=== PATIENT | male | born 1975 | race Caucasian/White ===

== ENCOUNTER → 2017-05-10 08:55 | Outpatient (CLI) | payer OTHER, SELFPAY ==
[2017-05-10 09:27] LABS: Basophils % 0.4 % (0.1-2.0); Eosinophils # 0.2 K/mm3 (0.0-0.4); Eosinophils % 2.3 % (0.1-12.0); Hematocrit 43.2 % (42.0-52.0); Hemoglobin 14.6 g/dL (14.1-18.0); Lymphocytes # 3.7 K/mm3 (0.7-4.5); Lymphocytes % 39.5 K/mm3 (10-50); Mean Corpuscular HGB Conc 33.8 g/dL (31.8-35.4); Mean Corpuscular Hemoglobin 29.7 pg (27.0-31.2); Mean Corpuscular Volume 88.1 fl (80-94); Mean Platelet Volume 7.2 fl (7.4-10.4); Monocytes # 0.5 K/mm3 (0.1-1.0); Monocytes % 5.6 % (1.7-9.3); Neutrophils # 4.9 K/mm3 (1.8-7.8); Neutrophils % 52.3 % (37.0-80.0); Platelet Count 230 K/mm3 (142-424); Red Blood Count 4.91 M/mm3 (4.60-6.20); Red Cell Distribution Width 13.3 % (11.5-17.5); White Blood Count 9.4 K/mm3 (4.8-10.8)
[2017-05-10 09:40] LABS: Alanine Aminotransferase 46 U/L (12-78); Albumin Level 3.7 gm/dL (3.4-5.0); Alkaline Phosphatase 113 U/L (46-116); Aspartate Amino Transferase 25 U/L (15-37); Bilirubin,Total 0.1 mg/dL (0.2-1.0); Blood Urea Nitrogen 10 mg/dL (7-18); Calcium 8.7 mg/dL (8.5-10.1); Carbon Dioxide 31 mmol/L (21.0-32.0); Chloride 103 mmol/L (98-107); Estimated Glomerular Filt Rate 107 ml/min (>60); GFR (African American) 129 ML/MIN (>60); Globulin 3.7 gm/dl (1.3-3.2); Glucose 88 mg/dL (74-106); Sodium 136 mmol/L (136-145); Total Protein,Serum 7.4 gm/dL (6.4-8.2)
[2017-05-11 18:36] LABS: HIV Screen 4th Generation wRfx Non Reactive (Non Reactive)
[2017-05-11 18:37] LABS: Hep B Surface Ab, Qual Non Reactive (.); Hepatitis C Antibody <0.1 s/co ratio (0.0-0.9)
== END ==
PROVIDERS: PCP Preventive Medicine Addiction Medicine; Visit Provider Preventive Medicine Addiction Medicine
DX: Z87.898 Personal history of other specified conditions (principal); Z86.59 Personal history of other mental and behavioral disorders; Z11.4 Encounter for screening for human immunodeficiency virus [HIV]; Z11.59 Encounter for screening for other viral diseases
CPT/HCPCS: 36415; 80053; 85025; 86703; 86706; 87380; G0432

== ENCOUNTER 2020-08-23 15:42 | Emergency (ER) | payer MEDICAID, SELFPAY ==
[2020-08-23] VITALS (7 sets, daily range): BP systolic 102–143; BP diastolic 64–83; PULSE 87–105; RESP 18; TEMP 36.8–36.9; O2SAT 90–98; BMI 38.7
--- NOTE | 2020-08-23 16:43 | HMH.EDGENADL ---
ED Disposition Clinical Impression: Peripheral edema, Stasis dermatitis of both legs Disposition: Home, Self-Care Condition on Discharge: Good Instructions: DI for Peripheral Edema -- Bilateral Additional Instructions: Elevate both legs. Lasix as prescribed for 3 days. Follow-up with your primary care provider within 1 week. Return to the emergency department if worsening redness, pain, or fever develops. Prescriptions: Furosemide [Lasix 20mg tab] 20 mg PO DAILY #3 tab Referrals: Provider,Referral, [Primary Care Provider] - - Critical Care Critical Care Time: No Attestation: On 08/23/20, the high probability of a clinically significant, sudden or life threatening deterioration of the following system(s) required my full and direct attention, intervention and personal management. The time I documented below is in addition to time spent performing reported procedures but includes the following listed in this critical care notation. Medical Decision Making - [place] Inquiry Pt receiving controlled substance: No Vital Signs: 08/23/20 15:43 08/23/20 16:31 08/23/20 17:00 Temperature 98.3 F Temperature Source Oral Pulse Rate 95 H 92 H Pulse Rate [Right] 105 H Respiratory Rate 18 Blood Pressure 102/64 L 107/65 L Blood Pressure [Right Arm] 138/83 Blood Pressure Mean 75 72 Blood Pressure Mean [Right Arm] 101 02 Sat by Pulse Oximetry 98 94 L 90 L 08/23/20 17:30 08/23/20 18:00 08/23/20 18:31 Temperature Temperature Source Pulse Rate 93 H 96 H 91 H Pulse Rate [Right] Respiratory Rate Blood Pressure 104/68 L 106/74 L 113/67 Blood Pressure [Right Arm] Blood Pressure Mean 75 80 82 Blood Pressure Mean [Right Arm] 02 Sat by Pulse Oximetry 96 96 93 L - Lab Data Lab Results 08/23/20 16:29: WBC 8.5, RBC 4.50 L, Hgb 14.1, Hct 40.8 L, MCV 90.5, MCH 31.4 H, MCHC 34.6, RDW 15.7, Plt Count 175, MPV 7.5, Neut % (Auto) 60.1, Lymph % (Auto) 32.2, [place] % (Auto) 4.2, Eos % (Auto) 2.8, Baso % (Auto) 0.7, Neut # (Auto) 5.1, Lymph # (Auto) 2.7, [place] # (Auto) 0.4, Eos # (Auto) 0.2, Baso # (Auto) 0.1 08/23/20 16:29: Sodium 140, Potassium 3.5, Chloride 101, Carbon Dioxide 31 H, Anion Gap 11.5, BUN 5 L, Creatinine 0.60 L, Estimated Creat Clear 280, Estimated GFR 146, Est GFR ( Amer) 177, Glucose 116 H, Calcium 8.8, Total Bilirubin 0.3, AST 47, ALT 46, Alkaline Phosphatase 106, Total Protein 7.3, Albumin 4.3, Globulin 3.0, Albumin/Globulin Ratio 1.4 08/23/20 16:29: ESR 24 H 08/23/20 16:29: C-Reactive Protein 13.0 H 08/23/20 16:29: NT-Pro-B Natriuret Pep < 11.1 08/23/20 16:29: Procalcitonin 0.076 08/23/20 17:30: Lactate 1.1 Result diagrams: 08/23/20 16:29 08/23/20 16:29 Orders (Tests/Meds): ED MEDICATIONS Discontinued Medications Generic Name Dose Route Start Last Admin Trade Name Freq PRN Reason Stop Dose Admin Furosemide 40 mg 08/23/20 19:05 08/23/20 19:11 Furosemide 40mg/4ml Vial IV 08/23/20 19:06 40 mg ONCE ONE Administration ORDERS Category Date Time Status Blood Culture Stat Micro 08/23/20 17:10 Received Medical Decision Narrative: Symmetric erythema and edema of lower extremities, no significant warmth over the area of erythema. No lymphangitis. No abscesses. No open wounds. Most likely venous stasis with stasis dermatitis. Doubt infectious cause. 7:16 PM: I do not feel the patient has bacterial infection. WBC normal, no fever. Inflammatory markers minimally elevated and pro calcitonin normal. He will be treated with Lasix, elevation. Advised to return if worsening redness or if fever develops. General Adult HPI - General Chief complaint: Extremity Injury, Lower Stated complaint: Legs swollen Time Seen by Provider: 08/23/20 16:43 Mode of Arrival: Family Vehicle Limitations: No Limitations Description of Symptoms (Recalled from ER Triage Doc. by RN): Patient c/o lower extremity ankle swelling and redness since 08/19/20. Patie
[2020-08-23 16:49] LABS: Basophils # 0.1 K/mm3 (0-0.2); Basophils % 0.7 % (0.1-2.0); Eosinophils # 0.2 K/mm3 (0.0-0.4); Eosinophils % 2.8 % (0.1-12.0); Hematocrit 40.8 % (42.0-52.0); Hemoglobin 14.1 g/dL (14.1-18.0); Lymphocytes # 2.7 K/mm3 (0.7-4.5); Lymphocytes % 32.2 % (10-50); Mean Corpuscular HGB Conc 34.6 g/dL (31.8-35.4); Mean Corpuscular Hemoglobin 31.4 pg (27.0-31.2); Mean Corpuscular Volume 90.5 fl (80-94); Mean Platelet Volume 7.5 fl (7.4-10.4); Monocytes # 0.4 K/mm3 (0.1-1.0); Monocytes % 4.2 % (1.7-9.3); Neutrophils # 5.1 K/mm3 (1.8-7.8); Neutrophils % 60.1 % (37.0-80.0); Platelet Count 175 K/mm3 (142-424); Red Cell Distribution Width 15.7 % (11.5-17.5); White Blood Count 8.5 K/mm3 (4.8-10.8)
[2020-08-23 16:56] LABS: Chloride 101 mmol/L (98-107); Potassium 3.5 mmoL/L (3.5-5.1); Sodium 140 mmol/L (136-145)
[2020-08-23 16:59] LABS: Alanine Aminotransferase 46 U/L (12-78); Albumin Level 4.3 g/dl (3.5-5.0); Albumin/Globulin Ratio 1.4 (1.1-1.8); Alkaline Phosphatase 106 U/L (38-126); Anion Gap 11.5 mEq/L (5-15); Aspartate Amino Transferase 47 U/L (17-59); Bilirubin,Total 0.3 mg/dl (0.2-1.3); Blood Urea Nitrogen 5 mg/dl (9-20); Carbon Dioxide 31 mmol/L (22.0-30.0); Creatinine Clearance Estimated 280 mL/min (50-200); Estimated Glomerular Filt Rate 146 ml/min (>60); GFR (African American) 177 ML/MIN (>60); Total Protein,Serum 7.3 g/dl (6.3-8.2)
[2020-08-23 17:00] LABS: Calcium 8.8 mg/dl (8.4-10.2); Glucose 116 mg/dl (74-100)
[2020-08-23 17:47] LABS: NT Pro Brain Natriuretic Pep. < 11.1 pg/mL (0-125)
[2020-08-23 17:48] LABS: Erythrocyte Sedimentation Rate 24 mm/hr (0-15)
[2020-08-23 17:53] LABS: Lactic Acid 1.1 mmol/L (0.7-2.1)
[2020-08-23 18:11] LABS: Procalcitonin 0.076 ng/mL (0.0-2.0)
== END 2020-08-23 19:37 | disposition home or self-care (01) ==
PROVIDERS: Emergency Provider Emergency Medicine
DX: R60.0 Localized edema (principal); I87.2 Venous insufficiency (chronic) (peripheral)
CPT/HCPCS: 80053; 83605; 83880; 84145; 85025; 85651; 86140; 87040; 96374; 99283

== ENCOUNTER 2021-01-05 10:38 | Emergency (ER) | payer MEDICAID, SELFPAY ==
[2021-01-05 10:51] VITALS: BP 175/100; PULSE 109; RESP 20; TEMP 36.9; O2SAT 96; BMI 39.0
--- NOTE | 2021-01-05 10:52 | HMH.EDGENADL ---
ED Disposition Clinical Impression: Facial cellulitis Disposition: Home, Self-Care Condition on Discharge: Fair Instructions: Cellulitis, DI for Skin Abscess Additional Instructions: You have been evaluated for painful red swelling to the left lower place, diagnosed with cellulitis. Take Bactrim as prescribed. Follow-up with your primary care doctor in 1 to 2 days for wound recheck. Take Tylenol and Motrin for pain. Return to the emergency department for any new or worsening symptoms, worsening swelling, difficulty breathing, difficulty swallowing. Prescriptions: Sulfamethoxazole/Trimethoprim [Bactrim DS tablet] 1 each PO BID #14 tab Transmission Status: Received by [facility] Referrals: ProviderCar MD [Primary Care Provider] - Giorgio Wakefield MD [Staff Physician] - Time of Disposition: 12:02 - Critical Care Critical Care Time: No Attestation: On 01/05/21, the high probability of a clinically significant, sudden or life threatening deterioration of the following system(s) required my full and direct attention, intervention and personal management. The time I documented below is in addition to time spent performing reported procedures but includes the following listed in this critical care notation. Medical Decision Making - Medical Records Medical records reviewed: Yes: I reviewed the patient's medical records. - [place] Inquiry Pt receiving controlled substance: No Vital Signs: 01/05/21 10:51 01/05/21 12:12 Temperature 98.4 F 98.4 F Temperature Source Oral Oral Pulse Rate 99 H Pulse Rate [Right Radial] 109 H Respiratory Rate 20 20 Blood Pressure 169/90 H Blood Pressure [Right Arm] 175/100 H Blood Pressure Mean [Right Arm] 125 02 Sat by Pulse Oximetry 96 Oxygen Delivery Method Room Air Room Air Orders (Tests/Meds): ED MEDICATIONS Discontinued Medications Generic Name Dose Route Start Last Admin Trade Name Freq PRN Reason Stop Dose Admin Cocaine HCl 1 ml 01/05/21 10:50 01/05/21 11:11 Cocaine 4% Topical Soln 4ml Bottle TP 01/05/21 10:51 Not Given ONCE ONE Epinephrine HCl 1 mg 01/05/21 10:50 01/05/21 11:11 Epinephrine 1 Mg/Ml Ampul TOPICAL 01/05/21 10:51 Not Given ONCE ONE Lidocaine HCl 1 ml 01/05/21 10:50 01/05/21 11:11 Lidocaine 4% Topical Soln 1ml TP 01/05/21 10:51 Not Given ONCE ONE Lidocaine HCl 5 ml 01/05/21 10:51 01/05/21 11:08 Lidocaine 1% 10ml Mdv SQ 01/05/21 10:52 5 ml ONCE ONE Administration Lidocaine/Prilocaine 5 gm 01/05/21 11:10 01/05/21 11:11 Lidocaine/Prilocaine 5gm Tube TP 01/05/21 11:11 5 gm ONCE ONE Administration Medical Decision Narrative: In summary this is a 45-year-old male with history of medication controlled diabetes presenting to the emergency department with an area of painful red swelling to his lower face, near the jawline. Patient clinically stable on arrival. Vital signs within normal limits. Afebrile. Differential diagnoses include cellulitis and abscess. He does not have teeth, doubt odontogenic source. Bedside ultrasound shows cobblestoning, consistent with cellulitis. There is no hypoechoic fluid collection amenable to drainage. Let gel applied and skin anesthetized with 1% lidocaine. Aspiration showed minimal white fluid, rest was serosanguinous. Abscess cavity packed with iodinated gauze. Patient given prescription for Bactrim. Counseled on close PCP follow-up, recommended wound check in 1-2 days. Given return precautions. Stable for discharge. General Adult HPI - General Stated complaint: abscess outside of mouth&back of head Time Seen by Provider: 01/05/21 10:52 Mode of Arrival: Ambulatory Source of Information: Patient Limitations: No Limitations - History of Present Illness HPI narrative: 45-year-old male presenting to the emergency department with an area of painful swelling to the lower side of his left jaw. Noticed it 2 days ago. It was re
--- NOTE | 2021-01-05 11:17 | PC.NURSE ---
emla cream applied per md request
[2021-01-05 12:12] VITALS: BP 169/90; PULSE 99; RESP 20; TEMP 36.9; O2SAT 96
== END 2021-01-05 12:17 | disposition home or self-care (01) ==
PROVIDERS: Emergency Provider Emergency Medicine
DX: L03.211 Cellulitis of face (principal); E11.9 Type 2 diabetes mellitus without complications; Z88.5 Allergy status to narcotic agent
CPT/HCPCS: 10060; 99282

== ENCOUNTER → 2022-12-03 23:40 | Outpatient (CLI) | payer MEDICAID, SELFPAY ==
[2022-12-03 18:24] LABS: Alanine Aminotransferase 72 U/L (12-78); Albumin Level 4.1 g/dl (3.5-5.0); Albumin/Globulin Ratio 1.3 (1.1-1.8); Alkaline Phosphatase 121 U/L (38-126); Anion Gap 9.9 mEq/L (5-15); Aspartate Amino Transferase 49 U/L (17-59); Bilirubin,Total 0.2 mg/dl (0.2-1.3); Blood Urea Nitrogen 11 mg/dl (9-20); Carbon Dioxide 30 mmol/L (22.0-30.0); Chloride 99 mmol/L (98-107); Chol/HDL Ratio 6.1 (1-3.5); Cholesterol 207 mg/dl (140-200); Estimated Glomerular Filt Rate 121 ml/min (>60); GFR (African American) 146 ML/MIN (>60); Globulin 3.2 g/dL (1.3-3.2); Glucose 146 mg/dl (74-100); HDL Cholesterol 34 mg/dl (40-60); Potassium 3.9 mmoL/L (3.5-5.1); Sodium 135 mmol/L (136-145); Total Protein,Serum 7.3 g/dl (6.3-8.2); Triglycerides 277 mg/dl (30-150); VLDL Cholesterol 55 mg/dL (0-40)
[2022-12-03 18:34] LABS: Direct LDL Cholesterol 130.21 mg/dL (100-129)
[2022-12-03 18:38] LABS: Basophils % 0.5 % (0.1-2.0); Eosinophils # 0.2 K/mm3 (0.0-0.4); Eosinophils % 2.3 % (0.1-12.0); Hemoglobin 15.5 g/dL (14.1-18.0); Lymphocytes % 43.5 % (10-50); Mean Corpuscular HGB Conc 35.2 g/dL (31.8-35.4); Mean Corpuscular Hemoglobin 30.8 pg (27.0-31.2); Mean Corpuscular Volume 87.6 fl (80-94); Mean Platelet Volume 8.5 fl (7.4-10.4); Monocytes # 0.4 K/mm3 (0.1-1.0); Monocytes % 4.3 % (1.7-9.3); Neutrophils # 4.6 K/mm3 (1.8-7.8); Neutrophils % 49.5 % (37.0-80.0); Platelet Count 180 K/mm3 (142-424); Red Blood Count 5.03 M/mm3 (4.60-6.20); Red Cell Distribution Width 14.2 % (11.5-17.5); White Blood Count 9.2 K/mm3 (4.8-10.8)
[2022-12-03 18:40] LABS: Free T4 (Free Thyroxine) 1.13 ng/dl (0.78-2.19)
[2022-12-03 19:12] LABS: Hemoglobin A1C 6.6 % (4.0-6.0)
== END ==
PROVIDERS: PCP Nurse Practitioner Acute Care; Visit Provider Nurse Practitioner Acute Care
DX: F34.1 Dysthymic disorder (principal); F41.1 Generalized anxiety disorder
CPT/HCPCS: 80053; 80061; 83036; 84439; 84443; 85025

== ENCOUNTER → 2023-02-04 06:51 | Outpatient (CLI) | payer OTHER, SELFPAY ==
[2023-02-04 18:23] LABS: Basophils % 0.5 % (0.1-2.0); Eosinophils # 0.1 K/mm3 (0.0-0.4); Eosinophils % 1.8 % (0.1-12.0); Hematocrit 41.2 % (42.0-52.0); Hemoglobin 13.7 g/dL (14.1-18.0); Lymphocytes # 2.7 K/mm3 (0.7-4.5); Lymphocytes % 37.7 % (10-50); Mean Corpuscular HGB Conc 33.3 g/dL (31.8-35.4); Mean Corpuscular Hemoglobin 29.8 pg (27.0-31.2); Mean Corpuscular Volume 89.3 fl (80-94); Mean Platelet Volume 7.8 fl (7.4-10.4); Monocytes # 0.4 K/mm3 (0.1-1.0); Monocytes % 4.9 % (1.7-9.3); Neutrophils % 55.1 % (37.0-80.0); Platelet Count 207 K/mm3 (142-424); Red Blood Count 4.62 M/mm3 (4.60-6.20); Red Cell Distribution Width 14.8 % (11.5-17.5); White Blood Count 7.3 K/mm3 (4.8-10.8)
[2023-02-04 18:30] LABS: Alanine Aminotransferase 51 U/L (12-78); Albumin Level 4.1 g/dl (3.5-5.0); Albumin/Globulin Ratio 1.5 (1.1-1.8); Alkaline Phosphatase 99 U/L (38-126); Anion Gap 8.6 mEq/L (5-15); Aspartate Amino Transferase 110 U/L (17-59); Bilirubin,Total 0.3 mg/dl (0.2-1.3); Blood Urea Nitrogen 11 mg/dl (9-20); Calcium 8.4 mg/dl (8.4-10.2); Carbon Dioxide 29 mmol/L (22.0-30.0); Chloride 100 mmol/L (98-107); Estimated Glomerular Filt Rate 121 ml/min (>60); GFR (African American) 146 ML/MIN (>60); Globulin 2.8 g/dL (1.3-3.2); Glucose 123 mg/dl (74-100); Potassium 3.6 mmoL/L (3.5-5.1); Sodium 134 mmol/L (136-145); Total Protein,Serum 6.9 g/dl (6.3-8.2)
[2023-02-04 18:57] LABS: Hemoglobin A1C 5.7 % (4.0-6.0)
== END ==
PROVIDERS: PCP Nurse Practitioner; Visit Provider Nurse Practitioner
DX: E11.9 Type 2 diabetes mellitus without complications (principal); I10 Essential (primary) hypertension; R60.0 Localized edema; Z79.84 Long term (current) use of oral hypoglycemic drugs; Z72.0 Tobacco use
CPT/HCPCS: 80053; 83036; 85025

== ENCOUNTER 2023-02-26 14:11 | Outpatient (CLI) | payer OTHER, SELFPAY ==
--- NOTE | 2023-02-26 14:11 | CA_ITS ---
APPROVED REPORT EXAM: Comprehensive 2D, Doppler, and color-flow Echocardiogram Cork Grinder: KARISSA Amaya, RVS Ht: 5 ft 11 in Wt: 264lbs BSA: 2.37 BP: 138/74 mmHg Indications: Smoker, EDEMA with cellulitis, Family HX=HD, DM, HTN 2D Dimensions IVSd 0.91 cm M: 0.6-1.2 LVEF (Visual) 72.50 % PWd 1.22 cm M: 0.6 - 1.2 LA Volume 85.90 mL LVDd 5.50 cm M: 4.2 - 5.9 LA Volume Index 36.09 mL/m2 (M/F) 16-34 LVDs 3.19 cm M: 2.5 - 4.0 EF AP4 57.70 % Aortic Root 3.20 cm M: 3.1 - 3.7 GL Strain -20.9 % Left Atrium 3.63 cm M: 3.0 - 4.0 RVID Base (AP4) 4.41 cm (M/F) 2.5-4.1 LVOT 2.21 cm (M/F) 1.5-2.5 M-Mode Dimensions LVDd 5.50 cm (3.5-5.7) Ao Diam 3.14 cm (2.0-3.7) LVDs 3.19 cm (3.5-5.7) IVSd 0.91 cm (0.6-1.1) PWd 1.22 cm (0.6-1.1) EPSs 1.03 cm FS 42.00% TAPSE 2.02 (<1.7) LV Diastology E Decel Time 189 (160-240 msec) E/A Ratio 1.3 MED E' 11.0 (>= 7 cm/sec) MED A' 16.30 cm/s E'/MED E' Ratio 10.92 (<= 14) LAT E' 12.2 (>= 10 cm/sec) LAT A' 14.60 cm/s E/LAT E' Ratio 9.84 (<= 14) Aortic Valve LVOT Max 150.0 (70-110 cm/s) MARISEL Index 1.37 cm2/m2 LVOT VTI 28.39 cm AoV Peak Lawrence. 192.0 (50-130 cm/s) AO Mean GR. 7.40 (<5 mmHg) AO VTI 33.5 (18-25 cm) MARISEL (VTI) 3.25 (2.5-4.5 cm2) Mitral Valve MV E Max Lawrence. 120.0 (40-130 cm/s) MV A Velocity 96.0 (40-130 cm/s) E/A Ratio 1.26 MV Decel. Time 189 (160-240 ms) Left Ventricle The left ventricle is normal size. The left ventricular systolic function is normal. The left ventricular ejection fraction is within the normal range. There is normal left ventricular wall thickness. There is normal LV segmental wall motion. The left ventricular diastolic function is normal. LVEF is 55%. Right Ventricle The right ventricle is mildly dilated. The right ventricular systolic function is normal. Atria The left atrium size is normal. There is no Doppler evidence of interatrial shunt. Aortic Valve The aortic valve opens well. There is no aortic valvular stenosis. Trace aortic regurgitation. Mitral Valve The mitral valve is normal in structure. No evidence of mitral valve stenosis. Trace mitral regurgitation. Tricuspid Valve The tricuspid valve leaflets are thin and pliable. Trace tricuspid regurgitation. There is insufficient TR jet to estimate RVSP. Pulmonic Valve The pulmonary valve is normal in structure. Trace pulmonic regurgitation. Great Vessels The aortic root is normal in size. The ascending aorta is normal in size. IVC is normal in size and collapses >50% with inspiration. Pericardium There is no pericardial effusion. Other Information Study Quality: Adequate Conclusion Normal biventricular systolic function. Mild RV dilation. No significant valvular stenosis or regurgitation. Electronically signed by : Shama Rwoe MD 03/01/2023 23:12:48
== END 2023-02-26 23:59 ==
PROVIDERS: PCP Nurse Practitioner; Visit Provider Nurse Practitioner
DX: R60.0 Localized edema (principal)
CPT/HCPCS: 93306

== ENCOUNTER 2023-03-25 21:55 | Outpatient (CLI) | payer OTHER, SELFPAY ==
[2023-03-25 18:38] LABS: Basophils # 0.1 K/mm3 (0-0.2); Eosinophils # 0.2 K/mm3 (0.0-0.4); Eosinophils % 2.4 % (0.1-12.0); Hematocrit 42.1 % (42.0-52.0); Hemoglobin 14.4 g/dL (14.1-18.0); Lymphocytes # 3.5 K/mm3 (0.7-4.5); Lymphocytes % 43.5 % (10-50); Mean Corpuscular HGB Conc 34.2 g/dL (31.8-35.4); Mean Corpuscular Hemoglobin 30.9 pg (27.0-31.2); Mean Corpuscular Volume 90.5 fl (80-94); Mean Platelet Volume 8.8 fl (7.4-10.4); Monocytes # 0.5 K/mm3 (0.1-1.0); Monocytes % 6.4 % (1.7-9.3); Neutrophils # 3.8 K/mm3 (1.8-7.8); Neutrophils % 46.6 % (37.0-80.0); Platelet Count 204 K/mm3 (142-424); Red Blood Count 4.65 M/mm3 (4.60-6.20); Red Cell Distribution Width 14.3 % (11.5-17.5); White Blood Count 8.1 K/mm3 (4.8-10.8)
[2023-03-25 18:49] LABS: Alanine Aminotransferase 35 U/L (12-78); Albumin/Globulin Ratio 1.5 (1.1-1.8); Alkaline Phosphatase 108 U/L (38-126); Anion Gap 7.9 mEq/L (5-15); Aspartate Amino Transferase 41 U/L (17-59); Bilirubin,Total 0.3 mg/dl (0.2-1.3); Blood Urea Nitrogen 11 mg/dl (9-20); Calcium 9.1 mg/dl (8.4-10.2); Carbon Dioxide 34 mmol/L (22.0-30.0); Chloride 97 mmol/L (98-107); Chol/HDL Ratio 5.4 (1-3.5); Cholesterol 232 mg/dl (140-200); Estimated Glomerular Filt Rate 144 ml/min (>60); GFR (African American) 175 ML/MIN (>60); Globulin 2.7 g/dL (1.3-3.2); Glucose 98 mg/dl (74-100); HDL Cholesterol 43 mg/dl (40-60); Potassium 3.9 mmoL/L (3.5-5.1); Sodium 135 mmol/L (136-145); Total Protein,Serum 6.7 g/dl (6.3-8.2); Triglycerides 164 mg/dl (30-150); VLDL Cholesterol 33 mg/dL (0-40)
[2023-03-25 19:00] LABS: Direct LDL Cholesterol 145.79 mg/dL (100-129)
[2023-03-25 19:04] LABS: Creatinine,Urine Random 72 mg/dL (Not Estab.)
[2023-03-25 19:08] LABS: Microalbumin/Creatinine Ratio 11.2
[2023-03-25 19:11] LABS: Hemoglobin A1C 5.9 % (4.0-6.0)
[2023-03-25 19:38] LABS: Vitamin B12 481 pg/mL (239-931)
== END 2023-03-25 23:59 ==
PROVIDERS: PCP Nurse Practitioner; Visit Provider Nurse Practitioner
DX: E11.9 Type 2 diabetes mellitus without complications (principal); E78.5 Hyperlipidemia, unspecified; I10 Essential (primary) hypertension; R60.0 Localized edema; Z79.84 Long term (current) use of oral hypoglycemic drugs
CPT/HCPCS: 80053; 80061; 82043; 82570; 82607; 83036; 85025

== ENCOUNTER 2023-06-04 18:41 | Outpatient (CLI) | payer OTHER, SELFPAY ==
[2023-06-04 20:00] LABS: Hemoglobin A1C 6.1 % (4.0-6.0)
[2023-06-04 20:17] LABS: Chloride 100 mmol/L (98-107); Potassium 4.3 mmoL/L (3.5-5.1); Sodium 139 mmol/L (136-145)
[2023-06-04 20:20] LABS: Alanine Aminotransferase 41 U/L (12-78); Albumin/Globulin Ratio 1.4 (1.1-1.8); Alkaline Phosphatase 98 U/L (38-126); Anion Gap 9.3 mEq/L (5-15); Aspartate Amino Transferase 106 U/L (17-59); Bilirubin,Total 0.5 mg/dl (0.2-1.3); Blood Urea Nitrogen 12 mg/dl (9-20); Calcium 9.1 mg/dl (8.4-10.2); Carbon Dioxide 34 mmol/L (22.0-30.0); Cholesterol 232 mg/dl (140-200); Estimated Glomerular Filt Rate 104 ml/min (>60); GFR (African American) 125 ML/MIN (>60); Globulin 2.8 g/dL (1.3-3.2); Glucose 109 mg/dl (74-100); Total Protein,Serum 6.8 g/dl (6.3-8.2); Triglycerides 189 mg/dl (30-150); VLDL Cholesterol 38 mg/dL (0-40)
[2023-06-04 20:21] LABS: Chol/HDL Ratio 4.5 (1-3.5); HDL Cholesterol 51 mg/dl (40-60)
[2023-06-04 20:31] LABS: Direct LDL Cholesterol 137.21 mg/dL (100-129)
== END 2023-06-04 23:59 | disposition home or self-care (01) ==
LOC: LAB.DROPOF 18:43
PROVIDERS: PCP Nurse Practitioner; Visit Provider Nurse Practitioner
DX: E11.9 Type 2 diabetes mellitus without complications (principal); I10 Essential (primary) hypertension; E78.5 Hyperlipidemia, unspecified; Z79.84 Long term (current) use of oral hypoglycemic drugs
CPT/HCPCS: 80053; 80061; 83036

== ENCOUNTER 2023-08-06 18:00 | Outpatient (CLI) | payer OTHER, SELFPAY ==
[2023-08-06 19:11] LABS: Basophils # 0.1 K/mm3 (0-0.2); Basophils % 1.4 % (0.1-2.0); Eosinophils # 0.2 K/mm3 (0.0-0.4); Eosinophils % 1.8 % (0.1-12.0); Hematocrit 50.4 % (42.0-52.0); Hemoglobin 16.7 g/dL (14.1-18.0); Lymphocytes # 3.9 K/mm3 (0.7-4.5); Lymphocytes % 43.1 % (10-50); Mean Corpuscular HGB Conc 33.1 g/dL (31.8-35.4); Mean Corpuscular Hemoglobin 30.9 pg (27.0-31.2); Mean Corpuscular Volume 93.3 fl (80-94); Monocytes # 0.5 K/mm3 (0.1-1.0); Monocytes % 5.1 % (1.7-9.3); Neutrophils # 4.4 K/mm3 (1.8-7.8); Neutrophils % 48.6 % (37.0-80.0); Platelet Count 235 K/mm3 (142-424); Red Cell Distribution Width 14.5 % (11.5-17.5); White Blood Count 9.1 K/mm3 (4.8-10.8)
[2023-08-06 20:11] LABS: Alanine Aminotransferase 33 U/L (12-78); Albumin Level 4.4 g/dl (3.5-5.0); Albumin/Globulin Ratio 1.5 (1.1-1.8); Alkaline Phosphatase 115 U/L (38-126); Anion Gap 14.8 mEq/L (5-15); Aspartate Amino Transferase 32 U/L (17-59); Bilirubin,Total 0.3 mg/dl (0.2-1.3); Blood Urea Nitrogen 11 mg/dl (9-20); Calcium 9.5 mg/dl (8.4-10.2); Carbon Dioxide 31 mmol/L (22.0-30.0); Chloride 95 mmol/L (98-107); Cholesterol 211 mg/dl (140-200); Estimated Glomerular Filt Rate 104 ml/min (>60); GFR (African American) 125 ML/MIN (>60); Glucose 108 mg/dl (74-100); HDL Cholesterol 42 mg/dl (40-60); Potassium 3.8 mmoL/L (3.5-5.1); Sodium 137 mmol/L (136-145); Total Protein,Serum 7.4 g/dl (6.3-8.2); Triglycerides 191 mg/dl (30-150); VLDL Cholesterol 38 mg/dL (0-40)
[2023-08-06 20:25] LABS: Direct LDL Cholesterol 134.89 mg/dL (100-129)
[2023-08-06 20:45] LABS: Thyroid Stimulating Hormone 2.54 uIU/mL (0.465-4.68)
== END 2023-08-06 23:59 | disposition home or self-care (01) ==
LOC: LAB.DROPOF 08-07 13:39
PROVIDERS: PCP Nurse Practitioner Acute Care; Visit Provider Nurse Practitioner Acute Care
DX: R53.83 Other fatigue (principal); E11.9 Type 2 diabetes mellitus without complications; Z79.84 Long term (current) use of oral hypoglycemic drugs; I10 Essential (primary) hypertension; F17.210 Nicotine dependence, cigarettes, uncomplicated
CPT/HCPCS: 80050; 80053; 80061; 83036; 84443; 85025

== ENCOUNTER 2024-01-14 15:00 | Outpatient (CLI) | payer OTHER, SELFPAY | END 2024-01-14 23:59 | disposition home or self-care (01) | LOC: LAB.DROPOF 01-15 07:46 | PROVIDERS: PCP Nurse Practitioner; Visit Provider Nurse Practitioner | DX: L02.512 Cutaneous abscess of left hand (principal) | CPT/HCPCS: 87070; 87077; 87186; 87205 ==

== ENCOUNTER 2024-04-11 19:45 | Inpatient (IN) | payer OTHER, SELFPAY ==
[2024-04-11] VITALS (12 sets, daily range): BP systolic 79–120; BP diastolic 52–70; PULSE 95–122; RESP 20–34; TEMP 37–37.8; O2SAT 74–98; BMI 30.7; BMI 29.7
--- NOTE | 2024-04-11 19:55 | XR_ITS ---
PROCEDURE INFORMATION: Exam: XR Chest Exam date and time: 04/11/2024 8:07 PM Age: 48 years old Clinical indication: Dyspnea TECHNIQUE: Imaging protocol: Radiologic exam of the chest. Views: 1 view. COMPARISON: No relevant prior studies available. FINDINGS: Lungs: Multifocal airspace opacities. Pleural spaces: Possible small right pleural effusion. No pneumothorax. Heart/Mediastinum: No cardiomegaly. Bones/joints: No acute findings. IMPRESSION: 1. Multifocal airspace opacities which may represent infection or pulmonary edema in the acute setting. 2. Possible small right pleural effusion.
--- NOTE | 2024-04-11 19:57 | HMH.EDGENADL ---
Discharge Plan Disposition Patient Disposition: Admitted Chief Complaint: Fever Prescriptions Prescriptions: No Action (DME) Blood Glucose Test Strip See Rx Instructions .MEDSUPPLY Qty: 50 11RF Rx Instructions: As directed (DME) blood-glucose meter [Blood Glucose Monitoring] Kit See Rx Instructions .MEDSUPPLY Qty: 1 0RF Rx Instructions: As directed (DME) lancets Misc See Rx Instructions .MEDSUPPLY Qty: 100 11RF Rx Instructions: As directed gabapentin 300 mg capsule PO Patient Comments: TAKE 1 CAPSULE BY MOUTH EVERY DAY AT NIGHT cefdinir 300 mg capsule 300 mg PO BID Qty: 20 0RF sulfamethoxazole-trimethoprim [Bactrim DS] 800-160 mg tablet 1 tab PO BID Qty: 20 0RF (DME) comp.stocking,thigh,long,x-lrg Misc See Rx Instructions .Route Qty: 12 0RF Rx Instructions: As directed naloxone 4 mg/actuation spray,non-aerosol intranasal buprenorphine-naloxone 8-2 mg tablet, sublingual 2 tab sublingual DAILY hydrochlorothiazide 25 mg tablet 25 mg PO DAILY Qty: 90 1RF Jardiance 10 mg tablet 10 mg PO DAILY Qty: 90 1RF desvenlafaxine succinate [Pristiq] 100 mg tablet extended release 24 hr 100 mg PO DAILY Qty: 30 2RF atorvastatin 20 mg tablet See Rx Instructions .ROUTE .COMPLEX Qty: 30 10RF Dose Instruction: TAKE 1 TABLET BY MOUTH DAILY Rx Instructions: TAKE 1 TABLET BY MOUTH DAILY bupropion HCl [Wellbutrin XL] 150 mg tablet extended release 24 hr 150 mg PO DAILY Qty: 30 2RF Vraylar 1.5 mg capsule 1.5 mg PO DAILY Qty: 30 2RF lisinopril 5 mg tablet 5 mg PO DAILY Qty: 90 1RF metformin 500 mg tablet 500 mg PO DAILY Qty: 90 1RF Clinical Impressions Clinical Impression: Sepsis, Acute hypoxic respiratory failure, Multifocal pneumonia, Cellulitis of foot, Chronic diabetic ulcer of foot determined by examination, SAGAR (acute kidney injury), Acute hyponatremia, Acute hypokalemia, Influenza A Print Language Print Language: Turkish Discharge ED Provider: Rikki Kramer General Adult HPI General Chief complaint: Fever Stated complaint: congestion,SOA,body aches Time Seen by Provider: 04/11/24 19:51 History of Present Illness HPI narrative: 48-year-old presenting in acute respiratory distress and his clinical status prevents him from given the extensive history as he is having difficulty speaking. Oxygen saturation 70% in triage. He denies any history of COPD but does state that he smokes too much. Denies any definitive diagnosis of any heart or lung problems. States has had a fever and cough the last week that is the extent of what he can tell me at the moment. Related Data Home Medications ?Medication ?Instructions ?Recorded ?Confirmed buprenorphine 8 mg-naloxone 2 mg 2 tab sublingual DAILY 08/06/23 01/14/24 sublingual tablet naloxone 4 mg/actuation nasal spray intranasal 08/06/23 01/14/24 gabapentin 300 mg capsule mg PO 01/14/24 01/14/24 Previous Rx's ?Medication ?Instructions ?Recorded blood sugar diagnostic (Blood #50 ea 12/13/22 Glucose Test strips) blood-glucose meter (Blood Glucose #1 ea 12/13/22 Monitoring kit) lancets #100 ea 12/13/22 comp.stocking,thigh,long,x-lrg #12 ea 02/04/23 hydrochlorothiazide 25 mg tablet 25 mg PO DAILY #90 tabs 10/02/23 empagliflozin 10 mg tablet 10 mg PO DAILY #90 tabs 12/02/23 (Jardiance) desvenlafaxine succinate 100 mg 100 mg PO DAILY #30 tabs 12/17/23 tablet,extended release 24 hr (Pristiq) atorvastatin 20 mg tablet See Rx Instructions .Route 12/30/23 .COMPLEX #30 tabs bupropion HCl 150 mg 24 hr tablet, 150 mg PO DAILY #30 tabs 12/30/23 extended release (Wellbutrin XL) cefdinir 300 mg capsule 300 mg PO BID #20 caps 01/14/24 sulfamethoxazole 800 1 tab PO BID #20 tabs 01/14/24 mg-trimethoprim 160 mg tablet (Bactrim DS) cariprazine 1.5 mg capsule 1.5 mg PO DAILY #30 caps 02/18/24 (Vraylar) lisinopril 5 mg tablet 5 mg PO DAILY #90 tabs 03/04/24 metformin 500 mg tablet 500 mg PO DAILY #90 tabs 03/04/24 Allergies Allergy/AdvReac Type Severity Reaction Status Date / Time No Known Allergies Allergy Verified 01/14/24 14:00 [facility] Disclaimer: The information contained in this section may have been updated after the patient was seen, as this information can be updated by other users. Medical History Ulcer of right foot limited to breakdown of skin Varicose veins of both lower extremities Hyperlipidemia Bilateral lower extremity edema Essential hypertension Type 2 diabetes mellitus without complications Chronic post-traumatic stress disorder (PTSD) Hx of fracture of lower leg Surgical History History of mandibular surgery H/O hernia repair Family History Father Coronary artery disease FHx: mental illness Mother FHx: mental illness Sister FHx: mental illness Sister FHx: mental illness Social History (Updated 01/14/24 @ 14:07 by Mariama Savage MA) Smoking Status: Current every day smoker tobacco type: cigarettes packs per day: 1 smoking status start date: Age 13 quit status: not considering quitting second hand exposure: Yes alcohol intake: former substance use type: former substance user counseling given: Yes current occupational status: unemployed Travel in the last 8 weeks: None marital status: single number of children: 2 education level: high school service: No snf: No well-balanced diet: rarely or never caffeine: Yes high-fat food intake: 3 or more times/day daily servings fruits/ve-1 daily servings of milk/calcium: 0-1 eating out: 1-3 times/week reads food labels: seldom or never during the past year weight has: increased > 10 lbs physical activity: none nae/orthodoxy: Yarsanism special nae needs: No agree to transfusion: No helmet use: No drive intox or ride w/ intox transportation driver: Yes drive intox or w/ intox transportation driver: rarely working smoke detector in home: Yes do you feel safe at home: Yes victim of physical abuse: No victim of emotional abuse: No victim of sexual abuse: No would you like helpful sources: No Have you lived/traveled outside [place] in past 30 days?: No Contact w/someone who lives/traveled outside US past 30 days?: No Exposure to someone with infectious disease in past 14 days?: No Do you have a fever (greater than 100.4 F or 38 C)?: No Have you tested positive for COVID-19: No Exposed to someone with COVID-19 in past 14 days?: No Do you have a sore throat?: No Do you have a cough?: No Do you have any weakness?: No Do you have any diarrhea?: No Are you experiencing any unusual bleeding?: No Do you have any muscle aches/pain?: Yes Do you have any abdominal pain?: No Are you experiencing loss of taste or smell?: No Other Medical History Have you received the Flu Vaccine for this season: Yes Have you received the Pneumonia Vaccine: No ROS Obtained: Yes All systems reviewed & no additional complaints except as documented Physical Exam General General appearance: in distress (Oxygen saturations in the mid 70s on room air placed on 6 L normalized into the lower 90s in severe distress from respiratory standpoint) Respiratory Respiratory exam: Present other (Patient is tachypneic breathing around 30 times a minute no prolonged expiratory phase or wheezing noted severely hypoxic as stated above) Cardiovascular Cardiovascular exam: Present tachycardia Neurological Exam Neurological exam: Present alert, oriented X3 and other (Nonfocal) Medical Decision Making Medical Records Screening: Per USPSTF and CDC recommendations, given the prevalence of disease in our region, it is our hospital?s policy to screen for HIV and viral Hepatitis for all patients aged 18 and over and those with ongoing risk factors. [place]ick Inquiry Pt receiving controlled substance: No Vital Signs: 04/11/24 19:46 04/11/24 19:55 Temperature 100.1 F H Temperature Source Oral Pulse Rate [Right] 122 H Respiratory Rate 34 H Blood Pressure [Right Arm] 120/67 Blood Pressure Mean [Right Arm] 84 Blood Pressure Source [Right Arm] Automatic Cuff Blood Pressure Position [Right Arm] Supine 02 Sat by Pulse Oximetry 74 L 96 Oxygen Delivery Method Room Air Nasal Cannula Oxygen Flow Rate (LPM) 6 Lab Data Lab results reviewed: Yes I reviewed the patient's lab results. Lab Results 04/11/24 19:55: VBG pH 7.39, VBG pCO2 46.3, VBG pO2 45.8 H, VBG HCO3 27.1, VBG Total CO2 28.6 H, VBG O2 Saturation 82.3 H, VBG Base Excess 2.1, VBG Lactic Acid 2.2 H 04/11/24 19:56: WBC 12.8 H, RBC 3.94 L, Hgb 11.2 L, Hct 32.5 L, MCV 82.5, MCH 28.4, MCHC 34.5, RDW 15.5, Plt Count 190, MPV 10.0, Neut % (Auto) 79.9, Lymph % (Auto) 5.6 L, [place] % (Auto) 13.5 H, Eos % (Auto) 0.0 L, Baso % (Auto) 0.4, Neut # (Auto) 10.2 H, Lymph # (Auto) 0.7, [place] # (Auto) 1.7 H, Eos # (Auto) 0.0, Baso # (Auto) 0.1, Sodium 128 L, Potassium 3.1 L, Chloride 88 L, Carbon Dioxide 30, Anion Gap 13.1, BUN 43 H, Creatinine 1.30 H, Estimated Creat Clear 98, Estimated GFR 59, Est GFR ( Amer) 71, Glucose 159 H, Calcium 8.2 L, Total Bilirubin 0.8, AST 94 H, ALT 51, Alkaline Phosphatase 96, Troponin I < 0.01, C-Reactive Protein 316.1 H, NT-Pro-B Natriuret Pep 1490 H, Total Protein 7.2, Albumin 3.6, Globulin 3.6 H, Albumin/Globulin Ratio 1.0 L, SARS-CoV-2 (PCR) Not detected, HCV Ab ADIN w/Rflx PCR Qn Negative, HIV Ag/Ab Combo Qual Negative, Influenza A Untype (PCR) Detected A, Influenza Type B (PCR) Not detected 04/11/24 19:56 04/11/24 19:56 Orders (Tests/Meds): ED MEDICATIONS Generic Name Dose Route Start Last Admin Trade Name Freq PRN Reason Stop Dose Admin Potassium Chloride/Water 100 mls @ 100 mls/hr 04/11/24 20:30 Potassium Chloride 10meq/100ml Ivpb IV 04/11/24 23:29 Q1H CORTEZ Vancomycin HCl 2,000 mg/ 500 mls @ 125 mls/hr 04/11/24 20:30 Sodium Chloride IV 04/12/24 00:29 ONCE ONE Potassium Chloride/Water 100 mls @ 100 mls/hr 04/11/24 21:00 Potassium Chloride 10meq/100ml Ivpb IV 04/11/24 23:59 Q1H CORTEZ Miscellaneous 1 each 04/11/24 20:15 04/11/24 20:37 Vancomycin Consult Request NOTAPPLIC 05/11/24 20:14 1 each CONSULT PHARMACY CORTEZ Administration Sodium Chloride 3 ml 04/11/24 20:10 Sodium Chloride 3% 15ml Neb IH 05/11/24 20:09 ONCE PRN INDUCE SPUTUM COLLECTION Discontinued Medications Generic Name Dose Route Start Last Admin Trade Name Freq PRN Reason Stop Dose Admin Acetaminophen 1,000 mg 04/11/24 19:55 04/11/24 20:12 Acetaminophen 1,000mg/100ml Vial IV 04/11/24 19:56 1,000 mg ONCE ONE Administration Lactated Ringer's 1,000 mls @ 999 mls/hr 04/11/24 20:00 04/11/24 20:12 Lactated Ringer's 1000 Ml Bag IV 04/11/24 21:00 999 mls/hr .Q1H1M CORTEZ Administration Piperacillin Sod/Tazobactam 50 mls @ 100 mls/hr 04/11/24 20:10 04/11/24 20:49 Sod 3.375 gm/ Sodium Chloride IV 04/11/24 20:39 100 mls/hr ONCE ONE Administration Azithromycin 500 mg/ Sodium 250 mls @ 250 mls/hr 04/11/24 20:10 04/11/24 20:46 Chloride IV 04/11/24 20:11 250 mls/hr ONCE ONE Administration Iopamidol 70 ml 04/11/24 21:09 04/11/24 21:20 Iopamidol-370 (76%);100ml Bottle IV 04/11/24 21:10 70 ml ONCE ONE Administration Iopamidol 70 ml 04/11/24 21:10 04/11/24 21:20 Iopamidol-370 (76%);100ml Bottle IV 04/11/24 21:11 70 ml ONCE ONE Administration Oseltamivir Phosphate 75 mg 04/11/24 20:44 Oseltamivir 75mg Capsule PO 04/11/24 20:45 ONCE ONE Potassium Chloride 40 meq 04/11/24 20:52 Potassium Chloride 20meq Tab PO 04/11/24 20:53 ONCE ONE Sodium Chloride 50 ml 04/11/24 21:09 04/11/24 21:20 0.9 % Sodium Chloride 50 Ml Vial IV 04/11/24 21:10 50 ml ONCE ONE Administration Sodium Chloride 10 ml 04/11/24 21:09 04/11/24 21:20 Sodium Chloride 0.9% 10ml Syr (Rad Only) IV 04/11/24 21:10 10 ml ONCE ONE Administration Sodium Chloride 50 ml 04/11/24 21:10 04/11/24 21:20 0.9 % Sodium Chloride 50 Ml Vial IV 04/11/24 21:11 50 ml ONCE ONE Administration Sodium Chloride 10 ml 04/11/24 21:10 04/11/24 21:20 Sodium Chloride 0.9% 10ml Syr (Rad Only) IV 04/11/24 21:11 10 ml ONCE ONE Administration ORDERS Category Date Time Status CT angio chest PE protocol Stat Cat Scan 04/11/24 20:[address] foot RT w con Stat Cat Scan 04/11/24 20:48 Taken CXR --portable [XR chest portable] Stat Exams 04/11/24 19:55 Taken POCUS Point of Care (ER Only) Stat Exams 04/11/24 19:55 Completed XR foot LT 2V Stat Exams 04/11/24 20:32 Taken XR foot RT 2V Stat Exams 04/11/24 20:32 Taken BNP [NT Pro Brain Natriuretic Pep.] Stat Lab 04/11/24 19:56 Completed CBC w/Auto Diff [Complete Blood Count Auto Diff] Stat Lab 04/11/24 19:56 Completed CMP [Comprehensive Metabolic Panel] Stat Lab 04/11/24 19:56 Completed CRP [C-Reactive Protein] Stat Lab 04/11/24 19:56 Completed HIV Combo Stat Lab 04/11/24 19:56 Completed Hepatitis C Ab Qual. W/ RFX Stat Lab 04/11/24 19:56 Completed Rapid PCR Covid and Flu A/B Stat Lab 04/11/24 19:56 Completed Trop I [Troponin I] Stat Lab 04/11/24 19:56 Completed Troponin I Q3H Lab 04/11/24 23:00 Ordered Troponin I Q3H Lab 04/12/24 02:00 Ordered Blood Culture Stat Micro 04/11/24 20:15 Received Sputum Culture & Gram Stain Stat Micro 04/11/24 20:10 Ordered Venous Blood Gas Stat RT 04/11/24 19:55 Completed ECG Data Tracing #1: I reviewed this ECG and interpreted as documented below: Ventricular rate of 116 sinus tachycardia no acute ischemic changes noted normal axis no significant conduction abnormalities noted Medical Decision Narrative: 48-year-old presents today with respiratory distress and acute hypoxic respiratory failure differential includes heart failure, pneumonia, pulmonary embolism etc. Will get a chest x-ray performed cultures initiate septic workup and intervention including fluids. I suspect the patient has pneumonia as he is very warm to my touch was mouth breathing and had a temperature that was near a fever but clinically I feel that the patient is febrile from a tactile standpoint. Will perform a bedside echo and look at his heart and lungs and reassess shortly. Chest ray performed which I personally interpreted which shows multifocal pneumonia. Vanco Zosyn azithromycin have been initiated. Patient is severely hypoxic with increased work of breathing gas did not show any acute hypercarbia therefore patient was started on Vapotherm with good response. Once family showed up they stated he has had chronic wounds on his bilateral lower extremities patient socks were taken off he does have chronic ulcerations of the dorsal aspect of his right foot and the lateral aspect of his left foot there is no significant erythema or acute abnormalities on the left foot however on the right foot he states over the last 2 weeks it has got increasingly erythematous. The ulcerations have been there for 6 months. Given the fact this is a primary respiratory infection patient does have some cellulitis surrounding this ulceration on the dorsal aspect of the foot but I do not believe that he is primarily septic from that as a initial source necrotizing infection is on the differential but unlikely at the moment. Plain films will be administered to rule out any subcutaneous emphysema. Reassessment 9:[address] scans performed which I personally interpreted I do not see any evidence of pulmonary embolism the patient does have multifocal airspace disease consistent with pneumonia. Regarding his foot CT scan on my personal interpretation I do not see any subcutaneous emphysema or any evidence of a necrotizing soft tissue infection at this point I think that is low likelihood to be the cause of any of the symptoms. He does have some superficial ulceration which may need some debridement at some point but not emergently. Also does not need any type of emergent amputation etc. Therefore from that standpoint I do not feel he needs to be transferred. Patient is critically ill he is on Vapotherm has acute kidney injury has evidence of right heart strain on bedside echo with an elevated BNP therefore he has multiorgan dysfunction he is also starting to get hypotensive maps around 65 right now half of his initial bolus of fluids as being administered. If he is persistently hypotensive we will start him on peripheral pressors. Additionally patient looks tired he does not need to be intubated oxygen saturations are 100% right now but he still has increased work of breathing and appears to be tiring out. He is full code. Family is at the bedside they are aware and so is the patient of his prognosis which is guarded at the moment. He could get significantly worse including the need for pressors and intubation. At the moment holding off on both of those things. I spoke with hospital medicine who agreed to admit the patient to the ICU. I will also discussed the case with the oncoming emergency medicine physician to be aware of the possible need for procedural intervention later this evening. Procedures Miscellaneous Procedure Procedure Performed: Limited cardiac ultrasound Indication: Dyspnea Identified structures: The heart was visualized in the parasternal long axis, parastenal short axis, apical four chamber and subxyphiod views. The IVC was visualized in the short axis and long axis at its entry into the right atrium. 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 Based on my clinical judgement, these images were adequate and did not necessitate further imaging. Limited lung ultrasound A focused ultrasound exam of the pleural spaces was performed to evaluate for pneumothorax, pulmonary edema, pleural effusion and/or consolidation. The ultrasound was performed with the following indications, as noted in the H&P: Dyspnea Identified structures: Right and left Findings: Lung sliding is present throughout no significant B-lines in bilateral lung starkey however there is significant pleural abnormality in the left base concerning for air bronchograms and possible pneumonia and consolidation Impression: Left basilar consolidation concerning for pneumonia Images were saved to permanent archive The study was technically adequate CPT 07678-76 This study was performed by ms, and I personally interpreted all images/videos. Based on my clinical judgement, these images were adequate and did not necessitate further imaging. Ultrasound-guided IV Indication difficult IV access Patient was placed in the supine position was prepped and draped in sterile fashion. 20-gauge 48 mm Angiocath was used with axial and long axis planes on the ultrasound under direct visual guidance. The tip of the needle was observed being inserted directly into the vein itself and catheter was advanced under direct guidance. No significant complications. Critical Care Critical Care Time Critical Care Time: Yes Attestation: On , the high probability of a clinically significant, sudden or life threatening deterioration of the following system(s) required my full and direct attention, intervention and personal management. The time I documented below is in addition to time spent performing reported procedures but includes the following listed in this critical care notation. Total Time Total Critical Care Time: 65
--- NOTE | 2024-04-11 19:58 | ECG_ITS ---
APPROVED REPORT Exam: Resting ECG HR:116 bpm ECG Measurements Heart Rate 116 AXES MA 178 P 55 QRSd 126 QRS 90 QT 323 T 47 QTc 392 Conclusion SINUS TACHYCARDIA POSSIBLE INFERIOR MYOCARDIAL INFARCTION , PROBABLY OLD [30 ms Q WAVE IN II/aVF] ABNORMAL RHYTHM ECG UNCONFIRMED REPORT Electronically signed by : PAULO HERRERA, 04/12/2024 04:38:32
[2024-04-11 20:04] LABS: Coronavirus 19, PCR Not Detected (NotDetected); Influenza B, PCR Not Detected (NotDetected)
[2024-04-11 20:10] LABS: VBG Base Excess 2.1 mmol/L (-2.4-2.3); VBG HCO3 27.1 mmol/L (23-30); VBG Oxygen Saturation 82.3 % (50-70); VBG PCO2 46.3 mmol/L (35-51); VBG PH 7.39 mmol/L (7.31-7.41); VBG PO2 45.8 mmol/L (28-40); VBG Total CO2 28.6 mmol/L (23-27)
[2024-04-11 20:11] LABS: Lactate Venous 2.2 mmol/L (0.4-2.0)
[2024-04-11] MEDS: ACETAMINOPHEN 1,000MG/100ML VIAL 1000 MG IV (20:12)
[2024-04-11] MEDS: LACTATED RINGERS 1000ML 1,000 ML 999 ML IV (20:12)
[2024-04-11 20:16] LABS: Basophils # 0.1 K/mm3 (0-0.2); Basophils % 0.4 % (0.1-2.0); Hematocrit 32.5 % (42.0-52.0); Hemoglobin 11.2 g/dL (14.1-18.0); Lymphocytes # 0.7 K/mm3 (0.7-4.5); Lymphocytes % 5.6 % (10-50); Mean Corpuscular HGB Conc 34.5 g/dL (31.8-35.4); Mean Corpuscular Hemoglobin 28.4 pg (27.0-31.2); Mean Corpuscular Volume 82.5 fl (80-94); Monocytes # 1.7 K/mm3 (0.1-1.0); Monocytes % 13.5 % (1.7-9.3); Neutrophils # 10.2 K/mm3 (1.8-7.8); Neutrophils % 79.9 % (37.0-80.0); Platelet Count 190 K/mm3 (142-424); Red Blood Count 3.94 M/mm3 (4.60-6.20); Red Cell Distribution Width 15.5 % (11.5-17.5); White Blood Count 12.8 K/mm3 (4.8-10.8)
[2024-04-11 20:19] LABS: Albumin Level 3.6 g/dl (3.5-5.0); Chloride 88 mmol/L (98-107)
[2024-04-11 20:20] LABS: Potassium 3.1 mmoL/L (3.5-5.1); Sodium 128 mmol/L (136-145)
[2024-04-11 20:22] LABS: Alanine Aminotransferase 51 U/L (12-78); Anion Gap 13.1 mEq/L (5-15); Aspartate Amino Transferase 94 U/L (17-59); Blood Urea Nitrogen 43 mg/dl (9-20); Carbon Dioxide 30 mmol/L (22.0-30.0); Creatinine Clearance Estimated 98 mL/min (50-200); Estimated Glomerular Filt Rate 59 ml/min (>60); GFR (African American) 71 ML/MIN (>60)
[2024-04-11 20:23] LABS: Alkaline Phosphatase 96 U/L (38-126); Bilirubin,Total 0.8 mg/dl (0.2-1.3); Calcium 8.2 mg/dl (8.4-10.2); Globulin 3.6 g/dL (1.3-3.2); Glucose 159 mg/dl (74-100); Total Protein,Serum 7.2 g/dl (6.3-8.2)
--- NOTE | 2024-04-11 20:32 | XR_ITS ---
PROCEDURE INFORMATION: Exam: XR Right Foot Exam date and time: 04/11/2024 8:42 PM Age: 48 years old Clinical indication: Pain; Foot; Right; Additional info: Gas rule out TECHNIQUE: Imaging protocol: Radiologic exam of the right foot. Views: 1 or 2 views. COMPARISON: No relevant prior studies available. FINDINGS: Bones/joints: Posttraumatic changes of the distal fibula and distal tibia post hardware removal. No acute fracture or malalignment. Mild osteoarthritis. Calcaneal enthesopathy.. Soft tissues: Mild diffuse soft tissue swelling. No soft tissue gas. IMPRESSION: 1. No acute osseous findings. 2. Mild diffuse soft tissue swelling. No soft tissue gas.
--- NOTE | 2024-04-11 20:32 | XR_ITS ---
PROCEDURE INFORMATION: Exam: XR Left Foot Exam date and time: 04/11/2024 8:42 PM Age: 48 years old Clinical indication: Pain; Foot; Left; Additional info: Gas rule out TECHNIQUE: Imaging protocol: Radiologic exam of the left foot. Views: 1 or 2 views. COMPARISON: No relevant prior studies available. FINDINGS: Bones/joints: No acute fracture or malalignment. Mild osteoarthritis. Calcaneal enthesopathy. Soft tissues: Mild diffuse soft tissue swelling. 1.2 cm rounded lucent focus within the soft tissues lateral to the 5th MTP joint. IMPRESSION: 1. No acute osseous findings. 2. 1.2 cm rounded lucent focus within the soft tissues lateral to the 5th MTP joint, possibly representing soft tissue injury, ulceration or mass. Mild diffuse soft tissue swelling.
[2024-04-11 20:33] LABS: NT Pro Brain Natriuretic Pep. 1490 pg/mL (0-125)
[2024-04-11 20:35] LABS: Influenza A, PCR Detected (NotDetected)
[2024-04-11 20:36] LABS: Troponin I < 0.01 ng/ml (0.00-0.034)
[2024-04-11] MEDS: VANCOMYCIN CONSULT REQUEST 1 EACH NOTAPPLIC (20:37)
[2024-04-11] MEDS: AZITHROMYCIN 500 MG in 0.9 % SODIUM CHLORIDE 250 ML 250 MG IV (20:46)
--- NOTE | 2024-04-11 20:48 | CT_ITS ---
PROCEDURE INFORMATION: Exam: CTA Chest With Contrast Exam date and time: 04/11/2024 9:11 PM Age: 48 years old Clinical indication: Dyspnea; Additional info: Hypoxic respiratory failure TECHNIQUE: Imaging protocol: Computed tomographic angiography of the chest with contrast. Exam focused on the arteries. 3D rendering (Not supervised by radiologist): MIP and/or 3D reconstructed images were created by the technologist. Radiation optimization: All CT scans at this facility use at least one of these dose optimization techniques: automated exposure control; mA and/or kV adjustment per patient size (includes targeted exams where dose is matched to clinical indication); or iterative reconstruction. Contrast material: ISOVUE; Contrast volume: 70 ml; Contrast route: INTRAVENOUS (IV); COMPARISON: CR XR CHEST PORTABLE 04/11/2024 8:07 PM FINDINGS: Pulmonary arteries: Limited evaluation of subsegmental pulmonary arteries within the mid to lower lungs secondary to measuring artifact. Within the limits of the exam, no definitively identifiable pulmonary artery embolism. Aorta: Unremarkable. No aortic aneurysm. No aortic dissection. Lungs: Multifocal peribronchovascular and consolidative opacities. No masses. Pleural spaces: No pneumothorax. Minimal right pleural effusion. Heart: Unremarkable. No cardiomegaly. No pericardial effusion. Lymph nodes: Mildly enlarged mediastinal and hilar lymph nodes measure up to 1.3 cm in short axis. Small calcified right hilar lymph nodes. Bones/joints: Degenerative changes. No acute fracture. Soft tissues: Unremarkable. IMPRESSION: 1. Limited evaluation of subsegmental pulmonary arteries within the mid to lower lungs secondary to measuring artifact. Within the limits of the exam, no definitively identifiable pulmonary artery embolism. 2. Multifocal peribronchovascular and consolidative opacities, findings suggestive of bronchopneumonia in the acute setting. Consider repeat imaging after treatment to ensure resolution. 3. Minimal right pleural effusion. 4. Mildly enlarged mediastinal and hilar lymph nodes, most likely reactive in nature.
--- NOTE | 2024-04-11 20:48 | CT_ITS ---
PROCEDURE INFORMATION: Exam: CT Right Lower Extremity, Foot Exam date and time: 04/11/2024 9:18 PM Age: 48 years old Clinical indication: Pain; Foot; Right; Additional info: R/O nsti TECHNIQUE: Imaging protocol: CT of the right lower extremity with intravenous contrast was performed. Exam focused on the foot. Radiation optimization: All CT scans at this facility use at least one of these dose optimization techniques: automated exposure control; mA and/or kV adjustment per patient size (includes targeted exams where dose is matched to clinical indication); or iterative reconstruction. Contrast material: ISOVUE; Contrast volume: 70 ml; Contrast route: IV; COMPARISON: CR XR FOOT RT 2V 04/11/2024 8:42 PM FINDINGS: Bones/joints: Postsurgical changes of the distal tibia and fibula with hardware removal. No acute fracture or dislocation. Chronic avulsive changes of the lateral malleolar tip. Calcaneal enthesopathy. Mild scattered osteoarthritis. No periostitis or cortical destruction. Soft tissues: Mild generalized soft tissue swelling. No soft tissue gas. No rim enhancing soft tissue fluid collection. IMPRESSION: Mild generalized soft tissue swelling. No soft tissue gas or abscess. No acute osseous findings.
[2024-04-11] MEDS: PIPERCILLIN/TAZO 3.375 GM in 0.9 % SODIUM CHLORIDE 50 ML IV (20:49)
[2024-04-11 21:02] LABS: C-Reactive Protein 316.1 mg/L (0-4)
--- NOTE | 2024-04-11 21:03 | PC.NURSE ---
1955hrs 18ga IV placed L AC. 1955hr blood work collected and sent to the lab along with 1st set of cultures. 1956hr patient placed on vapotherm. 2011hrs Per the MAR 1000mg of tylenol administered and 1L of LR started at TKO rate. 2014hrs second set of cultures collected and sent to the lab. 2031hr orders placed for 2 view X-Rays of both feet. 2033hrs X-Ray in the room. 2034hr Dr. Kramer placed a second IV USG 20ga IV in the R bicep. 2036hrs S. Call [facility]com[facility] consult. 2045 Per the MAR Azithromycin 500mg administered. 2105hrs patient to CT.
[2024-04-11 21:16] LABS: HIV Combo NEGATIVE (Negative)
[2024-04-11] MEDS: SODIUM CHLORIDE 0.9% 10ML SYR (RAD ONLY) 10 ML IV ×2 (21:20)
[2024-04-11] MEDS: 0.9 % SODIUM CHLORIDE 50 ML VIAL IV ×2 (21:20)
[2024-04-11] MEDS: IOPAMIDOL-370 (76%);100ML BOTTLE 70 ML IV ×2 (21:20)
[2024-04-11 21:24] LABS: Hepatitis C Ab Qual. W/ RFX NEGATIVE (Negative)
--- NOTE | 2024-04-11 21:28 | PC.NURSE ---
Patient back from CT
--- NOTE | 2024-04-11 21:32 | PC.NURSE ---
Dr. Kramer at bedside discussing treatment plan with family.
--- NOTE | 2024-04-11 21:39 | PC.NURSE ---
2138hrs Azithromycin stopped due to infiltration at USG IV site.
--- NOTE | 2024-04-11 21:44 | PC.NURSE ---
Called ICU to give update on patient, notified them of his feet and poor skin condition.
--- NOTE | 2024-04-11 21:50 | PC.NURSE ---
18ga USG IV placed by MARIIA De La Cruz
--- NOTE | 2024-04-11 21:59 | P.HP_ITS ---
History of Present Illness *Admission Date: 04/11/24 *Reason for visit:: Shortness of breath *History of present illness: This is a 48-year-old male with type 2 diabetes mellitus and a heavy smoking history (one pack per day since age 13), diabetes mellitus, medical noncompliance who presents in severe respiratory distress. Per triage, his oxygen saturation was critically low at 70% on room air. He is only able to speak in short phrases due to his work of breathing and denies a formal history of COPD or other cardiac or pulmonary disease; however, he acknowledges that he ?smokes too much.? He reports having had a fever and cough over the past week but cannot provide more extensive details because of his acute respiratory compromise. On arrival, he appeared warm to the touch with a temperature of 100.1?F, was tachycardic (heart rate 122 bpm), tachypneic (respiratory rate in the 30s), and markedly hypoxic, requiring immediate supplemental oxygen. Initial blood pressure was 120/67 mmHg, which remained stable, but given his lab findings of an elevated white blood cell count (12.8 ? 10?/?L) with neutrophil predominance, elevated lactate of 2.2 mmol/L, BUN of 43 mg/dL, and creatinine of 1.30 mg/dL, there is concern for sepsis in the setting of acute hypoxic respiratory failure. A rapid PCR test detected Influenza A, and a portable chest X-ray revealed multifocal pneumonia. He was started on broad-spectrum antimicrobial therapy with IV vancomycin, piperacillin-tazobactam, and azithromycin, as well as IV fluids, and placed on high-flow nasal cannula (Vapotherm) with some improvement in oxygen saturation. After the patient?s family arrived, additional history revealed chronic bilateral foot ulcers present for six months, likely related to his diabetes and peripheral vascular disease risk factors. On examination, the ulceration on the dorsal aspect of the right foot appeared increasingly erythematous over the past two weeks, suggesting possible cellulitis; however, there is no obvious sign of a necrotizing process, and the clinical picture seems primarily driven by his acute respiratory infection. X-rays of both feet were ordered to exclude any underlying gas or bony involvement. A focused cardiac ultrasound (parasternal long/short axis, apical four-chamber, and subxiphoid views) showed no pericardial effusion and a normal left ventricular ejection fraction; there is mild right heart strain with an RV:LV ratio near 1 but no definitive findings suggesting an acute pulmonary embolism, making chronic changes more likely. Given his severe hypoxia, significant work of breathing, likely influenza- related multifocal pneumonia, and concern for sepsis, he requires ICU-level care for ongoing close monitoring of his respiratory status, potential for further hemodynamic compromise, and aggressive treatment of both his pulmonary infection and any complicating soft tissue infection in the right foot. [facility] Disclaimer: The information contained in this section may have been updated after the patient was seen, as this information can be updated by other users. Medical History Ulcer of right foot limited to breakdown of skin Varicose veins of both lower extremities Hyperlipidemia Bilateral lower extremity edema Essential hypertension Type 2 diabetes mellitus without complications Chronic post-traumatic stress disorder (PTSD) Hx of fracture of lower leg Surgical History History of mandibular surgery H/O hernia repair Family History Father Coronary artery disease FHx: mental illness Mother FHx: mental illness Sister FHx: mental illness Sister FHx: mental illness Social History (Updated 04/11/24 @ 22:50 by Jessica Gotti RN) Smoking Status: Current every day smoker tobacco type: cigarettes packs per day: 1 smoking status start date: Age 13 quit status: not considering quitting second hand exposure: Yes alcohol intake: former substance use type: former substance user counseling given: Yes current occupational status: unemployed Travel in the last 8 weeks: None marital status: single number of children: 2 education level: high school service: No fpc: No well-balanced diet: rarely or never caffeine: Yes high-fat food intake: 3 or more times/day daily servings fruits/ve-1 daily servings of milk/calcium: 0-1 eating out: 1-3 times/week reads food labels: seldom or never during the past year weight has: increased > 10 lbs physical activity: none nae/latter-day: [employer] special nae needs: No agree to transfusion: No helmet use: No drive intox or ride w/ intox hire car driver: Yes drive intox or w/ intox hire car driver: rarely working smoke detector in home: Yes do you feel safe at home: Yes victim of physical abuse: No victim of emotional abuse: No victim of sexual abuse: No would you like helpful sources: No Have you lived/traveled outside [place] in past 30 days?: No Contact w/someone who lives/traveled outside [place] past 30 days?: No Exposure to someone with infectious disease in past 14 days?: No Do you have a fever (greater than 100.4 F or 38 C)?: No Have you tested positive for COVID-19: No Exposed to someone with COVID-19 in past 14 days?: No Do you have a sore throat?: No Do you have a cough?: No Do you have any weakness?: No Do you have any diarrhea?: No Are you experiencing any unusual bleeding?: No Do you have any muscle aches/pain?: Yes Do you have any abdominal pain?: No Are you experiencing loss of taste or smell?: No Other Medical History Have you received the Flu Vaccine for this season: Yes Have you received the Pneumonia Vaccine: No Review of Systems Review of Systems Review of systems (narrative): 13 point review of systems negative except as listed in HPI Meds Home Medications and Allergies Home Medications ?Medication ?Instructions ?Recorded ?Confirmed ?Type buprenorphine 8 mg-naloxone 2 mg 2 tab sublingual DAILY 08/06/23 04/11/24 History sublingual tablet hydrochlorothiazide 25 mg tablet 25 mg PO DAILY #90 tabs 10/02/23 04/11/24 Rx empagliflozin 10 mg tablet 10 mg PO DAILY #90 tabs 12/02/23 04/11/24 Rx (Jardiance) desvenlafaxine succinate 100 mg 100 mg PO DAILY #30 tabs 12/17/23 04/11/24 Rx tablet,extended release 24 hr (Pristiq) bupropion HCl 150 mg 24 hr tablet, 150 mg PO DAILY #30 tabs 12/30/23 04/11/24 Rx extended release (Wellbutrin XL) cariprazine 1.5 mg capsule 1.5 mg PO DAILY #30 caps 02/18/24 04/11/24 Rx (Vraylar) lisinopril 5 mg tablet 5 mg PO DAILY #90 tabs 03/04/24 04/11/24 Rx metformin 500 mg tablet 500 mg PO DAILY #90 tabs 03/04/24 04/11/24 Rx atorvastatin 20 mg tablet 20 mg PO DAILY 04/12/24 04/12/24 History New Prescriptions to Start Prescriptions: Allergies Allergy/AdvReac Type Severity Reaction Status Date / Time No Known Allergies Allergy Verified 04/11/24 22:50 Exam Data for Last 24 hours Vital signs and Labs for Last 24 Hours: Temp Pulse Resp BP Pulse Ox O2 Del Method O2 Flow Rate 100.1 F H 103 H 21 97/64 L 98 Vapotherm 6 04/11/24 19:46 04/11/24 21:30 04/11/24 20:45 04/11/24 21:30 04/11/24 21:30 04/11/24 21:30 04/11/24 19:55 Laboratory Results - last 24 hr 04/11/24 19:55: VBG pH 7.39, VBG pCO2 46.3, VBG pO2 45.8 H, VBG HCO3 27.1, VBG Total CO2 28.6 H, VBG O2 Saturation 82.3 H, VBG Base Excess 2.1, VBG Lactic Acid 2.2 H 04/11/24 19:56: WBC 12.8 H, RBC 3.94 L, Hgb 11.2 L, Hct 32.5 L, MCV 82.5, MCH 28.4, MCHC 34.5, RDW 15.5, Plt Count 190, MPV 10.0, Neut % (Auto) 79.9, Lymph % (Auto) 5.6 L, [place] % (Auto) 13.5 H, Eos % (Auto) 0.0 L, Baso % (Auto) 0.4, Neut # (Auto) 10.2 H, Lymph # (Auto) 0.7, [place] # (Auto) 1.7 H, Eos # (Auto) 0.0, Baso # (Auto) 0.1, Sodium 128 L, Potassium 3.1 L, Chloride 88 L, Carbon Dioxide 30, Anion Gap 13.1, BUN 43 H, Creatinine 1.30 H, Estimated Creat Clear 98, Estimated GFR 59, Est GFR ( Amer) 71, Glucose 159 H, Calcium 8.2 L, Total Bilirubin 0.8, AST 94 H, ALT 51, Alkaline Phosphatase 96, Troponin I < 0.01, C-Reactive Protein 316.1 H, NT-Pro-B Natriuret Pep 1490 H, Total Protein 7.2, Albumin 3.6, Globulin 3.6 H, Albumin/Globulin Ratio 1.0 L, SARS-CoV-2 (PCR) Not detected, HCV Ab ADIN w/Rflx PCR Qn Negative, HIV Ag/Ab Combo Qual Negative, Influenza A Untype (PCR) Detected A, Influenza Type B (PCR) Not detected I & O for Last 24 hours: Intake & Output 04/08/24 04/09/24 04/10/24 04/11/24 23:59 23:59 23:59 23:59 Weight 99.79 kg Constitutional Constitutional: moderate distress and chronically ill appearing *Routine HEENT Exam Head: Present normocephalic Eye: Present EOMI and PERRL ENT: Present mucous membranes moist *Routine Neck Exam Neck: Present supple; Absent lymphadenopathy *Routine Respiratory Exam Respiratory: Present decreased breath sounds, rhonchi and diminished air movement *Routine Cardiovascular Exam Cardiovascular: Present RRR *Routine Abdominal Exam Abdominal: Present soft and normoactive bowel sounds; Absent tenderness *Routine Rectal Exam Rectal:: deferred *Routine Genitalia Exam Genitalia:: deferred *Routine Extremities Exam Extremities: Absent cyanosis, clubbing or edema *Routine Skin Exam Skin: Present warm; Absent rash Comments: Stasis ulcers bilateral lower extremities, dorsal surface of right foot, left heel *Routine Neurological Exam Neurological: Present alert and oriented X3 Assessment and Plan *Assessment and plan (1) Influenza A: Status: Acute Category: Medical Code(s): J10.1 - Influenza due to other identified influenza virus with other respiratory manifestations (2) Acute hypokalemia: Status: Acute Category: Medical Code(s): E87.6 - Hypokalemia (3) Acute hyponatremia: Status: Acute Category: Medical Code(s): E87.1 - Hypo-osmolality and hyponatremia (4) SAGAR (acute kidney injury): Status: Acute Category: Medical Code(s): N17.9 - Acute kidney failure, unspecified (5) Chronic diabetic ulcer of foot determined by examination: Status: Acute Category: Medical Code(s): E11.621 - Type 2 diabetes mellitus with foot ulcer; L97.509 - Non-pressure chronic ulcer of other part of unspecified foot with unspecified severity (6) Cellulitis of foot: Status: Acute Category: Medical Code(s): L03.119 - Cellulitis of unspecified part of limb (7) Multifocal pneumonia: Status: Acute Category: Medical Code(s): J18.9 - Pneumonia, unspecified organism (8) Acute hypoxic respiratory failure: Status: Acute Category: Medical Code(s): J96.01 - Acute respiratory failure with hypoxia (9) Sepsis: Status: Acute Category: Medical Code(s): A41.9 - Sepsis, unspecified organism (10) Alcohol use disorder in remission: Status: Acute Category: Medical Code(s): F10.91 - Alcohol use, unspecified, in remission (11) Opioid use disorder in remission: Status: Acute Category: Medical Code(s): F11.91 - Opioid use, unspecified, in remission (12) Type 2 diabetes mellitus: Status: Acute Category: Medical Code(s): E11.9 - Type 2 diabetes mellitus without complications Plan Medical decision making: This 48-year-old male with poorly controlled type 2 diabetes presents in septic shock from multifocal pneumonia (Influenza A positive) and acute hypoxic respiratory failure. He requires ICU-level care with high-flow nasal cannula support, aggressive fluid resuscitation, and broad-spectrum antimicrobials (vancomycin, piperacillin-tazobactam, azithromycin, plus oseltamivir). His labs reveal acute kidney injury, electrolyte derangements (hyponatremia and hypokalemia), and elevated inflammatory markers; these are being addressed with careful IV fluid management (Lactated Ringer?s) and targeted electrolyte repletion. Chronic bilateral foot ulcers with new right foot cellulitis are being evaluated for underlying osteomyelitis. We have withheld metformin temporarily given his renal status and started insulin to control hyperglycemia. Additional supportive measures include DVT prophylaxis, stress ulcer prophylaxis, and early nutritional support. We will reassess cardiopulmonary status, renal function, and infectious parameters regularly, with plans to de- escalate antibiotic therapy based on culture data and clinical improvement. Sepsis / Multifocal Pneumonia (Influenza A) * Broad-spectrum antibiotics: Vancomycin (load ~25 mg/kg IV, then 15 mg/kg IV q12h with troughs 15?20 ?g/mL), Piperacillin-Tazobactam 4.5 g IV q6h, and Azithromycin 500 mg IV daily. * Antiviral: Oseltamivir 75 mg PO twice daily for at least 5 days. * ICU admission for ongoing septic management, frequent reassessment of vitals, and infectious workup (blood cultures, sputum culture, lactate trends). * De-escalate antimicrobials based on culture results and clinical response. Acute Hypoxic Respiratory Failure * Currently on high-flow nasal cannula (Vapotherm); escalate to noninvasive or invasive ventilation if persistent or worsening hypoxia/hypercapnia. * Monitor ABGs or VBGs as needed, aiming for SpO? >=92%. * Assess for changes in work of breathing, mental status, or hemodynamics that might necessitate earlier intubation. Poorly Controlled Type 2 Diabetes Mellitus * Fingerstick glucose checks every 4?6 hours; consider continuous glucose m onitoring if available. * Use sliding-scale insulin or IV insulin infusion if glucose remains >180 mg/dL or highly variable. * Hold oral agents (especially metformin) while in acute kidney injury or hem odynamic instability. * Resume/reassess outpatient diabetic regimen once stable. Chronic Bilateral Foot Ulcers * Obtain foot X-rays to evaluate for osteomyelitis or gas formation. * Provide wound care daily and ensure offloading measures are used. * Consult Wound Care/Podiatry when patient stabilizes for further management of chronic wounds. Right Foot Cellulitis * Dorsal foot ulcer with 2-week history of increasing erythema. * Covered by Vancomycin + Piperacillin-Tazobactam for likely skin chaya. * If necrotizing infection is suspected (increasing pain, crepitus, systemic toxicity), escalate imaging (MRI) and possibly consult Surgery. Elevated BNP * May reflect septic myocardial depression, chronic cardiac strain, or volume status. * Recent echo: mild right heart strain, normal LVEF, no pericardial effusion. * Monitor fluid balance; repeat echocardiogram if new hemodynamic instability or concerns about heart failure emerge. Acute Kidney Injury * BUN 43 mg/dL, Creatinine 1.30 mg/dL, suggesting renal impairment in the setting of sepsis. * Optimize volume resuscitation without causing overload; reevaluate renal function after fluids. * Adjust nephrotoxic agents (e.g., vancomycin dosing, contrast studies) accordingly. * Monitor urine output closely (goal >0.5 mL/kg/hr). Electrolyte Abnormalities * Hyponatremia (Na 128): Correct slowly with balanced crystalloids (Lactated Ringer?s); check serum sodium at least every 6?12 hours. * Hypokalemia (K 3.1): Replete with IV potassium (10?20 mEq in 100 mL over 1 hour per repletion protocol) until K >=4.0 mEq/L. * Check magnesium; replace if <2.0 mg/dL to facilitate potassium stability. * Repeat electrolytes at least every morning (earlier if indicated by clinical status). Chronic Tobacco Use * Telephone Operator on smoking cessation; offer nicotine replacement therapy or other supportive measures if appropriate. * Reinforce cessation strategies on discharge and arrange outpatient follow-up. ICU Supportive Measures * DVT prophylaxis: Enoxaparin 40 mg SC daily or Heparin 5,000 units SC q8?12h if no contraindications. * Stress ulcer prophylaxis: Pantoprazole 40 mg IV or equivalent once daily. * Vasopressors (e.g., Norepinephrine) if hypotension persists after adequate fluid resuscitation. * Early enteral nutrition within 24?48 hours; consult Dietitian for caloric and protein goals. * Frequent reassessment of volume status (I/Os, daily weights, clinical exam). Disposition & Follow-Up * Continue ICU monitoring until stable from both a respiratory and hemodynamic standpoint. * Re-evaluate antibiotic regimen with culture data and clinical response; adjust as needed. * Coordinate with Infectious Disease if resistant pathogens or complicated infection is suspected. * Arrange diabetic education, wound care follow-up, and smoking cessation resources upon discharge. Rounded on patient after nurse practitioner. Personally examined and interviewed patient. Agree with exam findings and care plan as documented.
[2024-04-11] MEDS: KCl 10mEq/100ml 100 ML 100 MEQ IV ×2 (22:00→23:05)
--- NOTE | 2024-04-11 22:48 | PC.NURSE ---
2233hrs patient left floor for ICU, transfer of care to MARIIA Fernandez
[2024-04-11] MEDS: OSELTAMIVIR 75MG CAPSULE 75 MG PO (23:06)
[2024-04-11] MEDS: POTASSIUM CHLORIDE 20MEQ TAB 40 MEQ PO (23:06)
[2024-04-11] MEDS: IPRATROPIUM/ALBUTEROL 3 ML NEB IH (23:30)
[2024-04-11 23:38] LABS: Troponin I < 0.01 ng/ml (0.00-0.034)
[2024-04-12] VITALS (48 sets, daily range): BP systolic 95–124; BP diastolic 47–87; PULSE 80–117; RESP 18–39; TEMP 37.1–38.3; O2SAT 89–98; BMI 29.7
[2024-04-12 00:11] LABS: Reflex Lactic Add Lactic Reflex
[2024-04-12] MEDS: PIPERACILLIN/TAZO 3.375 GM in 0.9 % SODIUM CHLORIDE 100 ML IV ×5 (00:14→22:58)
[2024-04-12] MEDS: LACTATED RINGERS 1000ML 1,000 ML 100 ML IV ×2 (00:14→08:46)
[2024-04-12] MEDS: KCl 10mEq/100ml 100 ML 100 MEQ IV (00:15)
[2024-04-12] MEDS: humaLOG 100 UNITS/ML 10ML VIAL (SSI) SUBCUT (00:33)
[2024-04-12] MEDS: VANCOMYCIN CONSULT REQUEST 1 EACH NOTAPPLIC (00:39)
[2024-04-12 01:18] LABS: Lactic Acid Follow Up (RFLX 1) 1.2 mmol/L (0.7-2.1)
[2024-04-12] MEDS: VANCOMYCIN HCL 1,000 MG in 0.9 % SODIUM CHLORIDE 250 ML 166 MG IV ×2 (01:23→03:05)
[2024-04-12 01:51] LABS: Troponin I < 0.01 ng/ml (0.00-0.034)
--- NOTE | 2024-04-12 03:19 | PC.WOUNDNOTE ---
Left upper hip
--- NOTE | 2024-04-12 03:21 | PC.WOUNDNOTE ---
pts right foot Right leg Bottom of right foot
--- NOTE | 2024-04-12 03:23 | PC.WOUNDNOTE ---
Left foot Left foot Left leg
--- NOTE | 2024-04-12 03:24 | PC.WOUNDNOTE ---
Left hand Right hand
[2024-04-12 04:59] LABS: POC Glucose,Bedside 165 (70-110)
[2024-04-12] MEDS: ACETAMINOPHEN 325MG TAB 650 MG PO ×3 (05:46→14:35)
[2024-04-12 05:51] LABS: POC Glucose,Bedside 79 (70-110)
--- NOTE | 2024-04-12 06:56 | XR_ITS ---
PROCEDURE INFORMATION: Exam: XR Chest Exam date and time: 04/12/2024 6:31 AM Age: 48 years old Clinical indication: Other: Pna TECHNIQUE: Imaging protocol: Radiologic exam of the chest. Views: 1 view. COMPARISON: CT ANGIO CHEST PE PROTOCOL 04/11/2024 9:11 PM FINDINGS: Lungs: Patchy opacities in the right upper lobe likely represent atelectasis or infection. Bibasilar opacities likely represent atelectasis or infection. These changes are stable since study. Pleural spaces: Unremarkable. No pleural effusion. No pneumothorax. Heart/Mediastinum: Unremarkable. No cardiomegaly. Bones/joints: Unremarkable. IMPRESSION: Patchy opacities in the right upper lobe likely represent atelectasis or infection. Bibasilar opacities likely represent atelectasis or infection. These changes are stable since the prior study.
[2024-04-12] MEDS: IPRATROPIUM/ALBUTEROL 3 ML NEB IH ×4 (07:12→23:31)
[2024-04-12 07:56] LABS: POC Glucose,Bedside 101 (70-110)
--- NOTE | 2024-04-12 08:09 | EXP.PHA.CONS ---
Pharmacy Consult Date: 04/12/24 Time: 08:10 Referring provider: DR HOLDER Reason for Consult:: VANCOMYCIN DOSING CONSULT Allergies Allergy/AdvReac Type Severity Reaction Status Date / Time No Known Allergies Allergy Verified 04/11/24 22:50 Home Medications ?Medication ?Instructions ?Recorded ?Confirmed ?Type blood sugar diagnostic (Blood #50 ea 12/13/22 01/14/24 Rx Glucose Test strips) blood-glucose meter (Blood Glucose #1 ea 12/13/22 01/14/24 Rx Monitoring kit) lancets #100 ea 12/13/22 01/14/24 Rx comp.stocking,thigh,long,x-lrg #12 ea 02/04/23 01/14/24 Rx buprenorphine 8 mg-naloxone 2 mg 2 tab sublingual DAILY 08/06/23 04/11/24 History sublingual tablet naloxone 4 mg/actuation nasal spray 1 spray intranasal ONCE 08/06/23 04/11/24 History hydrochlorothiazide 25 mg tablet 25 mg PO DAILY #90 tabs 10/02/23 04/11/24 Rx empagliflozin 10 mg tablet 10 mg PO DAILY #90 tabs 12/02/23 04/11/24 Rx (Jardiance) desvenlafaxine succinate 100 mg 100 mg PO DAILY #30 tabs 12/17/23 04/11/24 Rx tablet,extended release 24 hr (Pristiq) atorvastatin 20 mg tablet See Rx Instructions .Route 12/30/23 04/11/24 Rx .COMPLEX #30 tabs bupropion HCl 150 mg 24 hr tablet, 150 mg PO DAILY #30 tabs 12/30/23 04/11/24 Rx extended release (Wellbutrin XL) cariprazine 1.5 mg capsule 1.5 mg PO DAILY #30 caps 02/18/24 04/11/24 Rx (Vraylar) lisinopril 5 mg tablet 5 mg PO DAILY #90 tabs 03/04/24 04/11/24 Rx metformin 500 mg tablet 500 mg PO DAILY #90 tabs 03/04/24 04/11/24 Rx New Prescriptions to Start Prescriptions: Height: 1.8 m Weight: 96.162 kg Laboratory Results:: Laboratory Results - last 24 hr 04/11/24 19:55: VBG pH 7.39, VBG pCO2 46.3, VBG pO2 45.8 H, VBG HCO3 27.1, VBG Total CO2 28.6 H, VBG O2 Saturation 82.3 H, VBG Base Excess 2.1, VBG Lactic Acid 2.2 H 04/11/24 19:56: WBC 12.8 H, RBC 3.94 L, Hgb 11.2 L, Hct 32.5 L, MCV 82.5, MCH 28.4, MCHC 34.5, RDW 15.5, Plt Count 190, MPV 10.0, Neut % (Auto) 79.9, Lymph % (Auto) 5.6 L, [place] % (Auto) 13.5 H, Eos % (Auto) 0.0 L, Baso % (Auto) 0.4, Neut # (Auto) 10.2 H, Lymph # (Auto) 0.7, [place] # (Auto) 1.7 H, Eos # (Auto) 0.0, Baso # (Auto) 0.1, Sodium 128 L, Potassium 3.1 L, Chloride 88 L, Carbon Dioxide 30, Anion Gap 13.1, BUN 43 H, Creatinine 1.30 H, Estimated Creat Clear 98, Estimated GFR 59, Est GFR ( Amer) 71, Glucose 159 H, Calcium 8.2 L, Total Bilirubin 0.8, AST 94 H, ALT 51, Alkaline Phosphatase 96, Troponin I < 0.01, C-Reactive Protein 316.1 H, NT-Pro-B Natriuret Pep 1490 H, Total Protein 7.2, Albumin 3.6, Globulin 3.6 H, Albumin/Globulin Ratio 1.0 L, SARS-CoV-2 (PCR) Not detected, HCV Ab ADIN w/Rflx PCR Qn Negative, HIV Ag/Ab Combo Qual Negative, Influenza A Untype (PCR) Detected A, Influenza Type B (PCR) Not detected 04/11/24 23:00: Troponin I < 0.01 04/12/24 00:20: POC Glucose 165 H 04/12/24 01:00: Lactate 1.2, Troponin I < 0.01 04/12/24 05:35: POC Glucose 79 04/12/24 07:48: POC Glucose 101 Medical History: Medical History (Updated 04/12/24 @ 00:26 by Dilip Baltazar APRN) Ulcer of right foot limited to breakdown of skin Varicose veins of both lower extremities Hyperlipidemia Bilateral lower extremity edema Essential hypertension Type 2 diabetes mellitus without complications Chronic post-traumatic stress disorder (PTSD) Hx of fracture of lower leg Assessment and Plan Assessment and plan all Dx Assessment and Plan for all problems:: Pharmacokinetic dosing service Objective: Age: 48 yo Serum creatinine: 1.3 mg/dL Height: 70.9 Inches Weight (kg): 96.162 Diagnosis: PNEUMONIA,ICU/SEPSIS Assessment: IBW (kg): 75.07 Dosing wt(kg): 96.162 Estimated Creatinine clearance (ml/min): 73.8 CRCL method: Cockcroft and Gault using ibw(default). Drug selected: Vancomycin Loading dose (mg): 2000 MG Vd (liters): 67.3 (factor used: 0.7 L/kg) Bryson (hr-1): 0.066 Half life (hrs): 10.50 CLvanco=?? 4.442 L/hr Recommended dose: 1250 mg Interval: 12 hrs Infusion time (hrs): 2.0 Predicted peak (mcg/mL): 31.8 Predicted trough (mcg/mL): 16.44 Total body weight is being used for vancomycin dosing. Recommendations: Give Vancomycin 1250 mg q 12 hrs with an expected Cpeak of 31.8 mcg/ml and an expected Ctrough of 16.44 mcg/ml AUC 0-24 /YARA Data: YARA 0.5 mcg/mL:?? AUC/YARA:? 1125.6 YARA 1.0 mcg/mL:?? AUC/YARA:? 562.8 --------- YARA 1.5 mcg/mL:?? AUC/YARA:? 375.2 YARA 2.0 mcg/mL:?? AUC/YARA:? 281.4 Thank you for the consult
[2024-04-12] MEDS: BUPRENORPHINE/NALOXONE 8MG/2MG ODT 2 EACH SL (08:46)
[2024-04-12] MEDS: OSELTAMIVIR 75MG CAPSULE 75 MG PO ×2 (08:47→20:20)
[2024-04-12] MEDS: buPROPion HCl SR 150MG TAB 150 MG PO (08:47)
--- NOTE | 2024-04-12 09:37 | PC.NURSE ---
labs drawn and sent.
[2024-04-12 09:55] LABS: Albumin Level 2.6 g/dl (3.5-5.0); Chloride 94 mmol/L (98-107); Potassium 3.3 mmoL/L (3.5-5.1); Sodium 128 mmol/L (136-145)
[2024-04-12 09:57] LABS: Blood Urea Nitrogen 23 mg/dl (9-20); Creatinine Clearance Estimated 154 mL/min (50-200); Estimated Glomerular Filt Rate 103 ml/min (>60); GFR (African American) 125 ML/MIN (>60)
[2024-04-12 09:58] LABS: Alanine Aminotransferase 62 U/L (12-78); Albumin/Globulin Ratio 0.9 (1.1-1.8); Alkaline Phosphatase 83 U/L (38-126); Anion Gap 7.3 mEq/L (5-15); Aspartate Amino Transferase 131 U/L (17-59); Bilirubin,Total 1.3 mg/dl (0.2-1.3); Calcium 7.4 mg/dl (8.4-10.2); Carbon Dioxide 30 mmol/L (22.0-30.0); Glucose 91 mg/dl (74-100); Magnesium 1.6 mg/dl (1.6-2.3); Total Protein,Serum 5.6 g/dl (6.3-8.2)
[2024-04-12 10:04] LABS: Phosphorous 1.4 mg/dl (2.5-4.5)
--- NOTE | 2024-04-12 10:04 | HMH.PHAINT1 ---
Pharmacy Intervention Comments: MEDICATION RECONCILIATION COMPLETE USING EXTERNAL PHARMACY FILL HISTORY, CATHY REPORT, AND RECENT MD OFFICE VISIT NOTE.
[2024-04-12 10:11] LABS: Erythrocyte Sedimentation Rate 122 mm/hr (0-15)
[2024-04-12 10:22] LABS: Activated Partial Thrombo Time 26.8 seconds (22.5-28.5); INR 1.26 (0.9-1.1); Prothrombin Time 13.5 seconds (9.2-12.1)
--- NOTE | 2024-04-12 10:23 | EXP.ACUTE.PN ---
Subjective *Date: 04/12/24 *Time: 11:06 Interval history: Patient appears in moderate distress this morning on exam. Continues to require oxygen with Vapotherm 20 L, 40% to maintain sats above 90%. Oriented to self and place. No nausea or vomiting. Denies chest pain. Expresses appreciation for help in treating him. Family at bedside through the morning. Quite weak Medical Exam Vital signs and Labs for Last 24 Hours: Vital Signs Temp Pulse Pulse Resp BP BP Pulse Ox 04/12/24 10:00 87 18 98/55 L 95 04/12/24 09:00 04/12/24 09:00 94 H 20 105/55 L 96 04/12/24 08:00 95 04/12/24 08:00 100.0 F H 101 H 18 96/52 L 95 04/12/24 07:01 103/47 L 04/12/24 07:01 106 H 28 H 95 04/12/24 07:00 04/12/24 07:00 105 H 26 H 94 L 04/12/24 06:45 111 H 31 H 95 04/12/24 06:30 113 H 39 H 94 L 04/12/24 06:15 114 H 36 H 120/87 93 L 04/12/24 06:01 124/70 04/12/24 06:01 111 H 37 H 91 L 04/12/24 06:00 116 H 37 H 89 L 04/12/24 05:45 112 H 29 H 92 L 04/12/24 05:30 107 H 26 H 94 L 04/12/24 05:15 107 H 22 124/70 93 L 04/12/24 05:00 112/59 L 04/12/24 05:00 111 H 32 H 92 L 04/12/24 04:55 04/12/24 04:00 113 H 34 H 91 L 04/12/24 04:00 109/66 L 04/12/24 04:00 110 H 90 L 04/12/24 04:00 110 H 04/12/24 04:00 101.0 F H 117 H 20 109/66 L 91 L 04/12/24 04:00 101.0 F H 117 H 20 109/66 L 91 L 04/12/24 03:15 107 H 25 H 91 L 04/12/24 03:00 04/12/24 03:00 109 H 28 H 90 L 02/23/25 03:00 111/69 04/12/24 02:45 111 H 29 H 91 L 04/12/24 02:30 104 H 25 H 90 L 04/12/24 02:15 101 H 22 111/69 92 L 04/12/24 02:00 100 H 25 H 90 L 04/12/24 02:00 112/61 04/12/24 01:45 99 H 24 89 L 04/12/24 01:30 98 H 28 H 112/61 95 04/12/24 01:00 102 H 18 96 04/12/24 01:00 111/58 L 04/12/24 00:38 04/12/24 00:10 102 H 20 04/12/24 00:00 100 H 92 L 04/12/24 00:00 100 H 04/12/24 00:00 103 H 32 H 98 04/12/24 00:00 108/66 L 04/12/24 00:00 98.8 F 102 H 20 108/66 L 94 L 04/11/24 23:31 95 H 04/11/24 23:31 98 H 04/11/24 23:01 79/52 L 04/11/24 23:01 96 H 26 H 91 L 04/11/24 23:00 04/11/24 23:00 98.6 F 96 H 20 101/61 L 91 L 04/11/24 22:00 101 H 25 H 92 L 04/11/24 22:00 94 L 04/11/24 21:36 98.8 F 105 H 29 H 97/64 L 04/11/24 21:35 97 H 95 04/11/24 21:30 103 H 97/64 L 98 04/11/24 21:26 105 H 96/55 L 98 04/11/24 20:45 112 H 21 107/70 L 94 L 04/11/24 20:09 115 H 29 H 105/64 L 96 04/11/24 19:55 96 04/11/24 19:46 100.1 F H 122 H 34 H 120/67 74 L O2 Del Method O2 Flow Rate FiO2 04/12/24 10:00 Vapotherm 20 04/12/24 09:00 Vapotherm 20 04/12/24 09:00 Vapotherm 20 04/12/24 08:00 Vapotherm 20 40 04/12/24 08:00 Vapotherm 20 04/12/24 07:01 04/12/24 07:01 04/12/24 07:00 Vapotherm 20 04/12/24 07:00 04/12/24 06:45 04/12/24 06:30 04/12/24 06:15 04/12/24 06:01 04/12/24 06:01 04/12/24 06:00 04/12/24 05:45 04/12/24 05:30 04/12/24 05:15 Vapotherm 20 04/12/24 05:00 04/12/24 05:00 Vapotherm 20 04/12/24 04:55 Vapotherm 20 04/12/24 04:00 04/12/24 04:00 04/12/24 04:00 Vapotherm 20 40 04/12/24 04:00 04/12/24 04:00 Vapotherm 20 04/12/24 04:00 Vapotherm 20 04/12/24 03:15 04/12/24 03:00 Vapotherm 20 04/12/24 03:00 04/12/24 03:00 04/12/24 02:45 04/12/24 02:30 04/12/24 02:15 04/12/24 02:00 04/12/24 02:00 04/12/24 01:45 04/12/24 01:30 04/12/24 01:00 Vapotherm 20 04/12/24 01:00 04/12/24 00:38 Vapotherm 20 04/12/24 00:10 04/12/24 00:00 Vapotherm 20 40 04/12/24 00:00 04/12/24 00:00 Vapotherm 20 04/12/24 00:00 04/12/24 00:00 Vapotherm 04/11/24 23:31 04/11/24 23:31 04/11/24 23:01 04/11/24 23:01 04/11/24 23:00 Vapotherm 20 04/11/24 23:00 Vapotherm 04/11/24 22:00 04/11/24 22:00 Vapotherm 20 40 04/11/24 21:36 Vapotherm 20 04/11/24 21:35 Vapotherm 20 40 04/11/24 21:30 Vapotherm 04/11/24 21:26 Vapotherm 04/11/24 20:45 Vapotherm 04/11/24 20:09 Vapotherm 04/11/24 19:55 Nasal Cannula 6 04/11/24 19:46 Room Air Intake and Output 04/11/24 04/12/24 04/12/24 23:59 07:59 15:59 Intake Total 1350 / 1350 0 / 290 290 / 290 Output Total 750 / 750 Balance 600 / 600 0 / 290 290 / 290 Intake: Intake, Oral Amount 0 / 290 290 / 290 Intake, Other Amount 1350 / 1350 Output: Output, Urine Amount 750 / 750 Other: Intake, Other Source Saline Solution Number of Voids 1 Number of Unmeasured Voids 1 1 Weight 96.343 kg 96.162 kg 96.162 kg Patient Weight 04/12/24 23:59 Weight 96.162 kg Laboratory Results - last 24 hr 04/11/24 19:55: VBG pH 7.39, VBG pCO2 46.3, VBG pO2 45.8 H, VBG HCO3 27.1, VBG Total CO2 28.6 H, VBG O2 Saturation 82.3 H, VBG Base Excess 2.1, VBG Lactic Acid 2.2 H 04/11/24 19:56: WBC 12.8 H, RBC 3.94 L, Hgb 11.2 L, Hct 32.5 L, MCV 82.5, MCH 28.4, MCHC 34.5, RDW 15.5, Plt Count 190, MPV 10.0, Neut % (Auto) 79.9, Lymph % (Auto) 5.6 L, [place] % (Auto) 13.5 H, Eos % (Auto) 0.0 L, Baso % (Auto) 0.4, Neut # (Auto) 10.2 H, Lymph # (Auto) 0.7, [place] # (Auto) 1.7 H, Eos # (Auto) 0.0, Baso # (Auto) 0.1, Sodium 128 L, Potassium 3.1 L, Chloride 88 L, Carbon Dioxide 30, Anion Gap 13.1, BUN 43 H, Creatinine 1.30 H, Estimated Creat Clear 98, Estimated GFR 59, Est GFR ( Amer) 71, Glucose 159 H, Calcium 8.2 L, Total Bilirubin 0.8, AST 94 H, ALT 51, Alkaline Phosphatase 96, Troponin I < 0.01, C-Reactive Protein 316.1 H, NT-Pro-B Natriuret Pep 1490 H, Total Protein 7.2, Albumin 3.6, Globulin 3.6 H, Albumin/Globulin Ratio 1.0 L, SARS-CoV-2 (PCR) Not detected, HCV Ab ADIN w/Rflx PCR Qn Negative, HIV Ag/Ab Combo Qual Negative, Influenza A Untype (PCR) Detected A, Influenza Type B (PCR) Not detected 04/11/24 23:00: Troponin I < 0.01 04/12/24 00:20: POC Glucose 165 H 04/12/24 01:00: Lactate 1.2, Troponin I < 0.01 04/12/24 05:35: POC Glucose 79 04/12/24 07:48: POC Glucose 101 04/12/24 09:25: ESR 122 H, PT 13.5 H, INR 1.26 H, APTT 26.8, Sodium 128 L, Potassium 3.3 L, Chloride 94 L, Carbon Dioxide 30, Anion Gap 7.3, BUN 23 H D, Creatinine 0.80 D, Estimated Creat Clear 154, Estimated GFR 103, Est GFR ( Amer) 125 D, Glucose 91 D, Calcium 7.4 L, Phosphorus 1.4 L, Magnesium 1.6, Total Bilirubin 1.3, AST 131 H D, ALT 62, Alkaline Phosphatase 83, Total Protein 5.6 L, Albumin 2.6 L D, Globulin 3.0, Albumin/Globulin Ratio 0.9 L I & O for Labs for Last 24 Hours: Intake & Output 04/09/24 04/10/24 04/11/24 04/12/24 23:59 23:59 23:59 23:59 Intake Total 1350 / 1350 290 / 290 Output Total 750 / 750 Balance 600 / 600 290 / 290 Weight 96.343 kg 96.162 kg Microbiology Reports for the Last 24 Hours: Microbiology 04/12/24 06:00 Foot,Right Gram Stain - Final 04/12/24 00:08 Sputum - Expectorated Sputum Gram Stain - Final Constitutional: Present moderate distress, average body habitus, chronically ill appearing and cooperative Head: Present atraumatic and normocephalic ENT: Present normal exam Respiratory: Present prolonged expiratory phase, rhonchi, wheezes and crackles Cardiac: Present Reg Rate and Rhythm GI: Present soft and normal bowel sounds; Absent distention or tenderness Extremities: Present normal inspection and full ROM Skin: Present wounds; Absent erythema Comment:: Scabbed ulceration on dorsum of right foot. Chronic stasis changes to skin bilaterally in lower extremities Neuro: Present Grossly Intact, alert, awake and moves all extremities Comment:: Oriented to self and place, globally weak Assessment and Plan *Assessment and plan (1) Sepsis: Status: Acute Category: Medical Code(s): A41.9 - Sepsis, unspecified organism (2) Influenza A: Status: Acute Category: Medical Code(s): J10.1 - Influenza due to other identified influenza virus with other respiratory manifestations (3) Acute hypoxic respiratory failure: Status: Acute Category: Medical Code(s): J96.01 - Acute respiratory failure with hypoxia (4) Acute hypokalemia: Status: Acute Category: Medical Code(s): E87.6 - Hypokalemia (5) Acute hyponatremia: Status: Acute Category: Medical Code(s): E87.1 - Hypo-osmolality and hyponatremia (6) SAGAR (acute kidney injury): Status: Acute Category: Medical Code(s): N17.9 - Acute kidney failure, unspecified (7) Chronic diabetic ulcer of foot determined by examination: Status: Acute Category: Medical Code(s): E11.621 - Type 2 diabetes mellitus with foot ulcer; L97.509 - Non-pressure chronic ulcer of other part of unspecified foot with unspecified severity (8) Cellulitis of foot: Status: Acute Category: Medical Code(s): L03.119 - Cellulitis of unspecified part of limb (9) Multifocal pneumonia: Status: Acute Category: Medical Code(s): J18.9 - Pneumonia, unspecified organism (10) Alcohol use disorder in remission: Status: Acute Category: Medical Code(s): F10.91 - Alcohol use, unspecified, in remission (11) Opioid use disorder in remission: Status: Acute Category: Medical Code(s): F11.91 - Opioid use, unspecified, in remission (12) Type 2 diabetes mellitus: Status: Acute Category: Medical Code(s): E11.9 - Type 2 diabetes mellitus without complications (13) Hypophosphatemia: Status: Acute Category: Medical Code(s): E83.39 - Other disorders of phosphorus metabolism Plan This 48-year-old male with poorly controlled type 2 diabetes presents in septic shock from multifocal pneumonia (Influenza A positive) and acute hypoxic respiratory failure. He requires ICU-level care with high-flow nasal cannula support, aggressive fluid resuscitation, and broad-spectrum antimicrobials (vancomycin, piperacillin-tazobactam, azithromycin, plus oseltamivir). His labs reveal acute kidney injury, electrolyte derangements (hyponatremia and hypokalemia), and elevated inflammatory markers; these are being addressed with careful IV fluid management (Lactated Ringer?s) and targeted electrolyte repletion. Chronic bilateral foot ulcers with new right foot cellulitis are being evaluated for underlying osteomyelitis. We have withheld metformin temporarily given his renal status and started insulin to control hyperglycemia. Additional supportive measures include DVT prophylaxis, stress ulcer prophylaxis, and early nutritional support. We will reassess cardiopulmonary status, renal function, and infectious parameters regularly, with plans to de-escalate antibiotic therapy based on culture data and clinical improvement. Continue to require ICU level of care. Necessitating Vapotherm. Condition serious, prognosis guarded. Problems addressed as follows: Sepsis / Multifocal Pneumonia (Influenza A) Acute hypoxic respiratory failure -Continue broad-spectrum antibiotics with vancomycin and Zosyn. Sputum and blood cultures pending. Found to be flu positive, continue Tamiflu renally dosed twice daily for 5 days. -Continue Vapotherm, 20 L 40% for goal sats greater 90%. -Per my review of chest imaging, has significant airspace disease with focal consolidation in right middle and lower lobe. White count remains elevated today. -Repeat CBC, CMP, magnesium ordered for the morning. -Inflammatory markers elevated with CRP of 316, ESR 122. Type 2 Diabetes Mellitus -A1c surprisingly 5.1. Continue fingersticks ACHS with sliding scale insulin ACHS. -Morning glucose 91 -Holding oral metformin in the setting of sepsis Chronic Bilateral Foot Ulcers Right foot cellulitis -Foot CT negative for osteo. Continue antibiotics for possible infection of the soft tissue. -Podiatry and wound care consulted for the morning Elevated BNP -Concern for component of heart failure. Echo ordered for the morning. Will hold on diuresis in the setting of sepsis. BNP elevated at 1490. - Recent echo: mild right heart strain, normal LVEF, no pericardial effusion. Acute Kidney Injury -BUN 43 with creatinine of 1.3 on admission. Improved this morning with BUN of 23, creatinine 0.8. Caution with nephrotoxins. Patient more alert, will discontinue IV fluids. Administer bolus fluids if needed. Tolerating p.o. liquids. Electrolyte Abnormalities -Sodium remains low at 128, monitor for improvement with treatment of sepsis. Potassium 3.3, magnesium 1.6 and phosphorus 1.4. Replacing aggressively today with IV and oral replacement. Repeat CBC, CMP, magnesium and phosphorus ordered for the morning. Chronic Tobacco Use -Nicotine patch daily as needed Full code Lovenox 40 mg subcu daily Diabetic diet ICU/Critical care attestation This patient is critically ill with 35 minutes devoted solely to this patient managing life/organ supporting interventions that required physician assessment. This includes time spent making adjustments in ventilator settings, IV fluid administration, titration of pressors, adjustments of medications, discussion of patient with consultants and other care providers as well as updating patient and/or family (if patient by virtue of his/her condition is unable to participate in decision making). This does not include time spent performing separately billed procedures. Time is not concurrent with that of other providers.
[2024-04-12] MEDS: MAGNESIUM SULFATE IN WATER 2 GM/50 ML PIGGYBACK IV (10:35)
[2024-04-12] MEDS: POTASSIUM PHOS IN 0.9 % NACL 15 MMOL/250 ML PIGGYBACK 62.5 MMOL IV ×2 (10:37→14:29)
[2024-04-12 10:54] LABS: POC Glucose,Bedside 92 (70-110)
[2024-04-12 10:55] LABS: Hemoglobin A1C 5.1 % (4.0-6.0)
[2024-04-12] MEDS: ENOXAPARIN 40MG/0.4ML SYRINGE 40 MG SUBCUT (11:23)
[2024-04-12 15:36] LABS: POC Glucose,Bedside 90 (70-110)
[2024-04-12] MEDS: VANCOMYCIN/WATER FOR INJ (PEG) 1.25 GM/250 ML PIGGYBACK IV (15:56)
[2024-04-12] MEDS: PANTOPRAZOLE 40MG TABLET 40 MG PO (20:20)
[2024-04-12 20:39] LABS: POC Glucose,Bedside 80 (70-110)
[2024-04-12 23:23] LABS: POC Glucose,Bedside 142 (70-110)
[2024-04-13] VITALS (21 sets, daily range): BP systolic 97–122; BP diastolic 45–75; PULSE 78–116; RESP 18–27; TEMP 36.7–38.6; O2SAT 90–98; BMI 29.1; BMI 30.5
[2024-04-13] MEDS: ACETAMINOPHEN 325MG TAB 650 MG PO (00:27)
[2024-04-13] MEDS: PIPERACILLIN/TAZO 3.375 GM in 0.9 % SODIUM CHLORIDE 100 ML IV ×2 (04:34→10:20)
[2024-04-13] MEDS: VANCOMYCIN/WATER FOR INJ (PEG) 1.25 GM/250 ML PIGGYBACK IV (04:34)
--- NOTE | 2024-04-13 06:00 | CA_ITS ---
APPROVED REPORT EXAM: Comprehensive 2D, Doppler, and color-flow Echocardiogram Medical Practitioners: Lilly Fernández CRT Ht: 5 ft 11 in Wt: 212lbs BSA: 2.16 BP: 120/67 mmHg Indications: Diabetes, Peripheral Edema, Hyperlipidemia, Hypertension/HDD, PTSD, Flu A+ 2D Dimensions LA Volume 33.80 mL LA Volume Index 15.30 mL/m2 (M/F) 16-34 M-Mode Dimensions RVDd 4.38 cm (0.9-2.6) LA Diam 3.37 cm (1.9-4.0) LVDd 4.77 cm (3.5-5.7) LVDs 2.74 cm (3.5-5.7) IVSd 1.10 cm (0.6-1.1) PWd 0.75 cm (0.6-1.1) EF (Teich) 73.60% FS 42.60% EDV (Teich) 106.00 mL TAPSE 2.15 (<1.7) ESV (Teich) 28.00 mL LV Diastology E Decel Time 140 (160-240 msec) E/A Ratio 1.17 MED A' 15.20 cm/s LAT A' 11.40 cm/s Aortic Valve AO Peak GR. 7.40 mmHg Mitral Valve MV E Max [place]. 102.0 (40-130 cm/s) MV A Velocity 88.0 (40-130 cm/s) E/A Ratio 1.17 MV PHT 41.0 ms Pulmonary Valve PV Peak Velocity 115.0 (50-150 cm/s) Tricuspid Valve TR P. Velocity 286.00 cm/s RAP Estimate 10.00 mmHg RVSP 42.80 mmHg Left Ventricle The left ventricle is normal size. The left ventricular systolic function is normal. The left ventricular ejection fraction is within the normal range. There is increased LV wall thickness. There is septal flattening present, consistent with right-sided volume/pressure overload. The left ventricular diastolic function is normal. LVEF is 60%. Right Ventricle The right ventricle is not well-visualized, but grossly appears to be at least moderately dilated with at least mildly reduced RV systolic function. Atria The left atrium size is normal. Right atrium is mildly dilated. The interatrial septum is not well-visualized. Aortic Valve The aortic valve opens well. There is no aortic valvular stenosis. No aortic regurgitation is present. Mitral Valve The mitral valve is normal in structure. No evidence of mitral valve stenosis. Trace mitral regurgitation. Tricuspid Valve Tricuspid valve is grossly normal in structure and function. Mild tricuspid regurgitation. RVSP is 35-40 mmHg. Pulmonic Valve The pulmonary valve is normal in structure. Trace pulmonic regurgitation. Great Vessels The aortic root is normal in size. The ascending aorta is not well-visualized. IVC is normal in size and collapses >50% with inspiration. Pericardium There is no pericardial effusion. Other Information Study Quality: Technically Difficult Conclusion Technically difficult study due to poor acoustic windows. Normal LV systolic function. There is septal flattening present, consistent with right-sided volume/pressure overload. The right ventricle is not well-visualized, but grossly appears to be at least moderately dilated with at least mildly reduced RV systolic function. Mild TR. RVSP 35-40 mmHg. Electronically signed by : Shama Rowe MD 04/13/2024 11:51:39
--- NOTE | 2024-04-13 06:00 | US_ITS ---
FINAL REPORT CLINICAL HISTORY: elevsted liver enzymes, cirrhosis? COMPARISON: None FINDINGS: Sonographic images of the right upper quadrant were obtained. The pancreas is partially obscured.The liver has an unremarkable appearance.The gallbladder appears normal without evidence of gallstones. There is mild biliary ductal dilatation measuring up to 9 mm. The common duct is within normal limits. Limited images of the right kidney are unremarkable. IMPRESSION: Mild biliary ductal dilatation. Consider MRCP follow-up. Reviewed, Interpreted and Dictated by Trupti Tejeda MD Transcribed by Sera Stover Authenticated and . [facility]
[2024-04-13] MEDS: IPRATROPIUM/ALBUTEROL 3 ML NEB IH ×4 (06:15→23:10)
[2024-04-13 06:27] LABS: POC Glucose,Bedside 198 (70-110)
[2024-04-13 06:55] LABS: Basophils # 0.1 K/mm3 (0-0.2); Basophils % 0.5 % (0.1-2.0); Eosinophils % 0.2 % (0.1-12.0); Hematocrit 28.4 % (42.0-52.0); Hemoglobin 9.7 g/dL (14.1-18.0); Lymphocytes # 1.2 K/mm3 (0.7-4.5); Lymphocytes % 6.5 % (10-50); Mean Corpuscular HGB Conc 34.2 g/dL (31.8-35.4); Mean Corpuscular Hemoglobin 28.7 pg (27.0-31.2); Mean Platelet Volume 10.3 fl (7.4-10.4); Monocytes % 5.6 % (1.7-9.3); Neutrophils % 83.6 % (37.0-80.0); Platelet Count 232 K/mm3 (142-424); Red Blood Count 3.38 M/mm3 (4.60-6.20); Red Cell Distribution Width 15.5 % (11.5-17.5)
--- NOTE | 2024-04-13 06:56 | EXP.POD.CONS ---
History of Present Illness *Admission Date: 04/11/24 *History of present illness: This is a 48-year-old male with type 2 diabetes mellitus and a heavy smoking history (one pack per day since age 13), diabetes mellitus, medical noncompliance who presents in severe respiratory distress. Per triage, his oxygen saturation was critically low at 70% on room air. He is only able to speak in short phrases due to his work of breathing and denies a formal history of COPD or other cardiac or pulmonary disease; however, he acknowledges that he ?smokes too much.? He reports having had a fever and cough over the past week but cannot provide more extensive details because of his acute respiratory compromise. On arrival, he appeared warm to the touch with a temperature of 100.1?F, was tachycardic (heart rate 122 bpm), tachypneic (respiratory rate in the 30s), and markedly hypoxic, requiring immediate supplemental oxygen. Initial blood pressure was 120/67 mmHg, which remained stable, but given his lab findings of an elevated white blood cell count (12.8 ? 10?/?L) with neutrophil predominance, elevated lactate of 2.2 mmol/L, BUN of 43 mg/dL, and creatinine of 1.30 mg/dL, there is concern for sepsis in the setting of acute hypoxic respiratory failure. A rapid PCR test detected Influenza A, and a portable chest X-ray revealed multifocal pneumonia. He was started on broad-spectrum antimicrobial therapy with IV vancomycin, piperacillin-tazobactam, and azithromycin, as well as IV fluids, and placed on high-flow nasal cannula (Vapotherm) with some improvement in oxygen saturation. After the patient?s family arrived, additional history revealed chronic bilateral foot ulcers present for six months, likely related to his diabetes and peripheral vascular disease risk factors. On examination, the ulceration on the dorsal aspect of the right foot appeared increasingly erythematous over the past two weeks, suggesting possible cellulitis; however, there is no obvious sign of a necrotizing process, and the clinical picture seems primarily driven by his acute respiratory infection. X-rays of both feet were ordered to exclude any underlying gas or bony involvement. A focused cardiac ultrasound (parasternal long/short axis, apical four-chamber, and subxiphoid views) showed no pericardial effusion and a normal left ventricular ejection fraction; there is mild right heart strain with an RV:LV ratio near 1 but no definitive findings suggesting an acute pulmonary embolism, making chronic changes more likely. Given his severe hypoxia, significant work of breathing, likely influenza-related multifocal pneumonia, and concern for sepsis, he requires ICU-level care for ongoing close monitoring of his respiratory status, potential for further hemodynamic compromise, and aggressive treatment of both his pulmonary infection and any complicating soft tissue infection in the right foot. 04/13/24: Podiatry consult, patient awake this morning and was getting Echo done at the time I entered. He denies pain or feeling to b/l foot ulcers. Has hx of neuropathy and states the ulcers have been there x 7-8 months. He states he did see a [employer] [facility] in [place] a month ago, he could not remember her name. Plan to clean and debride wounds today and get SITA's. Pulses DP/PT are present but decreased, and history of wounds and lower extremity ulcers not healing in a timely manner SITA's testing is deemed appropriate. [facility] Disclaimer: The information contained in this section may have been updated after the patient was seen, as this information can be updated by other users. Medical History Ulcer of right foot limited to breakdown of skin Varicose veins of both lower extremities Hyperlipidemia Bilateral lower extremity edema Essential hypertension Type 2 diabetes mellitus without complications Chronic post-traumatic stress disorder (PTSD) Hx of fracture of lower leg Surgical History History of mandibular surgery H/O hernia repair Family History Father Coronary artery disease FHx: mental illness Mother FHx: mental illness Sister FHx: mental illness Sister FHx: mental illness Social History (Updated 04/11/24 @ 22:50 by Jessica Gotti RN) Smoking Status: Current every day smoker tobacco type: cigarettes packs per day: 1 smoking status start date: Age 13 quit status: not considering quitting second hand exposure: Yes alcohol intake: former substance use type: former substance user counseling given: Yes current occupational status: unemployed Travel in the last 8 weeks: None marital status: single number of children: 2 education level: high school service: No long term: No well-balanced diet: rarely or never caffeine: Yes high-fat food intake: 3 or more times/day daily servings fruits/ve-1 daily servings of milk/calcium: 0-1 eating out: 1-3 times/week reads food labels: seldom or never during the past year weight has: increased > 10 lbs physical activity: none 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 nae needs: No agree to transfusion: No helmet use: No drive intox or ride w/ intox drivers license examiner: Yes drive intox or w/ intox drivers license examiner: rarely working smoke detector in home: Yes do you feel safe at home: Yes victim of physical abuse: No victim of emotional abuse: No victim of sexual abuse: No would you like helpful sources: No Have you lived/traveled outside [place] in past 30 days?: No Contact w/someone who lives/traveled outside US past 30 days?: No Exposure to someone with infectious disease in past 14 days?: No Do you have a fever (greater than 100.4 F or 38 C)?: No Have you tested positive for COVID-19: No Exposed to someone with COVID-19 in past 14 days?: No Do you have a sore throat?: No Do you have a cough?: No Do you have any weakness?: No Do you have any diarrhea?: No Are you experiencing any unusual bleeding?: No Do you have any muscle aches/pain?: Yes Do you have any abdominal pain?: No Are you experiencing loss of taste or smell?: No Meds Home Medications and Allergies Home Medications ?Medication ?Instructions ?Recorded ?Confirmed ?Type buprenorphine 8 mg-naloxone 2 mg 2 tab sublingual DAILY 08/06/23 04/11/24 History sublingual tablet hydrochlorothiazide 25 mg tablet 25 mg PO DAILY #90 tabs 10/02/23 04/11/24 Rx empagliflozin 10 mg tablet 10 mg PO DAILY #90 tabs 12/02/23 04/11/24 Rx (Jardiance) desvenlafaxine succinate 100 mg 100 mg PO DAILY #30 tabs 12/17/23 04/11/24 Rx tablet,extended release 24 hr (Pristiq) bupropion HCl 150 mg 24 hr tablet, 150 mg PO DAILY #30 tabs 12/30/23 04/11/24 Rx extended release (Wellbutrin XL) cariprazine 1.5 mg capsule 1.5 mg PO DAILY #30 caps 02/18/24 04/11/24 Rx (Shawnaylar) lisinopril 5 mg tablet 5 mg PO DAILY #90 tabs 03/04/24 04/11/24 Rx metformin 500 mg tablet 500 mg PO DAILY #90 tabs 03/04/24 04/11/24 Rx atorvastatin 20 mg tablet 20 mg PO DAILY 04/12/24 04/12/24 History New Prescriptions to Start Prescriptions: Allergies Allergy/AdvReac Type Severity Reaction Status Date / Time No Known Allergies Allergy Verified 04/11/24 22:50 Exam (Inpt) Vital signs and Labs for Last 24 Hours: Temp Pulse Resp BP Pulse Ox O2 Del Method O2 Flow Rate 99.2 F 87 23 98/63 L 97 Vapotherm 20 04/13/24 04:00 04/13/24 06:18 04/13/24 04:00 04/13/24 06:00 04/13/24 06:18 04/13/24 06:30 04/13/24 06:30 FiO2 40 04/13/24 06:18 Laboratory Results - last 24 hr 04/12/24 07:48: POC Glucose 101 04/12/24 09:25: ESR 122 H, PT 13.5 H, INR 1.26 H, APTT 26.8, Sodium 128 L, Potassium 3.3 L, Chloride 94 L, Carbon Dioxide 30, Anion Gap 7.3, BUN 23 H D, Creatinine 0.80 D, Estimated Creat Clear 154, Estimated GFR 103, Est GFR ( Amer) 125 D, Glucose 91 D, Hemoglobin A1c 5.1, Calcium 7.4 L, Phosphorus 1.4 L, Magnesium 1.6, Total Bilirubin 1.3, AST 131 H D, ALT 62, Alkaline Phosphatase 83, Total Protein 5.6 L, Albumin 2.6 L D, Globulin 3.0, Albumin/Globulin Ratio 0.9 L 04/12/24 10:39: POC Glucose 92 04/12/24 15:28: POC Glucose 90 04/12/24 20:25: POC Glucose 80 04/12/24 23:06: POC Glucose 142 H 04/13/24 06:20: POC Glucose 198 H I & O for Labs for Last 24 Hours: Intake & Output 04/10/24 04/11/24 04/12/24 04/13/24 23:59 23:59 23:59 23:59 Intake Total 1350 / 1350 740 / 740 Output Total 750 / 750 1500 / 1500 1000 / 1000 Balance 600 / 600 -760 / -760 -1000 / -1000 Weight 212 lb 6.4 oz 212 lb 0.015 oz 208 lb Microbiology Reports for the Last 24 Hours: Microbiology 04/11/24 20:15 Blood Blood Culture - Preliminary 04/11/24 19:56 Blood Blood Culture - Preliminary 04/12/24 06:00 Foot,Right Gram Stain - Final Constitutional: Present no acute distress Head: Present normocephalic Eye: Present as per HPI Neck: Present trachea midline Respiratory: Present normal respiratory effort and able to speak in complete sentences Comment:: Breathing effort was easy and with assisted oxygen per nasal cannula. Cardiac: Present posterior tibial pulses present and pedal pulses present Comment:: Decreased sensation b/l with Decreased but present pedal pulses DP/PT New order for SITA testing to be done today Comments:: Deferred, NPO at present time for testing today. Rectal (male): Present deferred (male): Present deferred Extremities: Present normal capillary refill Comment:: Right dorsal foot ulcers x 2 -Proximal- wound Debrided with a 15' blade sharply, excisionally through skin into the subcu layer. Fibrotic tissue was removed. Good bleeding was noted. Granular base was noted. Post debridement the wound measured 2.0 x 2.3 x 0 cm -Distal ulcer, wound Debrided with a 15' blade sharply, excisionally through skin into the subcu layer. Fibrotic tissue was removed. Good bleeding was noted. Granular base was noted. Post debridement the wound measured 2.4 x 4.0 x 0 cm Right posterior hallux- wound Debrided with a 15' blade sharply, excisionally through skin into the subcu layer. Fibrotic tissue was removed. Good bleeding was noted. Granular base was noted. Post debridement the wound measured 1.0 x 2.3 x 0 cm Left Lateral foot, sub 5th- wound Debrided with a 15' blade sharply, and curette, excisionally through skin into the subcu layer. Fibrotic tissue was removed. Good bleeding was noted. Granular base was noted. Post debridement the wound measured 3.4 x 4.2 x 0.1 cm Ulcers cleaned and dressed with betadine soaked 4x4, kerlix and coban dressings. Skin: Present erythema, warm and wounds Neuro: Present Motor Function Intact, Weakness, awake, oriented x 3 and moves all extremities Comment:: Decreased sensation history of neuropathy obtaining SITA testing today Ankle: right: swelling (Trace right ankle edema ) and bilateral: wound (B/L foot ulcers ) and bilateral: decreased ROM Feet/Toes: bilateral: hammer toe (slight hammer toes b/l 2-5; reducible ), bilateral: nail abnormalities (Toenails, thick and discolored), bilateral: onychomycosis (suspected ) and bilateral: wound (Right dorsal foot x2, Right posterior hallux, Left sub 5th ) Inspection: Present foot deformity deformity: Present hammer toes, nail disorder, skin break, infection and ulceration Pulses: L dorsalis pedis pulse: diminished, R dorsalis pedis pulse: diminished, L posterior tibial pulse: diminished and R posterior tibial pulse: diminished CFT: dim: CFT Monofilament exam: L 1st metatarsals: decreased, L 3rd metatarsals: decreased, L 5th metatarsals: decreased, L great toe: decreased, R 1st metatarsals: decreased, R 3rd metatarsals: decreased, R 5th metatarsals: decreased and R great toe: decreased Ankle reflex: Left: abnormal and Right: abnormal Results Labs 04/13/24 05:45 04/13/24 05:45 Labs: Abnormal lab results 04/12/24 04/12/24 04/13/24 Range/Units 09:25 23:06 06:20 ESR 122 H (0-15) mm/hr PT 13.5 H (9.2-12.1) seconds INR 1.26 H (0.9-1.1) Sodium 128 L (136-145) mmol/L Potassium 3.3 L (3.5-5.1) mmoL/L Chloride 94 L (98-107) mmol/L BUN 23 H D (9-20) mg/dl POC Glucose 142 H 198 H (70-110) Calcium 7.4 L (8.4-10.2) mg/dl Phosphorus 1.4 L (2.5-4.5) mg/dl AST 131 H D (17-59) U/L Total Protein 5.6 L (6.3-8.2) g/dl Albumin 2.6 L D (3.5-5.0) g/dl Albumin/Globulin Ratio 0.9 L (1.1-1.8) H & H 04/11/24 Range/Units 19:56 Hgb 11.2 L (14.1-18.0) g/dL Hct 32.5 L (42.0-52.0) % Coagulation 04/12/24 Range/Units 09:25 INR 1.26 H (0.9-1.1) All other labs normal. Assessment and Plan *Assessment and plan (1) Acquired hammer toe: Status: Acute Category: Medical Code(s): M20.40 - Other hammer toe(s) (acquired), unspecified foot (2) Decreased pedal pulses: Status: Acute Category: Medical Code(s): R09.89 - Other specified symptoms and signs involving the circulatory and respiratory systems (3) Decreased sensation of foot: Status: Acute Category: Medical Code(s): R20.8 - Other disturbances of skin sensation (4) Discoloration and thickening of nails both feet: Status: Acute Category: Medical Code(s): L60.8 - Other nail disorders (5) Diabetic ulcer of foot associated with diabetes mellitus due to underlying condition, limited to breakdown of skin: Status: Acute Category: Medical Code(s): E08.621 - Diabetes mellitus due to underlying condition with foot ulcer; L97.501 - Non-pressure chronic ulcer of other part of unspecified foot limited to breakdown of skin (6) Diabetic ulcer of left foot: Status: Acute Qualifiers: Diabetes mellitus type: type 2 Diabetic foot ulcer location: unspecified part of foot Non-pressure ulcer stage: limited to breakdown of skin Qualified Code(s): E11.621 - Type 2 diabetes mellitus with foot ulcer; L97.521 - Non-pressure chronic ulcer of other part of left foot limited to breakdown of skin Category: Medical Code(s): E11.621 - Type 2 diabetes mellitus with foot ulcer; L97.529 - Non-pressure chronic ulcer of other part of left foot with unspecified severity (7) Cellulitis of right foot: Start date: 04/11/24 Start time: 21:00 Problem Comment: Patient states that the initial accident happend 7 months ago, spilled hot coffee to the top of his foot. This past weekend the foot became sore and red. Patient came to ER for other reasons Respiratory issues and not the foot. Status: Acute Category: Medical Code(s): L03.115 - Cellulitis of right lower limb (8) Non-healing ulcer of foot: Status: Acute Qualifiers: Laterality: right Non-pressure ulcer stage: limited to breakdown of skin Qualified Code(s): L97.511 - Non-pressure chronic ulcer of other part of right foot limited to breakdown of skin Category: Medical Code(s): L97.509 - Non-pressure chronic ulcer of other part of unspecified foot with unspecified severity Plan 04/13/24: 04/11/24: Left foot x-rays, FINDINGS: Bones/joints: No acute fracture or malalignment. Mild osteoarthritis. Calcaneal enthesopathy. Soft tissues: Mild diffuse soft tissue swelling. 1.2 cm rounded lucent focus within the soft tissues lateral to the 5th MTP joint. IMPRESSION: 1. No acute osseous findings. 2. 1.2 cm rounded lucent focus within the soft tissues lateral to the 5th MTP joint, possibly representing soft tissue injury, ulceration or mass. Mild diffuse soft tissue swelling. 04/11/24: Right foot x-rays, FINDINGS: Bones/joints: Posttraumatic changes of the distal fibula and distal tibia post hardware removal. No acute fracture or malalignment. Mild osteoarthritis. Calcaneal enthesopathy.. Soft tissues: Mild diffuse soft tissue swelling. No soft tissue gas. IMPRESSION: 1. No acute osseous findings. 2. Mild diffuse soft tissue swelling. No soft tissue gas. Date of Service: 04/11/24, Procedure(s): CT foot RT w con FINDINGS: Bones/joints: Postsurgical changes of the distal tibia and fibula with hardware removal. No acute fracture or dislocation. Chronic avulsive changes of the lateral malleolar tip. Calcaneal enthesopathy. Mild scattered osteoarthritis. No periostitis or cortical destruction. Soft tissues: Mild generalized soft tissue swelling. No soft tissue gas. No rim enhancing soft tissue fluid collection. IMPRESSION: Mild generalized soft tissue swelling. No soft tissue gas or abscess. No acute osseous findings. Ulcers to right dorsal foot and Left lateral sub 5th: Reviewed labs and CT scan of Right foot- negative for any bone infections. Right foot wound culture obtained by nursing 04/12/24- Gram stain -NOS, culture still pending Labs; WBC 18.0 ESR 87, improved from 122, CRP 316, HA1c 5.1 Ulcers have been present x 7-8 months per patient history Right foot ulcer came from spilling hot coffee onto foot and hasn't healed. He is unsure how the ulcer to left lateral foot happened, he thinks from his shoes Ulcers cleaned, debrided and dressed with betadine soaked gauze, kerlix and coban Continue getting IV antibiotics (Vancomycin, Zosyn) per hospitalist orders Podiatry will continue to follow and do dressing changes while inpatient No plans for surgical treatment as for Podiatry. All orders and recommendations per Dr. Munoz Decreased pedal pulses, Decreased sensation,non-healing ulcers : Discussed with the patient the possibility of vascular disease. I explained the difference between macro and micro vascular disease. I explained that macrovascular disease usually involves stenosis or blockage of arteries and requires stenting to open up the vessel to improve circulation. I explained that microvascular disease is much harder to treat because you cannot stent this and it often involves the feet. We discussed how problems with arterial circulation can cause coldness and discoloration to the toes, pain to the digits, delayed healing of wounds, arterial wounds, and gangrene. We discussed how problems with venous circulation can cause fluid retention, swelling, pain and delayed healing of venous wounds. -Ulcers to Right dorsal foot and left lateral foot sub-fifth slow to non-healing x 8 months -Present but decreased DP/PT pedal pulses bilaterally -Was deemed appropriate to order SITA testing to check circulation status, blood flow to lower extremities -Plan to check vascular studies: SITA/toe pressures to evaluate for new skin changes, non-healing ulcers today
[2024-04-13 06:58] LABS: MANUAL DIFFERENTIAL MANUAL DIFFERENTIAL (MANUAL DIFF)
[2024-04-13 07:00] LABS: Albumin Level 2.7 g/dl (3.5-5.0); Chloride 94 mmol/L (98-107); Potassium 3.7 mmoL/L (3.5-5.1); Sodium 129 mmol/L (136-145)
[2024-04-13 07:03] LABS: Alanine Aminotransferase 57 U/L (12-78); Albumin/Globulin Ratio 0.9 (1.1-1.8); Alkaline Phosphatase 143 U/L (38-126); Anion Gap 10.7 mEq/L (5-15); Aspartate Amino Transferase 124 U/L (17-59); Bilirubin,Total 1.4 mg/dl (0.2-1.3); Blood Urea Nitrogen 14 mg/dl (9-20); Calcium 7.2 mg/dl (8.4-10.2); Carbon Dioxide 28 mmol/L (22.0-30.0); Creatinine Clearance Estimated 172 mL/min (50-200); Estimated Glomerular Filt Rate 120 ml/min (>60); GFR (African American) 146 ML/MIN (>60); Globulin 3.1 g/dL (1.3-3.2); Total Protein,Serum 5.8 g/dl (6.3-8.2)
[2024-04-13 07:07] LABS: Glucose 50 mg/dl (74-100)
[2024-04-13 07:18] LABS: POC Glucose,Bedside 80 (70-110)
--- NOTE | 2024-04-13 07:20 | PC.NURSE ---
Lab called critical glucose of 50. pt assessed and denies hypoglycemic symptoms. rn shift mgr nurse MARIIA Espinal stated she did a POC glucose this morning and the patients sugar was 198. rechecked pt POC glucose at this time which was 80. reported findings to Sergei Cherry who stated to recheck the patients sugar in an hour.
[2024-04-13 07:23] LABS: Lymphocytes % 11 % (10-50); Monocytes % 3 % (2-9); Neutrophils % 86 % (42-76); Platelet Estimate Normal; RBC Morphology Normal; Total Cells Counted 100
[2024-04-13 07:29] LABS: Erythrocyte Sedimentation Rate 87 mm/hr (0-15)
--- NOTE | 2024-04-13 08:15 | PC.NURSE ---
rechecked pts glucose at this time. POC was 65. Dr. Orellana notified. pt given orange juice which was approved by radiology before his US this morning.
--- NOTE | 2024-04-13 08:18 | US_ITS ---
FINAL REPORT CLINICAL HISTORY: b/l SITA LE: smoker, DFU x7 months FINDINGS: ANKLE-BRACHIAL PRESSURE INDICES Pressure indices are as follows: RIGHT LOWER EXTREMITY: Ankle-brachial pressure index: 1.4 Comments: Normal LEFT LOWER EXTREMITY: Ankle-brachial pressure index: 1.1 Comments: Normal IMPRESSION: No evidence of significant obstructive peripheral vascular disease of the lower extremities Reviewed, Interpreted and Dictated by Trupti Tejeda MD Transcribed by Emerald Nam Authenticated and [facility]
[2024-04-13 08:22] LABS: POC Glucose,Bedside 65 (70-110)
--- NOTE | 2024-04-13 08:37 | PC.NURSE ---
Radiology at bedside for RUQ ultrasound
[2024-04-13] MEDS: buPROPion HCl SR 150MG TAB 150 MG PO (09:16)
[2024-04-13] MEDS: ENOXAPARIN 40MG/0.4ML SYRINGE 40 MG SUBCUT (09:16)
[2024-04-13] MEDS: OSELTAMIVIR 75MG CAPSULE 75 MG PO ×2 (09:18→22:06)
[2024-04-13 09:25] LABS: Procalcitonin 11.3 ng/mL (0.0-2.0)
--- NOTE | 2024-04-13 09:26 | PC.NURSE ---
PT/OT at bedside
[2024-04-13 09:31] LABS: Magnesium 1.9 mg/dl (1.6-2.3)
[2024-04-13 09:36] LABS: C-Reactive Protein 284.5 mg/L (0-4)
--- NOTE | 2024-04-13 09:38 | PC.NURSE ---
report called to MARIIA Avelar
--- NOTE | 2024-04-13 09:59 | P.CONS_ITS ---
History of Present Illness History of present illness: is a 48-year-old male with reported history of greater than 26-lccf-pahb smoking history type 2 diabetes mellitus presented today with worsening respiratory distress found to be saturating 70% on room air upon admission and pulmonary was called for further evaluation and management. [facility] Disclaimer: The information contained in this section may have been updated after the patient was seen, as this information can be updated by other users. Medical History (Updated 04/13/24 @ 11:21 by Jim Wolfe MD) Staphylococcus aureus bacteremia with sepsis Influenza Ulcer of right foot limited to breakdown of skin Varicose veins of both lower extremities Hyperlipidemia Bilateral lower extremity edema Essential hypertension Type 2 diabetes mellitus without complications Chronic post-traumatic stress disorder (PTSD) Hx of fracture of lower leg Surgical History History of mandibular surgery H/O hernia repair Family History Father Coronary artery disease FHx: mental illness Mother FHx: mental illness Sister FHx: mental illness Sister FHx: mental illness Social History (Updated 04/11/24 @ 22:50 by Jessica Gotti RN) Smoking Status: Current every day smoker tobacco type: cigarettes packs per day: 1 smoking status start date: Age 13 quit status: not considering quitting second hand exposure: Yes alcohol intake: former substance use type: former substance user counseling given: Yes current occupational status: unemployed Travel in the last 8 weeks: None marital status: single number of children: 2 education level: high school service: No senior living: No well-balanced diet: rarely or never caffeine: Yes high-fat food intake: 3 or more times/day daily servings fruits/ve-1 daily servings of milk/calcium: 0-1 eating out: 1-3 times/week reads food labels: seldom or never during the past year weight has: increased > 10 lbs physical activity: none nae/faith: [employer] special nae needs: No agree to transfusion: No helmet use: No 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 rubbish collector: rarely working smoke detector in home: Yes do you feel safe at home: Yes victim of physical abuse: No victim of emotional abuse: No victim of sexual abuse: No would you like helpful sources: No Have you lived/traveled outside [place] in past 30 days?: No Contact w/someone who lives/traveled outside [place] past 30 days?: No Exposure to someone with infectious disease in past 14 days?: No Do you have a fever (greater than 100.4 F or 38 C)?: No Have you tested positive for COVID-19: No Exposed to someone with COVID-19 in past 14 days?: No Do you have a sore throat?: No Do you have a cough?: No Do you have any weakness?: No Do you have any diarrhea?: No Are you experiencing any unusual bleeding?: No Do you have any muscle aches/pain?: Yes Do you have any abdominal pain?: No Are you experiencing loss of taste or smell?: No Review of Systems Constitutional Constitutional: Reports anorexia, Reports body ache(s) and Reports fatigue Eyes Eyes: Denies eye discharge, Denies dry eyes, Denies irritation and Denies itchy eyes ENT Ears, Nose, Mouth, and Throat: Denies epistaxis, Denies facial pain, Denies lip swelling and Denies throat swelling *Cardiovascular Cardiovascular: Reports dyspnea and Reports dyspnea on exertion *Respiratory Respiratory: Reports change in phlegm color, Reports chest congestion, Reports cough, Reports dyspnea, Reports dyspnea on exertion, Reports excessive phlegm production, Denies hemoptysis, Denies pain on inspiration, Denies pain with cough and Reports wheezing *Gastrointestinal Gastrointestinal: Denies abdominal pain, Denies belching and Denies cramping *Musculoskeletal Musculoskeletal: Reports back pain, Reports myalgias and Reports other (No small joint swelling or Pain) Psychiatric Psychiatric: Denies homicidal ideation and Denies suicidal ideation Endocrine Endocrine: Reports fatigue and Denies heat intolerance Hematologic/Lymphatic Hematologic/Lymphatic: Denies easy bleeding and Denies lymphadenopathy Allergic/Immunologic Allergic/Immunologic: Denies itchy eyes, Denies lip swelling, Denies throat swelling and Reports wheezing Pulmonology Exam Inpatient Vital signs and Labs for Last 24 Hours: Temp Pulse Resp BP Pulse Ox O2 Del Method O2 Flow Rate 99.6 F 110 H 21 112/66 92 L Nasal Cannula 4 04/13/24 08:00 04/13/24 08:00 04/13/24 08:00 04/13/24 08:00 04/13/24 08:00 04/13/24 08:00 04/13/24 08:00 FiO2 40 04/13/24 06:18 Laboratory Results - last 24 hr 04/12/24 09:25: ESR 122 H, PT 13.5 H, INR 1.26 H, APTT 26.8, Sodium 128 L, P otassium 3.3 L, Chloride 94 L, Carbon Dioxide 30, Anion Gap 7.3, BUN 23 H D, C reatinine 0.80 D, Estimated Creat Clear 154, Estimated GFR 103, Est GFR ( Amer) 125 D, Glucose 91 D, Hemoglobin A1c 5.1, Calcium 7.4 L, P hosphorus 1.4 L, Magnesium 1.6, Total Bilirubin 1.3, AST 131 H D, ALT 62, Alkaline Phosphatase 83, Total Protein 5.6 L, Albumin 2.6 L D, Globulin 3.0, A lbumin/Globulin Ratio 0.9 L 04/12/24 10:39: POC Glucose 92 04/12/24 15:28: POC Glucose 90 04/12/24 20:25: POC Glucose 80 04/12/24 23:06: POC Glucose 142 H 04/13/24 05:45: WBC 18.0 H D, RBC 3.38 L, Hgb 9.7 L, Hct 28.4 L, MCV 84.0, MCH 28.7, MCHC 34.2, RDW 15.5, Plt Count 232, MPV 10.3, Neut % (Auto) 83.6 H, Lymph % (Auto) 6.5 L, Bland % (Auto) 5.6, Eos % (Auto) 0.2, Baso % (Auto) 0.5, Neut # (Auto) 15.0 H, Lymph # (Auto) 1.2, Bland # (Auto) 1.0, Eos # (Auto) 0.0, Baso # (Auto) 0.1, Total Counted 100, Neutrophils % (Manual) 86 H, Lymphocytes % (Manual) 11, Monocytes % (Manual) 3, Platelet Estimate Normal, RBC Morphology Normal, ESR 87 H, Sodium 129 L, Potassium 3.7, Chloride 94 L, Carbon Dioxide 28, Anion Gap 10.7, BUN 14 D, Creatinine 0.70, Estimated Creat Clear 172, Estimated GFR 120, Est GFR ( Amer) 146, Glucose 50 L D, Calcium 7.2 L, Magnesium 1.9 D, Total Bilirubin 1.4 H, AST 124 H, ALT 57, Alkaline Phosphatase 143 H, C- Reactive Protein 284.5 H, Total Protein 5.8 L, Albumin 2.7 L, Globulin 3.1, A lbumin/Globulin Ratio 0.9 L, Procalcitonin 11.3 H 04/13/24 06:20: POC Glucose 198 H 04/13/24 07:11: POC Glucose 80 04/13/24 08:13: POC Glucose 65 L I & O for Labs for Last 24 Hours: Intake & Output 04/10/24 04/11/24 04/12/24 04/13/24 23:59 23:59 23:59 23:59 Intake Total 1350 / 1350 740 / 740 210 / 210 Output Total 750 / 750 1500 / 1500 1000 / 1000 Balance 600 / 600 -760 / -760 -790 / -790 Weight 212 lb 6.4 oz 212 lb 0.015 oz 208 lb Microbiology Reports for the Last 24 Hours: Microbiology 04/12/24 06:00 Foot,Right Gram Stain - Final 04/12/24 06:00 Foot,Right Wound Culture - Preliminary 04/12/24 00:08 Sputum - Expectorated Sputum Gram Stain - Final 04/12/24 00:08 Sputum - Expectorated Sputum Sputum Culture - Preliminary 04/11/24 20:15 Blood Blood Culture - Preliminary 04/11/24 19:56 Blood Blood Culture - Preliminary Constitutional: Present severe distress Head: Present normocephalic and atraumatic ENT: Present normal exam, normal oropharynx and mucous membranes moist Neck: Present normal inspection and full ROM Respiratory: Present respiratory distress, rhonchi, wheezes and diminished air movement; Absent able to speak in complete sentences Cardiac: Present S1/S2, Tachycardia and radial pulses present GI: Present soft and distention; Absent tenderness or guarding Skin: Present intact; Absent cyanosis or jaundice Neuro: Present alert, awake and oriented x 3 Extremities: Present normal inspection; Absent clubbing or cyanosis Psychiatric: Present normal affect and cooperative Meds Home Medications and Allergies Home Medications ?Medication ?Instructions ?Recorded ?Confirmed ?Type buprenorphine 8 mg-naloxone 2 mg 2 tab sublingual DAILY 08/06/23 04/11/24 History sublingual tablet hydrochlorothiazide 25 mg tablet 25 mg PO DAILY #90 tabs 08/14/24 02/22/25 Rx empagliflozin 10 mg tablet 10 mg PO DAILY #90 tabs 12/02/23 04/11/24 Rx (Jardiance) desvenlafaxine succinate 100 mg 100 mg PO DAILY #30 tabs 12/17/23 04/11/24 Rx tablet,extended release 24 hr (Pristiq) bupropion HCl 150 mg 24 hr tablet, 150 mg PO DAILY #30 tabs 12/30/23 04/11/24 Rx extended release (Wellbutrin XL) cariprazine 1.5 mg capsule 1.5 mg PO DAILY #30 caps 02/18/24 04/11/24 Rx (Vraylar) lisinopril 5 mg tablet 5 mg PO DAILY #90 tabs 03/04/24 04/11/24 Rx metformin 500 mg tablet 500 mg PO DAILY #90 tabs 03/04/24 04/11/24 Rx atorvastatin 20 mg tablet 20 mg PO DAILY 04/12/24 04/12/24 History New Prescriptions to Start Prescriptions: Allergies Allergy/AdvReac Type Severity Reaction Status Date / Time No Known Allergies Allergy Verified 04/11/24 22:50 Results Laboratory Findings 04/13/24 05:45 04/13/24 05:45 PT/INR, D-dimer PT 13.5 seconds (9.2-12.1) H 04/12/24 09:25 INR 1.26 (0.9-1.1) H 04/12/24 09:25 Abnormal lab findings: Abnormal Labs 04/11/24 04/11/24 04/12/24 19:55 19:56 00:20 WBC 12.8 H RBC 3.94 L Hgb 11.2 L Hct 32.5 L Neut % (Auto) Lymph % (Auto) 5.6 L Bland % (Auto) 13.5 H Eos % (Auto) 0.0 L Neut # (Auto) 10.2 H Bland # (Auto) 1.7 H Neutrophils % (Manual) ESR PT INR VBG pO2 45.8 H VBG Total CO2 28.6 H VBG O2 Saturation 82.3 H VBG Lactic Acid 2.2 H Sodium 128 L Potassium 3.1 L Chloride 88 L BUN 43 H Creatinine 1.30 H Glucose 159 H POC Glucose 165 H Calcium 8.2 L Phosphorus Total Bilirubin AST 94 H Alkaline Phosphatase C-Reactive Protein 316.1 H NT-Pro-B Natriuret Pep 1490 H Total Protein Albumin Globulin 3.6 H Albumin/Globulin Ratio 1.0 L Procalcitonin Influenza A Untype (PCR) Detected A 04/12/24 04/12/24 04/13/24 09:25 23:06 05:45 WBC 18.0 H D RBC 3.38 L Hgb 9.7 L Hct 28.4 L Neut % (Auto) 83.6 H Lymph % (Auto) 6.5 L Bland % (Auto) Eos % (Auto) Neut # (Auto) 15.0 H Bland # (Auto) Neutrophils % (Manual) 86 H ESR 122 H 87 H PT 13.5 H INR 1.26 H VBG pO2 VBG Total CO2 VBG O2 Saturation VBG Lactic Acid Sodium 128 L 129 L Potassium 3.3 L Chloride 94 L 94 L BUN 23 H D Creatinine Glucose 50 L D POC Glucose 142 H Calcium 7.4 L 7.2 L Phosphorus 1.4 L Total Bilirubin 1.4 H AST 131 H D 124 H Alkaline Phosphatase 143 H C-Reactive Protein 284.5 H NT-Pro-B Natriuret Pep Total Protein 5.6 L 5.8 L Albumin 2.6 L D 2.7 L Globulin Albumin/Globulin Ratio 0.9 L 0.9 L Procalcitonin 11.3 H Influenza A Untype (PCR) 04/13/24 04/13/24 06:20 08:13 WBC RBC Hgb Hct Neut % (Auto) Lymph % (Auto) Bland % (Auto) Eos % (Auto) Neut # (Auto) Bland # (Auto) Neutrophils % (Manual) ESR PT INR VBG pO2 VBG Total CO2 VBG O2 Saturation VBG Lactic Acid Sodium Potassium Chloride BUN Creatinine Glucose POC Glucose 198 H 65 L Calcium Phosphorus Total Bilirubin AST Alkaline Phosphatase C-Reactive Protein NT-Pro-B Natriuret Pep Total Protein Albumin Globulin Albumin/Globulin Ratio Procalcitonin Influenza A Untype (PCR) Assessment and Plan *Assessment and plan (1) Influenza: Status: Acute Category: Medical Code(s): J11.1 - Influenza due to unidentified influenza virus with other respiratory manifestations (2) Staphylococcus aureus bacteremia with sepsis: Status: Acute Category: Medical Code(s): A41.01 - Sepsis due to Methicillin susceptible Staphylococcus aureus (3) Acute hypoxic respiratory failure: Status: Acute Category: Medical Code(s): J96.01 - Acute respiratory failure with hypoxia Plan is a 48-year-old male with reported history of greater than 43-jmbp-nelf smoking history type 2 diabetes mellitus presented today with worsening respiratory distress found to be saturating 70% on room air upon admission and pulmonary was called for further evaluation and management. CTA upon admission no evidence of pulmonary embolism. Bilateral extensive diffuse micronodular densities along with patchy airspace disease in right upper lobe lower lobe along with left lingula and left lower lobe. Mediastinal hilar lymphadenopathy also noted likely reactive. Sputum cultures moderate gram-positive cocci no reportable results yet. Febrile. Hemodynamically stable. Worsening leukocytosis. Influenza A+ on respiratory viral PCR. Currently receiving vancomycin and Zosyn along with Tamiflu. On initial examination patient appeared to be in severe respiratory distress unable to talk in full sentences. Bilateral diffuse wheezing noted. Blood cultures positive for gram-positive cocci PCR Staph aureus Plan: Continue oxygen supplementation to maintain O2 saturation goal of 90% and above. Continuous pulse oximetry evaluation will closely monitor. DuoNebs every 6 hours along with Pulmicort every 12 scheduled Continue Tamiflu x 5 days Continue vancomycin and Zosyn pending final culture results including blood and sputum cultures. Repeat Sputum cultures.. Repeat blood cultures in 48 hours from initial cultures Follow-up with final echocardiogram report
--- NOTE | 2024-04-13 10:07 | PC.NURSE ---
pt to Medsurg via wheelchair
[2024-04-13] MEDS: BUPRENORPHINE/NALOXONE 8MG/2MG ODT 2 EACH SL (10:20)
--- NOTE | 2024-04-13 10:24 | HMH.PTEV ---
Physical Therapy Evaluation Rehab PT IP Evaluation Start: 04/12/24 11:12 Freq: ONCE Status: Active Protocol: Document 04/13/24 10:18 TANK (Rec: 04/13/24 10:24 TANK [id number]) Subjective/History History History 48-year-old male with type 2 diabetes mellitus and a heavy smoking history (one pack per day since age 13), diabetes mellitus, medical noncompliance who presents in severe respiratory distress. Per triage, his oxygen saturation was critically low at 70% on room air. He is only able to speak in short phrases due to his work of breathing and denies a formal history of COPD or other cardiac or pulmonary disease; however, he acknowledges that he ?smokes too much.? He reports having had a fever and cough over the past week but cannot provide more extensive details because of his acute respiratory compromise. He reports living with his parents, has 1 flight of stairs in the home to reach his bedroom, but is generally independent with all activity and ambulation without an AD at baseline. Subjective Subjective He reports no c/o other than shortness of air due to coughing at this time. He agrees to mobility assessment this am. Rehab PT IP Eval Objective Appearance Patient Behavior Appropriate Patient Orientation Person,Place,Time Difficulty following instructions none Speech Pattern Clear Ambulation Patient Able to Ambulate Yes Ambulation Observation IP General Gait Pattern Observation Shuffling Step Ambulation Distance (feet) 6 Ambulation Assistive Device None Ambulation Ability Supervision/Stand by Balance Ability to Arise Able, uses arms to help Sitting Balance Steady, safe Standing Balance Steady, wide stance Dynamic Sitting Balance Ability Good Dynamic Standing Balance Ability Good Transfers Bed Transfer Ability Supervision/Stand by Chair Transfer Ability Supervision/Stand by Sit to Stand Bed Transfer Ability Supervision/Stand by Sit to Stand Chair Transfer Ability Supervision/Stand by Rehab PT IP prob,goals,plan Problems Date of Evaluation: 04/13/24 PT IP Problems Transfers,Gait Rehab Potential Rehab Potential Good Plan PT Intervention Plan Transfers,Gait,Therapeutic Exercise PT Plan Frequency Daily Duration LOS Discharge Goals Bed Transfer Ability Independent Sit to Stand Chair Transfer Ability Independent Ambulation Assistive Device None Ambulation Distance (feet) 50 Discharge Plan PT Discharge Plan Pt is currently appropriate to return home once medically stable for d/c. Currently is main deficit is shortness of air requiring oxygen via NC with exertional O2 sat of 84%. Skilled inpatient therapy is indicated to improve ambulation ability and endurance in order to aid pt return to PLOF. Eval Complexity Eval Charge Codes 67607 - High Complexity PHYSICIAN CERTIFICATION: I certify the specified therapy services for Leonardo Block are required, authorized, and reviewed every 30 days.
[2024-04-13 11:37] LABS: POC Glucose,Bedside 118 (70-110)
--- NOTE | 2024-04-13 13:01 | HMH.OTEV ---
OT Inpatient Evaluation Rehab OT IP Evaluation Start: 04/12/24 11:12 Freq: ONCE Status: Active Protocol: Document [facility]13/24 12:57 [facility] (Rec: 04/13/24 13:01 [facility] [id number]) Rehab OT IP Assessment Subjective History 48-year-old male with type 2 diabetes mellitus and a heavy smoking history (one pack per day since age 13), diabetes mellitus, medical noncompliance who presents in severe respiratory distress. Per triage, his oxygen saturation was critically low at 70% on room air. He is only able to speak in short phrases due to his work of breathing and denies a formal history of COPD or other cardiac or pulmonary disease; however, he acknowledges that he ?smokes too much.? He reports having had a fever and cough over the past week but cannot provide more extensive details because of his acute respiratory compromise. He reports living with his parents, has 1 flight of stairs in the home to reach his bedroom, but is generally independent with all ADLS/ IADLS and functional transfers without use of AE. Subjective Pt agreeable to complete evaluation; pt oriented x 3 on arrival. Objective Patient Orientation Person,Place,Birthday Right Upper Extremity Gross ROM WFL Left Upper Extremity Gross ROM WFL Bed Mobility bed mobility-scooting,bed mobility - supine/sit Assist Level Supervision/Stand by Transfer Training Sit/Stand Transfer Assist Level Supervision/Stand by Rehab OT IP prob,goals,plan Problems Date of Evaluation: 04/13/24 OT IP Problems Bed Mobility,Transfers,Balance ,Self care,Safety Rehab Potential Rehab Potential Good Equipment Needs Assistive Devices None / NA Plan OT intervention Plan Bed Mobility,Transfers,Balance ,Self care,Safety,Therapeutic Exercise OT Plan Frequency Daily Duration LOS Discharge Goals Bed Mobility Ability Standby Assistance Sit to Stand Chair Transfer Ability Independent,Supervision/Stand by Chair Transfer Ability Independent,Supervision/Stand by Chair Transfer Technique Sit to/from Ambulatory Lower Body Dressing Ability Independent Upper Body Dressing Ability Independent Performing Toilet Hygiene Ability Independent Overall Commode/Toilet Transfer Ability Independent Commode/Toilet Transfer Technique Sit to/from Ambulatory Discharge Plan OT Discharge Plan Pt is currently appropriate to return home once medically stable for d/c. Currently pt's main deficit is shortness of air requiring oxygen via NC with exertional O2 sat of 84%. Skilled inpatient therapy is indicated to improve functional transfers, ADL independence, and endurance in order to aid pt return to PLOF. Eval Complexity Eval Charge Codes 81591 - Moderate Complexity PHYSICIAN CERTIFICATION: I certify the specified therapy services for Leonardo Block are required, authorized, and reviewed every 30 days.
--- NOTE | 2024-04-13 13:25 | PC.NURSE ---
pt placed on venti mask at 40% by respiratory therapy due to pt verbalizing irritation from nasal canula to nasal cavity
[2024-04-13] MEDS: NICOTINE 21MG/24HR PATCH 21 MG TD (15:39)
[2024-04-13 16:07] LABS: Vancomycin,Trough 6.4 ug/mL (5.0-10.0)
--- NOTE | 2024-04-13 16:08 | DIET.NUTRFU ---
Spoke to patient with family present this morning, he qualifies for SPCM- provider aware.He is down 45# since Oct 2023, has not been eating well since lost son. Family indicated he is depressed, not sleeping and no appetite. Suggested to follow-up with PCP about wt loss, appetite stimulate remeron maybe beneficial. Agree to start glucerna with meals. His DM is well controlled at 5.0, he does not follow diet he takes metformin. He was not interested in diet plan, states he barely eats anyways. May want to followup with RD once appetite improves- provided contact information. He has multiple diabetic ulcers to bilateral feet. Encouraged protein intake and minimal simple sugars. Denies any N/V or constipation/diarrhea.
[2024-04-13] MEDS: PIPERACILLIN/TAZO 3.375 GM in 0.9 % SODIUM CHLORIDE 50 ML IV ×2 (16:12→22:06)
[2024-04-13 16:45] LABS: POC Glucose,Bedside 106 (70-110)
--- NOTE | 2024-04-13 17:11 | EXP.ACUTE.PN ---
Subjective *Date: 04/13/24 *Time: 17:42 Interval history: Patient feeling little bit better today. Still rhonchorous on exam, stable on 4 L oxygen however. Denies chest pain, nausea or vomiting. Tolerating p.o. intake. Still appears quite ill. Podiatry signed this morning, debrided feet. Hemodynamically stable. Afebrile overnight Medical Exam Vital signs and Labs for Last 24 Hours: Vital Signs Temp Pulse Pulse Resp BP BP Pulse Ox 04/13/24 17:00 04/13/24 15:00 04/13/24 13:21 110 H 04/13/24 13:21 115 H 04/13/24 13:21 92 L 04/13/24 13:00 04/13/24 12:00 99.6 F 111 H 18 121/67 95 04/13/24 11:00 04/13/24 10:15 98.6 F 113 H 22 122/45 L 91 L 04/13/24 09:00 04/13/24 08:00 110 H 21 92 L 04/13/24 08:00 99.6 F 95 H 26 H 112/66 97 04/13/24 08:00 96 H 04/13/24 07:00 92 H 21 104/63 L 95 04/13/24 06:30 04/13/24 06:18 87 04/13/24 06:18 97 04/13/24 06:00 98/63 L 04/13/24 06:00 82 97 04/13/24 05:00 86 93 L 04/13/24 05:00 118/75 04/13/24 05:00 04/13/24 04:11 80 04/13/24 04:00 101/59 L 04/13/24 04:00 99.2 F 78 23 98 04/13/24 04:00 81 94 L 04/13/24 03:00 83 26 H 94 L 04/13/24 03:00 102/60 L 04/13/24 03:00 04/13/24 02:00 92 H 24 93 L 04/13/24 02:00 97/57 L 04/13/24 01:00 99 H 27 H 90 L 04/13/24 01:00 117/61 04/13/24 01:00 04/13/24 00:23 100 H 04/13/24 00:00 108/55 L 04/13/24 00:00 101.5 F H 97 H 22 92 L 04/13/24 00:00 100 H 93 L 04/12/24 23:32 100 H 04/12/24 23:32 103 H 04/12/24 23:32 96 04/12/24 23:00 95/55 L 04/12/24 23:00 93 H 33 H 95 04/12/24 23:00 04/12/24 22:00 98 H 25 H 95 04/12/24 22:00 112/62 04/12/24 21:00 101/70 L 04/12/24 21:00 92 H 30 H 95 04/12/24 20:48 04/12/24 20:45 89 26 H 94 L 04/12/24 20:12 80 04/12/24 20:00 99.2 F 84 21 93 L 04/12/24 20:00 104/56 L 04/12/24 20:00 89 96 04/12/24 19:16 85 04/12/24 19:15 87 04/12/24 19:15 04/12/24 18:53 86 18 102/54 L 96 04/12/24 18:42 04/12/24 18:00 89 18 105/60 L 94 L 04/12/24 17:19 95 H O2 Del Method O2 Flow Rate FiO2 04/13/24 17:00 Nasal Cannula 5 04/13/24 15:00 Nasal Cannula 5 04/13/24 13:21 04/13/24 13:21 04/13/24 13:21 Venturi Mask 12 40 04/13/24 13:00 Nasal Cannula 5 04/13/24 12:00 Nasal Cannula 04/13/24 11:00 Nasal Cannula 5 04/13/24 10:15 Nasal Cannula 4 04/13/24 09:00 Nasal Cannula 4 04/13/24 08:00 Nasal Cannula 4 04/13/24 08:00 Nasal Cannula 4 04/13/24 08:00 04/13/24 07:00 Nasal Cannula 4 04/13/24 06:30 Vapotherm 20 04/13/24 06:18 04/13/24 06:18 Vapotherm 20 40 04/13/24 06:00 04/13/24 06:00 Vapotherm 20 04/13/24 05:00 Vapotherm 20 04/13/24 05:00 04/13/24 05:00 Vapotherm 20 04/13/24 04:11 04/13/24 04:00 04/13/24 04:00 04/13/24 04:00 Vapotherm 20 40 04/13/24 03:00 04/13/24 03:00 04/13/24 03:00 Vapotherm 20 04/13/24 02:00 Vapotherm 20 04/13/24 02:00 04/13/24 01:00 04/13/24 01:00 04/13/24 01:00 Vapotherm 04/13/24 00:23 04/13/24 00:00 04/13/24 00:00 Vapotherm 20 04/13/24 00:00 Vapotherm 20 40 04/12/24 23:32 04/12/24 23:32 04/12/24 23:32 Vapotherm 20 40 04/12/24 23:00 04/12/24 23:00 Vapotherm 20 04/12/24 23:00 Vapotherm 20 04/12/24 22:00 Vapotherm 20 04/12/24 22:00 04/12/24 21:00 04/12/24 21:00 Vapotherm 20 04/12/24 20:48 Vapotherm 20 04/12/24 20:45 04/12/24 20:12 04/12/24 20:00 Vapotherm 20 04/12/24 20:00 04/12/24 20:00 Vapotherm 20 40 04/12/24 19:16 04/12/24 19:15 04/12/24 19:15 20 40 04/12/24 18:53 Vapotherm 20 04/12/24 18:42 Vapotherm 20 04/12/24 18:00 Vapotherm 20 04/12/24 17:19 Intake and Output 04/13/24 04/13/24 04/13/24 07:59 15:59 23:59 Intake Total 300 / 340 40 / 340 Output Total 1000 / 1475 475 / 1475 Balance -1000 / -1135 -175 / -1135 40 / -1135 Intake: Intake, Oral Amount 210 / 210 Intake, Total IV Amount 90 / 130 40 / 130 Piperacillin/Tazo 3.375 gm In 0 90 / 90 .9 % Sodium Chloride 100 ml @ 200 mls/hr IV Q6H [facility] Rx#: [id number] Piperacillin/Tazo 3.375 gm In 0 40 / 40 .9 % Sodium Chloride 50 ml @ 100 mls/hr IV Q6H [facility] Rx#: [id number] Output: Output, Urine Amount 1000 / 1475 475 / 1475 Other: Number of Unmeasured Voids 0 Number of Bowel Movements 1 Weight 94.347 kg 99.019 kg Patient Weight 04/13/24 23:59 Weight 99.019 kg Laboratory Results - last 24 hr 04/12/24 20:25: POC Glucose 80 04/12/24 23:06: POC Glucose 142 H 04/13/24 05:45: WBC 18.0 H D, RBC 3.38 L, Hgb 9.7 L, Hct 28.4 L, MCV 84.0, MCH 28.7, MCHC 34.2, RDW 15.5, Plt Count 232, MPV 10.3, Neut % (Auto) 83.6 H, Lymph % (Auto) 6.5 L, Cowley % (Auto) 5.6, Eos % (Auto) 0.2, Baso % (Auto) 0.5, Neut # (Auto) 15.0 H, Lymph # (Auto) 1.2, Cowley # (Auto) 1.0, Eos # (Auto) 0.0, Baso # (Auto) 0.1, Total Counted 100, Neutrophils % (Manual) 86 H, Lymphocytes % (Manual) 11, Monocytes % (Manual) 3, Platelet Estimate Normal, RBC Morphology Normal, ESR 87 H, Sodium 129 L, Potassium 3.7, Chloride 94 L, Carbon Dioxide 28, Anion Gap 10.7, BUN 14 D, Creatinine 0.70, Estimated Creat Clear 172, Estimated GFR 120, Est GFR ( Amer) 146, Glucose 50 L D, Calcium 7.2 L, Magnesium 1.9 D, Total Bilirubin 1.4 H, AST 124 H, ALT 57, Alkaline Phosphatase 143 H, C-Reactive Protein 284.5 H, Total Protein 5.8 L, Albumin 2.7 L, Globulin 3.1, Albumin/Globulin Ratio 0.9 L, Procalcitonin 11.3 H 04/13/24 06:20: POC Glucose 198 H 04/13/24 07:11: POC Glucose 80 04/13/24 08:13: POC Glucose 65 L 04/13/24 11:15: POC Glucose 118 H 04/13/24 15:23: Vancomycin Trough 6.4 04/13/24 16:35: POC Glucose 106 I & O for Labs for Last 24 Hours: Intake & Output 04/10/24 04/11/24 04/12/24 04/13/24 23:59 23:59 23:59 23:59 Intake Total 1350 / 1350 740 / 740 340 / 340 Output Total 750 / 750 1500 / 1500 1475 / 1475 Balance 600 / 600 -760 / -760 -1135 / -1135 Weight 96.343 kg 96.162 kg 99.019 kg Microbiology Reports for the Last 24 Hours: Microbiology 04/11/24 19:56 Blood Blood Culture - Preliminary Gram Positive Cocci 04/11/24 20:15 Blood Blood Culture - Preliminary Gram Positive Cocci 04/12/24 06:00 Foot,Right Gram Stain - Final 04/12/24 06:00 Foot,Right Wound Culture - Preliminary 04/12/24 00:08 Sputum - Expectorated Sputum Gram Stain - Final 04/12/24 00:08 Sputum - Expectorated Sputum Sputum Culture - Preliminary Constitutional: Present mild distress, average body habitus, chronically ill appearing and cooperative Head: Present atraumatic and normocephalic ENT: Present normal exam Respiratory: Present prolonged expiratory phase, rhonchi, wheezes and crackles Cardiac: Present Reg Rate and Rhythm GI: Present soft and normal bowel sounds; Absent distention or tenderness Extremities: Present normal inspection and full ROM Skin: Present wounds; Absent erythema Comment:: Bilateral feet in dressings with Betadine Neuro: Present Grossly Intact, alert, awake, oriented x 3 and moves all extremities Assessment and Plan *Assessment and plan (1) Sepsis: Status: Acute Category: Medical Code(s): A41.9 - Sepsis, unspecified organism (2) Influenza A: Status: Acute Category: Medical Code(s): J10.1 - Influenza due to other identified influenza virus with other respiratory manifestations (3) Staphylococcus aureus bacteremia with sepsis: Status: Acute Category: Medical Code(s): A41.01 - Sepsis due to Methicillin susceptible Staphylococcus aureus (4) Acute hypoxic respiratory failure: Status: Acute Category: Medical Code(s): J96.01 - Acute respiratory failure with hypoxia (5) Acute hypokalemia: Status: Acute Category: Medical Code(s): E87.6 - Hypokalemia (6) Acute hyponatremia: Status: Acute Category: Medical Code(s): E87.1 - Hypo-osmolality and hyponatremia (7) SAGAR (acute kidney injury): Status: Acute Category: Medical Code(s): N17.9 - Acute kidney failure, unspecified (8) Chronic diabetic ulcer of foot determined by examination: Status: Acute Category: Medical Code(s): E11.621 - Type 2 diabetes mellitus with foot ulcer; L97.509 - Non-pressure chronic ulcer of other part of unspecified foot with unspecified severity (9) Cellulitis of foot: Status: Acute Category: Medical Code(s): L03.119 - Cellulitis of unspecified part of limb (10) Multifocal pneumonia: Status: Acute Category: Medical Code(s): J18.9 - Pneumonia, unspecified organism (11) Alcohol use disorder in remission: Status: Acute Category: Medical Code(s): F10.91 - Alcohol use, unspecified, in remission (12) Opioid use disorder in remission: Status: Acute Category: Medical Code(s): F11.91 - Opioid use, unspecified, in remission (13) Type 2 diabetes mellitus: Status: Acute Category: Medical Code(s): E11.9 - Type 2 diabetes mellitus without complications (14) Hypophosphatemia: Status: Acute Category: Medical Code(s): E83.39 - Other disorders of phosphorus metabolism (15) Non-healing ulcer of foot: Status: Acute Qualifiers: Laterality: right Non-pressure ulcer stage: limited to breakdown of skin Qualified Code(s): L97.511 - Non-pressure chronic ulcer of other part of right foot limited to breakdown of skin Category: Medical Code(s): L97.509 - Non-pressure chronic ulcer of other part of unspecified foot with unspecified severity Plan This 48-year-old male with poorly controlled type 2 diabetes presents in septic shock from multifocal pneumonia (Influenza A positive) and acute hypoxic respiratory failure. He requires ICU-level care with high-flow nasal cannula support, aggressive fluid resuscitation, and broad-spectrum antimicrobials (vancomycin, piperacillin-tazobactam, azithromycin, plus oseltamivir). His labs reveal acute kidney injury, electrolyte derangements (hyponatremia and hypokalemia), and elevated inflammatory markers; these are being addressed with careful IV fluid management (Lactated Ringer?s) and targeted electrolyte repletion. Chronic bilateral foot ulcers with new right foot cellulitis are being evaluated for underlying osteomyelitis. We have withheld metformin temporarily given his renal status and started insulin to control hyperglycemia. Additional supportive measures include DVT prophylaxis, stress ulcer prophylaxis, and early nutritional support. We will reassess cardiopulmonary status, renal function, and infectious parameters regularly, with plans to de-escalate antibiotic therapy based on culture data and clinical improvement. Showing some improvement. Weaned to nasal cannula oxygen, will de-escalate to MedSurg. Pulmonology evaluating today. Continues to require inpatient management. Problems addressed as follows: Sepsis / Multifocal Pneumonia (Influenza A) Acute hypoxic respiratory failure Staph bacteremia -Continue broad-spectrum antibiotics with vancomycin and Zosyn. Him culture still pending, blood cultures positive for staph species. Also flu positive. -Continue Tamiflu 75 mg twice daily for 5 days -Goal saturation greater 90%, weaned to 4 L oxygen this morning. -Per my review of chest imaging, has significant airspace disease with focal consolidation in right middle and lower lobe. White count remains elevated today. -Repeat CBC, CMP, magnesium ordered for the morning. -Inflammatory markers showing slight improvement, ESR down to 87 from 122. Pro-Felix severely elevated at 11. -Case discussed with pulmonology, documentation reviewed, recommend continuing DuoNebs every 6 hours and Pulmicort twice daily; antimicrobials as above.; Repeat blood cultures ordered Type 2 Diabetes Mellitus -A1c surprisingly 5.1. Continue fingersticks ACHS with sliding scale insulin ACHS. -Morning glucose 50 as he is n.p.o. awaiting ultrasound. -Holding oral metformin in the setting of sepsis Chronic Bilateral Foot Ulcers Right foot cellulitis -Foot CT negative for osteo. Continue antibiotics for possible infection of the soft tissue. -Podiatry evaluated today, debrided feet. Continue Betadine soaked gauze daily dressing changes -ABIs pending Acute on chronic HFpEF -Concern for component of heart failure. Echo ordered for the morning. Will hold on diuresis in the setting of sepsis. BNP elevated at 1490. - Recent echo: mild right heart strain, normal LVEF, no pericardial effusion. -Repeat echo obtained showing preserved ejection fraction. Does have diastolic dysfunction with elevated RVSP of 35 to 40 mmHg. -Diuresis with Bumex 1 mg daily, goal negative fluid status daily. Acute Kidney Injury -BUN 14, creatinine 0.7. Improved from presentation BUN 43 with creatinine of 1.3 on admission. Caution with nephrotoxins. Electrolyte Abnormalities Transaminitis -Sodium still low at 129, chloride 94. Potassium 3.7. Liver function mildly abnormal with bilirubin 1.4, AST 124, ALT 57, alk phos 143. -Right upper quadrant ultrasound obtained, mild ductal dilatation at 0.9 cm. No chelsea obstruction. No other abnormalities noted in the liver. Will consult GI to evaluate patient in the morning Chronic Tobacco Use: Nicotine patch daily as needed Therapy consulted, working with patient daily Full code Lovenox 40 mg subcu daily Diabetic diet
[2024-04-13] MEDS: VANCOMYCIN/WATER FOR INJ (PEG) 1.5 GM/300 ML PIGGYBACK IV (17:14)
--- NOTE | 2024-04-13 17:28 | PC.NURSE ---
pt sitting on side of the bed with family present. echo and RUQ ultrasound completed today. blood cultures pending. abx given per apr. pt on 5l NC with sats >90%. pt had on venti mask temporarily due to nasal irritation from canula, but wished to have canula back in place. no complaints of pain. dressings to bilateral feet placed by podiatry this shift. droplet and contact precautions in place for flu a. lisinopril held this morning per ICU nurse due to hypotension. standby assistance to the br. pt has no needs at this time. call light within reach.
[2024-04-13] MEDS: BUDESONIDE 0.5MG/2ML NEB 0.5 MG IH (18:24)
[2024-04-13 21:34] LABS: Vancomycin,Peak 17.7 ug/ml (11-39)
[2024-04-13] MEDS: PANTOPRAZOLE 40MG TABLET 40 MG PO (22:06)
[2024-04-14] VITALS (9 sets, daily range): BP systolic 95–131; BP diastolic 53–71; PULSE 90–106; RESP 20–22; TEMP 36.4–38.2; O2SAT 90–96; BMI 31.5
[2024-04-14] MEDS: ACETAMINOPHEN 325MG TAB 650 MG PO (00:05)
[2024-04-14] MEDS: VANCOMYCIN/WATER FOR INJ (PEG) 1.5 GM/300 ML PIGGYBACK IV ×3 (00:05→17:48)
[2024-04-14 03:03] LABS: POC Glucose,Bedside 113 (70-110)
--- NOTE | 2024-04-14 03:58 | PC.NURSE ---
patient is alert and oriented x3, ambulates to and from bathroom with standby assistance, patient has sat on the side of the bed for the majority of the night, tolerating 5L per NC with O2 sat >90%. patient remains in contact/droplet isolation due to FLU A, patient had a temp 100.8 and was medicated per mar with tylenol, no complaints of pain. dressing to bilateral feet noted C/D/I. call button is in reach.
[2024-04-14] MEDS: PIPERACILLIN/TAZO 3.375 GM in 0.9 % SODIUM CHLORIDE 50 ML IV ×2 (04:45→09:40)
[2024-04-14 04:56] LABS: POC Glucose,Bedside 99 (70-110)
[2024-04-14] MEDS: IPRATROPIUM/ALBUTEROL 3 ML NEB IH (06:00)
[2024-04-14] MEDS: BUDESONIDE 0.5MG/2ML NEB 0.5 MG IH (06:00)
[2024-04-14 06:25] LABS: Basophils # 0.1 K/mm3 (0-0.2); Basophils % 0.3 % (0.1-2.0); Eosinophils # 0.1 K/mm3 (0.0-0.4); Eosinophils % 0.3 % (0.1-12.0); Hematocrit 30.5 % (42.0-52.0); Hemoglobin 10.2 g/dL (14.1-18.0); Lymphocytes # 1.3 K/mm3 (0.7-4.5); Lymphocytes % 5.8 % (10-50); Mean Corpuscular HGB Conc 33.4 g/dL (31.8-35.4); Mean Corpuscular Hemoglobin 27.9 pg (27.0-31.2); Mean Corpuscular Volume 83.3 fl (80-94); Mean Platelet Volume 9.7 fl (7.4-10.4); Monocytes % 4.4 % (1.7-9.3); Neutrophils # 18.3 K/mm3 (1.8-7.8); Neutrophils % 84.3 % (37.0-80.0); Platelet Count 293 K/mm3 (142-424); Red Blood Count 3.66 M/mm3 (4.60-6.20); Red Cell Distribution Width 15.7 % (11.5-17.5); White Blood Count 21.7 K/mm3 (4.8-10.8)
--- NOTE | 2024-04-14 06:33 | P.PN_ITS ---
Subjective *Date: 04/14/24 *Time: 07:53 Interval history: Patient looks much better today than yesterday, he is sitting up on side of bed eating breakfast, talking and more alert. He is coughing more and he said he actually was able to bring up some drainage. He has been moved out of ICU to med/surge floor, using less oxygen now 3LPM per nasal cannula. I will change up his dressings today, plan to use some silver along with betadine dressings to get wounds to heal faster. Ortho Exam (Inpt) Vital signs and Labs for Last 24 Hours: Temp Pulse Resp BP Pulse Ox O2 Del Method O2 Flow Rate 98.9 F 91 H 22 122/65 90 L Room Air 3 04/14/24 04:00 04/14/24 06:00 04/14/24 04:00 04/14/24 04:00 04/14/24 06:00 04/14/24 06:00 04/14/24 06:00 FiO2 40 04/13/24 13:21 Laboratory Results - last 24 hr 04/13/24 05:45: WBC 18.0 H D, RBC 3.38 L, Hgb 9.7 L, Hct 28.4 L, MCV 84.0, MCH 28.7, MCHC 34.2, RDW 15.5, Plt Count 232, MPV 10.3, Neut % (Auto) 83.6 H, Lymph % (Auto) 6.5 L, Ness % (Auto) 5.6, Eos % (Auto) 0.2, Baso % (Auto) 0.5, Neut # (Auto) 15.0 H, Lymph # (Auto) 1.2, Ness # (Auto) 1.0, Eos # (Auto) 0.0, Baso # (Auto) 0.1, Total Counted 100, Neutrophils % (Manual) 86 H, Lymphocytes % (Manual) 11, Monocytes % (Manual) 3, Platelet Estimate Normal, RBC Morphology Normal, ESR 87 H, Sodium 129 L, Potassium 3.7, Chloride 94 L, Carbon Dioxide 28, Anion Gap 10.7, BUN 14 D, Creatinine 0.70, Estimated Creat Clear 172, Estimated GFR 120, Est GFR ( Amer) 146, Glucose 50 L D, Calcium 7.2 L, Magnesium 1.9 D, Total Bilirubin 1.4 H, AST 124 H, ALT 57, Alkaline Phosphatase 143 H, C- Reactive Protein 284.5 H, Total Protein 5.8 L, Albumin 2.7 L, Globulin 3.1, Albumin/Globulin Ratio 0.9 L, Procalcitonin 11.3 H 04/13/24 07:11: POC Glucose 80 04/13/24 08:13: POC Glucose 65 L 04/13/24 11:15: POC Glucose 118 H 04/13/24 15:23: Vancomycin Trough 6.4 04/13/24 16:35: POC Glucose 106 04/13/24 20:15: Vancomycin Peak 17.7 04/13/24 22:04: POC Glucose 113 H 04/14/24 04:48: POC Glucose 99 I & O for Labs for Last 24 Hours: Intake & Output 04/11/24 04/12/24 04/13/24 04/14/24 23:59 23:59 23:59 23:59 Intake Total 1350 / 1350 740 / 740 580 / 580 590 / 590 Output Total 750 / 750 1500 / 1500 1675 / 1675 500 / 500 Balance 600 / 600 -760 / -760 -1095 / -1095 90 / 90 Weight 212 lb 6.4 oz 212 lb 0.015 oz 218 lb 4.8 oz 225 lb 3.2 oz Microbiology Reports for the Last 24 Hours: Microbiology 04/11/24 19:56 Blood Blood Culture - Preliminary Gram Positive Cocci 04/11/24 20:15 Blood Blood Culture - Preliminary Gram Positive Cocci 04/12/24 06:00 Foot,Right Gram Stain - Final 04/12/24 06:00 Foot,Right Wound Culture - Preliminary 04/12/24 00:08 Sputum - Expectorated Sputum Gram Stain - Final 04/12/24 00:08 Sputum - Expectorated Sputum Sputum Culture - Preliminary Constitutional: Present no acute distress and cooperative Head: Present normocephalic Eyes: Present as per HPI Neck: Present trachea midline Respiratory: Present able to speak in complete sentences Comment:: nasal cannula at 3lpm/NC Cardiac: Present posterior tibial pulses present and pedal pulses present Comment:: Pedal pulses palpable, slightly diminished. SITA's were obtained yesterday (04/13/24), WNL, no evidence of significant obstructive peripheral vascular disease of the lower extremities. Comments:: deferred Rectal (male): Present deferred (male): Present deferred Extremities: Present full ROM and normal capillary refill Muscle Strength (Extremity): Mild Weakness Skin: Present wounds Comment:: DFU's noted to Right dorsal foot x 2, Left plantar, lateral sub 5th. 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 No new measurements taken today. -All sites cleaned with betadine, then applied silver, betadine soaked gauze, kerlix, coban dressings. -Plan to change them daily. Neuro: Present Weakness, oriented x 3, tone normal and moves all extremities Comment:: Hx of neuropathy, decreased sensations. Ankle: bilateral: normal inspection Feet/Toes: bilateral: hammer toe (slight hammer toes, reducible), bilateral: nail abnormalities (thick, discolored ), bilateral: onychomycosis (suspected ), bilateral: wound (b/l DFU's Right dorsal foot x 2, Left lateral sub 5th ) and bilateral: decreased ROM Assessment and Plan *Assessment and plan (1) Acquired hammer toe: Status: Acute Category: Medical Code(s): M20.40 - Other hammer toe(s) (acquired), unspecified foot (2) Decreased pedal pulses: Status: Acute Category: Medical Code(s): R09.89 - Other specified symptoms and signs involving the circulatory and respiratory systems (3) Decreased sensation of foot: Status: Acute Category: Medical Code(s): R20.8 - Other disturbances of skin sensation (4) Discoloration and thickening of nails both feet: Status: Acute Category: Medical Code(s): L60.8 - Other nail disorders (5) Diabetic ulcer of foot associated with diabetes mellitus due to underlying condition, limited to breakdown of skin: Status: Acute Qualifiers: Diabetic foot ulcer location: unspecified part of foot Laterality: right Qualified Code(s): E08.621 - Diabetes mellitus due to underlying condition with foot ulcer; L97.511 - Non-pressure chronic ulcer of other part of right foot limited to breakdown of skin Category: Medical Code(s): E08.621 - Diabetes mellitus due to underlying condition with foot ulcer; L97.501 - Non-pressure chronic ulcer of other part of unspecified foot limited to breakdown of skin (6) Diabetic ulcer of left foot: Status: Acute Qualifiers: Diabetes mellitus type: type 2 Diabetic foot ulcer location: unspecified part of foot Non-pressure ulcer stage: limited to breakdown of skin Qualified Code(s): E11.621 - Type 2 diabetes mellitus with foot ulcer; L97.521 - Non-pressure chronic ulcer of other part of left foot limited to breakdown of skin Category: Medical Code(s): E11.621 - Type 2 diabetes mellitus with foot ulcer; L97.529 - Non-pressure chronic ulcer of other part of left foot with unspecified severity (7) Cellulitis of right foot: Start date: 04/11/24 Start time: 21:00 Problem Comment: Patient states that the initial accident happend 7 months ago, spilled hot coffee to the top of his foot. This past weekend the foot became sore and red. Patient came to ER for other reasons Respiratory issues and not the foot. Status: Acute Category: Medical Code(s): L03.115 - Cellulitis of right lower limb (8) Non-healing ulcer of foot: Status: Acute Qualifiers: Laterality: right Non-pressure ulcer stage: limited to breakdown of skin Qualified Code(s): L97.511 - Non-pressure chronic ulcer of other part of right foot limited to breakdown of skin Category: Medical Code(s): L97.509 - Non-pressure chronic ulcer of other part of unspecified foot with unspecified severity Plan 04/14/24: 04/11/24: Left foot x-rays, FINDINGS: Bones/joints: No acute fracture or malalignment. Mild osteoarthritis. Calcaneal enthesopathy. Soft tissues: Mild diffuse soft tissue swelling. 1.2 cm rounded lucent focus within the soft tissues lateral to the 5th MTP joint. IMPRESSION: 1. No acute osseous findings. 2. 1.2 cm rounded lucent focus within the soft tissues lateral to the 5th MTP joint, possibly representing soft tissue injury, ulceration or mass. Mild diffuse soft tissue swelling. 04/11/24: Right foot x-rays, FINDINGS: Bones/joints: Posttraumatic changes of the distal fibula and distal tibia post hardware removal. No acute fracture or malalignment. Mild osteoarthritis. Calcaneal enthesopathy.. Soft tissues: Mild diffuse soft tissue swelling. No soft tissue gas. IMPRESSION: 1. No acute osseous findings. 2. Mild diffuse soft tissue swelling. No soft tissue gas. Date of Service: 04/11/24, Procedure(s): CT foot RT w con FINDINGS: Bones/joints: Postsurgical changes of the distal tibia and fibula with hardware removal. No acute fracture or dislocation. Chronic avulsive changes of the lateral malleolar tip. Calcaneal enthesopathy. Mild scattered osteoarthritis. No periostitis or cortical destruction. Soft tissues: Mild generalized soft tissue swelling. No soft tissue gas. No rim enhancing soft tissue fluid collection. IMPRESSION: Mild generalized soft tissue swelling. No soft tissue gas or abscess. No acute osseous findings. 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 -Right foot wound culture obtained by nursing 04/12/24- Gram stain -NOS, culture still pending -Labs; WBC 21.7 ESR 87 04/13,glucose 85, crp, 04/13 -284.5 HA1c 5.1 -SITA's WNL, no PVD noted. -Ulcers cleaned, I didn't debride them today, added silver with betadine soaked gauze, kerlix and coban -Podiatry will continue to follow and do dressing changes while inpatient -Continue getting IV antibiotics (Vancomycin, Zosyn) per hospitalist orders -No plans for surgical treatment as for Podiatry. -All orders and recommendations per Dr. Munoz Decreased pedal pulses, Decreased sensation,non-healing ulcers : -Ulcers to Right dorsal foot and left lateral foot sub-fifth slow to non-healing x 8 months -Present but decreased DP/PT pedal pulses bilaterally -SITA's was obtained and WNL, no evidence of PVD.
[2024-04-14 06:46] LABS: Chloride 90 mmol/L (98-107); Sodium 129 mmol/L (136-145)
[2024-04-14 06:47] LABS: MANUAL DIFFERENTIAL MANUAL DIFFERENTIAL (MANUAL DIFF)
[2024-04-14 06:49] LABS: Alanine Aminotransferase 69 U/L (12-78); Albumin/Globulin Ratio 0.9 (1.1-1.8); Alkaline Phosphatase 194 U/L (38-126); Anion Gap 10.9 mEq/L (5-15); Aspartate Amino Transferase 133 U/L (17-59); Bilirubin,Total 1.5 mg/dl (0.2-1.3); Blood Urea Nitrogen 11 mg/dl (9-20); Carbon Dioxide 31 mmol/L (22.0-30.0); Creatinine Clearance Estimated 163 mL/min (50-200); Estimated Glomerular Filt Rate 103 ml/min (>60); GFR (African American) 125 ML/MIN (>60); Globulin 3.3 g/dL (1.3-3.2); Total Protein,Serum 6.3 g/dl (6.3-8.2)
[2024-04-14 06:50] LABS: Calcium 7.6 mg/dl (8.4-10.2); Glucose 85 mg/dl (74-100)
[2024-04-14 07:22] LABS: Potassium 2.9 mmoL/L (3.5-5.1)
[2024-04-14 07:48] LABS: Erythrocyte Sedimentation Rate 121 mm/hr (0-15)
--- NOTE | 2024-04-14 08:05 | P.CONS_ITS ---
History of Present Illness *Admission Date: 04/11/24 *History of present illness: Mr. Block is a 48-year-old gentleman who is admitted for respiratory distress and some pulmonary failure. He is a long-term smoker. He also has type 2 diabetes. He was admitted with low-grade fever and tachycardia and concern for sepsis with acute hypoxic respiratory failure. His chest x-ray showed multifocal pneumonia and he is on broad-spectrum antibiotics. The patient does have a mild spike in white blood cell count today of 21,700. He has also had a rising alkaline phosphatase of 194 and total bilirubin of 1.5. His AST was 133. He reports no abdominal pain, nausea or vomiting. His abdominal ultrasound yesterday showed some mild biliary ductal dilation with bile duct measuring up to 9 mm. There were no gallstones. He reports no recent alcohol use. [facility] Disclaimer: The information contained in this section may have been updated after the patient was seen, as this information can be updated by other users. Medical History (Updated 04/14/24 @ 08:09 by Octavio Tellez II, MD) Staphylococcus aureus bacteremia with sepsis Influenza Ulcer of right foot limited to breakdown of skin Varicose veins of both lower extremities Hyperlipidemia Bilateral lower extremity edema Essential hypertension Type 2 diabetes mellitus without complications Chronic post-traumatic stress disorder (PTSD) Hx of fracture of lower leg Surgical History History of mandibular surgery H/O hernia repair Family History Father Coronary artery disease FHx: mental illness Mother FHx: mental illness Sister FHx: mental illness Sister FHx: mental illness Social History (Updated 04/11/24 @ 22:50 by Jessica Gotti RN) Smoking Status: Current every day smoker tobacco type: cigarettes packs per day: 1 smoking status start date: Age 13 quit status: not considering quitting second hand exposure: Yes alcohol intake: former substance use type: former substance user counseling given: Yes current occupational status: unemployed Travel in the last 8 weeks: None marital status: single number of children: 2 education level: high school service: No mcc: No well-balanced diet: rarely or never caffeine: Yes high-fat food intake: 3 or more times/day daily servings fruits/ve-1 daily servings of milk/calcium: 0-1 eating out: 1-3 times/week reads food labels: seldom or never during the past year weight has: increased > 10 lbs physical activity: none nae/sabianism: Cheondoism special nae needs: No agree to transfusion: No helmet use: No drive intox or ride w/ intox class c driver: Yes drive intox or w/ intox class c driver: rarely working smoke detector in home: Yes do you feel safe at home: Yes victim of physical abuse: No victim of emotional abuse: No victim of sexual abuse: No would you like helpful sources: No Have you lived/traveled outside [place] in past 30 days?: No Contact w/someone who lives/traveled outside US past 30 days?: No Exposure to someone with infectious disease in past 14 days?: No Do you have a fever (greater than 100.4 F or 38 C)?: No Have you tested positive for COVID-19: No Exposed to someone with COVID-19 in past 14 days?: No Do you have a sore throat?: No Do you have a cough?: No Do you have any weakness?: No Do you have any diarrhea?: No Are you experiencing any unusual bleeding?: No Do you have any muscle aches/pain?: Yes Do you have any abdominal pain?: No Are you experiencing loss of taste or smell?: No Meds Home Medications and Allergies Home Medications ?Medication ?Instructions ?Recorded ?Confirmed ?Type buprenorphine 8 mg-naloxone 2 mg 2 tab sublingual DAILY 08/06/23 04/11/24 History sublingual tablet hydrochlorothiazide 25 mg tablet 25 mg PO DAILY #90 tabs 10/02/23 04/11/24 Rx empagliflozin 10 mg tablet 10 mg PO DAILY #90 tabs 12/02/23 04/11/24 Rx (Jardiance) desvenlafaxine succinate 100 mg 100 mg PO DAILY #30 tabs 12/17/23 04/11/24 Rx tablet,extended release 24 hr (Pristiq) bupropion HCl 150 mg 24 hr tablet, 150 mg PO DAILY #30 tabs 12/30/23 04/11/24 Rx extended release (Wellbutrin XL) cariprazine 1.5 mg capsule 1.5 mg PO DAILY #30 caps 02/18/24 04/11/24 Rx (Vraylar) lisinopril 5 mg tablet 5 mg PO DAILY #90 tabs 03/04/24 04/11/24 Rx metformin 500 mg tablet 500 mg PO DAILY #90 tabs 03/04/24 04/11/24 Rx atorvastatin 20 mg tablet 20 mg PO DAILY 04/12/24 04/12/24 History New Prescriptions to Start Prescriptions: Allergies Allergy/AdvReac Type Severity Reaction Status Date / Time No Known Allergies Allergy Verified 04/11/24 22:50 Exam (Inpt) Vital signs and Labs for Last 24 Hours: Temp Pulse Resp BP Pulse Ox O2 Del Method O2 Flow Rate 98.8 F 100 H 22 115/60 94 L Room Air 3 04/14/24 07:47 04/14/24 07:47 04/14/24 07:47 04/14/24 07:47 04/14/24 07:47 04/14/24 07:47 04/14/24 07:47 FiO2 40 04/13/24 13:21 Laboratory Results - last 24 hr 04/13/24 05:45: Magnesium 1.9 D, C-Reactive Protein 284.5 H, Procalcitonin 11.3 H 04/13/24 08:13: POC Glucose 65 L 04/13/24 11:15: POC Glucose 118 H 04/13/24 15:23: Vancomycin Trough 6.4 04/13/24 16:35: POC Glucose 106 04/13/24 20:15: Vancomycin Peak 17.7 04/13/24 22:04: POC Glucose 113 H 04/14/24 04:48: POC Glucose 99 04/14/24 05:19: WBC 21.7 H*, RBC 3.66 L, Hgb 10.2 L, Hct 30.5 L, MCV 83.3, MCH 27.9, MCHC 33.4, RDW 15.7, Plt Count 293 D, MPV 9.7, Neut % (Auto) 84.3 H, L ymph % (Auto) 5.8 L, [place] % (Auto) 4.4, Eos % (Auto) 0.3, Baso % (Auto) 0.3, N eut # (Auto) 18.3 H, Lymph # (Auto) 1.3, [place] # (Auto) 1.0, Eos # (Auto) 0.1, Baso # (Auto) 0.1, ESR 121 H, Sodium 129 L, Potassium 2.9 L* D, Chloride 90 L, C arbon Dioxide 31 H, Anion Gap 10.9, BUN 11, Creatinine 0.80, Estimated Creat Clear 163, Estimated GFR 103, Est GFR ( Amer) 125, Glucose 85 D, Calcium 7.6 L, Total Bilirubin 1.5 H, AST 133 H, ALT 69, Alkaline Phosphatase 194 H, Total Protein 6.3, Albumin 3.0 L D, Globulin 3.3 H, Albumin/Globulin Ratio 0.9 L I & O for Labs for Last 24 Hours: Intake & Output 04/11/24 04/12/24 04/13/24 04/14/24 23:59 23:59 23:59 23:59 Intake Total 1350 / 1350 740 / 740 580 / 1170 590 / 590 Output Total 750 / 750 1500 / 1500 1675 / 1975 850 / 850 Balance 600 / 600 -760 / -760 -1095 / -805 -260 / -260 Weight 212 lb 6.4 oz 212 lb 0.015 oz 218 lb 4.8 oz 225 lb 3.2 oz Microbiology Reports for the Last 24 Hours: Microbiology 04/11/24 19:56 Blood Blood Culture - Preliminary Gram Positive Cocci 04/11/24 20:15 Blood Blood Culture - Preliminary Gram Positive Cocci 04/12/24 06:00 Foot,Right Gram Stain - Final 04/12/24 06:00 Foot,Right Wound Culture - Preliminary 04/12/24 00:08 Sputum - Expectorated Sputum Gram Stain - Final 04/12/24 00:08 Sputum - Expectorated Sputum Sputum Culture - Preliminary Constitutional: mild distress Comment:: Dyspneic Comments:: Normoactive bowel sounds, soft, benign abdomen Results Labs 04/14/24 05:19 04/14/24 05:19 Labs: Laboratory Results - last 24 hr 04/13/24 05:45: Magnesium 1.9 D, C-Reactive Protein 284.5 H, Procalcitonin 11.3 H 04/13/24 08:13: POC Glucose 65 L 04/13/24 11:15: POC Glucose 118 H 04/13/24 15:23: Vancomycin Trough 6.4 04/13/24 16:35: POC Glucose 106 04/13/24 20:15: Vancomycin Peak 17.7 04/13/24 22:04: POC Glucose 113 H 04/14/24 04:48: POC Glucose 99 04/14/24 05:19: WBC 21.7 H*, RBC 3.66 L, Hgb 10.2 L, Hct 30.5 L, MCV 83.3, MCH 27.9, MCHC 33.4, RDW 15.7, Plt Count 293 D, MPV 9.7, Neut % (Auto) 84.3 H, L ymph % (Auto) 5.8 L, [place] % (Auto) 4.4, Eos % (Auto) 0.3, Baso % (Auto) 0.3, N eut # (Auto) 18.3 H, Lymph # (Auto) 1.3, [place] # (Auto) 1.0, Eos # (Auto) 0.1, Baso # (Auto) 0.1, ESR 121 H, Sodium 129 L, Potassium 2.9 L* D, Chloride 90 L, C arbon Dioxide 31 H, Anion Gap 10.9, BUN 11, Creatinine 0.80, Estimated Creat Clear 163, Estimated GFR 103, Est GFR ( Amer) 125, Glucose 85 D, Calcium 7.6 L, Total Bilirubin 1.5 H, AST 133 H, ALT 69, Alkaline Phosphatase 194 H, Total Protein 6.3, Albumin 3.0 L D, Globulin 3.3 H, Albumin/Globulin Ratio 0.9 L Assessment and Plan *Assessment and plan (1) Elevated alkaline phosphatase level: Status: Acute Category: Medical Code(s): R74.8 - Abnormal levels of other serum enzymes (2) Common bile duct dilation: Status: Acute Category: Medical Code(s): K83.8 - Other specified diseases of biliary tract Plan 1. Rising alkaline phosphatase and total bilirubin (very mild) with very mild bile duct dilation on ultrasound. The patient is clinically asymptomatic with no abdominal pain and has a benign abdomen. I will recommend MRCP to evaluate biliary tree to rule out any stricturing. The patient is not a candidate for ERCP today presently because of his significant dyspnea and respiratory distress.
[2024-04-14] MEDS: POTASSIUM CHLORIDE 20MEQ TAB 40 MEQ PO ×3 (08:13→15:24)
[2024-04-14] MEDS: buPROPion HCl SR 150MG TAB 150 MG PO (08:14)
[2024-04-14] MEDS: OSELTAMIVIR 75MG CAPSULE 75 MG PO ×2 (08:14→20:46)
[2024-04-14] MEDS: BUPRENORPHINE/NALOXONE 8MG/2MG ODT 2 EACH SL (08:14)
[2024-04-14] MEDS: ENOXAPARIN 40MG/0.4ML SYRINGE 40 MG SUBCUT (08:14)
[2024-04-14 08:23] LABS: Eosinophils % 1 % (0-3); Lymphocytes % 11 % (10-50); Monocytes % 4 % (2-9); Neutrophils % 84 % (42-76); Total Cells Counted 100
[2024-04-14 08:24] LABS: Platelet Estimate Normal; RBC Morphology Normal
[2024-04-14 08:38] LABS: Magnesium 1.8 mg/dl (1.6-2.3); Phosphorous 2.3 mg/dl (2.5-4.5)
[2024-04-14 08:48] LABS: Procalcitonin 8.12 ng/mL (0.0-2.0)
--- NOTE | 2024-04-14 09:36 | EXP.PULM.PN ---
Subjective *Date: 04/14/24 *Time: 11:47 Interval history: No acute respiratory vents overnight. Patient denies any new respiratory complaints. Pulmonology Exam Inpatient Vital signs and Labs for Last 24 Hours: Temp Pulse Resp BP Pulse Ox O2 Del Method O2 Flow Rate 98.8 F 100 H 22 115/60 94 L Nasal Cannula 3 04/14/24 07:47 04/14/24 07:47 04/14/24 07:47 04/14/24 07:47 04/14/24 08:00 04/14/24 09:00 04/14/24 09:00 FiO2 40 04/13/24 13:21 Laboratory Results - last 24 hr 04/13/24 05:45: C-Reactive Protein 284.5 H 04/13/24 11:15: POC Glucose 118 H 04/13/24 15:23: Vancomycin Trough 6.4 04/13/24 16:35: POC Glucose 106 04/13/24 20:15: Vancomycin Peak 17.7 04/13/24 22:04: POC Glucose 113 H 04/14/24 04:48: POC Glucose 99 04/14/24 05:19: WBC 21.7 H*, RBC 3.66 L, Hgb 10.2 L, Hct 30.5 L, MCV 83.3, MCH 27.9, MCHC 33.4, RDW 15.7, Plt Count 293 D, MPV 9.7, Neut % (Auto) 84.3 H, Lymph % (Auto) 5.8 L, [place] % (Auto) 4.4, Eos % (Auto) 0.3, Baso % (Auto) 0.3, Neut # (Auto) 18.3 H, Lymph # (Auto) 1.3, [place] # (Auto) 1.0, Eos # (Auto) 0.1, Baso # (Auto) 0.1, Total Counted 100, Neutrophils % (Manual) 84 H, Lymphocytes % (Manual) 11, Monocytes % (Manual) 4, Eosinophils % (Manual) 1, Platelet Estimate Normal, RBC Morphology Normal, ESR 121 H, Sodium 129 L, Potassium 2.9 L* D, Chloride 90 L, Carbon Dioxide 31 H, Anion Gap 10.9, BUN 11, Creatinine 0.80, Estimated Creat Clear 163, Estimated GFR 103, Est GFR ( Amer) 125, Glucose 85 D, Calcium 7.6 L, Phosphorus 2.3 L D, Magnesium 1.8, Total Bilirubin 1.5 H, AST 133 H, ALT 69, Alkaline Phosphatase 194 H, Total Protein 6.3, Albumin 3.0 L D, Globulin 3.3 H, Albumin/Globulin Ratio 0.9 L, Procalcitonin 8.12 H Temp Pulse Resp BP Pulse Ox O2 Del Method O2 Flow Rate 99.6 F 110 H 21 112/66 92 L Nasal Cannula 4 04/13/24 08:00 04/13/24 08:00 04/13/24 08:00 04/13/24 08:00 04/13/24 08:00 04/13/24 08:00 04/13/24 08:00 FiO2 40 04/13/24 06:18 Laboratory Results - last 24 hr 04/12/24 09:25: ESR 122 H, PT 13.5 H, INR 1.26 H, APTT 26.8, Sodium 128 L, Potassium 3.3 L, Chloride 94 L, Carbon Dioxide 30, Anion Gap 7.3, BUN 23 H D, Creatinine 0.80 D, Estimated Creat Clear 154, Estimated GFR 103, Est GFR ( Amer) 125 D, Glucose 91 D, Hemoglobin A1c 5.1, Calcium 7.4 L, Phosphorus 1.4 L, Magnesium 1.6, Total Bilirubin 1.3, AST 131 H D, ALT 62, Alkaline Phosphatase 83, Total Protein 5.6 L, Albumin 2.6 L D, Globulin 3.0, Albumin/Globulin Ratio 0.9 L 04/12/24 10:39: POC Glucose 92 04/12/24 15:28: POC Glucose 90 04/12/24 20:25: POC Glucose 80 04/12/24 23:06: POC Glucose 142 H 04/13/24 05:45: WBC 18.0 H D, RBC 3.38 L, Hgb 9.7 L, Hct 28.4 L, MCV 84.0, MCH 28.7, MCHC 34.2, RDW 15.5, Plt Count 232, MPV 10.3, Neut % (Auto) 83.6 H, Lymph % (Auto) 6.5 L, [place] % (Auto) 5.6, Eos % (Auto) 0.2, Baso % (Auto) 0.5, Neut # (Auto) 15.0 H, Lymph # (Auto) 1.2, [place] # (Auto) 1.0, Eos # (Auto) 0.0, Baso # (Auto) 0.1, Total Counted 100, Neutrophils % (Manual) 86 H, Lymphocytes % (Manual) 11, Monocytes % (Manual) 3, Platelet Estimate Normal, RBC Morphology Normal, ESR 87 H, Sodium 129 L, Potassium 3.7, Chloride 94 L, Carbon Dioxide 28, Anion Gap 10.7, BUN 14 D, Creatinine 0.70, Estimated Creat Clear 172, Estimated GFR 120, Est GFR ( Amer) 146, Glucose 50 L D, Calcium 7.2 L, Magnesium 1.9 D, Total Bilirubin 1.4 H, AST 124 H, ALT 57, Alkaline Phosphatase 143 H, C-Reactive Protein 284.5 H, Total Protein 5.8 L, Albumin 2.7 L, Globulin 3.1, Albumin/Globulin Ratio 0.9 L, Procalcitonin 11.3 H 04/13/24 06:20: POC Glucose 198 H 04/13/24 07:11: POC Glucose 80 04/13/24 08:13: POC Glucose 65 L I & O for Labs for Last 24 Hours: Intake & Output 04/11/24 04/12/24 04/13/24 04/14/24 23:59 23:59 23:59 23:59 Intake Total 1350 / 1350 740 / 740 580 / 1170 1160 / 1160 Output Total 750 / 750 1500 / 1500 1675 / 1975 850 / 850 Balance 600 / 600 -760 / -760 -1095 / -805 310 / 310 Weight 212 lb 6.4 oz 212 lb 0.015 oz 218 lb 4.8 oz 225 lb 3.2 oz Intake & Output 04/10/24 04/11/24 04/12/24 04/13/24 23:59 23:59 23:59 23:59 Intake Total 1350 / 1350 740 / 740 210 / 210 Output Total 750 / 750 1500 / 1500 1000 / 1000 Balance 600 / 600 -760 / -760 -790 / -790 Weight 212 lb 6.4 oz 212 lb 0.015 oz 208 lb Microbiology Reports for the Last 24 Hours: Microbiology 04/11/24 19:56 Blood Blood Culture - Preliminary Gram Positive Cocci 04/11/24 20:15 Blood Blood Culture - Preliminary Gram Positive Cocci 04/12/24 06:00 Foot,Right Gram Stain - Final 04/12/24 06:00 Foot,Right Wound Culture - Preliminary 04/12/24 00:08 Sputum - Expectorated Sputum Gram Stain - Final 04/12/24 00:08 Sputum - Expectorated Sputum Sputum Culture - Preliminary Microbiology 04/12/24 06:00 Foot,Right Gram Stain - Final 04/12/24 06:00 Foot,Right Wound Culture - Preliminary 04/12/24 00:08 Sputum - Expectorated Sputum Gram Stain - Final 04/12/24 00:08 Sputum - Expectorated Sputum Sputum Culture - Preliminary 04/11/24 20:15 Blood Blood Culture - Preliminary 04/11/24 19:56 Blood Blood Culture - Preliminary Constitutional: Present severe distress Head: Present normocephalic and atraumatic ENT: Present normal exam, normal oropharynx and mucous membranes moist Neck: Present normal inspection and full ROM Respiratory: Present respiratory distress, rhonchi and diminished air movement; Absent wheezes or able to speak in complete sentences Cardiac: Present S1/S2, Tachycardia and radial pulses present GI: Present soft and distention; Absent tenderness or guarding Skin: Present intact; Absent cyanosis or jaundice Neuro: Present alert, awake and oriented x 3 Extremities: Present normal inspection; Absent clubbing or cyanosis Psychiatric: Present normal affect and cooperative Assessment and Plan *Assessment and plan (1) Influenza: Status: Acute Category: Medical Code(s): J11.1 - Influenza due to unidentified influenza virus with other respiratory manifestations (2) Staphylococcus aureus bacteremia with sepsis: Status: Acute Category: Medical Code(s): A41.01 - Sepsis due to Methicillin susceptible Staphylococcus aureus (3) Acute hypoxic respiratory failure: Status: Acute Category: Medical Code(s): J96.01 - Acute respiratory failure with hypoxia Plan is a 48-year-old male with reported history of greater than 84-feaf-wurc smoking history type 2 diabetes mellitus presented today with worsening respiratory distress found to be saturating 70% on room air upon admission and pulmonary was called for further evaluation and management. CTA upon admission no evidence of pulmonary embolism. Bilateral extensive diffuse micronodular densities along with patchy airspace disease in right upper lobe lower lobe along with left lingula and left lower lobe. Mediastinal hilar lymphadenopathy also noted likely reactive. Sputum cultures moderate gram-positive cocci no reportable results yet. Febrile. Hemodynamically stable. Worsening leukocytosis. Influenza A+ on respiratory viral PCR. Currently receiving vancomycin and Zosyn along with Tamiflu. On initial examination patient appeared to be in severe respiratory distress unable to talk in full sentences. Bilateral diffuse wheezing noted. Blood cultures positive for gram-positive cocci PCR Staph aureus Interval update: No acute respiratory events overnight. Improving oxygen requirements. Significant improvement in wheezing on auscultation worsening leukocytosis, white count over 21.7. Hyponatremia and hypokalemia again noted. Continue to receive vancomycin and Zosyn. Repeat blood cultures pending. Echocardiogram, no valvular lesions. Septal flattening consistent with right-sided pressure and volume overload. RVSP measured at 35 to 40 mmHg. Chest x-ray from this morning stable with slight improvement in the noted airspace disease especially in the left lower lobe and right lower lobe. Right upper lobe lobe infiltrate appear to be slightly worsening. Will follow-up. Plan: Incentive spirometry and flutter valve Continue oxygen supplementation to maintain O2 saturation goal of 90% and above. Continuous pulse oximetry evaluation will closely monitor. Trelegy 100 inhaler along with DuoNebs 4 times daily as needed Continue Tamiflu x 5 days Continue vancomycin and Zosyn. Follow with repeat blood culture results.
--- NOTE | 2024-04-14 09:37 | XR_ITS ---
FINAL REPORT CLINICAL HISTORY: PNM COMPARISON: 04/12/2024 FINDINGS: There is multifocal airspace of the bilateral lungs. The consolidation is most pronounced within the right upper lobe, slightly worse from the prior exam. There is a stable small right pleural effusion. Mediastinum is unremarkable. Heart size is normal. IMPRESSION: Slight worsening of multifocal pneumonia, greatest right upper lobe. Reviewed, Interpreted and Dictated by Trupti Tejeda MD Transcribed by Sera Stover Authenticated and . [facility]
[2024-04-14] MEDS: BUMETANIDE 1MG/4ML VIAL 1 MG IV (09:40)
--- NOTE | 2024-04-14 10:08 | HMH.PTWOUND ---
Rehab Inpt Wound Evaluation Rehab IP Wound Evaluation Start: 04/12/24 08:09 Freq: ONCE Status: Active Protocol: Document 04/14/24 10:06 TANK (Rec: 04/14/24 10:08 TANK [id number]) Rehab PT Wound Assessment Subjective Subjective 48-year-old male with type 2 diabetes mellitus and a heavy smoking history (one pack per day since age 13), diabetes mellitus, medical noncompliance who presents in severe respiratory distress. Per triage, his oxygen saturation was critically low at 70% on room air. He is only able to speak in short phrases due to his work of breathing and denies a formal history of COPD or other cardiac or pulmonary disease; however, he acknowledges that he ?smokes too much.? He reports having had a fever and cough over the past week but cannot provide more extensive details because of his acute respiratory compromise. He reports living with his parents, has 1 flight of stairs in the home to reach his bedroom, but is generally independent with all activity and ambulation without an AD at baseline. He presented upon admission with B foot wounds and L lateral hip wound. Plan/Recommendation Comment L lateral hip wound is fully epithelialized and not an open sore at this time. Podiatry has assumed care of B foot wounds during this admission. No current inpatient PT wound care necessary. Will assist podiatry if needed while pt remains adm to this facility. Eval Complexity Eval Charge Codes 70430 - High Complexity PHYSICIAN CERTIFICATION: I certify the specified therapy services for Leonardo Block are required, authorized, and reviewed every 30 days.
--- NOTE | 2024-04-14 10:49 | P.CONPHA_ITS ---
Pharmacy Consult Date: 04/13/24 Time: 16:30 Referring provider: DR. HOLDER Reason for Consult:: VANCOMYCIN LEVEL Allergies Allergy/AdvReac Type Severity Reaction Status Date / Time No Known Allergies Allergy Verified 04/11/24 22:50 Home Medications ?Medication ?Instructions ?Recorded ?Confirmed ?Type buprenorphine 8 mg-naloxone 2 mg 2 tab sublingual DAILY 08/06/23 04/11/24 History sublingual tablet hydrochlorothiazide 25 mg tablet 25 mg PO DAILY #90 tabs 10/02/23 04/11/24 Rx empagliflozin 10 mg tablet 10 mg PO DAILY #90 tabs 12/02/23 04/11/24 Rx (Jardiance) desvenlafaxine succinate 100 mg 100 mg PO DAILY #30 tabs 12/17/23 04/11/24 Rx tablet,extended release 24 hr (Pristiq) bupropion HCl 150 mg 24 hr tablet, 150 mg PO DAILY #30 tabs 12/30/23 04/11/24 Rx extended release (Wellbutrin XL) cariprazine 1.5 mg capsule 1.5 mg PO DAILY #30 caps 02/18/24 04/11/24 Rx (Vraylar) lisinopril 5 mg tablet 5 mg PO DAILY #90 tabs 03/04/24 04/11/24 Rx metformin 500 mg tablet 500 mg PO DAILY #90 tabs 03/04/24 04/11/24 Rx atorvastatin 20 mg tablet 20 mg PO DAILY 04/12/24 04/12/24 History New Prescriptions to Start Prescriptions: Height: 1.8 m Weight: 102.149 kg Laboratory Results:: Laboratory Results - last 24 hr 04/13/24 11:15: POC Glucose 118 H 04/13/24 15:23: Vancomycin Trough 6.4 04/13/24 16:35: POC Glucose 106 04/13/24 20:15: Vancomycin Peak 17.7 04/13/24 22:04: POC Glucose 113 H 04/14/24 04:48: POC Glucose 99 04/14/24 05:19: WBC 21.7 H*, RBC 3.66 L, Hgb 10.2 L, Hct 30.5 L, MCV 83.3, MCH 27.9, MCHC 33.4, RDW 15.7, Plt Count 293 D, MPV 9.7, Neut % (Auto) 84.3 H, Lymph % (Auto) 5.8 L, [place] % (Auto) 4.4, Eos % (Auto) 0.3, Baso % (Auto) 0.3, Neut # (Auto) 18.3 H, Lymph # (Auto) 1.3, [place] # (Auto) 1.0, Eos # (Auto) 0.1, Baso # (Auto) 0.1, Total Counted 100, Neutrophils % (Manual) 84 H, Lymphocytes % (Manual) 11, Monocytes % (Manual) 4, Eosinophils % (Manual) 1, Platelet Estimate Normal, RBC Morphology Normal, ESR 121 H, Sodium 129 L, Potassium 2.9 L* D, Chloride 90 L, Carbon Dioxide 31 H, Anion Gap 10.9, BUN 11, Creatinine 0.80, Estimated Creat Clear 163, Estimated GFR 103, Est GFR ( Amer) 125, Glucose 85 D, Calcium 7.6 L, Phosphorus 2.3 L D, Magnesium 1.8, Total Bilirubin 1.5 H, AST 133 H, ALT 69, Alkaline Phosphatase 194 H, Total Protein 6.3, Albumin 3.0 L D, Globulin 3.3 H, Albumin/Globulin Ratio 0.9 L, Procalcitonin 8.12 H Medical History: Medical History (Updated 04/14/24 @ 08:09 by Octavio Tellez II, MD) Staphylococcus aureus bacteremia with sepsis Influenza Ulcer of right foot limited to breakdown of skin Varicose veins of both lower extremities Hyperlipidemia Bilateral lower extremity edema Essential hypertension Type 2 diabetes mellitus without complications Chronic post-traumatic stress disorder (PTSD) Hx of fracture of lower leg Assessment and Plan Assessment and plan all Dx Assessment and Plan for all problems:: PATIENT'S VANCOMYCIN TROUGH LEVEL WAS 6.4 MCG/ML. RECOMMEND CHANGING DOSE TO VANCOMYCIN 1500 MG Q8H.
[2024-04-14] MEDS: MAGNESIUM SULFATE IN WATER 2 GM/50 ML PIGGYBACK IV (10:55)
[2024-04-14 11:53] LABS: POC Glucose,Bedside 119 (70-110)
[2024-04-14] MEDS: guaiFENesin 600 MG TAB.ER.12H PO ×2 (14:24→20:46)
[2024-04-14] MEDS: PIPERACILLIN/TAZO 4.5 GM in 0.9 % SODIUM CHLORIDE 100 ML IV ×2 (14:24→20:46)
[2024-04-14 15:32] LABS: POC Glucose,Bedside 115 (70-110)
--- NOTE | 2024-04-14 16:10 | PC.NURSE ---
lab at bedside to draw vanc trough.
--- NOTE | 2024-04-14 16:37 | PC.NURSE ---
pt alert and oriented t/o shift. pt currently on 3LNC. Lung sounds diminished t/o with rhonci noted. pt's cough has started to become more productive, coughing up thick mucous. pt NSR to Sinus tach on the monitor. Abdomen soft, nontender, bowel sounds active. pt did have bowel movement this shift. pt ambulated with assistance x1 and was able to sit up in the chair for hours. pt's daughter did come and visit him. Pam with podiatry rounded and changed pt's dressing this am, pt has silver and kerlix in place with halima. call light w/i reach of patient.
[2024-04-14 17:38] LABS: Vancomycin,Trough 10.3 ug/mL (5.0-10.0)
--- NOTE | 2024-04-14 17:47 | PC.NURSE ---
Gibran transfusion nurse pharmacy called regarding vanc trough 10.3, informed to give Vancomycin IV.
--- NOTE | 2024-04-14 18:27 | P.PN_ITS ---
Subjective *Date: 04/14/24 *Time: 20:53 Interval history: Patient states he feels about the same as yesterday. Has been weaned to 3 L however. WBC bumped today to 21, will allow vancomycin and Zosyn to achieve full effect before broadening antibiotics. Exam Data for Last 24 hours Vital signs and Labs for Last 24 Hours: Temp Pulse Resp BP Pulse Ox O2 Del Method O2 Flow Rate 97.5 F L 99 H 22 123/53 L 94 L Nasal Cannula 3 04/14/24 16:00 04/14/24 16:00 04/14/24 16:00 04/14/24 16:00 04/14/24 16:00 04/14/24 17:00 04/14/24 17:00 FiO2 40 04/13/24 13:21 Laboratory Results - last 24 hr 04/13/24 20:15: Vancomycin Peak 17.7 04/13/24 22:04: POC Glucose 113 H 04/14/24 04:48: POC Glucose 99 04/14/24 05:19: WBC 21.7 H*, RBC 3.66 L, Hgb 10.2 L, Hct 30.5 L, MCV 83.3, MCH 27.9, MCHC 33.4, RDW 15.7, Plt Count 293 D, MPV 9.7, Neut % (Auto) 84.3 H, Lymp h % (Auto) 5.8 L, [place] % (Auto) 4.4, Eos % (Auto) 0.3, Baso % (Auto) 0.3, Neut # (Auto) 18.3 H, Lymph # (Auto) 1.3, [place] # (Auto) 1.0, Eos # (Auto) 0.1, Baso # (Auto) 0.1, Total Counted 100, Neutrophils % (Manual) 84 H, Lymphocytes % (Manual) 11, Monocytes % (Manual) 4, Eosinophils % (Manual) 1, Platelet Estimate Normal, RBC Morphology Normal, ESR 121 H, Sodium 129 L, Potassium 2.9 L* D, Chloride 90 L, Carbon Dioxide 31 H, Anion Gap 10.9, BUN 11, Creatinine 0.80, Estimated Creat Clear 163, Estimated GFR 103, Est GFR ( Amer) 125, Glucose 85 D, Calcium 7.6 L, Phosphorus 2.3 L D, Magnesium 1.8, Total Bilirubin 1.5 H, AST 133 H, ALT 69, Alkaline Phosphatase 194 H, Total Protein 6.3, Albumin 3.0 L D, Globulin 3.3 H, Albumin/Globulin Ratio 0.9 L, Procalcitonin 8.12 H 04/14/24 11:43: POC Glucose 119 H 04/14/24 15:23: POC Glucose 115 H 04/14/24 16:15: Vancomycin Trough 10.3 H I & O for Last 24 hours: Intake & Output 04/11/24 04/12/24 04/13/24 04/14/24 23:59 23:59 23:59 23:59 Intake Total 1350 / 1350 740 / 740 580 / 1170 1650 / 1650 Output Total 750 / 750 1500 / 1500 1675 / 1975 2400 / 2400 Balance 600 / 600 -760 / -760 -1095 / -805 -750 / -750 Weight 96.343 kg 96.162 kg 99.019 kg 102.149 kg Microbiology Reports for the Last 24 Hours: Microbiology 04/13/24 13:08 Blood Blood Culture - Preliminary NO GROWTH AFTER 24 HOURS 04/13/24 13:00 Blood Blood Culture - Preliminary NO GROWTH AFTER 24 HOURS 04/11/24 20:15 Blood Blood Culture - Final Staphylococcus aureus 04/11/24 19:56 Blood Blood Culture - Final Staphylococcus aureus 04/12/24 06:00 Foot,Right Gram Stain - Final 04/12/24 06:00 Foot,Right Wound Culture - Preliminary Gram Positive Cocci Gram Positive Cocci#2 04/12/24 00:08 Sputum - Expectorated Sputum Gram Stain - Final 04/12/24 00:08 Sputum - Expectorated Sputum Sputum Culture - Preliminary Gram Positive Cocci Gram Positive Cocci#2 Constitutional Constitutional: no acute distress *Routine HEENT Exam Head: Present normocephalic Eye: Present EOMI and PERRL ENT: Present mucous membranes moist *Routine Neck Exam Neck: Present supple; Absent lymphadenopathy *Routine Respiratory Exam Respiratory: Absent CTA bilaterally Comments: Diffuse crackles right lung. *Routine Cardiovascular Exam Cardiovascular: Present RRR *Routine Abdominal Exam Abdominal: Present soft and normoactive bowel sounds; Absent tenderness *Routine Extremities Exam Extremities: Absent cyanosis, clubbing or edema *Routine Skin Exam Skin: Present warm; Absent rash *Routine Neurological Exam Neurological: Present alert and oriented X3 Assessment and Plan *Assessment and plan (1) Sepsis: Status: Acute Category: Medical Code(s): A41.9 - Sepsis, unspecified organism (2) Influenza A: Status: Acute Category: Medical Code(s): J10.1 - Influenza due to other identified influenza virus with other respiratory manifestations (3) Staphylococcus aureus bacteremia with sepsis: Status: Acute Category: Medical Code(s): A41.01 - Sepsis due to Methicillin susceptible Staphylococcus aureus (4) Acute hypoxic respiratory failure: Status: Acute Category: Medical Code(s): J96.01 - Acute respiratory failure with hypoxia (5) Acute hypokalemia: Status: Acute Category: Medical Code(s): E87.6 - Hypokalemia (6) Acute hyponatremia: Status: Acute Category: Medical Code(s): E87.1 - Hypo-osmolality and hyponatremia (7) SAGAR (acute kidney injury): Status: Acute Category: Medical Code(s): N17.9 - Acute kidney failure, unspecified (8) Chronic diabetic ulcer of foot determined by examination: Status: Acute Category: Medical Code(s): E11.621 - Type 2 diabetes mellitus with foot ulcer; L97.509 - Non-pressure chronic ulcer of other part of unspecified foot with unspecified severity (9) Cellulitis of foot: Status: Acute Category: Medical Code(s): L03.119 - Cellulitis of unspecified part of limb (10) Multifocal pneumonia: Status: Acute Category: Medical Code(s): J18.9 - Pneumonia, unspecified organism (11) Alcohol use disorder in remission: Status: Acute Category: Medical Code(s): F10.91 - Alcohol use, unspecified, in remission (12) Opioid use disorder in remission: Status: Acute Category: Medical Code(s): F11.91 - Opioid use, unspecified, in remission (13) Type 2 diabetes mellitus: Status: Acute Category: Medical Code(s): E11.9 - Type 2 diabetes mellitus without complications (14) Hypophosphatemia: Status: Acute Category: Medical Code(s): E83.39 - Other disorders of phosphorus metabolism (15) Non-healing ulcer of foot: Status: Acute Qualifiers: Laterality: right Non-pressure ulcer stage: limited to breakdown of sk in Qualified Code(s): L97.511 - Non-pressure chronic ulcer of other part of right foot limited to breakdown of skin Category: Medical Code(s): L97.509 - Non-pressure chronic ulcer of other part of unspecified foot with unspecified severity Plan This 48-year-old male in septic shock from multifocal pneumonia (Influenza A positive) and acute hypoxic respiratory failure. He required ICU-level care with high-flow nasal cannula support, aggressive fluid resuscitation, and broad- spectrum antimicrobials (vancomycin, piperacillin-tazobactam, azithromycin, plus oseltamivir). His labs reveal acute kidney injury, electrolyte derangements (hyponatremia and hypokalemia), and elevated inflammatory markers; these are being addressed with careful IV fluid management (Lactated Ringer?s) and targeted electrolyte repletion. Chronic bilateral foot ulcers with new right foot cellulitis are being evaluated for underlying osteomyelitis. #Sepsis / Multifocal Pneumonia (Influenza A) #Acute hypoxic respiratory failure #Staph bacteremia ? CXR today shows slightly worsening multifocal pneumonia, right upper lobe showing the greatest increase. ? Blood cultures showing MRSA. Sputum cultures pending final speciation. ? WBC also increased to 21.7 today. However, patient continues to have a lesser oxygen requirement 3 L nasal cannula. ? Procalcitonin improved from 11-8.12 today. ? Will give 1 more day for vancomycin, Zosyn to saturate before broadening an tibiotics. Today is third day of WBC increased. ? Continue Tamiflu 75 mg twice daily for 5 days ? Repeat CBC, CMP, magnesium ordered for the morning. ? Case discussed with pulmonology, documentation reviewed, recommend continuing DuoNebs every 6 hours and Pulmicort twice daily; antimicrobials as above.; Repeat blood cultures ordered #Type 2 Diabetes Mellitus ? A1c surprisingly 5.1. Continue fingersticks ACHS with sliding scale insulin ACHS. ? Holding oral metformin in the setting of sepsis #Chronic Bilateral Foot Ulcers #Right foot cellulitis ? Foot CT negative for osteo. Continue antibiotics for possible infection of the soft tissue. ? Podiatry evaluated, debrided feet. Continue Betadine soaked gauze daily dressing changes ? No evidence of obstructive PAD on arterial Dopplers. #Acute on chronic HFpEF #Right heart failure ? ECHO suggestive of mild right heart failure. Does have diastolic dysfunction with elevated RVSP of 35 to 40 mmHg. ? Diuresis with Bumex 1 mg daily, goal negative fluid status daily. #Electrolyte Abnormalities #Transaminitis ? Sodium still low at 129, chloride 94. Potassium 3.7. Liver function mildly abnormal with bilirubin 1.4, AST 124, ALT 57, alk phos 143. ? Right upper quadrant ultrasound obtained, mild ductal dilatation at 0.9 cm. No [place] obstruction. No other abnormalities noted in the liver. ? GI consulted, recommended MRCP if appropriate. Will continue to monitor LFTs which may be impacted by influenza, sepsis. Consider MRCP if not improving. #Chronic Tobacco Use ? Nicotine patch daily as needed #Severe protein calorie malnutrition ? Nutrition consulted, providing recommendations and supplementation. Therapy consulted, working with patient daily Full code DVT prophylaxis: Lovenox 40 mg subcu daily Diabetic diet
--- NOTE | 2024-04-14 18:42 | PC.NURSE ---
bed alarm off at this time, visitor at bedside. visitor states she will let us know when she leave to turn bed alarm back on. will pass on in report.
[2024-04-14 20:18] LABS: POC Glucose,Bedside 106 (70-110)
[2024-04-14] MEDS: PANTOPRAZOLE 40MG TABLET 40 MG PO (20:46)
[2024-04-15] VITALS (30 sets, daily range): BP systolic 83–136; BP diastolic 53–93; PULSE 81–128; RESP 10–32; TEMP 36.1–36.7; O2SAT 91–100; BMI 31.5
[2024-04-15] MEDS: VANCOMYCIN/WATER FOR INJ (PEG) 1.5 GM/300 ML PIGGYBACK IV (01:48)
[2024-04-15] MEDS: PIPERACILLIN/TAZO 4.5 GM in 0.9 % SODIUM CHLORIDE 100 ML IV (02:00)
--- NOTE | 2024-04-15 05:02 | PC.NURSE ---
V/s, disoriented to situation at times. Pt has been increased from 3LNC to 4. Pt became SOB through out shift with activity and laying in bed. Pt stated to let him be, he wants to sit on the edge of the bed as that makes him breathe better . Bed alarm set. Blood glucose monitored. Plan of care ongoing.
[2024-04-15 05:26] LABS: POC Glucose,Bedside 95 (70-110)
[2024-04-15] MEDS: FLUTICASONE/UMECLIDIN/VILANTER 100/62.5/25MCG INHALER 1 PUFF IH (06:21)
--- NOTE | 2024-04-15 06:32 | EXP.ORTH.PN ---
Subjective *Date: 04/15/24 *Time: 16:50 Interval history: Patient appears to be doing better, he was up moving around the room upon entering. He is coughing and bringing up colored, thick drainage. No edema or erythema noted to feet. 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 No debridement today, just cleaned and new dressings applied. Ortho Exam (Inpt) Vital signs and Labs for Last 24 Hours: Temp Pulse Resp BP Pulse Ox O2 Del Method O2 Flow Rate 98.1 F 101 H 20 110/53 L 96 Nasal Cannula 5 04/15/24 00:00 04/15/24 00:00 04/15/24 00:00 04/15/24 00:00 04/15/24 00:00 04/15/24 06:08 04/15/24 06:08 FiO2 40 04/13/24 13:21 Laboratory Results - last 24 hr 04/14/24 05:19: WBC 21.7 H*, RBC 3.66 L, Hgb 10.2 L, Hct 30.5 L, MCV 83.3, MCH 27.9, MCHC 33.4, RDW 15.7, Plt Count 293 D, MPV 9.7, Neut % (Auto) 84.3 H, Lymph % (Auto) 5.8 L, [place] % (Auto) 4.4, Eos % (Auto) 0.3, Baso % (Auto) 0.3, Neut # (Auto) 18.3 H, Lymph # (Auto) 1.3, [place] # (Auto) 1.0, Eos # (Auto) 0.1, Baso # (Auto) 0.1, Total Counted 100, Neutrophils % (Manual) 84 H, Lymphocytes % (Manual) 11, Monocytes % (Manual) 4, Eosinophils % (Manual) 1, Platelet Estimate Normal, RBC Morphology Normal, ESR 121 H, Sodium 129 L, Potassium 2.9 L* D, Chloride 90 L, Carbon Dioxide 31 H, Anion Gap 10.9, BUN 11, Creatinine 0.80, Estimated Creat Clear 163, Estimated GFR 103, Est GFR ( Amer) 125, Glucose 85 D, Calcium 7.6 L, Phosphorus 2.3 L D, Magnesium 1.8, Total Bilirubin 1.5 H, AST 133 H, ALT 69, Alkaline Phosphatase 194 H, Total Protein 6.3, Albumin 3.0 L D, Globulin 3.3 H, Albumin/Globulin Ratio 0.9 L, Procalcitonin 8.12 H 04/14/24 11:43: POC Glucose 119 H 04/14/24 15:23: POC Glucose 115 H 04/14/24 16:15: Vancomycin Trough 10.3 H 04/14/24 20:11: POC Glucose 106 04/15/24 05:18: POC Glucose 95 I & O for Labs for Last 24 Hours: Intake & Output 04/12/24 04/13/24 04/14/24 04/15/24 23:59 23:59 23:59 23:59 Intake Total 740 / 740 580 / 580 1650 / 1650 100 / 100 Output Total 1500 / 1500 1675 / 1675 2750 / 2750 590 / 590 Balance -760 / -760 -1095 / -1095 -1100 / -1100 -490 / -490 Weight 212 lb 0.015 oz 218 lb 4.8 oz 225 lb 3.2 oz Microbiology Reports for the Last 24 Hours: Microbiology 04/13/24 13:08 Blood Blood Culture - Preliminary NO GROWTH AFTER 24 HOURS 04/13/24 13:00 Blood Blood Culture - Preliminary NO GROWTH AFTER 24 HOURS 04/11/24 20:15 Blood Blood Culture - Final Staphylococcus aureus 04/11/24 19:56 Blood Blood Culture - Final Staphylococcus aureus 04/12/24 06:00 Foot,Right Gram Stain - Final 04/12/24 06:00 Foot,Right Wound Culture - Preliminary Gram Positive Cocci Gram Positive Cocci#2 04/12/24 00:08 Sputum - Expectorated Sputum Gram Stain - Final 04/12/24 00:08 Sputum - Expectorated Sputum Sputum Culture - Preliminary Gram Positive Cocci Gram Positive Cocci#2 Constitutional: Present no acute distress and cooperative Head: Present normocephalic Eyes: Present as per HPI Neck: Present trachea midline Respiratory: Present able to speak in complete sentences Comment:: nasal cannula at 3lpm/NC Cardiac: Present posterior tibial pulses present and pedal pulses present Comment:: Pedal pulses palpable, slightly diminished. SITA's were obtained (04/13/24), WNL, no evidence of significant obstructive peripheral vascular disease of the lower extremities. Comments:: deferred Rectal (male): Present deferred (male): Present deferred Extremities: Present full ROM and normal capillary refill Muscle Strength (Extremity): Mild Weakness Skin: Present wounds Comment:: DFU's noted to Right dorsal foot x 2, Left plantar, lateral sub 5th. 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 No new measurements taken today. -All sites cleaned with betadine, then applied silver, betadine soaked gauze, kerlix, tanya wraps -Wounds are stable and will put nursing orders in for them to do daily dressing changes while he remains inpatient starting AM. Neuro: Present Weakness, oriented x 3, tone normal and moves all extremities Comment:: Hx of neuropathy, decreased sensations. Ankle: bilateral: normal inspection Feet/Toes: bilateral: hammer toe (slight hammer toes, reducible), bilateral: nail abnormalities (thick, discolored ), bilateral: onychomycosis (suspected ), bilateral: wound (b/l DFU's Right dorsal foot x 2, Left lateral sub 5th ) and bilateral: decreased ROM Assessment and Plan *Assessment and plan (1) Acquired hammer toe: Status: Acute Category: Medical Code(s): M20.40 - Other hammer toe(s) (acquired), unspecified foot (2) Decreased pedal pulses: Status: Acute Category: Medical Code(s): R09.89 - Other specified symptoms and signs involving the circulatory and respiratory systems (3) Decreased sensation of foot: Status: Acute Category: Medical Code(s): R20.8 - Other disturbances of skin sensation (4) Discoloration and thickening of nails both feet: Status: Acute Category: Medical Code(s): L60.8 - Other nail disorders (5) Diabetic ulcer of foot associated with diabetes mellitus due to underlying condition, limited to breakdown of skin: Status: Acute Qualifiers: Diabetic foot ulcer location: unspecified part of foot Laterality: right Qualified Code(s): E08.621 - Diabetes mellitus due to underlying condition with foot ulcer; L97.511 - Non-pressure chronic ulcer of other part of right foot limited to breakdown of skin Category: Medical Code(s): E08.621 - Diabetes mellitus due to underlying condition with foot ulcer; L97.501 - Non-pressure chronic ulcer of other part of unspecified foot limited to breakdown of skin (6) Diabetic ulcer of left foot: Status: Acute Qualifiers: Diabetes mellitus type: type 2 Diabetic foot ulcer location: unspecified part of foot Non-pressure ulcer stage: limited to breakdown of skin Qualified Code(s): E11.621 - Type 2 diabetes mellitus with foot ulcer; L97.521 - Non-pressure chronic ulcer of other part of left foot limited to breakdown of skin Category: Medical Code(s): E11.621 - Type 2 diabetes mellitus with foot ulcer; L97.529 - Non-pressure chronic ulcer of other part of left foot with unspecified severity (7) Cellulitis of right foot: Start date: 04/11/24 Start time: 21:00 Problem Comment: Patient states that the initial accident happend 7 months ago, spilled hot coffee to the top of his foot. This past weekend the foot became sore and red. Patient came to ER for other reasons Respiratory issues and not the foot. Status: Acute Category: Medical Code(s): L03.115 - Cellulitis of right lower limb (8) Non-healing ulcer of foot: Status: Acute Qualifiers: Laterality: right Non-pressure ulcer stage: limited to breakdown of skin Qualified Code(s): L97.511 - Non-pressure chronic ulcer of other part of right foot limited to breakdown of skin Category: Medical Code(s): L97.509 - Non-pressure chronic ulcer of other part of unspecified foot with unspecified severity Plan 04/15/24: 04/11/24: Left foot x-rays, FINDINGS: Bones/joints: No acute fracture or malalignment. Mild osteoarthritis. Calcaneal enthesopathy. Soft tissues: Mild diffuse soft tissue swelling. 1.2 cm rounded lucent focus within the soft tissues lateral to the 5th MTP joint. IMPRESSION: 1. No acute osseous findings. 2. 1.2 cm rounded lucent focus within the soft tissues lateral to the 5th MTP joint, possibly representing soft tissue injury, ulceration or mass. Mild diffuse soft tissue swelling. 04/11/24: Right foot x-rays, FINDINGS: Bones/joints: Posttraumatic changes of the distal fibula and distal tibia post hardware removal. No acute fracture or malalignment. Mild osteoarthritis. Calcaneal enthesopathy.. Soft tissues: Mild diffuse soft tissue swelling. No soft tissue gas. IMPRESSION: 1. No acute osseous findings. 2. Mild diffuse soft tissue swelling. No soft tissue gas. Date of Service: 04/11/24, Procedure(s): CT foot RT w con FINDINGS: Bones/joints: Postsurgical changes of the distal tibia and fibula with hardware removal. No acute fracture or dislocation. Chronic avulsive changes of the lateral malleolar tip. Calcaneal enthesopathy. Mild scattered osteoarthritis. No periostitis or cortical destruction. Soft tissues: Mild generalized soft tissue swelling. No soft tissue gas. No rim enhancing soft tissue fluid collection. IMPRESSION: Mild generalized soft tissue swelling. No soft tissue gas or abscess. No acute osseous findings. Ulcers to right dorsal foot and Left lateral sub 5th: -Ulcers looked stable with no erythema or edema noted. -Reviewed labs and CT scan of Right foot- negative for any bone infections. -Right foot wound culture obtained by nursing 04/12/24- Showing 2 organisms- Gram Positive Cocci -Labs; WBC elevated 30.5, ESR 87 04/13,glucose 85, crp, 04/13 -284.5 HA1c 5.1 -SITA's WNL, no PVD noted. -Ulcers cleaned, no debridement, dressed with silver with betadine soaked gauze, kerlix and tanya wrap -Ulcers are stable, added new nursing orders starting 04/16/24 for daily dressing changes as mentioned above -Continue getting IV antibiotics (Vancomycin, Zosyn) per hospitalist orders -No plans for surgical treatment as for Podiatry. -All orders and recommendations per Dr. Munoz Decreased pedal pulses, Decreased sensation,non-healing ulcers : -Ulcers to Right dorsal foot and left lateral foot sub-fifth slow to non-healing x 8 months -Present but decreased DP/PT pedal pulses bilaterally -SITA's was obtained and WNL, no evidence of PVD.
[2024-04-15 06:52] LABS: Chloride 92 mmol/L (98-107)
[2024-04-15 06:53] LABS: Albumin Level 2.9 g/dl (3.5-5.0); Potassium 3.3 mmoL/L (3.5-5.1); Sodium 130 mmol/L (136-145)
[2024-04-15 06:55] LABS: Alanine Aminotransferase 78 U/L (12-78); Anion Gap 12.3 mEq/L (5-15); Aspartate Amino Transferase 135 U/L (17-59); Blood Urea Nitrogen 11 mg/dl (9-20); Carbon Dioxide 29 mmol/L (22.0-30.0); Creatinine Clearance Estimated 218 mL/min (50-200); Estimated Glomerular Filt Rate 144 ml/min (>60); GFR (African American) 174 ML/MIN (>60)
[2024-04-15 06:56] LABS: Albumin/Globulin Ratio 0.8 (1.1-1.8); Alkaline Phosphatase 192 U/L (38-126); Bilirubin,Total 1.1 mg/dl (0.2-1.3); Calcium 7.5 mg/dl (8.4-10.2); Globulin 3.6 g/dL (1.3-3.2); Glucose 92 mg/dl (74-100); Total Protein,Serum 6.5 g/dl (6.3-8.2)
--- NOTE | 2024-04-15 08:03 | P.CONPHA_ITS ---
Pharmacy Consult Date: 04/15/24 Time: 08:03 Referring provider: DR. HOLDER Reason for Consult:: VANCOMYCIN TROUGH LEVEL Allergies Allergy/AdvReac Type Severity Reaction Status Date / Time No Known Allergies Allergy Verified 04/11/24 22:50 Home Medications ?Medication ?Instructions ?Recorded ?Confirmed ?Type buprenorphine 8 mg-naloxone 2 mg 2 tab sublingual DAILY 08/06/23 04/11/24 Hist ory sublingual tablet hydrochlorothiazide 25 mg tablet 25 mg PO DAILY #90 tabs 10/02/23 04/11/24 Rx empagliflozin 10 mg tablet 10 mg PO DAILY #90 tabs 12/02/23 04/11/24 Rx (Jardiance) desvenlafaxine succinate 100 mg 100 mg PO DAILY #30 tabs 12/17/23 04/11/24 Rx tablet,extended release 24 hr (Pristiq) bupropion HCl 150 mg 24 hr tablet, 150 mg PO DAILY #30 tabs 12/30/23 04/11/24 Rx extended release (Wellbutrin XL) cariprazine 1.5 mg capsule 1.5 mg PO DAILY #30 caps 02/18/24 04/11/24 Rx (Vraylar) lisinopril 5 mg tablet 5 mg PO DAILY #90 tabs 03/04/24 04/11/24 Rx metformin 500 mg tablet 500 mg PO DAILY #90 tabs 03/04/24 04/11/24 Rx atorvastatin 20 mg tablet 20 mg PO DAILY 04/12/24 04/12/24 History New Prescriptions to Start Prescriptions: Height: 1.8 m Weight: 102.16 kg Laboratory Results:: Laboratory Results - last 24 hr 04/14/24 05:19: Total Counted 100, Neutrophils % (Manual) 84 H, Lymphocytes % (Manual) 11, Monocytes % (Manual) 4, Eosinophils % (Manual) 1, Platelet Estimate Normal, RBC Morphology Normal, Phosphorus 2.3 L D, Magnesium 1.8, Procalcitonin 8.12 H 04/14/24 11:43: POC Glucose 119 H 04/14/24 15:23: POC Glucose 115 H 04/14/24 16:15: Vancomycin Trough 10.3 H 04/14/24 20:11: POC Glucose 106 04/15/24 05:18: POC Glucose 95 04/15/24 05:53: Sodium 130 L, Potassium 3.3 L, Chloride 92 L, Carbon Dioxide 29, Anion Gap 12.3, BUN 11, Creatinine 0.60 L D, Estimated Creat Clear 218, Estimated GFR 144, Est GFR ( Amer) 174 D, Glucose 92, Calcium 7.5 L, Total Bilirubin 1.1, AST 135 H, ALT 78, Alkaline Phosphatase 192 H, Total Protein 6.5, Albumin 2.9 L, Globulin 3.6 H, Albumin/Globulin Ratio 0.8 L Medical History: Medical History (Updated 04/14/24 @ 08:09 by Octavio Tellez II, MD) Staphylococcus aureus bacteremia with sepsis Influenza Ulcer of right foot limited to breakdown of skin Varicose veins of both lower extremities Hyperlipidemia Bilateral lower extremity edema Essential hypertension Type 2 diabetes mellitus without complications Chronic post-traumatic stress disorder (PTSD) Hx of fracture of lower leg Assessment and Plan Assessment and plan all Dx Assessment and Plan for all problems:: BASED ON PATIENT FACTORS AND VANCOMYCIN TROUGH LEVEL OF 10.3, RECOMMEND SLIGHTLY INCREASING VANCOMYCIN DOSE TO 1,750MG EVERY 8 HOURS. PHARMACY WILL CONTINUE TO MONITOR AND WILL ADJUST DOSE APPROPRIATE. -SHANNON PERKINS, ERASTOD
[2024-04-15] MEDS: IPRATROPIUM/ALBUTEROL 3 ML NEB IH ×5 (08:06→22:39)
[2024-04-15] MEDS: BUMETANIDE 1MG/4ML VIAL 1 MG IV (08:14)
[2024-04-15 08:19] LABS: Basophils # 0.1 K/mm3 (0-0.2); Basophils % 0.3 % (0.1-2.0); Eosinophils # 0.2 K/mm3 (0.0-0.4); Eosinophils % 0.6 % (0.1-12.0); Hematocrit 33.6 % (42.0-52.0); Hemoglobin 11.3 g/dL (14.1-18.0); Lymphocytes # 3.1 K/mm3 (0.7-4.5); Lymphocytes % 10.2 % (10-50); Mean Corpuscular HGB Conc 33.6 g/dL (31.8-35.4); Mean Corpuscular Hemoglobin 28.4 pg (27.0-31.2); Mean Corpuscular Volume 84.4 fl (80-94); Mean Platelet Volume 10.7 fl (7.4-10.4); Monocytes # 1.6 K/mm3 (0.1-1.0); Monocytes % 5.3 % (1.7-9.3); Neutrophils # 24.2 K/mm3 (1.8-7.8); Neutrophils % 79.4 % (37.0-80.0); Platelet Count 236 K/mm3 (142-424); Red Blood Count 3.98 M/mm3 (4.60-6.20); Red Cell Distribution Width 15.7 % (11.5-17.5); White Blood Count 30.5 K/mm3 (4.8-10.8)
[2024-04-15 08:21] LABS: MANUAL DIFFERENTIAL MANUAL DIFFERENTIAL (MANUAL DIFF)
[2024-04-15] MEDS: LISINOPRIL 5MG TABLET 5 MG PO (08:22)
--- NOTE | 2024-04-15 08:26 | XR_ITS ---
FINAL REPORT CLINICAL HISTORY: hypoxia COMPARISON: 04/14/2024 FINDINGS: There is worsening of right upper lobe consolidation. Bibasilar infiltrates are slightly worse. There is a small right pleural effusion. Mediastinum is unremarkable. Heart size is normal. IMPRESSION: Worsening multifocal pneumonia. Reviewed, Interpreted and Dictated by Trupti Tejeda MD Transcribed by Sera Stover Authenticated and [facility]
[2024-04-15 08:46] LABS: NT Pro Brain Natriuretic Pep. 1340 pg/mL (0-125)
[2024-04-15 08:52] LABS: Lymphocytes % 15 % (10-50); Monocytes % 6 % (2-9); Neutrophils % 79 % (42-76); Platelet Estimate Normal; RBC Morphology Normal; Total Cells Counted 100
--- NOTE | 2024-04-15 08:54 | CA_ITS ---
FINAL REPORT CLINICAL HISTORY: smoker, HLD, edema, HTN, DM, respiratory distress, sepsis, multifocal pneumonia FINDINGS: Multiple transverse and longitudinal scans were performed of the femoral popliteal deep venous system, with augmentation and compression maneuvers. Normal phasic flow was noted in the visualized deep venous system. No intraluminal increased echogenicity is noted to suggest thrombus. There is normal compression and augmentation of the venous structures. No abnormal venous collaterals are seen. There is mild bilateral inguinal adenopathy which is nonspecific, probably reactive. IMPRESSION: No evidence of deep venous thrombosis of the bilateral lower extremities. Reviewed, Interpreted and Dictated by Trupti Tejeda MD Transcribed by Emma Undrewood Authenticated and [facility]
[2024-04-15 08:57] LABS: POC Glucose,Bedside 149 (70-110)
[2024-04-15 08:57] LABS: ABG Base Excess -5.3 mmol/L (-2.4-2.3); ABG HCO3 21.8 mmhg (22.0-26.0); ABG Oxygen Saturation 100 % (90-100); ABG PCO2 49.9 mmhg (35.0-45.0); ABG PH 7.26 mmol/L (7.35-7.45); ABG PO2 246.6 mmhg (80-100); ABG TCO2 23.3 mmhg (23-27)
[2024-04-15 09:03] LABS: Oxygen 100 %; Vent Rate 16
[2024-04-15 09:04] LABS: PEEP BIPAP 16/8; Source Left Radial
--- NOTE | 2024-04-15 09:32 | PC.NURSE ---
PT TRANSFERRED FROM MED SURG TO ICU AT THIS TIME VIA CHAIR WITH THIS NURSE, AND TECH. PT NOW IN ROOM 261 IN BED AT THIS TIME. HAS C/O CHEST PAIN, STAT EKG ORDERED. PRIMARY NURSE MD AUREA MEIER AND RT AT BEDSIDE.
--- NOTE | 2024-04-15 09:35 | ECG_ITS ---
APPROVED REPORT Exam: Resting ECG HR:122 bpm ECG Measurements Heart Rate 122 AXES MT 159 P 64 QRSd 118 QRS 50 QT 340 T 73 QTc 413 Conclusion SINUS TACHYCARDIA MODERATE INTRAVENTRICULAR CONDUCTION DELAY [110+ ms QRS DURATION] ABNORMAL RHYTHM ECG UNCONFIRMED REPORT Electronically signed by : Sen Wiley MD 04/16/2024 08:49:06
--- NOTE | 2024-04-15 09:35 | P.PN_ITS ---
Subjective *Date: 04/15/24 *Time: 11:51 Interval history: Worsening respiratory status this morning escalated to BiPAP therapy Pulmonology Exam Inpatient Vital signs and Labs for Last 24 Hours: Temp Pulse Resp BP Pulse Ox O2 Del Method O2 Flow Rate 98.0 F 128 H 28 H 127/87 93 L Nasal Cannula 5 04/15/24 04:00 04/15/24 08:00 04/15/24 08:00 04/15/24 08:00 04/15/24 08:00 04/15/24 06:08 04/15/24 06:08 FiO2 40 04/13/24 13:21 Laboratory Results - last 24 hr 04/14/24 11:43: POC Glucose 119 H 04/14/24 15:23: POC Glucose 115 H 04/14/24 16:15: Vancomycin Trough 10.3 H 04/14/24 20:11: POC Glucose 106 04/15/24 05:18: POC Glucose 95 04/15/24 05:53: Sodium 130 L, Potassium 3.3 L, Chloride 92 L, Carbon Dioxide 29, Anion Gap 12.3, BUN 11, Creatinine 0.60 L D, Estimated Creat Clear 218, Estimated GFR 144, Est GFR ( Amer) 174 D, Glucose 92, Calcium 7.5 L, Total Bilirubin 1.1, AST 135 H, ALT 78, Alkaline Phosphatase 192 H, NT-Pro-B Natriuret Pep 1340 H, Total Protein 6.5, Albumin 2.9 L, Globulin 3.6 H, Albumin/Globulin Ratio 0.8 L 04/15/24 08:15: WBC 30.5 H* D, RBC 3.98 L, Hgb 11.3 L, Hct 33.6 L, MCV 84.4, MCH 28.4, MCHC 33.6, RDW 15.7, Plt Count 236, MPV 10.7 H, Neut % (Auto) 79.4, Lymph % (Auto) 10.2, [place] % (Auto) 5.3, Eos % (Auto) 0.6, Baso % (Auto) 0.3, Neut # (Auto) 24.2 H, Lymph # (Auto) 3.1, [place] # (Auto) 1.6 H, Eos # (Auto) 0.2, Baso # (Auto) 0.1, Total Counted 100, Neutrophils % (Manual) 79 H, Lymphocytes % (Manual) 15, Monocytes % (Manual) 6, Platelet Estimate Normal, RBC Morphology Normal 04/15/24 08:48: POC Glucose 149 H 04/15/24 08:55: Specimen Source Left radial, O2 % 100, ABG pH 7.26 L, ABG pCO2 49.9 H, ABG pO2 246.6 H, ABG HCO3 21.8 L, ABG Total CO2 23.3, ABG O2 Saturation 100, ABG Base Excess -5.3 L, Roger Test acceptale, ABG Lactate 2.0, Vent Rate 16, PEEP Bipap 16/8 Temp Pulse Resp BP Pulse Ox O2 Del Method O2 Flow Rate 99.6 F 110 H 21 112/66 92 L Nasal Cannula 4 04/13/24 08:00 04/13/24 08:00 04/13/24 08:00 04/13/24 08:00 04/13/24 08:00 04/13/24 08:00 04/13/24 08:00 FiO2 40 04/13/24 06:18 Laboratory Results - last 24 hr 04/12/24 09:25: ESR 122 H, PT 13.5 H, INR 1.26 H, APTT 26.8, Sodium 128 L, Potassium 3.3 L, Chloride 94 L, Carbon Dioxide 30, Anion Gap 7.3, BUN 23 H D, Creatinine 0.80 D, Estimated Creat Clear 154, Estimated GFR 103, Est GFR ( Amer) 125 D, Glucose 91 D, Hemoglobin A1c 5.1, Calcium 7.4 L, Phosphorus 1.4 L, Magnesium 1.6, Total Bilirubin 1.3, AST 131 H D, ALT 62, Alkaline Phosphatase 83, Total Protein 5.6 L, Albumin 2.6 L D, Globulin 3.0, Albumin/Globulin Ratio 0.9 L 04/12/24 10:39: POC Glucose 92 04/12/24 15:28: POC Glucose 90 04/12/24 20:25: POC Glucose 80 04/12/24 23:06: POC Glucose 142 H 04/13/24 05:45: WBC 18.0 H D, RBC 3.38 L, Hgb 9.7 L, Hct 28.4 L, MCV 84.0, MCH 28.7, MCHC 34.2, RDW 15.5, Plt Count 232, MPV 10.3, Neut % (Auto) 83.6 H, Lymph % (Auto) 6.5 L, [place] % (Auto) 5.6, Eos % (Auto) 0.2, Baso % (Auto) 0.5, Neut # (Auto) 15.0 H, Lymph # (Auto) 1.2, [place] # (Auto) 1.0, Eos # (Auto) 0.0, Baso # (Auto) 0.1, Total Counted 100, Neutrophils % (Manual) 86 H, Lymphocytes % (Manual) 11, Monocytes % (Manual) 3, Platelet Estimate Normal, RBC Morphology Normal, ESR 87 H, Sodium 129 L, Potassium 3.7, Chloride 94 L, Carbon Dioxide 28, Anion Gap 10.7, BUN 14 D, Creatinine 0.70, Estimated Creat Clear 172, Estimated GFR 120, Est GFR ( Amer) 146, Glucose 50 L D, Calcium 7.2 L, Magnesium 1.9 D, Total Bilirubin 1.4 H, AST 124 H, ALT 57, Alkaline Phosphatase 143 H, C- Reactive Protein 284.5 H, Total Protein 5.8 L, Albumin 2.7 L, Globulin 3.1, Albumin/Globulin Ratio 0.9 L, Procalcitonin 11.3 H 04/13/24 06:20: POC Glucose 198 H 04/13/24 07:11: POC Glucose 80 04/13/24 08:13: POC Glucose 65 L I & O for Labs for Last 24 Hours: Intake & Output 04/12/24 04/13/24 04/14/24 04/15/24 23:59 23:59 23:59 23:59 Intake Total 740 / 740 580 / 1170 1650 / 1750 100 / 100 Output Total 1500 / 1500 1675 / 1975 2750 / 3340 1140 / 1140 Balance -760 / -760 -1095 / -805 -1100 / -1590 -1040 / -1040 Weight 212 lb 0.015 oz 218 lb 4.8 oz 225 lb 3.2 oz 225 lb 3.588 oz Intake & Output 04/10/24 04/11/24 04/12/24 04/13/24 23:59 23:59 23:59 23:59 Intake Total 1350 / 1350 740 / 740 210 / 210 Output Total 750 / 750 1500 / 1500 1000 / 1000 Balance 600 / 600 -760 / -760 -790 / -790 Weight 212 lb 6.4 oz 212 lb 0.015 oz 208 lb Microbiology Reports for the Last 24 Hours: Microbiology 04/12/24 06:00 Foot,Right Gram Stain - Final 04/12/24 06:00 Foot,Right Wound Culture - Final Staphylococcus aureus 04/12/24 00:08 Sputum - Expectorated Sputum Gram Stain - Final 04/12/24 00:08 Sputum - Expectorated Sputum Sputum Culture - Final Staphylococcus aureus 04/12/24 06:00 Anus CRE Surveillance Culture - Final Negative 04/13/24 13:08 Blood Blood Culture - Preliminary NO GROWTH AFTER 24 HOURS 04/13/24 13:00 Blood Blood Culture - Preliminary NO GROWTH AFTER 24 HOURS 04/11/24 20:15 Blood Blood Culture - Final Staphylococcus aureus 04/11/24 19:56 Blood Blood Culture - Final Staphylococcus aureus Microbiology 04/12/24 06:00 Foot,Right Gram Stain - Final 04/12/24 06:00 Foot,Right Wound Culture - Preliminary 04/12/24 00:08 Sputum - Expectorated Sputum Gram Stain - Final 04/12/24 00:08 Sputum - Expectorated Sputum Sputum Culture - Preliminary 04/11/24 20:15 Blood Blood Culture - Preliminary 04/11/24 19:56 Blood Blood Culture - Preliminary Constitutional: Present severe distress Head: Present normocephalic and atraumatic ENT: Present normal exam, normal oropharynx and mucous membranes moist Neck: Present normal inspection and full ROM Respiratory: Present prolonged expiratory phase, respiratory distress, rhonchi, wheezes and diminished air movement; Absent able to speak in complete sentences Cardiac: Present S1/S2, Tachycardia and radial pulses present GI: Present soft and distention; Absent tenderness or guarding Skin: Present intact; Absent cyanosis or jaundice Neuro: Present alert, awake and oriented x 3 Extremities: Present normal inspection; Absent clubbing or cyanosis Psychiatric: Present normal affect and cooperative Assessment and Plan *Assessment and plan (1) Influenza: Status: Acute Category: Medical Code(s): J11.1 - Influenza due to unidentified influenza virus with other respiratory manifestations (2) Staphylococcus aureus bacteremia with sepsis: Status: Acute Category: Medical Code(s): A41.01 - Sepsis due to Methicillin susceptible Staphylococcus aureus (3) Acute hypoxic respiratory failure: Status: Acute Category: Medical Code(s): J96.01 - Acute respiratory failure with hypoxia Plan is a 48-year-old male with reported history of greater than [id number] smoking history type 2 diabetes mellitus presented today with worsening respiratory distress found to be saturating 70% on room air upon admission and pulmonary was called for further evaluation and management. CTA upon admission no evidence of pulmonary embolism. Bilateral extensive diffuse micronodular densities along with patchy airspace disease in right upper lobe lower lobe along with left lingula and left lower lobe. Mediastinal hilar lymphadenopathy also noted likely reactive. Sputum cultures moderate gram-positive cocci no reportable results yet. Febrile. Hemodynamically stable. Worsening leukocytosis. Influenza A+ on respiratory viral PCR. Currently receiving vancomycin and Zosyn along with Tamiflu. On initial examination patient appeared to be in severe respiratory distress un able to talk in full sentences. Bilateral diffuse wheezing noted. Blood cultures positive for gram-positive cocci PCR Staph aureus Echocardiogram, no valvular lesions. Septal flattening consistent with right- sided pressure and volume overload. RVSP measured at 35 to 40 mmHg. Interval update: Worsening respiratory distress this morning needing escalation to BiPAP therapy. Chest x-ray showed worsening airspace disease with respect to the right upper lobe, right lower lobe and left lower lobe. Continued worsening leukocytosis. Blood gas from this morning reviewed, hypercarbic respiratory failure the pH is 1.26 and pCO2 of 50. Repeat blood cultures no growth 24 hours. Continue to receive vancomycin. Zosyn was changed to meropenem this morning. Continue to receive Tamiflu Plan: Continue BiPAP therapy currently on 10/05 and a rate of 18. Will continue to wean to high flow nasal cannula as tolerated. FiO2 O2 sat goal of 90 to 95%. DuoNebs every 4 hours along with Pulmicort Q12 scheduled Continue Tamiflu x 5 days Continue vancomycin pending repeat cultures. Antibiotics escalated from Zosyn to meropenem this morning. Will continue for now, have a low threshold to de- escalate given no other source of infection for Staph aureus. Recommend evaluate for other possible etiologies for persistent leukocytosis including any abscess/nonhealing wounds. His chest ray does show worsening respiratory symptoms. Will follow-up
[2024-04-15 09:43] LABS: Magnesium 1.7 mg/dl (1.6-2.3)
[2024-04-15] MEDS: MEROPENEM 1 GM in 0.9 % SODIUM CHLORIDE 100 ML IV ×2 (09:49→16:29)
[2024-04-15] MEDS: VANCOMYCIN/WATER FOR INJ (PEG) 1.75 GM/350 ML PIGGYBACK IV ×2 (10:38→18:14)
[2024-04-15] MEDS: MAGNESIUM SULFATE IN WATER 2 GM/50 ML PIGGYBACK IV ×2 (10:46→13:20)
--- NOTE | 2024-04-15 10:50 | P.PN_ITS ---
Subjective *Date: 04/15/24 *Time: 16:18 Interval history: Worsening respiratory status and desaturation led to transfer to ICU and the addition of BiPAP. White blood cells up to 30.5 this morning. Liver enzymes relatively unchanged with a bilirubin of 1.1, AST of 135, normal ALT at 78 and an alk phos of 192. Platelets normal at 236. Patient is alert and oriented but unable to speak in full sentences using multiple accessory muscles for respiration on BiPAP. Exam Data for Last 24 hours Vital signs and Labs for Last 24 Hours: Temp Pulse Resp BP Pulse Ox O2 Del Method O2 Flow Rate 98.0 F 128 H 28 H 127/87 93 L Non-Rebreather 5 04/15/24 04:00 04/15/24 08:00 04/15/24 08:00 04/15/24 08:00 04/15/24 08:00 04/15/24 09:30 04/15/24 06:08 FiO2 40 04/15/24 10:24 Laboratory Results - last 24 hr 04/14/24 11:43: POC Glucose 119 H 04/14/24 15:23: POC Glucose 115 H 04/14/24 16:15: Vancomycin Trough 10.3 H 04/14/24 20:11: POC Glucose 106 04/15/24 05:18: POC Glucose 95 04/15/24 05:53: Sodium 130 L, Potassium 3.3 L, Chloride 92 L, Carbon Dioxide 29, Anion Gap 12.3, BUN 11, Creatinine 0.60 L D, Estimated Creat Clear 218, Estimated GFR 144, Est GFR ( Amer) 174 D, Glucose 92, Calcium 7.5 L, Magnesium 1.7, Total Bilirubin 1.1, AST 135 H, ALT 78, Alkaline Phosphatase 192 H, NT-Pro-B Natriuret Pep 1340 H, Total Protein 6.5, Albumin 2.9 L, Globulin 3.6 H, Albumin/Globulin Ratio 0.8 L 04/15/24 08:15: WBC 30.5 H* D, RBC 3.98 L, Hgb 11.3 L, Hct 33.6 L, MCV 84.4, MCH 28.4, MCHC 33.6, RDW 15.7, Plt Count 236, MPV 10.7 H, Neut % (Auto) 79.4, Lymph % (Auto) 10.2, [place] % (Auto) 5.3, Eos % (Auto) 0.6, Baso % (Auto) 0.3, Neut # (Auto) 24.2 H, Lymph # (Auto) 3.1, [place] # (Auto) 1.6 H, Eos # (Auto) 0.2, Baso # (Auto) 0.1, Total Counted 100, Neutrophils % (Manual) 79 H, Lymphocytes % (Manual) 15, Monocytes % (Manual) 6, Platelet Estimate Normal, RBC Morphology Normal 04/15/24 08:48: POC Glucose 149 H 04/15/24 08:55: Specimen Source Left radial, O2 % 100, ABG pH 7.26 L, ABG pCO2 49.9 H, ABG pO2 246.6 H, ABG HCO3 21.8 L, ABG Total CO2 23.3, ABG O2 Saturation 100, ABG Base Excess -5.3 L, Roger Test acceptale, ABG Lactate 2.0, Vent Rate 16, PEEP Bipap 16/8 I & O for Last 24 hours: Intake & Output 04/12/24 04/13/24 04/14/24 04/15/24 11:59 11:59 11:59 11:59 Intake Total 1196 806 3668 590 Output Total 750 2500 2025 2540 Balance 900 -2350 -355 -2962 Weight 96.162 kg 99.019 kg 102.149 kg 102.16 kg Microbiology Reports for the Last 24 Hours: Microbiology 04/12/24 06:00 Foot,Right Gram Stain - Final 04/12/24 06:00 Foot,Right Wound Culture - Final Staphylococcus aureus 04/12/24 00:08 Sputum - Expectorated Sputum Gram Stain - Final 04/12/24 00:08 Sputum - Expectorated Sputum Sputum Culture - Final Staphylococcus aureus 04/12/24 06:00 Anus CRE Surveillance Culture - Final Negative 04/13/24 13:08 Blood Blood Culture - Preliminary NO GROWTH AFTER 24 HOURS 04/13/24 13:00 Blood Blood Culture - Preliminary NO GROWTH AFTER 24 HOURS 04/11/24 20:15 Blood Blood Culture - Final Staphylococcus aureus 04/11/24 19:56 Blood Blood Culture - Final Staphylococcus aureus Constitutional Constitutional: moderate distress, obese and cooperative *Routine HEENT Exam Head: Present normocephalic and atraumatic *Routine Respiratory Exam Respiratory: Present accessory muscle use, decreased breath sounds and res piratory distress (Mild to moderate respiratory distress on BiPAP) *Routine Cardiovascular Exam Cardiovascular: Present Normal S1, Normal S2 and tachycardia *Routine Abdominal Exam Abdominal: Present soft, tenderness (Left upper quadrant versus left lower chest) and distended (Moderate distention) *Routine Neurological Exam Neurological: Present alert and oriented X3 Comments: Asks appropriate questions Assessment and Plan *Assessment and plan (1) Common bile duct dilation: Status: Acute Category: Medical Code(s): K83.8 - Other specified diseases of biliary tract (2) Elevated alkaline phosphatase level: Status: Acute Category: Medical Code(s): R74.8 - Abnormal levels of other serum enzymes (3) Staphylococcus aureus bacteremia with sepsis: Status: Acute Category: Medical Code(s): A41.01 - Sepsis due to Methicillin susceptible Staphylococcus aureus (4) Acute hypoxic respiratory failure: Status: Acute Category: Medical Code(s): J96.01 - Acute respiratory failure with hypoxia Plan 1. Relatively unchanged elevation of alk phos at 192. Bilirubin has normalized to 1.1 but continued elevation of AST at 135 as well. Very mild bile duct dilation on ultrasound. Patient remains clinically asymptomatic. He denies any abdominal pain certainly no right upper quadrant pain. I still recommend MRCP but given respiratory distress, patient being able to complete that today. He would not be a candidate for ERCP given his respiratory distress. MRCP when able.
[2024-04-15 11:51] LABS: POC Glucose,Bedside 142 (70-110)
[2024-04-15] MEDS: buPROPion HCl SR 150MG TAB 150 MG PO (12:37)
[2024-04-15] MEDS: OSELTAMIVIR 75MG CAPSULE 75 MG PO ×2 (12:37→20:16)
[2024-04-15] MEDS: POTASSIUM CHLORIDE 20MEQ TAB 40 MEQ PO ×2 (12:37→16:29)
[2024-04-15] MEDS: guaiFENesin 600 MG TAB.ER.12H PO ×2 (12:37→20:16)
[2024-04-15] MEDS: ENOXAPARIN 40MG/0.4ML SYRINGE 40 MG SUBCUT (12:38)
[2024-04-15] MEDS: BUPRENORPHINE/NALOXONE 8MG/2MG ODT 2 EACH SL (12:51)
[2024-04-15] MEDS: NICOTINE 21MG/24HR PATCH 21 MG TD (13:15)
[2024-04-15] MEDS: ACETAMINOPHEN 325MG TAB 650 MG PO (15:27)
--- NOTE | 2024-04-15 16:16 | CT_ITS ---
PROCEDURE INFORMATION: Exam: CT Abdomen And Pelvis With Contrast Exam date and time: 04/15/2024 5:19 PM Age: 48 years old Clinical indication: Abdominal pain; Additional info: Luq abdominal pain, worsening sepsis TECHNIQUE: Imaging protocol: Computed tomography of the abdomen and pelvis with contrast. Radiation optimization: All CT scans at this facility use at least one of these dose optimization techniques: automated exposure control; mA and/or kV adjustment per patient size (includes targeted exams where dose is matched to clinical indication); or iterative reconstruction. Contrast material: ISOVUE; Contrast volume: 75 ml; Contrast route: IV; COMPARISON: 1. US ABDOMEN LIMITED 04/13/2024 8:[address] ANGIO CHEST PE PROTOCOL 04/11/2024 9:11 PM FINDINGS: Lungs: Included lung bases demonstrate multifocal opacities, mildly improved from prior. Pleural spaces: Small bilateral pleural effusions. Heart: Heart is partially imaged, LV appears borderline dilated (approximate 6.2 cm diameter). No pericardial effusion. Liver: Liver is normal. No lesions. Gallbladder and biliary ducts: Mild dependent increased density in the distal gallbladder may represent sludge. No calcified stones. No pericholecystic inflammatory changes or fluid. CBD is mildly dilated measuring 9 mm in diameter similar to prior. Pancreas: Pancreas is normal. No ductal dilatation. Spleen: Spleen is normal. Adrenal glands: No adrenal mass. Kidneys and ureters: Kidneys are normal. No renal stones seen. No hydronephrosis or hydroureter. Stomach and bowel: No evidence of bowel obstruction or acute bowel abnormality. Appendix: No evidence of appendicitis. Intraperitoneal space: Small amount of nonspecific low-density free fluid in the pelvis. No free air. Vasculature: No acute abnormality. Mild aortoiliac atherosclerotic disease. No abdominal aortic aneurysm. Lymph nodes: No enlarged abdominopelvic lymph nodes by size criteria. Several upper normal retroperitoneal lymph nodes. Enlarged bilateral inguinal lymph nodes measuring up to 1.4 cm short axis dimension, non-specific. Urinary bladder: Urinary bladder wall thickening likely due to underdistention, can correlate clinically to exclude cystitis. Reproductive: Unremarkable as visualized. Bones/joints: No acute osseous abnormality or suspicious osseous lesion. Multilevel degenerative changes of the included spine. Soft tissues: Small fat containing umbilical hernia. Anasarca. Few small foci of gas along the subcutaneous tissues of the lower anterior abdominal wall, may be secondary to injection sites, correlate clinically. Mild skin thickening of the lower pannus. IMPRESSION: 1. Small bilateral pleural effusions. Included lung bases demonstrate multifocal opacities, mildly improved from prior, compatible with pneumonia. 2. Mild dilatation of the common bile duct similar to prior. Possible gallbladder sludge. No calcified gallstones. Ultrasound or MRCP could be obtained as clinically indicated. 3. Urinary bladder wall thickening likely due to underdistention, can correlate clinically to exclude cystitis. 4. Small volume pelvic ascites. Anasarca. Mild skin thickening of the lower pannus, can correlate for possible cellulitis. 5. Please see above for additional chronic and incidental findings.
[2024-04-15] MEDS: LIDOCAINE 5% TRANSDERMAL PATCH 1 EACH TP (16:27)
[2024-04-15 16:52] LABS: POC Glucose,Bedside 114 (70-110)
--- NOTE | 2024-04-15 17:32 | P.PN_ITS ---
Subjective *Date: 04/15/24 *Time: 17:32 Interval history: Unfortunately, worsening pneumonia on CXR and leukocytosis. Broaden antibiotics to meropenem, continue vancomycin. Follow-up CT abdomen/pelvis. Moved to ICU. Exam Data for Last 24 hours Vital signs and Labs for Last 24 Hours: Temp Pulse Resp BP Pulse Ox O2 Del Method O2 Flow Rate 97.0 F L 97 H 11 L 91/58 L 98 Vapotherm 20 04/15/24 12:01 04/15/24 15:00 04/15/24 15:00 04/15/24 15:00 04/15/24 15:00 04/15/24 16:00 04/15/24 13:20 FiO2 40 04/15/24 13:20 Laboratory Results - last 24 hr 04/14/24 16:15: Vancomycin Trough 10.3 H 04/14/24 20:11: POC Glucose 106 04/15/24 05:18: POC Glucose 95 04/15/24 05:53: Sodium 130 L, Potassium 3.3 L, Chloride 92 L, Carbon Dioxide 29, Anion Gap 12.3, BUN 11, Creatinine 0.60 L D, Estimated Creat Clear 218, Estimated GFR 144, Est GFR ( Amer) 174 D, Glucose 92, Calcium 7.5 L, Magnesium 1.7, Total Bilirubin 1.1, AST 135 H, ALT 78, Alkaline Phosphatase 192 H, NT-Pro-B Natriuret Pep 1340 H, Total Protein 6.5, Albumin 2.9 L, Globulin 3.6 H, Albumin/Globulin Ratio 0.8 L 04/15/24 08:15: WBC 30.5 H* D, RBC 3.98 L, Hgb 11.3 L, Hct 33.6 L, MCV 84.4, MCH 28.4, MCHC 33.6, RDW 15.7, Plt Count 236, MPV 10.7 H, Neut % (Auto) 79.4, Lymph % (Auto) 10.2, [place] % (Auto) 5.3, Eos % (Auto) 0.6, Baso % (Auto) 0.3, Neut # (Auto) 24.2 H, Lymph # (Auto) 3.1, [place] # (Auto) 1.6 H, Eos # (Auto) 0.2, Baso # (Auto) 0.1, Total Counted 100, Neutrophils % (Manual) 79 H, Lymphocytes % (Manual) 15, Monocytes % (Manual) 6, Platelet Estimate Normal, RBC Morphology Normal 04/15/24 08:48: POC Glucose 149 H 04/15/24 08:55: Specimen Source Left radial, O2 % 100, ABG pH 7.26 L, ABG pCO2 49.9 H, ABG pO2 246.6 H, ABG HCO3 21.8 L, ABG Total CO2 23.3, ABG O2 Saturation 100, ABG Base Excess -5.3 L, Roger Test acceptale, ABG Lactate 2.0, Vent Rate 16, PEEP Bipap 16/8 04/15/24 11:44: POC Glucose 142 H 04/15/24 16:45: POC Glucose 114 H I & O for Last 24 hours: Intake & Output 04/12/24 04/13/24 04/14/24 04/15/24 23:59 23:59 23:59 23:59 Intake Total 740 / 740 580 / 1170 1650 / 1750 770 / 770 Output Total 1500 / 1500 1675 / 1975 2750 / 3340 1140 / 1140 Balance -760 / -760 -1095 / -805 -1100 / -1590 -370 / -370 Weight 96.162 kg 99.019 kg 102.149 kg 102.16 kg Microbiology Reports for the Last 24 Hours: Microbiology 04/13/24 13:00 Blood Blood Culture - Preliminary NO GROWTH AFTER 48 HOURS 04/13/24 13:08 Blood Blood Culture - Preliminary NO GROWTH AFTER 48 HOURS 04/12/24 06:00 Foot,Right Gram Stain - Final 04/12/24 06:00 Foot,Right Wound Culture - Final Staphylococcus aureus 04/12/24 00:08 Sputum - Expectorated Sputum Gram Stain - Final 04/12/24 00:08 Sputum - Expectorated Sputum Sputum Culture - Final Staphylococcus aureus 04/12/24 06:00 Anus CRE Surveillance Culture - Final Negative Constitutional Constitutional: no acute distress *Routine HEENT Exam Head: Present normocephalic Eye: Present EOMI and PERRL ENT: Present mucous membranes moist *Routine Neck Exam Neck: Present supple; Absent lymphadenopathy *Routine Respiratory Exam Respiratory: Absent CTA bilaterally Comments: Diffuse crackles right lung. *Routine Cardiovascular Exam Cardiovascular: Present RRR *Routine Abdominal Exam Abdominal: Present soft and normoactive bowel sounds; Absent tenderness *Routine Extremities Exam Extremities: Absent cyanosis, clubbing or edema *Routine Skin Exam Skin: Present warm; Absent rash *Routine Neurological Exam Neurological: Present alert and oriented X3 Assessment and Plan *Assessment and plan (1) Sepsis: Status: Acute Category: Medical Code(s): A41.9 - Sepsis, unspecified organism (2) Influenza A: Status: Acute Category: Medical Code(s): J10.1 - Influenza due to other identified influenza virus with other respiratory manifestations (3) Staphylococcus aureus bacteremia with sepsis: Status: Acute Category: Medical Code(s): A41.01 - Sepsis due to Methicillin susceptible Staphylococcus aureus (4) Acute hypoxic respiratory failure: Status: Acute Category: Medical Code(s): J96.01 - Acute respiratory failure with hypoxia (5) Acute hypokalemia: Status: Acute Category: Medical Code(s): E87.6 - Hypokalemia (6) Acute hyponatremia: Status: Acute Category: Medical Code(s): E87.1 - Hypo-osmolality and hyponatremia (7) SAGAR (acute kidney injury): Status: Acute Category: Medical Code(s): N17.9 - Acute kidney failure, unspecified (8) Chronic diabetic ulcer of foot determined by examination: Status: Acute Category: Medical Code(s): E11.621 - Type 2 diabetes mellitus with foot ulcer; L97.509 - Non-pressure chronic ulcer of other part of unspecified foot with unspecified severity (9) Cellulitis of foot: Status: Acute Category: Medical Code(s): L03.119 - Cellulitis of unspecified part of limb (10) Multifocal pneumonia: Status: Acute Category: Medical Code(s): J18.9 - Pneumonia, unspecified organism (11) Alcohol use disorder in remission: Status: Acute Category: Medical Code(s): F10.91 - Alcohol use, unspecified, in remission (12) Opioid use disorder in remission: Status: Acute Category: Medical Code(s): F11.91 - Opioid use, unspecified, in remission (13) Type 2 diabetes mellitus: Status: Acute Category: Medical Code(s): E11.9 - Type 2 diabetes mellitus without complications (14) Hypophosphatemia: Status: Acute Category: Medical Code(s): E83.39 - Other disorders of phosphorus metabolism (15) Non-healing ulcer of foot: Status: Acute Qualifiers: Laterality: right Non-pressure ulcer stage: limited to breakdown of skin Qualified Code(s): L97.511 - Non-pressure chronic ulcer of other part of right foot limited to breakdown of skin Category: Medical Code(s): L97.509 - Non-pressure chronic ulcer of other part of unspecified foot with unspecified severity Plan This 48-year-old male in septic shock from multifocal pneumonia (Influenza A positive) and acute hypoxic respiratory failure. He required ICU-level care with high-flow nasal cannula support, aggressive fluid resuscitation, and broad- spectrum antimicrobials (vancomycin, piperacillin-tazobactam, azithromycin, plus oseltamivir). His labs reveal acute kidney injury, electrolyte derangements (hyponatremia and hypokalemia), and elevated inflammatory markers; these are being addressed with careful IV fluid management (Lactated Ringer?s) and targeted electrolyte repletion. Chronic bilateral foot ulcers with new right foot cellulitis are being evaluated for underlying osteomyelitis. #Sepsis / Multifocal Pneumonia (Influenza A) #Acute hypoxic respiratory failure # MRSA bacteremia ? CXR today again shows worsening multifocal pneumonia. ? Blood cultures showing MRSA. Sputum cultures also showing MRSA. ? WBC also increased to 30.5 today. Patient had increased work of breathing with desaturations on 6 L nasal cannula this morning, initiated on Vapotherm with slow improvement in saturations. Continues to have increased work of breat adilson, was temporized with BiPAP but weaned back to Vapotherm with appropriate saturations. ? Continue vancomycin, start IV meropenem and discontinued Zosyn. ? Continue Vapotherm 20 L 40%, wean as tolerated. Saturating 98%. ? Continue Tamiflu 75 mg twice daily for 5 days ? Repeat CBC, CMP, magnesium, procalcitonin ordered for the morning. ? Follow-up CT abdomen/pelvis for full sepsis workup. Patient is complaining of left upper quadrant pain, though at this time seems most consistent with muscle strain from coughing. #Type 2 Diabetes Mellitus ? A1c surprisingly 5.1. Continue fingersticks ACHS with sliding scale insulin ACHS. ? Holding oral metformin in the setting of sepsis #Chronic Bilateral Foot Ulcers #Right foot cellulitis ? Foot CT negative for osteo. Continue antibiotics for possible infection of the soft tissue. ? Podiatry evaluated, debrided feet. Continue Betadine soaked gauze daily dressing changes ? No evidence of obstructive PAD on arterial Dopplers. ? CT foot not remarkable for abscess, osteomyelitis. ? Discussed with podiatry today, do not believe worsening sepsis is related to feet given above. #Acute on chronic HFpEF #Right heart failure ? ECHO suggestive of mild right heart failure. Does have diastolic dysfunction with elevated RVSP of 35 to 40 mmHg. ? Diuresis with Bumex 1 mg daily, goal negative fluid status daily. #Electrolyte Abnormalities #Transaminitis ? Sodium still low at 129, chloride 94. Potassium 3.7. Liver function mildly abnormal with bilirubin 1.4, AST 124, ALT 57, alk phos 143. ? Right upper quadrant ultrasound obtained, mild ductal dilatation at 0.9 cm. No chelsea obstruction. No other abnormalities noted in the liver. ? GI consulted, recommended MRCP if appropriate. Will continue to monitor LFTs which may be impacted by influenza, sepsis. Consider MRCP if not improving. #Chronic Tobacco Use ? Nicotine patch daily as needed #Severe protein calorie malnutrition ? Nutrition consulted, providing recommendations and supplementation. Therapy consulted, working with patient daily Full code DVT prophylaxis: Lovenox 40 mg subcu daily Diabetic diet
[2024-04-15] MEDS: SODIUM CHLORIDE 0.9% 10ML SYR (RAD ONLY) 10 ML IV (17:38)
[2024-04-15] MEDS: IOPAMIDOL-370 (76%);100ML BOTTLE 75 ML IV (17:38)
[2024-04-15] MEDS: BUDESONIDE 0.5MG/2ML NEB 0.5 MG IH (18:40)
[2024-04-15] MEDS: KETOROLAC 30MG/ML VIAL 30 MG IM (20:16)
[2024-04-15] MEDS: PANTOPRAZOLE 40MG TABLET 40 MG PO (20:16)
[2024-04-15] MEDS: ATORVASTATIN 40MG TABLET 40 MG PO (20:18)
[2024-04-15 20:58] LABS: POC Glucose,Bedside 105 (70-110)
[2024-04-16] VITALS (20 sets, daily range): BP systolic 81–105; BP diastolic 50–86; PULSE 50–120; RESP 15–25; TEMP 36.6–36.9; O2SAT 92–100; BMI 30.9
[2024-04-16] MEDS: MEROPENEM 1 GM in 0.9 % SODIUM CHLORIDE 100 ML IV ×3 (00:09→15:59)
[2024-04-16] MEDS: VANCOMYCIN/WATER FOR INJ (PEG) 1.75 GM/350 ML PIGGYBACK IV ×3 (01:56→18:42)
[2024-04-16] MEDS: IPRATROPIUM/ALBUTEROL 3 ML NEB IH ×6 (02:05→21:42)
[2024-04-16] MEDS: ACETAMINOPHEN 325MG TAB 650 MG PO (02:12)
[2024-04-16] MEDS: BUDESONIDE 0.5MG/2ML NEB 0.5 MG IH ×2 (06:15→18:47)
[2024-04-16 06:18] LABS: Basophils % 0.1 % (0.1-2.0); Eosinophils # 0.2 K/mm3 (0.0-0.4); Eosinophils % 1.5 % (0.1-12.0); Hematocrit 27.9 % (42.0-52.0); Lymphocytes # 1.1 K/mm3 (0.7-4.5); Lymphocytes % 8.9 % (10-50); Mean Corpuscular HGB Conc 33.3 g/dL (31.8-35.4); Mean Corpuscular Hemoglobin 28.1 pg (27.0-31.2); Mean Corpuscular Volume 84.3 fl (80-94); Mean Platelet Volume 9.6 fl (7.4-10.4); Monocytes # 0.6 K/mm3 (0.1-1.0); Monocytes % 4.6 % (1.7-9.3); Neutrophils # 10.1 K/mm3 (1.8-7.8); Neutrophils % 81.9 % (37.0-80.0); Platelet Count 367 K/mm3 (142-424); Red Blood Count 3.31 M/mm3 (4.60-6.20); Red Cell Distribution Width 15.9 % (11.5-17.5); White Blood Count 12.3 K/mm3 (4.8-10.8)
[2024-04-16 06:26] LABS: POC Glucose,Bedside 134 (70-110)
[2024-04-16 06:26] LABS: Chloride 97 mmol/L (98-107); Potassium 3.3 mmoL/L (3.5-5.1); Sodium 133 mmol/L (136-145)
[2024-04-16 06:35] LABS: C-Reactive Protein 140.2 mg/L (0-4)
--- NOTE | 2024-04-16 06:37 | EXP.ORTH.PN ---
Subjective *Date: 04/16/24 *Time: 08:09 Interval history: Patient has been moved back to ICU, he is doing well this morning. Back on nasal cannula 4 L/min. WBC is trending down from 30.5 to 12.3 today. Wound to b/l feet are improving. Smaller and no drainage. Debrided and new dressings applied. (See assessment for measurements). Ortho Exam (Inpt) Vital signs and Labs for Last 24 Hours: Temp Pulse Resp BP Pulse Ox O2 Del Method O2 Flow Rate 98.1 F 91 H 16 91/62 L 98 Nasal Cannula 4 04/16/24 04:00 04/16/24 06:16 04/16/24 06:00 04/16/24 06:00 04/16/24 06:16 04/16/24 06:16 04/16/24 06:16 FiO2 30 04/15/24 22:40 Laboratory Results - last 24 hr 04/15/24 05:53: Sodium 130 L, Potassium 3.3 L, Chloride 92 L, Carbon Dioxide 29, Anion Gap 12.3, BUN 11, Creatinine 0.60 L D, Estimated Creat Clear 218, Estimated GFR 144, Est GFR ( Amer) 174 D, Glucose 92, Calcium 7.5 L, Magnesium 1.7, Total Bilirubin 1.1, AST 135 H, ALT 78, Alkaline Phosphatase 192 H, NT-Pro-B Natriuret Pep 1340 H, Total Protein 6.5, Albumin 2.9 L, Globulin 3.6 H, Albumin/Globulin Ratio 0.8 L 04/15/24 08:15: WBC 30.5 H* D, RBC 3.98 L, Hgb 11.3 L, Hct 33.6 L, MCV 84.4, MCH 28.4, MCHC 33.6, RDW 15.7, Plt Count 236, MPV 10.7 H, Neut % (Auto) 79.4, Lymph % (Auto) 10.2, [place] % (Auto) 5.3, Eos % (Auto) 0.6, Baso % (Auto) 0.3, Neut # (Auto) 24.2 H, Lymph # (Auto) 3.1, [place] # (Auto) 1.6 H, Eos # (Auto) 0.2, Baso # (Auto) 0.1, Total Counted 100, Neutrophils % (Manual) 79 H, Lymphocytes % (Manual) 15, Monocytes % (Manual) 6, Platelet Estimate Normal, RBC Morphology Normal 04/15/24 08:48: POC Glucose 149 H 04/15/24 08:55: Specimen Source Left radial, O2 % 100, ABG pH 7.26 L, ABG pCO2 49.9 H, ABG pO2 246.6 H, ABG HCO3 21.8 L, ABG Total CO2 23.3, ABG O2 Saturation 100, ABG Base Excess -5.3 L, Roger Test acceptale, ABG Lactate 2.0, Vent Rate 16, PEEP Bipap 16/04/15/24 11:44: POC Glucose 142 H 04/15/24 16:45: POC Glucose 114 H 04/15/24 20:51: POC Glucose 105 04/16/24 05:22: WBC 12.3 H D, RBC 3.31 L, Hct 27.9 L, MCV 84.3, MCH 28.1, MCHC 33.3, RDW 15.9, Plt Count 367 D, MPV 9.6, Neut % (Auto) 81.9 H, Lymph % (Auto) 8.9 L, [place] % (Auto) 4.6, Eos % (Auto) 1.5, Baso % (Auto) 0.1, Neut # (Auto) 10.1 H, Lymph # (Auto) 1.1, [place] # (Auto) 0.6, Eos # (Auto) 0.2, Baso # (Auto) 0.0 04/16/24 06:18: POC Glucose 134 H I & O for Labs for Last 24 Hours: Intake & Output 04/13/24 04/14/24 04/15/24 04/16/24 23:59 23:59 23:59 23:59 Intake Total 580 / 580 1650 / 1650 990 / 990 652 / 652 Output Total 1675 / 1675 2750 / 2750 2740 / 2740 1200 / 1200 Balance -1095 / -1095 -1100 / -1100 -1750 / -1750 -548 / -548 Weight 218 lb 4.8 oz 225 lb 3.2 oz 225 lb 3.588 oz 220 lb 9.6 oz Microbiology Reports for the Last 24 Hours: Microbiology 04/13/24 13:00 Blood Blood Culture - Preliminary NO GROWTH AFTER 48 HOURS 04/13/24 13:08 Blood Blood Culture - Preliminary NO GROWTH AFTER 48 HOURS 04/12/24 06:00 Foot,Right Gram Stain - Final 04/12/24 06:00 Foot,Right Wound Culture - Final Staphylococcus aureus 04/12/24 00:08 Sputum - Expectorated Sputum Gram Stain - Final 04/12/24 00:08 Sputum - Expectorated Sputum Sputum Culture - Final Staphylococcus aureus 04/12/24 06:00 Anus CRE Surveillance Culture - Final Negative Constitutional: Present no acute distress and cooperative Head: Present normocephalic Eyes: Present as per HPI Neck: Present trachea midline Respiratory: Present able to speak in complete sentences Comment:: nasal cannula at 3lpm/NC Cardiac: Present posterior tibial pulses present and pedal pulses present Comment:: Pedal pulses palpable, slightly diminished. SITA's were obtained (04/13/24), WNL, no evidence of significant obstructive peripheral vascular disease of the lower extremities. Comments:: deferred Rectal (male): Present deferred (male): Present deferred Extremities: Present full ROM and normal capillary refill Muscle Strength (Extremity): Mild Weakness Skin: Present wounds Comment:: DFU's noted to Right dorsal foot x 2, Left plantar, lateral sub 5th. 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 -Wounds Debrided with a 15' blade sharply, excisionally through skin into the subcu layer. Fibrotic tissue was removed. Good bleeding was noted. Granular base was noted. Post debridement the wound measured Right dorsal foot ulcers x 2 Proximal: wound Debrided with a 15' blade sharply, excisionally through skin into the subcu layer. Fibrotic tissue was removed. Good bleeding was noted. Granular base was noted. Post debridement the wound measured 1.2 x 1.2 x 0 cm, -Distal ulcer, wound Debrided with a 15' blade sharply, excisionally through skin into the subcu layer. Fibrotic tissue was removed. Good bleeding was noted. Granular base was noted. Post debridement the wound measured 1.9 x 3.2 x 0 cm, Left Lateral foot, sub 5th- wound Debrided with a 15' blade sharply, and curette, excisionally through skin into the subcu layer. Fibrotic tissue was removed. Good bleeding was noted. Granular base was noted. Post debridement the wound measured 3.0x 3.5 x 0. cm -All sites cleaned with betadine, then applied xeroform, betadine soaked gauze, kerlix, tanya wraps -Wounds are stable and will put nursing orders in for them to do daily dressing changes while he remains inpatient starting Zheng AM. Neuro: Present Weakness, oriented x 3, tone normal and moves all extremities Comment:: Hx of neuropathy, decreased sensations. Ankle: bilateral: normal inspection Feet/Toes: bilateral: hammer toe (slight hammer toes, reducible), bilateral: nail abnormalities (thick, discolored ), bilateral: onychomycosis (suspected ), bilateral: wound (b/l DFU's Right dorsal foot x 2, Left lateral sub 5th ) and bilateral: decreased ROM Assessment and Plan *Assessment and plan (1) Acquired hammer toe: Status: Acute Category: Medical Code(s): M20.40 - Other hammer toe(s) (acquired), unspecified foot (2) Decreased pedal pulses: Status: Acute Category: Medical Code(s): R09.89 - Other specified symptoms and signs involving the circulatory and respiratory systems (3) Decreased sensation of foot: Status: Acute Category: Medical Code(s): R20.8 - Other disturbances of skin sensation (4) Discoloration and thickening of nails both feet: Status: Acute Category: Medical Code(s): L60.8 - Other nail disorders (5) Diabetic ulcer of foot associated with diabetes mellitus due to underlying condition, limited to breakdown of skin: Status: Acute Qualifiers: Diabetic foot ulcer location: unspecified part of foot Laterality: right Qualified Code(s): E08.621 - Diabetes mellitus due to underlying condition with foot ulcer; L97.511 - Non-pressure chronic ulcer of other part of right foot limited to breakdown of skin Category: Medical Code(s): E08.621 - Diabetes mellitus due to underlying condition with foot ulcer; L97.501 - Non-pressure chronic ulcer of other part of unspecified foot limited to breakdown of skin (6) Diabetic ulcer of left foot: Status: Acute Qualifiers: Diabetes mellitus type: type 2 Diabetic foot ulcer location: unspecified part of foot Non-pressure ulcer stage: limited to breakdown of skin Qualified Code(s): E11.621 - Type 2 diabetes mellitus with foot ulcer; L97.521 - Non-pressure chronic ulcer of other part of left foot limited to breakdown of skin Category: Medical Code(s): E11.621 - Type 2 diabetes mellitus with foot ulcer; L97.529 - Non-pressure chronic ulcer of other part of left foot with unspecified severity (7) Cellulitis of right foot: Start date: 04/11/24 Start time: 21:00 Problem Comment: Patient states that the initial accident happend 7 months ago, spilled hot coffee to the top of his foot. This past weekend the foot became sore and red. Patient came to ER for other reasons Respiratory issues and not the foot. Status: Acute Category: Medical Code(s): L03.115 - Cellulitis of right lower limb (8) Non-healing ulcer of foot: Status: Acute Qualifiers: Laterality: right Non-pressure ulcer stage: limited to breakdown of skin Qualified Code(s): L97.511 - Non-pressure chronic ulcer of other part of right foot limited to breakdown of skin Category: Medical Code(s): L97.509 - Non-pressure chronic ulcer of other part of unspecified foot with unspecified severity Plan 04/16/24: 04/11/24: Left foot x-rays, FINDINGS: Bones/joints: No acute fracture or malalignment. Mild osteoarthritis. Calcaneal enthesopathy. Soft tissues: Mild diffuse soft tissue swelling. 1.2 cm rounded lucent focus within the soft tissues lateral to the 5th MTP joint. IMPRESSION: 1. No acute osseous findings. 2. 1.2 cm rounded lucent focus within the soft tissues lateral to the 5th MTP joint, possibly representing soft tissue injury, ulceration or mass. Mild diffuse soft tissue swelling. 04/11/24: Right foot x-rays, FINDINGS: Bones/joints: Posttraumatic changes of the distal fibula and distal tibia post hardware removal. No acute fracture or malalignment. Mild osteoarthritis. Calcaneal enthesopathy.. Soft tissues: Mild diffuse soft tissue swelling. No soft tissue gas. IMPRESSION: 1. No acute osseous findings. 2. Mild diffuse soft tissue swelling. No soft tissue gas. Date of Service: 04/11/24, Procedure(s): CT foot RT w con FINDINGS: Bones/joints: Postsurgical changes of the distal tibia and fibula with hardware removal. No acute fracture or dislocation. Chronic avulsive changes of the lateral malleolar tip. Calcaneal enthesopathy. Mild scattered osteoarthritis. No periostitis or cortical destruction. Soft tissues: Mild generalized soft tissue swelling. No soft tissue gas. No rim enhancing soft tissue fluid collection. IMPRESSION: Mild generalized soft tissue swelling. No soft tissue gas or abscess. No acute osseous findings. Ulcers to right dorsal foot and Left lateral sub 5th: -Ulcers looked stable with no erythema or edema noted. -Reviewed labs and CT scan of Right foot- negative for any bone infections. -Right foot wound culture obtained by nursing 04/12/24- Showing 2 organisms- Gram Positive Cocci -Labs; WBC trending down 12.3, ESR 87 04/13,glucose 85, crp, 04/13 -284.5 HA1c 5.1 -SITA's WNL, no PVD noted. -Ulcers cleaned, debridement, dressed with Xeroform with betadine soaked gauze, kerlix and tanya wrap -See assessment for debridement details/measurements -Ulcers are stable, added new nursing orders starting Saturday04/17/24 for daily dressing changes as mentioned above -Continue getting IV antibiotics (Vancomycin, added meropenem) per hospitalist orders -No plans for surgical treatment as for Podiatry. -All orders and recommendations per Dr. Munoz Decreased pedal pulses, Decreased sensation,non-healing ulcers : -Ulcers to Right dorsal foot and left lateral foot sub-fifth slow to non-healing x 8 months -Present but decreased DP/PT pedal pulses bilaterally -SITA's was obtained and WNL, no evidence of PVD.
[2024-04-16 07:17] LABS: Alanine Aminotransferase 89 U/L (12-78); Albumin Level 2.5 g/dl (3.5-5.0); Albumin/Globulin Ratio 0.8 (1.1-1.8); Alkaline Phosphatase 154 U/L (38-126); Anion Gap 12.3 mEq/L (5-15); Aspartate Amino Transferase 152 U/L (17-59); Bilirubin,Total 0.4 mg/dl (0.2-1.3); Blood Urea Nitrogen 11 mg/dl (9-20); Calcium 7.4 mg/dl (8.4-10.2); Carbon Dioxide 27 mmol/L (22.0-30.0); Creatinine Clearance Estimated 213 mL/min (50-200); Estimated Glomerular Filt Rate 144 ml/min (>60); GFR (African American) 174 ML/MIN (>60); Globulin 3.1 g/dL (1.3-3.2); Glucose 111 mg/dl (74-100); Total Protein,Serum 5.6 g/dl (6.3-8.2)
[2024-04-16 08:05] LABS: Procalcitonin 4.99 ng/mL (0.0-2.0)
[2024-04-16 09:11] LABS: Erythrocyte Sedimentation Rate > 140 mm/hr (0-15)
[2024-04-16 09:15] LABS: Hemoglobin 9.4 g/dL (14.1-18.0)
--- NOTE | 2024-04-16 09:26 | EXP.PULM.PN ---
Subjective *Date: 04/16/24 *Time: 13:16 Interval history: No acute respiratory vents overnight. Pulmonology Exam Inpatient Vital signs and Labs for Last 24 Hours: Temp Pulse Resp BP Pulse Ox O2 Del Method O2 Flow Rate 98.1 F 86 22 95/63 L 96 Nasal Cannula 3 04/16/24 07:00 04/16/24 09:00 04/16/24 09:00 04/16/24 09:00 04/16/24 09:00 04/16/24 09:00 04/16/24 09:00 FiO2 30 04/15/24 22:40 Laboratory Results - last 24 hr 04/15/24 05:53: Magnesium 1.7 04/15/24 11:44: POC Glucose 142 H 04/15/24 16:45: POC Glucose 114 H 04/15/24 20:51: POC Glucose 105 04/16/24 05:22: WBC 12.3 H D, RBC 3.31 L, Hgb 9.4 L D, Hct 27.9 L, MCV 84.3, MCH 28.1, MCHC 33.3, RDW 15.9, Plt Count 367 D, MPV 9.6, Neut % (Auto) 81.9 H, Lymph % (Auto) 8.9 L, [place] % (Auto) 4.6, Eos % (Auto) 1.5, Baso % (Auto) 0.1, Neut # (Auto) 10.1 H, Lymph # (Auto) 1.1, [place] # (Auto) 0.6, Eos # (Auto) 0.2, Baso # (Auto) 0.0, ESR > 140 H, Sodium 133 L, Potassium 3.3 L, Chloride 97 L, Carbon Dioxide 27, Anion Gap 12.3, BUN 11, Creatinine 0.60 L, Estimated Creat Clear 213, Estimated GFR 144, Est GFR ( Amer) 174, Glucose 111 H D, Calcium 7.4 L, Magnesium 2.0 D, Total Bilirubin 0.4, AST 152 H, ALT 89 H, Alkaline Phosphatase 154 H, C-Reactive Protein 140.2 H, Total Protein 5.6 L, Albumin 2.5 L D, Globulin 3.1, Albumin/Globulin Ratio 0.8 L, Procalcitonin 4.99 H 04/16/24 06:18: POC Glucose 134 H Temp Pulse Resp BP Pulse Ox O2 Del Method O2 Flow Rate 99.6 F 110 H 21 112/66 92 L Nasal Cannula 4 04/13/24 08:00 04/13/24 08:00 04/13/24 08:00 04/13/24 08:00 04/13/24 08:00 04/13/24 08:00 04/13/24 08:00 FiO2 40 04/13/24 06:18 Laboratory Results - last 24 hr 04/12/24 09:25: ESR 122 H, PT 13.5 H, INR 1.26 H, APTT 26.8, Sodium 128 L, Potassium 3.3 L, Chloride 94 L, Carbon Dioxide 30, Anion Gap 7.3, BUN 23 H D, Creatinine 0.80 D, Estimated Creat Clear 154, Estimated GFR 103, Est GFR ( Amer) 125 D, Glucose 91 D, Hemoglobin A1c 5.1, Calcium 7.4 L, Phosphorus 1.4 L, Magnesium 1.6, Total Bilirubin 1.3, AST 131 H D, ALT 62, Alkaline Phosphatase 83, Total Protein 5.6 L, Albumin 2.6 L D, Globulin 3.0, Albumin/Globulin Ratio 0.9 L 04/12/24 10:39: POC Glucose 92 04/12/24 15:28: POC Glucose 90 04/12/24 20:25: POC Glucose 80 04/12/24 23:06: POC Glucose 142 H 04/13/24 05:45: WBC 18.0 H D, RBC 3.38 L, Hgb 9.7 L, Hct 28.4 L, MCV 84.0, MCH 28.7, MCHC 34.2, RDW 15.5, Plt Count 232, MPV 10.3, Neut % (Auto) 83.6 H, Lymph % (Auto) 6.5 L, [place] % (Auto) 5.6, Eos % (Auto) 0.2, Baso % (Auto) 0.5, Neut # (Auto) 15.0 H, Lymph # (Auto) 1.2, [place] # (Auto) 1.0, Eos # (Auto) 0.0, Baso # (Auto) 0.1, Total Counted 100, Neutrophils % (Manual) 86 H, Lymphocytes % (Manual) 11, Monocytes % (Manual) 3, Platelet Estimate Normal, RBC Morphology Normal, ESR 87 H, Sodium 129 L, Potassium 3.7, Chloride 94 L, Carbon Dioxide 28, Anion Gap 10.7, BUN 14 D, Creatinine 0.70, Estimated Creat Clear 172, Estimated GFR 120, Est GFR ( Amer) 146, Glucose 50 L D, Calcium 7.2 L, Magnesium 1.9 D, Total Bilirubin 1.4 H, AST 124 H, ALT 57, Alkaline Phosphatase 143 H, C-Reactive Protein 284.5 H, Total Protein 5.8 L, Albumin 2.7 L, Globulin 3.1, Albumin/Globulin Ratio 0.9 L, Procalcitonin 11.3 H 04/13/24 06:20: POC Glucose 198 H 04/13/24 07:11: POC Glucose 80 04/13/24 08:13: POC Glucose 65 L I & O for Labs for Last 24 Hours: Intake & Output 04/13/24 04/14/24 04/15/24 04/16/24 23:59 23:59 23:59 23:59 Intake Total 580 / 1170 1650 / 1750 990 / 1312 952 / 952 Output Total 1675 / 1975 2750 / 3340 2740 / 2740 1550 / 1550 Balance -1095 / -805 -1100 / -1590 -1750 / -1428 -598 / -598 Weight 218 lb 4.8 oz 225 lb 3.2 oz 225 lb 3.588 oz 220 lb 9.6 oz Intake & Output 04/10/24 04/11/24 04/12/24 04/13/24 23:59 23:59 23:59 23:59 Intake Total 1350 / 1350 740 / 740 210 / 210 Output Total 750 / 750 1500 / 1500 1000 / 1000 Balance 600 / 600 -760 / -760 -790 / -790 Weight 212 lb 6.4 oz 212 lb 0.015 oz 208 lb Microbiology Reports for the Last 24 Hours: Microbiology 04/13/24 13:00 Blood Blood Culture - Preliminary NO GROWTH AFTER 48 HOURS 04/13/24 13:08 Blood Blood Culture - Preliminary NO GROWTH AFTER 48 HOURS 04/12/24 06:00 Foot,Right Gram Stain - Final 04/12/24 06:00 Foot,Right Wound Culture - Final Staphylococcus aureus 04/12/24 00:08 Sputum - Expectorated Sputum Gram Stain - Final 04/12/24 00:08 Sputum - Expectorated Sputum Sputum Culture - Final Staphylococcus aureus 04/12/24 06:00 Anus CRE Surveillance Culture - Final Negative Microbiology 04/12/24 06:00 Foot,Right Gram Stain - Final 04/12/24 06:00 Foot,Right Wound Culture - Preliminary 04/12/24 00:08 Sputum - Expectorated Sputum Gram Stain - Final 04/12/24 00:08 Sputum - Expectorated Sputum Sputum Culture - Preliminary 04/11/24 20:15 Blood Blood Culture - Preliminary 04/11/24 19:56 Blood Blood Culture - Preliminary Constitutional: Present severe distress Head: Present normocephalic and atraumatic ENT: Present normal exam, normal oropharynx and mucous membranes moist Neck: Present normal inspection and full ROM Respiratory: Present prolonged expiratory phase, respiratory distress, rhonchi, wheezes and diminished air movement; Absent able to speak in complete sentences Cardiac: Present S1/S2, Tachycardia and radial pulses present GI: Present soft and distention; Absent tenderness or guarding Skin: Present intact; Absent cyanosis or jaundice Neuro: Present alert, awake and oriented x 3 Extremities: Present normal inspection; Absent clubbing or cyanosis Psychiatric: Present normal affect and cooperative Assessment and Plan *Assessment and plan (1) Influenza: Status: Acute Category: Medical Code(s): J11.1 - Influenza due to unidentified influenza virus with other respiratory manifestations (2) Staphylococcus aureus bacteremia with sepsis: Status: Acute Category: Medical Code(s): A41.01 - Sepsis due to Methicillin susceptible Staphylococcus aureus (3) Acute hypoxic respiratory failure: Status: Acute Category: Medical Code(s): J96.01 - Acute respiratory failure with hypoxia Plan is a 48-year-old male with reported history of greater than [id number] smoking history type 2 diabetes mellitus presented today with worsening respiratory distress found to be saturating 70% on room air upon admission and pulmonary was called for further evaluation and management. CTA upon admission no evidence of pulmonary embolism. Bilateral extensive diffuse micronodular densities along with patchy airspace disease in right upper lobe lower lobe along with left lingula and left lower lobe. Mediastinal hilar lymphadenopathy also noted likely reactive. Sputum cultures moderate gram-positive cocci no reportable results yet. Febrile. Hemodynamically stable. Worsening leukocytosis. Influenza A+ on respiratory viral PCR. Currently receiving vancomycin and Zosyn along with Tamiflu. On initial examination patient appeared to be in severe respiratory distress unable to talk in full sentences. Bilateral diffuse wheezing noted. Blood cultures positive for gram-positive cocci PCR Staph aureus Echocardiogram, no valvular lesions. Septal flattening consistent with right-sided pressure and volume overload. RVSP measured at 35 to 40 mmHg. Interval update: Improving respiratory distress since yesterday along with improving leukocytosis. Weaned to nasal cannula. Continue to receive vancomycin and meropenem. Improving leukocytosis. No evidence of DVT on the noted lower extremity venous Doppler. Bilateral rhonchorous breath sounds. Improving oxygen requirements. Plan: Continue nasal cannula oxygen supplementation to maintain O2 saturation goal of 90% and above DuoNebs every 4 hours along with Pulmicort Q12 scheduled Continue Tamiflu x 5 days Antibiotics can be weaned to vancomycin and clindamycin from pulmonary standpoint # Thank you for involving pulmonary in this patient care. Will continue to follow.
[2024-04-16] MEDS: guaiFENesin 600 MG TAB.ER.12H PO ×2 (09:39→21:50)
[2024-04-16] MEDS: buPROPion HCl SR 150MG TAB 150 MG PO (09:39)
[2024-04-16] MEDS: BUMETANIDE 1MG/4ML VIAL 1 MG IV (09:39)
[2024-04-16] MEDS: POTASSIUM CHLORIDE 20MEQ TAB 40 MEQ PO (09:40)
[2024-04-16] MEDS: ENOXAPARIN 40MG/0.4ML SYRINGE 40 MG SUBCUT (09:40)
[2024-04-16] MEDS: BUPRENORPHINE/NALOXONE 8MG/2MG ODT 2 EACH SL (09:40)
[2024-04-16] MEDS: OSELTAMIVIR 75MG CAPSULE 75 MG PO ×2 (09:40→21:50)
--- NOTE | 2024-04-16 09:40 | EXP.MED.FU ---
Subjective *Date: 04/16/24 *Time: 15:05 Interval history: Patient has had some improvement in his respiratory status overnight but still using accessory muscles. He is currently on 4 L nasal cannula. He is alert and oriented and able to answer questions. Liver enzymes show normalization of bilirubin at 0.4, slight worsening of AST at 152, ALT elevated 89 and an alk phos slightly improved at 154. Exam Data for Last 24 hours Vital signs and Labs for Last 24 Hours: Temp Pulse Resp BP Pulse Ox O2 Del Method O2 Flow Rate 98.1 F 94 H 22 95/63 L 96 Nasal Cannula 3 04/16/24 07:00 04/16/24 09:39 04/16/24 09:00 04/16/24 09:00 04/16/24 09:00 04/16/24 09:00 04/16/24 09:00 FiO2 30 04/15/24 22:40 Laboratory Results - last 24 hr 04/15/24 05:53: Magnesium 1.7 04/15/24 11:44: POC Glucose 142 H 04/15/24 16:45: POC Glucose 114 H 04/15/24 20:51: POC Glucose 105 04/16/24 05:22: WBC 12.3 H D, RBC 3.31 L, Hgb 9.4 L D, Hct 27.9 L, MCV 84.3, MCH 28.1, MCHC 33.3, RDW 15.9, Plt Count 367 D, MPV 9.6, Neut % (Auto) 81.9 H, Lymph % (Auto) 8.9 L, [place] % (Auto) 4.6, Eos % (Auto) 1.5, Baso % (Auto) 0.1, Neut # (Auto) 10.1 H, Lymph # (Auto) 1.1, [place] # (Auto) 0.6, Eos # (Auto) 0.2, Baso # (Auto) 0.0, ESR > 140 H, Sodium 133 L, Potassium 3.3 L, Chloride 97 L, Carbon Dioxide 27, Anion Gap 12.3, BUN 11, Creatinine 0.60 L, Estimated Creat Clear 213, Estimated GFR 144, Est GFR ( Amer) 174, Glucose 111 H D, Calcium 7.4 L, Magnesium 2.0 D, Total Bilirubin 0.4, AST 152 H, ALT 89 H, Alkaline Phosphatase 154 H, C-Reactive Protein 140.2 H, Total Protein 5.6 L, Albumin 2.5 L D, Globulin 3.1, Albumin/Globulin Ratio 0.8 L, Procalcitonin 4.99 H 04/16/24 06:18: POC Glucose 134 H I & O for Last 24 hours: Intake & Output 04/13/24 04/14/24 04/15/24 04/16/24 11:59 11:59 11:59 11:59 Intake Total 750 1440 1140 1292 Output Total 7353 2028 2540 3153 Balance -7036 -140 -0525 -2908 Weight 99.019 kg 102.149 kg 102.16 kg 100.062 kg Microbiology Reports for the Last 24 Hours: Microbiology 04/13/24 13:00 Blood Blood Culture - Preliminary NO GROWTH AFTER 48 HOURS 04/13/24 13:08 Blood Blood Culture - Preliminary NO GROWTH AFTER 48 HOURS 04/12/24 06:00 Foot,Right Gram Stain - Final 04/12/24 06:00 Foot,Right Wound Culture - Final Staphylococcus aureus 04/12/24 00:08 Sputum - Expectorated Sputum Gram Stain - Final 04/12/24 00:08 Sputum - Expectorated Sputum Sputum Culture - Final Staphylococcus aureus 04/12/24 06:00 Anus CRE Surveillance Culture - Final Negative *Routine Respiratory Exam Respiratory: Present accessory muscle use, rhonchi (Bilateral) and able to speak in complete sentences *Routine Cardiovascular Exam Cardiovascular: Present tachycardia *Routine Abdominal Exam Abdominal: Present normoactive bowel sounds Assessment and Plan *Assessment and plan (1) Elevated alkaline phosphatase level: Status: Acute Category: Medical Code(s): R74.8 - Abnormal levels of other serum enzymes (2) Common bile duct dilation: Status: Acute Category: Medical Code(s): K83.8 - Other specified diseases of biliary tract (3) Staphylococcus aureus bacteremia with sepsis: Status: Acute Category: Medical Code(s): A41.01 - Sepsis due to Methicillin susceptible Staphylococcus aureus (4) Influenza: Status: Acute Category: Medical Code(s): J11.1 - Influenza due to unidentified influenza virus with other respiratory manifestations Plan 1. Very mild improvement of alk phos at 152 with normalization of bilirubin 0.4. AST elevated at 152 and ALT elevated at 89. Improvement in respiratory status but still an unstable candidate for ERCP. Patient remains clinically asymptomatic. He denies any abdominal pain certainly no right upper quadrant pain. I still recommend MRCP when able. Will check hepatitis panel for complete
--- NOTE | 2024-04-16 09:55 | SW/DCPLANNER ---
Spoke with patient about having home health services coming in for dressing changes and patient stated that he doesnt want home health and that he can come back to [facility] for dressing changes. I asked the patient again if he was sure and that he has transportation to get here everyday for dressing changes and patient stated that he did. Hilda Durham
[2024-04-16 11:28] LABS: POC Glucose,Bedside 132 (70-110)
--- NOTE | 2024-04-16 13:50 | CARE MANAGER ---
Met with patient to discuss discharge plans r/t need for DME and outpatient drsg changes. Patient plans to come to our outpatient wound clinic, order will be faxed at time of discharge. Patient also needs a walker for safe ambulation. Patient [facility] signed for [facility] and order/clinical will be faxed day of discharge.
[2024-04-16] MEDS: LIDOCAINE 5% TRANSDERMAL PATCH 1 EACH TP (16:00)
[2024-04-16 16:17] LABS: POC Glucose,Bedside 131 (70-110)
--- NOTE | 2024-04-16 18:39 | P.PN_ITS ---
Subjective *Date: 04/16/24 *Time: 18:39 Interval history: Improved significantly since broadening antibiotics, will switch meropenem to clindamycin. Follow-up MRCP in the morning. N.p.o. at midnight. Exam Data for Last 24 hours Vital signs and Labs for Last 24 Hours: Temp Pulse Resp BP Pulse Ox O2 Del Method O2 Flow Rate 98.1 F 115 H 22 99/64 L 92 L Nasal Cannula 4 04/16/24 07:00 04/16/24 16:00 04/16/24 16:00 04/16/24 16:00 04/16/24 16:00 04/16/24 17:00 04/16/24 17:00 FiO2 30 04/15/24 22:40 Laboratory Results - last 24 hr 04/15/24 20:51: POC Glucose 105 04/16/24 05:22: WBC 12.3 H D, RBC 3.31 L, Hgb 9.4 L D, Hct 27.9 L, MCV 84.3, MCH 28.1, MCHC 33.3, RDW 15.9, Plt Count 367 D, MPV 9.6, Neut % (Auto) 81.9 H, Lymph % (Auto) 8.9 L, [place] % (Auto) 4.6, Eos % (Auto) 1.5, Baso % (Auto) 0.1, Neut # (Auto) 10.1 H, Lymph # (Auto) 1.1, [place] # (Auto) 0.6, Eos # (Auto) 0.2, Baso # (Auto) 0.0, ESR > 140 H, Sodium 133 L, Potassium 3.3 L, Chloride 97 L, Carbon Dioxide 27, Anion Gap 12.3, BUN 11, Creatinine 0.60 L, Estimated Creat Clear 213, Estimated GFR 144, Est GFR ( Amer) 174, Glucose 111 H D, Calcium 7.4 L, Magnesium 2.0 D, Total Bilirubin 0.4, AST 152 H, ALT 89 H, Alkaline Phosphatase 154 H, C-Reactive Protein 140.2 H, Total Protein 5.6 L, Albumin 2.5 L D, Globulin 3.1, Albumin/Globulin Ratio 0.8 L, Procalcitonin 4.99 H 04/16/24 06:18: POC Glucose 134 H 04/16/24 11:20: POC Glucose 132 H 02/27/25 16:07: POC Glucose 131 H I & O for Last 24 hours: Intake & Output 04/13/24 04/14/24 04/15/24 04/16/24 23:59 23:59 23:59 23:59 Intake Total 580 / 1170 1650 / 1750 990 / 1312 1412 / 1412 Output Total 1675 / 1975 2750 / 3340 2740 / 2740 2800 / 2800 Balance -1095 / -805 -1100 / -1590 -1750 / -1428 -1388 / -1388 Weight 99.019 kg 102.149 kg 102.16 kg 100.062 kg Constitutional Constitutional: no acute distress *Routine HEENT Exam Head: Present normocephalic Eye: Present EOMI and PERRL ENT: Present mucous membranes moist *Routine Neck Exam Neck: Present supple; Absent lymphadenopathy *Routine Respiratory Exam Respiratory: Absent CTA bilaterally Comments: Diffuse crackles right lung. *Routine Cardiovascular Exam Cardiovascular: Present RRR *Routine Abdominal Exam Abdominal: Present soft and normoactive bowel sounds; Absent tenderness *Routine Extremities Exam Extremities: Absent cyanosis, clubbing or edema *Routine Skin Exam Skin: Present warm; Absent rash *Routine Neurological Exam Neurological: Present alert and oriented X3 Assessment and Plan *Assessment and plan (1) Sepsis: Status: Acute Category: Medical Code(s): A41.9 - Sepsis, unspecified organism (2) Influenza A: Status: Acute Category: Medical Code(s): J10.1 - Influenza due to other identified influenza virus with other respiratory manifestations (3) Staphylococcus aureus bacteremia with sepsis: Status: Acute Category: Medical Code(s): A41.01 - Sepsis due to Methicillin susceptible Staphylococcus aureus (4) Acute hypoxic respiratory failure: Status: Acute Category: Medical Code(s): J96.01 - Acute respiratory failure with hypoxia (5) Acute hypokalemia: Status: Acute Category: Medical Code(s): E87.6 - Hypokalemia (6) Acute hyponatremia: Status: Acute Category: Medical Code(s): E87.1 - Hypo-osmolality and hyponatremia (7) SAGAR (acute kidney injury): Status: Acute Category: Medical Code(s): N17.9 - Acute kidney failure, unspecified (8) Chronic diabetic ulcer of foot determined by examination: Status: Acute Category: Medical Code(s): E11.621 - Type 2 diabetes mellitus with foot ulcer; L97.509 - Non-pressure chronic ulcer of other part of unspecified foot with unspecified severity (9) Cellulitis of foot: Status: Acute Category: Medical Code(s): L03.119 - Cellulitis of unspecified part of limb (10) Multifocal pneumonia: Status: Acute Category: Medical Code(s): J18.9 - Pneumonia, unspecified organism (11) Alcohol use disorder in remission: Status: Acute Category: Medical Code(s): F10.91 - Alcohol use, unspecified, in remission (12) Opioid use disorder in remission: Status: Acute Category: Medical Code(s): F11.91 - Opioid use, unspecified, in remission (13) Type 2 diabetes mellitus: Status: Acute Category: Medical Code(s): E11.9 - Type 2 diabetes mellitus without complications (14) Hypophosphatemia: Status: Acute Category: Medical Code(s): E83.39 - Other disorders of phosphorus metabolism (15) Non-healing ulcer of foot: Status: Acute Qualifiers: Laterality: right Non-pressure ulcer stage: limited to breakdown of skin Qualified Code(s): L97.511 - Non-pressure chronic ulcer of other part of right foot limited to breakdown of skin Category: Medical Code(s): L97.509 - Non-pressure chronic ulcer of other part of unspecified foot with unspecified severity Plan This 48-year-old male in septic shock from multifocal pneumonia (Influenza A positive) and acute hypoxic respiratory failure. He required ICU-level care with high-flow nasal cannula support, aggressive fluid resuscitation, and broad- spectrum antimicrobials (vancomycin, piperacillin-tazobactam, azithromycin, plus oseltamivir). His labs reveal acute kidney injury, electrolyte derangements (hyponatremia and hypokalemia), and elevated inflammatory markers; these are being addressed with careful IV fluid management (Lactated Ringer?s) and targeted electrolyte repletion. #Sepsis / Multifocal Pneumonia (Influenza A) #Acute hypoxic respiratory failure # MRSA bacteremia ? CXR today again shows worsening multifocal pneumonia. ? Blood cultures showing MRSA. Sputum cultures also showing MRSA. ? WBC improved from 30-12 today after starting meropenem. Discussed with pulmonology, patient likely needs double coverage for MRSA. Recommended switching meropenem to clindamycin. ? Continue vancomycin, started clindamycin and discontinue meropenem. Will continue to monitor closely following these changes. ? Weaned to 4 L nasal cannula from Vapotherm saturating 92%. ? Continue Tamiflu 75 mg twice daily for 5 days ? Repeat CBC, CMP, magnesium, procalcitonin ordered for the morning. #Type 2 Diabetes Mellitus ? A1c 5.1. Continue fingersticks ACHS with sliding scale insulin ACHS. ? Holding oral metformin in the setting of sepsis #Chronic Bilateral Foot Ulcers #Right foot cellulitis ? Foot CT negative for osteo. Continue antibiotics for possible infection of the soft tissue. ? Podiatry evaluated, debrided feet. Continue Betadine soaked gauze daily dressing changes ? No evidence of obstructive PAD on arterial Dopplers. ? CT foot not remarkable for abscess, osteomyelitis. ? Discussed with podiatry, do not believe worsening sepsis is related to feet given above. #Acute on chronic HFpEF #Right heart failure ? ECHO suggestive of mild right heart failure. Does have diastolic dysfunction with elevated RVSP of 35 to 40 mmHg. ? Decrease Bumex to 0.5 mg daily given soft pressures and tachycardia. #Electrolyte Abnormalities #Transaminitis ? Sodium still low at 129, chloride 94. Potassium 3.7. Liver function mildly abnormal with bilirubin 1.4, AST 124, ALT 57, alk phos 143. ? Right upper quadrant ultrasound obtained, mild ductal dilatation at 0.9 cm. No [place] obstruction. No other abnormalities noted in the liver. ? GI consulted, recommended MRCP if appropriate. Will continue to monitor LFTs which may be impacted by influenza, sepsis. Consider MRCP if not improving. ? Follow-up MRCP in the morning. N.p.o. at midnight #Chronic Tobacco Use ? Nicotine patch daily as needed #Severe protein calorie malnutrition ? Nutrition consulted, providing recommendations and supplementation. Therapy consulted, working with patient daily Full code DVT prophylaxis: Lovenox 40 mg subcu daily Diabetic diet
[2024-04-16 21:34] LABS: POC Glucose,Bedside 153 (70-110)
[2024-04-16] MEDS: PANTOPRAZOLE 40MG TABLET 40 MG PO (21:50)
[2024-04-16] MEDS: CLINDAMYCIN PHOSPHATE/D5W 600 MG/50 ML PIGGYBACK 100 MG IV (21:50)
[2024-04-16] MEDS: ATORVASTATIN 40MG TABLET 40 MG PO (21:50)
[2024-04-17] VITALS (13 sets, daily range): BP systolic 92–120; BP diastolic 50–78; PULSE 88–112; RESP 20–22; TEMP 36.4–36.9; O2SAT 90–100; BMI 30.9
--- NOTE | 2024-04-17 00:41 | ECG_ITS ---
APPROVED REPORT Exam: Resting ECG HR:99 bpm ECG Measurements Heart Rate 99 AXES UT 148 P 47 QRSd 111 QRS 84 QT 356 T 137 QTc 412 Conclusion SINUS RHYTHM Late r wave progression BORDERLINE ECG UNCONFIRMED REPORT Electronically signed by : Sen Wiley MD 04/18/2024 13:28:54
[2024-04-17] MEDS: IPRATROPIUM/ALBUTEROL 3 ML NEB IH ×6 (01:44→22:29)
[2024-04-17] MEDS: VANCOMYCIN/WATER FOR INJ (PEG) 1.75 GM/350 ML PIGGYBACK IV ×3 (02:13→17:58)
[2024-04-17] MEDS: GUAIFENESIN/DEXTROMETHORPHAN 200MG/20MG 10ML UDC 10 ML PO (02:18)
[2024-04-17] MEDS: CLINDAMYCIN PHOSPHATE/D5W 600 MG/50 ML PIGGYBACK 100 MG IV ×4 (04:09→20:23)
[2024-04-17 06:18] LABS: POC Glucose,Bedside 115 (70-110)
[2024-04-17] MEDS: BUDESONIDE 0.5MG/2ML NEB 0.5 MG IH ×2 (06:24→18:29)
--- NOTE | 2024-04-17 06:38 | PC.NURSE ---
pt is alert and oriented x4 but has talked to himself all night. spoke with nurse maria elena in ICU who previously took care of pt and she confirmed this is his basline while she took care of him. he slept about 2 hrs t/o night. pts o2 has maintained above 90% on 3l nc. RT currently at bs. cb within reach and npo since midnight
[2024-04-17 06:44] LABS: Basophils % 0.2 % (0.1-2.0); Eosinophils # 0.3 K/mm3 (0.0-0.4); Hematocrit 26.9 % (42.0-52.0); Hemoglobin 9.1 g/dL (14.1-18.0); Lymphocytes # 1.2 K/mm3 (0.7-4.5); Lymphocytes % 10.1 % (10-50); Mean Corpuscular HGB Conc 33.8 g/dL (31.8-35.4); Mean Corpuscular Hemoglobin 28.5 pg (27.0-31.2); Mean Corpuscular Volume 84.3 fl (80-94); Mean Platelet Volume 9.5 fl (7.4-10.4); Monocytes # 0.8 K/mm3 (0.1-1.0); Monocytes % 6.5 % (1.7-9.3); Neutrophils # 9.7 K/mm3 (1.8-7.8); Neutrophils % 79.9 % (37.0-80.0); Platelet Count 400 K/mm3 (142-424); Red Blood Count 3.19 M/mm3 (4.60-6.20); White Blood Count 12.2 K/mm3 (4.8-10.8)
[2024-04-17 06:51] LABS: Alanine Aminotransferase 106 U/L (12-78); Albumin Level 2.7 g/dl (3.5-5.0); Albumin/Globulin Ratio 0.8 (1.1-1.8); Alkaline Phosphatase 149 U/L (38-126); Anion Gap 6.5 mEq/L (5-15); Aspartate Amino Transferase 130 U/L (17-59); Bilirubin,Total 0.6 mg/dl (0.2-1.3); Blood Urea Nitrogen 5 mg/dl (9-20); Calcium 7.6 mg/dl (8.4-10.2); Carbon Dioxide 31 mmol/L (22.0-30.0); Chloride 99 mmol/L (98-107); Creatinine Clearance Estimated 256 mL/min (50-200); Estimated Glomerular Filt Rate 177 ml/min (>60); GFR (African American) 215 ML/MIN (>60); Globulin 3.4 g/dL (1.3-3.2); Glucose 104 mg/dl (74-100); Magnesium 1.5 mg/dl (1.6-2.3); Potassium 3.5 mmoL/L (3.5-5.1); Sodium 133 mmol/L (136-145); Total Protein,Serum 6.1 g/dl (6.3-8.2)
[2024-04-17 06:58] LABS: ABG Base Excess 3.8 mmol/L (-2.4-2.3); ABG HCO3 28.3 mmhg (22.0-26.0); ABG Oxygen Saturation 96 % (90-100); ABG PCO2 44.4 mmhg (35.0-45.0); ABG PH 7.42 mmol/L (7.35-7.45); ABG PO2 83.4 mmhg (80-100); ABG TCO2 29.6 mmhg (23-27)
[2024-04-17 07:00] LABS: Allen's Test Acceptable; Source Left Radial
[2024-04-17 07:07] LABS: Procalcitonin 2.68 ng/mL (0.0-2.0)
[2024-04-17 08:02] LABS: Erythrocyte Sedimentation Rate 136 mm/hr (0-15)
[2024-04-17] MEDS: BUMETANIDE 1MG/4ML VIAL 1 MG IV (09:03)
[2024-04-17] MEDS: BUPRENORPHINE/NALOXONE 8MG/2MG ODT 2 EACH SL (09:04)
[2024-04-17] MEDS: guaiFENesin 600 MG TAB.ER.12H PO ×2 (09:04→20:23)
[2024-04-17] MEDS: POTASSIUM CHLORIDE 20MEQ TAB 40 MEQ PO ×2 (09:04→11:53)
[2024-04-17] MEDS: buPROPion HCl SR 150MG TAB 150 MG PO (09:05)
[2024-04-17] MEDS: MAGNESIUM SULFATE IN WATER 2 GM/50 ML PIGGYBACK IV ×2 (09:06→10:53)
[2024-04-17] MEDS: FLUTICASONE/UMECLIDIN/VILANTER 100/62.5/25MCG INHALER 1 PUFF IH (09:40)
[2024-04-17 10:00] LABS: Vancomycin,Trough 15.2 ug/mL (5.0-10.0)
--- NOTE | 2024-04-17 10:03 | XR_ITS ---
FINAL REPORT CLINICAL HISTORY: SOB COMPARISON: 04/15/2024 FINDINGS: A single portable view of the chest was obtained. There is multifocal pneumonia, greatest in the right upper lobe. Pneumonia in the lung bases has improved. Right upper lobe pneumonia appears slightly worse. There is no evidence of effusion or pneumothorax. Mediastinum is unremarkable. Heart size is normal. IMPRESSION: Mild worsening of right upper lobe consolidation. Improved bibasilar pneumonia. Reviewed, Interpreted and Dictated by Trupti Tejeda MD Transcribed by Sera Stover Authenticated and [facility]
--- NOTE | 2024-04-17 10:03 | P.PN_ITS ---
Subjective *Date: 04/17/24 *Time: 13:32 Interval history: No acute respiratory vents overnight. Patient denies any significant improvement in his respiratory symptoms. Pulmonology Exam Inpatient Vital signs and Labs for Last 24 Hours: Temp Pulse Resp BP Pulse Ox O2 Del Method O2 Flow Rate 98.1 F 92 H 22 102/78 L 95 Nasal Cannula 5 04/17/24 00:00 04/17/24 09:35 04/16/24 16:00 04/17/24 04:00 04/17/24 09:35 04/17/24 09:53 04/17/24 09:53 FiO2 30 04/15/24 22:40 Laboratory Results - last 24 hr 04/16/24 11:20: POC Glucose 132 H 04/16/24 16:07: POC Glucose 131 H 04/16/24 21:27: POC Glucose 153 H 04/17/24 06:11: POC Glucose 115 H 04/17/24 06:21: WBC 12.2 H, RBC 3.19 L, Hgb 9.1 L, Hct 26.9 L, MCV 84.3, MCH 28.5, MCHC 33.8, RDW 16.0, Plt Count 400, MPV 9.5, Neut % (Auto) 79.9, Lymph % (Auto) 10.1, [place] % (Auto) 6.5, Eos % (Auto) 2.0, Baso % (Auto) 0.2, Neut # (Auto) 9.7 H, Lymph # (Auto) 1.2, [place] # (Auto) 0.8, Eos # (Auto) 0.3, Baso # (Auto) 0.0, ESR 136 H, Sodium 133 L, Potassium 3.5, Chloride 99, Carbon Dioxide 31 H, Anion Gap 6.5, BUN 5 L D, Creatinine 0.50 L, Estimated Creat Clear 256, E stimated GFR 177, Est GFR ( Amer) 215 D, Glucose 104 H, Calcium 7.6 L, Magnesium 1.5 L D, Total Bilirubin 0.6, AST 130 H, ALT 106 H, Alkaline Phosphatase 149 H, Total Protein 6.1 L, Albumin 2.7 L, Globulin 3.4 H, Albumin/Globulin Ratio 0.8 L, Procalcitonin 2.68 H 04/17/24 06:33: Specimen Source Left radial, O2 % 4lpm nc, ABG pH 7.42, ABG pCO2 44.4, ABG pO2 83.4, ABG HCO3 28.3 H, ABG Total CO2 29.6 H, ABG O2 Saturation 96, ABG Base Excess 3.8 H, Roger Test Acceptable Temp Pulse Resp BP Pulse Ox O2 Del Method O2 Flow Rate 99.6 F 110 H 21 112/66 92 L Nasal Cannula 4 04/13/24 08:00 04/13/24 08:00 04/13/24 08:00 04/13/24 08:00 04/13/24 08:00 04/13/24 08:00 04/13/24 08:00 FiO2 40 04/13/24 06:18 Laboratory Results - last 24 hr 04/12/24 09:25: ESR 122 H, PT 13.5 H, INR 1.26 H, APTT 26.8, Sodium 128 L, Potassium 3.3 L, Chloride 94 L, Carbon Dioxide 30, Anion Gap 7.3, BUN 23 H D, Creatinine 0.80 D, Estimated Creat Clear 154, Estimated GFR 103, Est GFR ( Amer) 125 D, Glucose 91 D, Hemoglobin A1c 5.1, Calcium 7.4 L, Phosphorus 1.4 L, Magnesium 1.6, Total Bilirubin 1.3, AST 131 H D, ALT 62, Alkaline Phosphatase 83, Total Protein 5.6 L, Albumin 2.6 L D, Globulin 3.0, Albumin/Globulin Ratio 0.9 L 04/12/24 10:39: POC Glucose 92 04/12/24 15:28: POC Glucose 90 04/12/24 20:25: POC Glucose 80 04/12/24 23:06: POC Glucose 142 H 04/13/24 05:45: WBC 18.0 H D, RBC 3.38 L, Hgb 9.7 L, Hct 28.4 L, MCV 84.0, MCH 28.7, MCHC 34.2, RDW 15.5, Plt Count 232, MPV 10.3, Neut % (Auto) 83.6 H, Lymph % (Auto) 6.5 L, [place] % (Auto) 5.6, Eos % (Auto) 0.2, Baso % (Auto) 0.5, Neut # (Auto) 15.0 H, Lymph # (Auto) 1.2, [place] # (Auto) 1.0, Eos # (Auto) 0.0, Baso # (Auto) 0.1, Total Counted 100, Neutrophils % (Manual) 86 H, Lymphocytes % (Manual) 11, Monocytes % (Manual) 3, Platelet Estimate Normal, RBC Morphology Normal, ESR 87 H, Sodium 129 L, Potassium 3.7, Chloride 94 L, Carbon Dioxide 28, Anion Gap 10.7, BUN 14 D, Creatinine 0.70, Estimated Creat Clear 172, Estimated GFR 120, Est GFR ( Amer) 146, Glucose 50 L D, Calcium 7.2 L, Magnesium 1.9 D, Total Bilirubin 1.4 H, AST 124 H, ALT 57, Alkaline Phosphatase 143 H, C- Reactive Protein 284.5 H, Total Protein 5.8 L, Albumin 2.7 L, Globulin 3.1, Albumin/Globulin Ratio 0.9 L, Procalcitonin 11.3 H 04/13/24 06:20: POC Glucose 198 H 04/13/24 07:11: POC Glucose 80 04/13/24 08:13: POC Glucose 65 L I & O for Labs for Last 24 Hours: Intake & Output 04/14/24 04/15/24 04/16/24 04/17/24 23:59 23:59 23:59 23:59 Intake Total 1650 / 1750 990 / 1312 1772 / 1772 50 / 50 Output Total 2750 / 3340 2740 / 2740 3025 / 3025 1050 / 1050 Balance -1100 / -1590 -1750 / -1428 -1253 / -1253 -1000 / -1000 Weight 225 lb 3.2 oz 225 lb 3.588 oz 220 lb 9.6 oz 220 lb 9.583 oz Intake & Output 04/10/24 04/11/24 04/12/24 04/13/24 23:59 23:59 23:59 23:59 Intake Total 1350 / 1350 740 / 740 210 / 210 Output Total 750 / 750 1500 / 1500 1000 / 1000 Balance 600 / 600 -760 / -760 -790 / -790 Weight 212 lb 6.4 oz 212 lb 0.015 oz 208 lb Microbiology Reports for the Last 24 Hours: Microbiology 04/12/24 06:00 Foot,Right Gram Stain - Final 04/12/24 06:00 Foot,Right Wound Culture - Preliminary 04/12/24 00:08 Sputum - Expectorated Sputum Gram Stain - Final 04/12/24 00:08 Sputum - Expectorated Sputum Sputum Culture - Preliminary 04/11/24 20:15 Blood Blood Culture - Preliminary 04/11/24 19:56 Blood Blood Culture - Preliminary Constitutional: Present severe distress Head: Present normocephalic and atraumatic ENT: Present normal exam, normal oropharynx and mucous membranes moist Neck: Present normal inspection and full ROM Respiratory: Present prolonged expiratory phase, respiratory distress, rhonchi, wheezes and diminished air movement; Absent able to speak in complete sentences Cardiac: Present S1/S2, Tachycardia and radial pulses present GI: Present soft and distention; Absent tenderness or guarding Skin: Present intact; Absent cyanosis or jaundice Neuro: Present alert, awake and oriented x 3 Extremities: Present normal inspection; Absent clubbing or cyanosis Psychiatric: Present normal affect and cooperative Assessment and Plan *Assessment and plan (1) Influenza: Status: Acute Category: Medical Code(s): J11.1 - Influenza due to unidentified influenza virus with other respiratory manifestations (2) Staphylococcus aureus bacteremia with sepsis: Status: Acute Category: Medical Code(s): A41.01 - Sepsis due to Methicillin susceptible Staphylococcus aureus (3) Acute hypoxic respiratory failure: Status: Acute Category: Medical Code(s): J96.01 - Acute respiratory failure with hypoxia Plan is a 48-year-old male with reported history of greater than [id number] smoking history type 2 diabetes mellitus presented today with worsening respiratory distress found to be saturating 70% on room air upon admission and pulmonary was called for further evaluation and management. CTA upon admission no evidence of pulmonary embolism. Bilateral extensive diffuse micronodular densities along with patchy airspace disease in right upper lobe lower lobe along with left lingula and left lower lobe. Mediastinal hilar lymphadenopathy also noted likely reactive. Sputum cultures moderate gram-positive cocci no reportable results yet. Febrile. Hemodynamically stable. Worsening leukocytosis. Influenza A+ on respiratory viral PCR. Currently receiving vancomycin and Zosyn along with Tamiflu. On initial examination patient appeared to be in severe respiratory distress unable to talk in full sentences. Bilateral diffuse wheezing noted. Blood cultures positive for gram-positive cocci PCR Staph aureus Echocardiogram, no valvular lesions. Septal flattening consistent with right- sided pressure and volume overload. RVSP measured at 35 to 40 mmHg. Interval update: No acute respiratory vents overnight. Stable oxygen requirements. Stable l eukocytosis. Plan: Incentive spirometry and flutter valve. Chest x-ray from this morning improving left lower lobe and right lower lobe airspace disease. No significant improvement in the noted right upper lobe airspace disease. Continue nasal cannula oxygen supplementation to maintain O2 saturation goal of 90% and above DuoNebs every 4 hours along with Pulmicort Q12 scheduled Continue Tamiflu x 5 days Antibiotics can be weaned to vancomycin and clindamycin to complete a total of 14-day course from pulmonary standpoint # Thank you for involving pulmonary in this patient care. Will continue to follow.
--- NOTE | 2024-04-17 11:34 | P.CONPHA_ITS ---
Pharmacy Consult Date: 04/17/24 Time: 11:34 Referring provider: DR. HOLDER Reason for Consult:: VANCOMYCIN TROUGH LEVEL Allergies Allergy/AdvReac Type Severity Reaction Status Date / Time No Known Allergies Allergy Verified 04/11/24 22:50 Home Medications ?Medication ?Instructions ?Recorded ?Confirmed ?Type buprenorphine 8 mg-naloxone 2 mg 2 tab sublingual DAILY 08/06/23 04/11/24 Hist ory sublingual tablet hydrochlorothiazide 25 mg tablet 25 mg PO DAILY #90 tabs 10/02/23 04/11/24 Rx empagliflozin 10 mg tablet 10 mg PO DAILY #90 tabs 12/02/23 04/11/24 Rx (Jardiance) desvenlafaxine succinate 100 mg 100 mg PO DAILY #30 tabs 12/17/23 04/11/24 Rx tablet,extended release 24 hr (Pristiq) bupropion HCl 150 mg 24 hr tablet, 150 mg PO DAILY #30 tabs 12/30/23 04/11/24 Rx extended release (Wellbutrin XL) cariprazine 1.5 mg capsule 1.5 mg PO DAILY #30 caps 02/18/24 04/11/24 Rx (Vraylar) lisinopril 5 mg tablet 5 mg PO DAILY #90 tabs 03/04/24 04/11/24 Rx metformin 500 mg tablet 500 mg PO DAILY #90 tabs 03/04/24 04/11/24 Rx atorvastatin 20 mg tablet 20 mg PO DAILY 04/12/24 04/12/24 History New Prescriptions to Start Prescriptions: Height: 1.8 m Weight: 100.062 kg Laboratory Results:: Laboratory Results - last 24 hr 04/16/24 16:07: POC Glucose 131 H 04/16/24 21:27: POC Glucose 153 H 04/17/24 06:11: POC Glucose 115 H 04/17/24 06:21: WBC 12.2 H, RBC 3.19 L, Hgb 9.1 L, Hct 26.9 L, MCV 84.3, MCH 28.5, MCHC 33.8, RDW 16.0, Plt Count 400, MPV 9.5, Neut % (Auto) 79.9, Lymph % (Auto) 10.1, [place] % (Auto) 6.5, Eos % (Auto) 2.0, Baso % (Auto) 0.2, Neut # ( Auto) 9.7 H, Lymph # (Auto) 1.2, [place] # (Auto) 0.8, Eos # (Auto) 0.3, Baso # (Auto) 0.0, ESR 136 H, Sodium 133 L, Potassium 3.5, Chloride 99, Carbon Dioxide 31 H, Anion Gap 6.5, BUN 5 L D, Creatinine 0.50 L, Estimated Creat Clear 256, Estimated GFR 177, Est GFR ( Amer) 215 D, Glucose 104 H, Calcium 7.6 L, Magnesium 1.5 L D, Total Bilirubin 0.6, AST 130 H, ALT 106 H, Alkaline Phosphatase 149 H, Total Protein 6.1 L, Albumin 2.7 L, Globulin 3.4 H, Albumin/Globulin Ratio 0.8 L, Procalcitonin 2.68 H 04/17/24 06:33: Specimen Source Left radial, O2 % 4lpm nc, ABG pH 7.42, ABG pCO2 44.4, ABG pO2 83.4, ABG HCO3 28.3 H, ABG Total CO2 29.6 H, ABG O2 Saturation 96, ABG Base Excess 3.8 H, Roger Test Acceptable 04/17/24 09:00: Vancomycin Trough 15.2 H Medical History: Medical History (Updated 04/14/24 @ 08:09 by Octavio Tellez II, MD) Staphylococcus aureus bacteremia with sepsis Influenza Ulcer of right foot limited to breakdown of skin Varicose veins of both lower extremities Hyperlipidemia Bilateral lower extremity edema Essential hypertension Type 2 diabetes mellitus without complications Chronic post-traumatic stress disorder (PTSD) Hx of fracture of lower leg Assessment and Plan Assessment and plan all Dx Assessment and Plan for all problems:: BASED ON PATIENT FACTORS AND VANCOMYCIN TROUGH LEVEL OF 15.2, RECOMMEND CONTINUING CURRENT DOSE OF VANCOMYCIN AT 1,750MG EVERY 8 HOURS. PHARMACY WILL CONTINUE TO MONITOR AND WILL ADJUST DOSE APPROPRIATE. -SHANNON PERKINS, ERASTOD
[2024-04-17 16:44] LABS: POC Glucose,Bedside 141 (70-110)
--- NOTE | 2024-04-17 16:58 | PC.NURSE ---
Pt. was taken down for MRCP and then in the middle of procedure refused.
--- NOTE | 2024-04-17 17:20 | EXP.PN ---
Subjective *Date: 04/17/24 *Time: 17:20 Interval history: Continues to improve, improve work of breathing today. Requiring 5 L nasal cannula today. Exam Data for Last 24 hours Vital signs and Labs for Last 24 Hours: Temp Pulse Resp BP Pulse Ox O2 Del Method O2 Flow Rate 98.4 F 109 H 20 98/57 L 93 L Nasal Cannula 5 04/17/24 12:00 04/17/24 14:08 04/17/24 12:00 04/17/24 12:00 04/17/24 14:08 04/17/24 16:24 04/17/24 16:24 FiO2 30 04/15/24 22:40 Laboratory Results - last 24 hr 04/16/24 21:27: POC Glucose 153 H 04/17/24 06:11: POC Glucose 115 H 04/17/24 06:21: WBC 12.2 H, RBC 3.19 L, Hgb 9.1 L, Hct 26.9 L, MCV 84.3, MCH 28.5, MCHC 33.8, RDW 16.0, Plt Count 400, MPV 9.5, Neut % (Auto) 79.9, Lymph % (Auto) 10.1, [place] % (Auto) 6.5, Eos % (Auto) 2.0, Baso % (Auto) 0.2, Neut # (Auto) 9.7 H, Lymph # (Auto) 1.2, [place] # (Auto) 0.8, Eos # (Auto) 0.3, Baso # (Auto) 0.0, ESR 136 H, Sodium 133 L, Potassium 3.5, Chloride 99, Carbon Dioxide 31 H, Anion Gap 6.5, BUN 5 L D, Creatinine 0.50 L, Estimated Creat Clear 256, Estimated GFR 177, Est GFR ( Amer) 215 D, Glucose 104 H, Calcium 7.6 L, Magnesium 1.5 L D, Total Bilirubin 0.6, AST 130 H, ALT 106 H, Alkaline Phosphatase 149 H, Total Protein 6.1 L, Albumin 2.7 L, Globulin 3.4 H, Albumin/Globulin Ratio 0.8 L, Procalcitonin 2.68 H 04/17/24 06:33: Specimen Source Left radial, O2 % 4lpm nc, ABG pH 7.42, ABG pCO2 44.4, ABG pO2 83.4, ABG HCO3 28.3 H, ABG Total CO2 29.6 H, ABG O2 Saturation 96, ABG Base Excess 3.8 H, Roger Test Acceptable 04/17/24 09:00: Vancomycin Trough 15.2 H 04/17/24 16:33: POC Glucose 141 H I & O for Last 24 hours: Intake & Output 04/14/24 04/15/24 04/16/24 04/17/24 23:59 23:59 23:59 23:59 Intake Total 1650 / 1750 990 / 1312 1772 / 1772 770 / 770 Output Total 2750 / 3340 2740 / 2740 3025 / 3025 2350 / 2350 Balance -1100 / -1590 -1750 / -1428 -1253 / -1253 -1580 / -1580 Weight 102.149 kg 102.16 kg 100.062 kg 100.062 kg Microbiology Reports for the Last 24 Hours: Microbiology 04/13/24 13:00 Blood Blood Culture - Preliminary NO GROWTH AFTER 4 DAYS 04/13/24 13:08 Blood Blood Culture - Preliminary NO GROWTH AFTER 4 DAYS Constitutional Constitutional: no acute distress *Routine HEENT Exam Head: Present normocephalic Eye: Present EOMI and PERRL ENT: Present mucous membranes moist *Routine Neck Exam Neck: Present supple; Absent lymphadenopathy *Routine Respiratory Exam Respiratory: Absent CTA bilaterally Comments: Diffuse crackles right lung. *Routine Cardiovascular Exam Cardiovascular: Present RRR *Routine Abdominal Exam Abdominal: Present soft and normoactive bowel sounds; Absent tenderness *Routine Extremities Exam Extremities: Absent cyanosis, clubbing or edema *Routine Skin Exam Skin: Present warm; Absent rash *Routine Neurological Exam Neurological: Present alert and oriented X3 Assessment and Plan *Assessment and plan (1) Sepsis: Status: Acute Category: Medical Code(s): A41.9 - Sepsis, unspecified organism (2) Influenza A: Status: Acute Category: Medical Code(s): J10.1 - Influenza due to other identified influenza virus with other respiratory manifestations (3) Staphylococcus aureus bacteremia with sepsis: Status: Acute Category: Medical Code(s): A41.01 - Sepsis due to Methicillin susceptible Staphylococcus aureus (4) Acute hypoxic respiratory failure: Status: Acute Category: Medical Code(s): J96.01 - Acute respiratory failure with hypoxia (5) Acute hypokalemia: Status: Acute Category: Medical Code(s): E87.6 - Hypokalemia (6) Acute hyponatremia: Status: Acute Category: Medical Code(s): E87.1 - Hypo-osmolality and hyponatremia (7) SAGAR (acute kidney injury): Status: Acute Category: Medical Code(s): N17.9 - Acute kidney failure, unspecified (8) Chronic diabetic ulcer of foot determined by examination: Status: Acute Category: Medical Code(s): E11.621 - Type 2 diabetes mellitus with foot ulcer; L97.509 - Non-pressure chronic ulcer of other part of unspecified foot with unspecified severity (9) Cellulitis of foot: Status: Acute Category: Medical Code(s): L03.119 - Cellulitis of unspecified part of limb (10) Multifocal pneumonia: Status: Acute Category: Medical Code(s): J18.9 - Pneumonia, unspecified organism (11) Alcohol use disorder in remission: Status: Acute Category: Medical Code(s): F10.91 - Alcohol use, unspecified, in remission (12) Opioid use disorder in remission: Status: Acute Category: Medical Code(s): F11.91 - Opioid use, unspecified, in remission (13) Type 2 diabetes mellitus: Status: Acute Category: Medical Code(s): E11.9 - Type 2 diabetes mellitus without complications (14) Hypophosphatemia: Status: Acute Category: Medical Code(s): E83.39 - Other disorders of phosphorus metabolism (15) Non-healing ulcer of foot: Status: Acute Qualifiers: Laterality: right Non-pressure ulcer stage: limited to breakdown of skin Qualified Code(s): L97.511 - Non-pressure chronic ulcer of other part of right foot limited to breakdown of skin Category: Medical Code(s): L97.509 - Non-pressure chronic ulcer of other part of unspecified foot with unspecified severity Plan This 48-year-old male in septic shock from multifocal pneumonia (Influenza A positive) and acute hypoxic respiratory failure. He required ICU-level care with high-flow nasal cannula support, aggressive fluid resuscitation, and broad-spectrum antimicrobials (vancomycin, piperacillin-tazobactam, azithromycin, plus oseltamivir). His labs reveal acute kidney injury, electrolyte derangements (hyponatremia and hypokalemia), and elevated inflammatory markers; these are being addressed with careful IV fluid management (Lactated Ringer?s) and targeted electrolyte repletion. #Sepsis / Multifocal Pneumonia (Influenza A) #Acute hypoxic respiratory failure # MRSA bacteremia ? CXR today again shows worsening multifocal pneumonia. ? Blood cultures showing MRSA. Sputum cultures also showing MRSA. ? WBC stable at 12.2 today. Procalcitonin improved to 2.68. Discussed with pulmonology, patient likely needs double coverage for MRSA. Recommended switching meropenem to clindamycin. ? CXR shows improved bibasilar opacities, without significant improvement in right upper lobe. ? Continue vancomycin, clindamycin meropenem. Pulmonology recommends a total of 14 days. ? Weaned to 4 L nasal cannula from Vapotherm saturating 92%. ? Continue Tamiflu 75 mg twice daily for 5 days ? Repeat CBC, CMP, magnesium, procalcitonin ordered for the morning. #Type 2 Diabetes Mellitus ? A1c 5.1. Continue fingersticks ACHS with sliding scale insulin ACHS. ? Holding oral metformin in the setting of sepsis #Chronic Bilateral Foot Ulcers #Right foot cellulitis ? Foot CT negative for osteo. Continue antibiotics for possible infection of the soft tissue. ? Podiatry evaluated, debrided feet. Continue Betadine soaked gauze daily dressing changes ? No evidence of obstructive PAD on arterial Dopplers. ? CT foot not remarkable for abscess, osteomyelitis. ? Discussed with podiatry, do not believe worsening sepsis is related to feet given above. #Acute on chronic HFpEF #Right heart failure ? ECHO suggestive of mild right heart failure. Does have diastolic dysfunction with elevated RVSP of 35 to 40 mmHg. ? Decrease Bumex to 0.5 mg daily given soft pressures and tachycardia. #Electrolyte Abnormalities #Transaminitis ? Sodium 133, chloride 94. AST improving 130, ALT 106. ALP also improving 149. ? Right upper quadrant ultrasound obtained, mild ductal dilatation at 0.9 cm. No [place] obstruction. No other abnormalities noted in the liver. ? GI consulted, recommended MRCP if appropriate. Will continue to monitor LFTs which may be impacted by influenza, sepsis. ? MRCP was ordered for this morning, patient could not tolerate it because he could not lay on his back flat. #Chronic Tobacco Use ? Nicotine patch daily as needed #Severe protein calorie malnutrition ? Nutrition consulted, providing recommendations and supplementation. Therapy consulted, working with patient daily Full code DVT prophylaxis: Lovenox 40 mg subcu daily Diabetic diet
--- NOTE | 2024-04-17 17:34 | PC.NURSE ---
Pt. refused dressing change to his low ext. States he wants to wait until he gets in the bed later tonight. Supplies placed in room for later tonight dressing change.
--- NOTE | 2024-04-17 18:03 | PC.NURSE ---
Pt. aox4, up with assistance times 2, chair alarm active, 02-5L NC sats above 90, fsbg achs, 20g R AC SL, purewick in place.
[2024-04-17] MEDS: ATORVASTATIN 40MG TABLET 40 MG PO (20:23)
[2024-04-17] MEDS: PANTOPRAZOLE 40MG TABLET 40 MG PO (20:23)
[2024-04-17 21:04] LABS: POC Glucose,Bedside 122 (70-110)
[2024-04-18] VITALS (14 sets, daily range): BP systolic 90–123; BP diastolic 52–78; PULSE 70–121; RESP 16–24; TEMP 36.4–37.2; O2SAT 92–99; BMI 30.7
[2024-04-18] MEDS: IPRATROPIUM/ALBUTEROL 3 ML NEB IH ×6 (02:16→21:46)
[2024-04-18] MEDS: CLINDAMYCIN PHOSPHATE/D5W 600 MG/50 ML PIGGYBACK 100 MG IV ×4 (02:28→21:28)
[2024-04-18] MEDS: VANCOMYCIN/WATER FOR INJ (PEG) 1.75 GM/350 ML PIGGYBACK IV ×3 (03:07→18:14)
--- NOTE | 2024-04-18 05:25 | PC.NURSE ---
Pt A&OX4. He has remained of 5L nasal cannula with O2 sats greater than 90%. He has received IV abx. He has transferred from chair to bed with x1 assist. Dressing on feet changed this shift. Purewick has remained in place. No complaints at this time. Currently up to chair with pull alarm in place.
[2024-04-18] MEDS: humaLOG 100 UNITS/ML 10ML VIAL (SSI) SUBCUT (06:16)
[2024-04-18 06:25] LABS: POC Glucose,Bedside 199 (70-110)
[2024-04-18] MEDS: BUDESONIDE 0.5MG/2ML NEB 0.5 MG IH ×2 (06:27→18:02)
[2024-04-18 07:38] LABS: Basophils % 0.4 % (0.1-2.0); Eosinophils # 0.4 K/mm3 (0.0-0.4); Eosinophils % 3.9 % (0.1-12.0); Hematocrit 28.1 % (42.0-52.0); Hemoglobin 9.2 g/dL (14.1-18.0); Lymphocytes # 1.2 K/mm3 (0.7-4.5); Lymphocytes % 11.7 % (10-50); Mean Corpuscular HGB Conc 32.7 g/dL (31.8-35.4); Mean Corpuscular Hemoglobin 28.3 pg (27.0-31.2); Mean Corpuscular Volume 86.5 fl (80-94); Mean Platelet Volume 9.4 fl (7.4-10.4); Monocytes # 0.6 K/mm3 (0.1-1.0); Monocytes % 5.5 % (1.7-9.3); Neutrophils # 7.7 K/mm3 (1.8-7.8); Neutrophils % 77.4 % (37.0-80.0); Platelet Count 484 K/mm3 (142-424); Red Blood Count 3.25 M/mm3 (4.60-6.20); Red Cell Distribution Width 16.6 % (11.5-17.5)
[2024-04-18 07:55] LABS: Alanine Aminotransferase 151 U/L (12-78); Albumin Level 2.7 g/dl (3.5-5.0); Albumin/Globulin Ratio 0.8 (1.1-1.8); Alkaline Phosphatase 139 U/L (38-126); Anion Gap 7.8 mEq/L (5-15); Aspartate Amino Transferase 171 U/L (17-59); Bilirubin,Total 0.5 mg/dl (0.2-1.3); Blood Urea Nitrogen 4 mg/dl (9-20); Calcium 7.8 mg/dl (8.4-10.2); Carbon Dioxide 31 mmol/L (22.0-30.0); Chloride 98 mmol/L (98-107); Creatinine Clearance Estimated 256 mL/min (50-200); Estimated Glomerular Filt Rate 177 ml/min (>60); GFR (African American) 215 ML/MIN (>60); Globulin 3.5 g/dL (1.3-3.2); Glucose 103 mg/dl (74-100); Magnesium 1.8 mg/dl (1.6-2.3); Potassium 3.8 mmoL/L (3.5-5.1); Sodium 133 mmol/L (136-145); Total Protein,Serum 6.2 g/dl (6.3-8.2)
[2024-04-18 08:08] LABS: Procalcitonin 1.38 ng/mL (0.0-2.0)
[2024-04-18] MEDS: buPROPion HCl SR 150MG TAB 150 MG PO (08:28)
[2024-04-18] MEDS: ENOXAPARIN 40MG/0.4ML SYRINGE 40 MG SUBCUT (08:28)
[2024-04-18] MEDS: guaiFENesin 600 MG TAB.ER.12H PO ×2 (08:28→21:28)
[2024-04-18] MEDS: BUPRENORPHINE/NALOXONE 8MG/2MG ODT 2 EACH SL (08:29)
[2024-04-18] MEDS: BUMETANIDE 1MG/4ML VIAL 0.5 MG IV (08:33)
[2024-04-18 08:34] LABS: Erythrocyte Sedimentation Rate > 140 mm/hr (0-15)
[2024-04-18] MEDS: MAGNESIUM SULFATE IN WATER 2 GM/50 ML PIGGYBACK IV (09:27)
--- NOTE | 2024-04-18 09:31 | PC.NURSE ---
0844- pt's 02 turned down to 4L 0907- pt's 02 turned down to 3L 0930- pt's 02 turned down to 2L
--- NOTE | 2024-04-18 09:48 | P.PN_ITS ---
Subjective *Date: 04/18/24 *Time: 09:48 Medical Exam Vital signs and Labs for Last 24 Hours: Vital Signs Temp Pulse Pulse Resp BP Pulse Ox O2 Del Method 04/18/24 08:00 97.9 F 88 18 112/62 95 Nasal Cannula 04/18/24 06:42 Nasal Cannula 04/18/24 06:28 Vapotherm 04/18/24 06:28 94 L Nasal Cannula 04/18/24 05:00 Nasal Cannula 04/18/24 04:00 100 H 04/18/24 04:00 97.5 F L 104 H 22 90/52 L 99 Nasal Cannula 04/18/24 03:00 Nasal Cannula 04/18/24 02:17 98 H 04/18/24 02:17 94 H 04/18/24 01:00 Nasal Cannula 04/18/24 00:00 95 H 04/18/24 00:00 99.0 F 113 H 24 101/58 L 96 Nasal Cannula 04/17/24 23:00 Nasal Cannula 04/17/24 22:30 99 H 04/17/24 22:30 100 H 04/17/24 21:00 Nasal Cannula 04/17/24 20:00 95 H 04/17/24 20:00 Nasal Cannula 04/17/24 19:54 98.5 F 99 H 22 106/55 L 90 L Vapotherm 04/17/24 19:16 110 H 04/17/24 19:16 112 H 04/17/24 19:16 95 Nasal Cannula 04/17/24 17:53 Nasal Cannula 04/17/24 16:24 Nasal Cannula 04/17/24 16:00 100 H 04/17/24 16:00 97.6 F 107 H 20 120/58 L 92 L Nasal Cannula 04/17/24 15:00 Nasal Cannula 04/17/24 14:08 109 H 04/17/24 14:08 98 H 04/17/24 14:08 93 L Nasal Cannula 04/17/24 12:15 Nasal Cannula 04/17/24 12:00 98.4 F 94 H 20 98/57 L 91 L Nasal Cannula 04/17/24 12:00 100 H 04/17/24 09:53 Nasal Cannula O2 Flow Rate 04/18/24 08:00 5 04/18/24 06:42 5 04/18/24 06:28 04/18/24 06:28 5 04/18/24 05:00 5 04/18/24 04:00 04/18/24 04:00 5 04/18/24 03:00 5 04/18/24 02:17 04/18/24 02:17 04/18/24 01:00 5 04/18/24 00:00 04/18/24 00:00 5 04/17/24 23:00 5 04/17/24 22:30 04/17/24 22:30 04/17/24 21:00 5 04/17/24 20:00 04/17/24 20:00 5 04/17/24 19:54 04/17/24 19:16 04/17/24 19:16 04/17/24 19:16 6 04/17/24 17:53 5 04/17/24 16:24 5 04/17/24 16:00 04/17/24 16:00 5 04/17/24 15:00 5 04/17/24 14:08 04/17/24 14:08 04/17/24 14:08 5 04/17/24 12:15 5 04/17/24 12:00 5 04/17/24 12:00 04/17/24 09:53 5 Intake and Output 04/17/24 04/18/24 04/18/24 23:59 07:59 15:59 Intake Total 580 / 1750 400 / 400 Output Total 750 / 3900 1200 / 1700 500 / 1700 Balance -170 / -2150 -800 / -1300 -500 / -1300 Intake: Intake, Oral Amount 230 / 500 Intake, Total IV Amount 350 / 1250 400 / 400 Clindamycin Phosphate/D5w 600 50 / 50 mg In 50 ml @ 100 mls/hr IV Q6H CORTEZ Rx#:[id number] Vancomycin/Water For Inj (Peg) 350 / 1050 350 / 350 1.75 gm In 350 ml @ 175 mls/hr IV Q8H CORTEZ Rx#:[id number] Output: Output, Urine Amount 750 / 3900 1200 / 1700 500 / 1700 Other: Number of Unmeasured Voids 0 0 0 Weight 99.658 kg Patient Weight 04/18/24 23:59 Weight 99.658 kg Laboratory Results - last 24 hr 04/17/24 09:00: Vancomycin Trough 15.2 H 04/17/24 16:33: POC Glucose 141 H 04/17/24 20:42: POC Glucose 122 H 04/18/24 06:13: POC Glucose 199 H 04/18/24 06:52: WBC 10.0, RBC 3.25 L, Hgb 9.2 L, Hct 28.1 L, MCV 86.5, MCH 28.3, MCHC 32.7, RDW 16.6, Plt Count 484 H, MPV 9.4, Neut % (Auto) 77.4, Lymph % (Auto) 11.7, [place] % (Auto) 5.5, Eos % (Auto) 3.9, Baso % (Auto) 0.4, Neut # (Auto) 7.7, Lymph # (Auto) 1.2, [place] # (Auto) 0.6, Eos # (Auto) 0.4, Baso # (Auto) 0.0, ESR > 140 H, Sodium 133 L, Potassium 3.8, Chloride 98, Carbon Dioxide 31 H, Anion Gap 7.8, BUN 4 L, Creatinine 0.50 L, Estimated Creat Clear 256, Estimated GFR 177, Est GFR ( Amer) 215, Glucose 103 H, Calcium 7.8 L , Magnesium 1.8 D, Total Bilirubin 0.5, AST 171 H D, ALT 151 H D, Alkaline Ph osphatase 139 H, Total Protein 6.2 L, Albumin 2.7 L, Globulin 3.5 H, Albumin/Globulin Ratio 0.8 L, Procalcitonin 1.38 I & O for Labs for Last 24 Hours: Intake & Output 04/15/24 04/16/24 04/17/24 04/18/24 23:59 23:59 23:59 23:59 Intake Total 990 / 1312 1772 / 1772 1350 / 1750 400 / 400 Output Total 2740 / 2740 3025 / 3025 3100 / 3900 1700 / 1700 Balance -1750 / -1428 -1253 / -1253 -1750 / -2150 -1300 / -1300 Weight 102.16 kg 100.062 kg 100.062 kg 99.658 kg Microbiology Reports for the Last 24 Hours: Microbiology 04/13/24 13:00 Blood Blood Culture - Preliminary NO GROWTH AFTER 4 DAYS 04/13/24 13:08 Blood Blood Culture - Preliminary NO GROWTH AFTER 4 DAYS The patient's infection will respond to the chosen ABx?: Yes Is the patient receiving the right drug, dose, and route?: Yes Could a more targeted ABx be ordered?: No (SPUTUM AND WOUND CX GROWING MRSA)
[2024-04-18 10:50] LABS: POC Glucose,Bedside 122 (70-110)
[2024-04-18] MEDS: LIDOCAINE 5% TRANSDERMAL PATCH 1 EACH TP (16:13)
[2024-04-18] MEDS: NICOTINE 21MG/24HR PATCH 21 MG TD (16:16)
[2024-04-18 16:57] LABS: POC Glucose,Bedside 119 (70-110)
--- NOTE | 2024-04-18 18:13 | P.PN_ITS ---
Subjective *Date: 04/18/24 *Time: 18:13 Interval history: Patient feeling better today, weaned to 2 L nasal cannula. Improved breathing. Exam Data for Last 24 hours Vital signs and Labs for Last 24 Hours: Temp Pulse Resp BP Pulse Ox O2 Del Method O2 Flow Rate 98.3 F 111 H 16 123/78 92 L Nasal Cannula 2 04/18/24 16:00 04/18/24 16:00 04/18/24 16:00 04/18/24 16:00 04/18/24 16:00 04/18/24 16:00 04/18/24 16:00 FiO2 30 04/15/24 22:40 Laboratory Results - last 24 hr 04/17/24 20:42: POC Glucose 122 H 04/18/24 06:13: POC Glucose 199 H 04/18/24 06:52: WBC 10.0, RBC 3.25 L, Hgb 9.2 L, Hct 28.1 L, MCV 86.5, MCH 28.3, MCHC 32.7, RDW 16.6, Plt Count 484 H, MPV 9.4, Neut % (Auto) 77.4, Lymph % (Auto) 11.7, [place] % (Auto) 5.5, Eos % (Auto) 3.9, Baso % (Auto) 0.4, Neut # (Auto) 7.7, Lymph # (Auto) 1.2, [place] # (Auto) 0.6, Eos # (Auto) 0.4, Baso # (Auto) 0.0, ESR > 140 H, Sodium 133 L, Potassium 3.8, Chloride 98, Carbon Dioxide 31 H, Anion Gap 7.8, BUN 4 L, Creatinine 0.50 L, Estimated Creat Clear 256, Estimated GFR 177, Est GFR ( Amer) 215, Glucose 103 H, Calcium 7.8 L , Magnesium 1.8 D, Total Bilirubin 0.5, AST 171 H D, ALT 151 H D, Alkaline Phosphatase 139 H, Total Protein 6.2 L, Albumin 2.7 L, Globulin 3.5 H, Albumin/Globulin Ratio 0.8 L, Procalcitonin 1.38 04/18/24 10:43: POC Glucose 122 H 04/18/24 16:24: POC Glucose 119 H I & O for Last 24 hours: Intake & Output 0204/16/24 04/17/24 04/18/24 23:59 23:59 23:59 23:59 Intake Total 990 / 1312 1772 / 1772 1350 / 1750 1630 / 1630 Output Total 2740 / 2740 3025 / 3025 3100 / 3900 2600 / 2600 Balance -1750 / -1428 -1253 / -1253 -1750 / -2150 -970 / -970 Weight 102.16 kg 100.062 kg 100.062 kg 99.658 kg Microbiology Reports for the Last 24 Hours: Microbiology 04/13/24 13:08 Blood Blood Culture - Final NO GROWTH AFTER 5 DAYS 04/13/24 13:00 Blood Blood Culture - Final NO GROWTH AFTER 5 DAYS Constitutional Constitutional: no acute distress *Routine HEENT Exam Head: Present normocephalic Eye: Present EOMI and PERRL ENT: Present mucous membranes moist *Routine Neck Exam Neck: Present supple; Absent lymphadenopathy *Routine Respiratory Exam Respiratory: Absent CTA bilaterally Comments: Diffuse crackles right lung. *Routine Cardiovascular Exam Cardiovascular: Present RRR *Routine Abdominal Exam Abdominal: Present soft and normoactive bowel sounds; Absent tenderness *Routine Extremities Exam Extremities: Absent cyanosis, clubbing or edema *Routine Skin Exam Skin: Present warm; Absent rash *Routine Neurological Exam Neurological: Present alert and oriented X3 Assessment and Plan *Assessment and plan (1) Sepsis: Status: Acute Category: Medical Code(s): A41.9 - Sepsis, unspecified organism (2) Influenza A: Status: Acute Category: Medical Code(s): J10.1 - Influenza due to other identified influenza virus with other respiratory manifestations (3) Staphylococcus aureus bacteremia with sepsis: Status: Acute Category: Medical Code(s): A41.01 - Sepsis due to Methicillin susceptible Staphylococcus aureus (4) Acute hypoxic respiratory failure: Status: Acute Category: Medical Code(s): J96.01 - Acute respiratory failure with hypoxia (5) Acute hypokalemia: Status: Acute Category: Medical Code(s): E87.6 - Hypokalemia (6) Acute hyponatremia: Status: Acute Category: Medical Code(s): E87.1 - Hypo-osmolality and hyponatremia (7) SAGAR (acute kidney injury): Status: Acute Category: Medical Code(s): N17.9 - Acute kidney failure, unspecified (8) Chronic diabetic ulcer of foot determined by examination: Status: Acute Category: Medical Code(s): E11.621 - Type 2 diabetes mellitus with foot ulcer; L97.509 - Non-pressure chronic ulcer of other part of unspecified foot with unspecified severity (9) Cellulitis of foot: Status: Acute Category: Medical Code(s): L03.119 - Cellulitis of unspecified part of limb (10) Multifocal pneumonia: Status: Acute Category: Medical Code(s): J18.9 - Pneumonia, unspecified organism (11) Alcohol use disorder in remission: Status: Acute Category: Medical Code(s): F10.91 - Alcohol use, unspecified, in remission (12) Opioid use disorder in remission: Status: Acute Category: Medical Code(s): F11.91 - Opioid use, unspecified, in remission (13) Type 2 diabetes mellitus: Status: Acute Category: Medical Code(s): E11.9 - Type 2 diabetes mellitus without complications (14) Hypophosphatemia: Status: Acute Category: Medical Code(s): E83.39 - Other disorders of phosphorus metabolism (15) Non-healing ulcer of foot: Status: Acute Qualifiers: Laterality: right Non-pressure ulcer stage: limited to breakdown of ski n Qualified Code(s): L97.511 - Non-pressure chronic ulcer of other part of right foot limited to breakdown of skin Category: Medical Code(s): L97.509 - Non-pressure chronic ulcer of other part of unspecified foot with unspecified severity Plan This 48-year-old male in septic shock from multifocal pneumonia (Influenza A positive) and acute hypoxic respiratory failure. He required ICU-level care with high-flow nasal cannula support, aggressive fluid resuscitation, and broad- spectrum antimicrobials (vancomycin, piperacillin-tazobactam, azithromycin, plus oseltamivir). His labs reveal acute kidney injury, electrolyte derangements (hyponatremia and hypokalemia), and elevated inflammatory markers; these are being addressed with careful IV fluid management (Lactated Ringer?s) and targeted electrolyte repletion. #Sepsis / Multifocal Pneumonia (Influenza A) #Acute hypoxic respiratory failure # MRSA bacteremia ? CXR today again shows worsening multifocal pneumonia. ? Blood cultures showing MRSA. Sputum cultures also showing MRSA. ? WBC improved to 10 today. Procalcitonin improved to 1.38. Discussed with pulmonology, patient likely needs double coverage for MRSA. Recommended switching meropenem to clindamycin. ? CXR shows improved bibasilar opacities, without significant improvement in right upper lobe. ? Continue vancomycin, clindamycin. Pulmonology recommends a total of 14 days. ? Will switch to linezolid after consulting with pharmacy tomorrow. ? Weaned to 2 L nasal cannula from Vapotherm saturating 92%. ? Finished 5-day course of Tamiflu. ? Repeat CBC, CMP, magnesium, procalcitonin ordered for the morning. #Type 2 Diabetes Mellitus ? A1c 5.1. Continue fingersticks ACHS with sliding scale insulin ACHS. ? Holding oral metformin in the setting of sepsis #Chronic Bilateral Foot Ulcers #Right foot cellulitis ? Foot CT negative for osteo. Continue antibiotics for possible infection of the soft tissue. ? Podiatry evaluated, debrided feet. Continue Betadine soaked gauze daily dressing changes ? No evidence of obstructive PAD on arterial Dopplers. ? CT foot not remarkable for abscess, osteomyelitis. ? Discussed with podiatry, do not believe worsening sepsis is related to feet given above. #Acute on chronic HFpEF #Right heart failure ? ECHO suggestive of mild right heart failure. Does have diastolic dysfunction with elevated RVSP of 35 to 40 mmHg. ? Decrease Bumex to 0.5 mg daily given soft pressures and tachycardia. #Electrolyte Abnormalities #Transaminitis ? Sodium 133, chloride 94. AST improving 130, ALT 106. ALP also improving 149. ? Right upper quadrant ultrasound obtained, mild ductal dilatation at 0.9 cm. No chelsea obstruction. No other abnormalities noted in the liver. ? GI consulted, recommended MRCP if appropriate. Will continue to monitor LFTs which may be impacted by influenza, sepsis. ? MRCP was ordered, patient could not tolerate it because he could not lay on his back flat. #Chronic Tobacco Use ? Nicotine patch daily as needed #Severe protein calorie malnutrition ? Nutrition consulted, providing recommendations and supplementation. Therapy consulted, working with patient daily Full code DVT prophylaxis: Lovenox 40 mg subcu daily Diabetic diet
[2024-04-18] MEDS: predniSONE 20MG TAB 40 MG PO (21:27)
[2024-04-18] MEDS: PANTOPRAZOLE 40MG TABLET 40 MG PO (21:28)
[2024-04-18] MEDS: ATORVASTATIN 40MG TABLET 40 MG PO (21:28)
[2024-04-18 21:43] LABS: POC Glucose,Bedside 100 (70-110)
[2024-04-19] VITALS (10 sets, daily range): BP systolic 100–135; BP diastolic 59–77; PULSE 70–107; RESP 17–20; TEMP 36.6–37.3; O2SAT 87–96; BMI 31.6
[2024-04-19] MEDS: IPRATROPIUM/ALBUTEROL 3 ML NEB IH ×3 (01:48→10:47)
[2024-04-19] MEDS: CLINDAMYCIN PHOSPHATE/D5W 600 MG/50 ML PIGGYBACK 100 MG IV ×2 (02:34→08:23)
[2024-04-19] MEDS: VANCOMYCIN/WATER FOR INJ (PEG) 1.75 GM/350 ML PIGGYBACK IV ×2 (03:07→09:15)
[2024-04-19] MEDS: FLUTICASONE/UMECLIDIN/VILANTER 100/62.5/25MCG INHALER 1 PUFF IH (05:07)
[2024-04-19] MEDS: BUDESONIDE 0.5MG/2ML NEB 0.5 MG IH (05:07)
[2024-04-19 06:28] LABS: POC Glucose,Bedside 132 (70-110)
--- NOTE | 2024-04-19 06:38 | PC.NURSE ---
Pt O2 weaned to 1L nasal cannula. He has received IV ABX. Dressing to feet changed this shift. He has remained up to chair the majority of the shift. No complaints at this time, call light within reach.
[2024-04-19 08:13] LABS: HBsAg Screen Negative (Negative); HCV Ab Non Reactive (Non Reactive); Hep A Ab, IGM Negative (Negative); Hep B Core Ab, IgM Negative (Negative)
[2024-04-19] MEDS: ENOXAPARIN 40MG/0.4ML SYRINGE 40 MG SUBCUT (08:23)
[2024-04-19] MEDS: guaiFENesin 600 MG TAB.ER.12H PO (08:24)
[2024-04-19] MEDS: LISINOPRIL 5MG TABLET 5 MG PO (08:24)
[2024-04-19] MEDS: buPROPion HCl SR 150MG TAB 150 MG PO (08:24)
[2024-04-19] MEDS: BUPRENORPHINE/NALOXONE 8MG/2MG ODT 2 EACH SL (08:24)
[2024-04-19] MEDS: BUMETANIDE 1MG/4ML VIAL 0.5 MG IV (08:24)
--- NOTE | 2024-04-19 09:55 | PC.NURSE ---
Pt ambulated 150 ft in [place] w/ nurse on room air. Desatted to 87%, but once at rest pt sat improved and at rest was 93% while sitting in chair. It took about 1-2 min of pt sitting in chair for pt's sat to maintain > 90%.
[2024-04-19 11:13] LABS: POC Glucose,Bedside 120 (70-110)
[2024-04-19 11:21] LABS: Basophils % 0.3 % (0.1-2.0); Eosinophils % 0.6 % (0.1-12.0); Hematocrit 27.8 % (42.0-52.0); Hemoglobin 9.1 g/dL (14.1-18.0); Lymphocytes # 1.1 K/mm3 (0.7-4.5); Lymphocytes % 15.7 % (10-50); Mean Corpuscular HGB Conc 32.7 g/dL (31.8-35.4); Mean Corpuscular Hemoglobin 28.7 pg (27.0-31.2); Mean Corpuscular Volume 87.7 fl (80-94); Mean Platelet Volume 9.1 fl (7.4-10.4); Monocytes # 0.6 K/mm3 (0.1-1.0); Monocytes % 8.2 % (1.7-9.3); Platelet Count 541 K/mm3 (142-424); Red Blood Count 3.17 M/mm3 (4.60-6.20); Red Cell Distribution Width 16.6 % (11.5-17.5); White Blood Count 6.7 K/mm3 (4.8-10.8)
[2024-04-19 11:23] LABS: Albumin Level 2.8 g/dl (3.5-5.0); Albumin/Globulin Ratio 0.8 (1.1-1.8); Alkaline Phosphatase 135 U/L (38-126); Anion Gap 6.8 mEq/L (5-15); Bilirubin,Total 0.2 mg/dl (0.2-1.3); Blood Urea Nitrogen 7 mg/dl (9-20); Calcium 8.1 mg/dl (8.4-10.2); Carbon Dioxide 35 mmol/L (22.0-30.0); Chloride 98 mmol/L (98-107); Creatinine Clearance Estimated 262 mL/min (50-200); Estimated Glomerular Filt Rate 177 ml/min (>60); GFR (African American) 215 ML/MIN (>60); Globulin 3.5 g/dL (1.3-3.2); Glucose 103 mg/dl (74-100); Magnesium 1.7 mg/dl (1.6-2.3); Potassium 3.8 mmoL/L (3.5-5.1); Sodium 136 mmol/L (136-145); Total Protein,Serum 6.3 g/dl (6.3-8.2)
[2024-04-19 11:42] LABS: Alanine Aminotransferase 256 U/L (12-78); Aspartate Amino Transferase 268 U/L (17-59)
[2024-04-19 11:48] LABS: Procalcitonin 0.722 ng/mL (0.0-2.0)
[2024-04-19] MEDS: MAGNESIUM SULFATE IN WATER 2 GM/50 ML PIGGYBACK IV ×2 (12:29→13:35)
--- NOTE | 2024-04-19 12:37 | EXP.DC.SUM ---
General Admission date:: 04/11/24 HPI HPI HPI: Mr. Block is a 48-year-old gentleman who is admitted for respiratory distress and some pulmonary failure. He is a long-term smoker. He also has type 2 diabetes. He was admitted with low-grade fever and tachycardia and concern for sepsis with acute hypoxic respiratory failure. His chest x-ray showed multifocal pneumonia and he is on broad-spectrum antibiotics. The patient does have a mild spike in white blood cell count today of 21,700. He has also had a rising alkaline phosphatase of 194 and total bilirubin of 1.5. His AST was 133. He reports no abdominal pain, nausea or vomiting. His abdominal ultrasound yesterday showed some mild biliary ductal dilation with bile duct measuring up to 9 mm. There were no gallstones. He reports no recent alcohol use. Hospital Course Hospital Course Hospital Course: This 48-year-old male in septic shock from multifocal pneumonia (Influenza A positive) and acute hypoxic respiratory failure. He required ICU-level care with high-flow nasal cannula support, aggressive fluid resuscitation, and broad-spectrum antimicrobials (vancomycin, piperacillin-tazobactam, azithromycin, plus oseltamivir). His labs reveal acute kidney injury, electrolyte derangements (hyponatremia and hypokalemia), and elevated inflammatory markers. #Sepsis / Multifocal Pneumonia (Influenza A) #Acute hypoxic respiratory failure #MRSA bacteremia #COPD exacerbation ? CXR showed multifocal pneumonia. Sputum cultures also showing MRSA. Blood cultures showing MRSA. ? Gradually improved with vancomycin switched to linezolid, clindamycin, and did require meropenem for 1 day due to worsening sepsis. ? Finished 5-day course of Tamiflu. ? Weaned from 6 L nasal cannula (did require BiPAP for a day due to worsening respiratory failure) to 1 to 2 L nasal cannula during exertion. Desaturated to 87% without oxygen. ? Discharged with linezolid for 8 more days, clindamycin for 7 more days. Also discharged with prednisone for 3 more days for COPD exacerbation. ? Advised to follow-up with pulmonology within 1 week. #Type 2 Diabetes Mellitus ? A1c 5.1. Continue metformin and Jardiance. #Chronic Bilateral Foot Ulcers #Right foot cellulitis ? Foot CT negative for osteo. Continue antibiotics for possible infection of the soft tissue. ? Podiatry evaluated, debrided feet. Continue Betadine soaked gauze daily dressing changes ? No evidence of obstructive PAD on arterial Dopplers. ? CT foot not remarkable for abscess, osteomyelitis. ? Discussed with podiatry, do not believe worsening sepsis is related to feet given above. #HFpEF #Mild right heart failure ? ECHO suggestive of mild right heart failure. Does have diastolic dysfunction with elevated RVSP of 35 to 40 mmHg. ? Improved with Bumex diuresis. #Electrolyte Abnormalities #Transaminitis ? Sodium 133, chloride 94. AST improving 130, ALT 106. ALP also improving 149. Likely transaminitis from influenza. No abdominal pain. ? Right upper quadrant ultrasound obtained, mild ductal dilatation at 0.9 cm. No chelsea obstruction. No other abnormalities noted in the liver. ? GI consulted, recommended MRCP if appropriate. ? MRCP was ordered, patient could not tolerate it because he could not lay on his back flat. #Chronic Tobacco Use ? Nicotine patch daily as needed #Severe protein calorie malnutrition ? Nutrition consulted, providing recommendations and supplementation. Exam Data for Last 24 hours Vital signs and Labs for Last 24 Hours: Temp Pulse Resp BP Pulse Ox O2 Del Method O2 Flow Rate 98.2 F 88 20 107/65 L 91 L Room Air 1 04/19/24 08:00 04/19/24 10:48 04/19/24 08:00 04/19/24 08:00 04/19/24 08:00 04/19/24 11:00 04/19/24 06:36 FiO2 28 04/18/24 19:14 Laboratory Results - last 24 hr 04/18/24 06:52: Hepatitis A IgM Ab Negative, Hep Bs Antigen Negative, Hep B Core IgM Ab Negative, Hepatitis C Antibody Non reactive, HCV RNA PCR Test Info Comment 04/18/24 16:24: POC Glucose 119 H 04/18/24 21:27: POC Glucose 100 04/19/24 05:35: POC Glucose 132 H 04/19/24 10:47: WBC 6.7 D, RBC 3.17 L, Hgb 9.1 L, Hct 27.8 L, MCV 87.7, MCH 28.7, MCHC 32.7, RDW 16.6, Plt Count 541 H, MPV 9.1, Neut % (Auto) 74.0, Lymph % (Auto) 15.7, [place] % (Auto) 8.2, Eos % (Auto) 0.6, Baso % (Auto) 0.3, Neut # (Auto) 5.0, Lymph # (Auto) 1.1, [place] # (Auto) 0.6, Eos # (Auto) 0.0, Baso # (Auto) 0.0, Sodium 136, Potassium 3.8, Chloride 98, Carbon Dioxide 35 H, Anion Gap 6.8, BUN 7 L D, Creatinine 0.50 L, Estimated Creat Clear 262, Estimated GFR 177, Est GFR ( Amer) 215, Glucose 103 H, Calcium 8.1 L, Magnesium 1.7, Total Bilirubin 0.2, AST 268 H D, ALT 256 H D, Alkaline Phosphatase 135 H, Total Protein 6.3, Albumin 2.8 L, Globulin 3.5 H, Albumin/Globulin Ratio 0.8 L, Procalcitonin 0.722 04/19/24 11:06: POC Glucose 120 H I & O for Last 24 hours: Intake & Output 04/16/24 04/17/24 04/18/24 04/19/24 23:59 23:59 23:59 23:59 Intake Total 1772 / 1772 1350 / 1750 1750 / 2550 1000 / 1000 Output Total 3025 / 3025 3100 / 3900 2600 / 3100 2550 / 2550 Balance -1253 / -1253 -1750 / -2150 -850 / -550 -1550 / -1550 Weight 100.062 kg 100.062 kg 99.658 kg 102.376 kg Microbiology Reports for the Last 24 Hours: Microbiology 04/13/24 13:08 Blood Blood Culture - Final NO GROWTH AFTER 5 DAYS 04/13/24 13:00 Blood Blood Culture - Final NO GROWTH AFTER 5 DAYS Constitutional Constitutional: no acute distress *Routine HEENT Exam Head: Present normocephalic Eye: Present EOMI and PERRL ENT: Present mucous membranes moist *Routine Neck Exam Neck: Present supple; Absent lymphadenopathy *Routine Respiratory Exam Respiratory: Present wheezes; Absent CTA bilaterally *Routine Cardiovascular Exam Cardiovascular: Present RRR *Routine Abdominal Exam Abdominal: Present soft and normoactive bowel sounds; Absent tenderness *Routine Extremities Exam Extremities: Absent cyanosis, clubbing or edema *Routine Skin Exam Skin: Present warm; Absent rash *Routine Neurological Exam Neurological: Present alert and oriented X3 Results Data Completed and Pending Labs on day of discharge: Labs from last 24 hours 04/19/24 04/19/24 04/19/24 11:06 10:47 05:35 WBC 6.7 D RBC 3.17 L Hgb 9.1 L Hct 27.8 L MCV 87.7 MCH 28.7 MCHC 32.7 RDW 16.6 Plt Count 541 H MPV 9.1 Neut % (Auto) 74.0 Lymph % (Auto) 15.7 [place] % (Auto) 8.2 Eos % (Auto) 0.6 Baso % (Auto) 0.3 Neut # (Auto) 5.0 Lymph # (Auto) 1.1 [place] # (Auto) 0.6 Eos # (Auto) 0.0 Baso # (Auto) 0.0 Sodium 136 Potassium 3.8 Chloride 98 Carbon Dioxide 35 H Anion Gap 6.8 BUN 7 L D Creatinine 0.50 L Estimated Creat Clear 262 Estimated GFR 177 Est GFR ( Amer) 215 Glucose 103 H POC Glucose 120 H 132 H Calcium 8.1 L Magnesium 1.7 Total Bilirubin 0.2 AST 268 H D ALT 256 H D Alkaline Phosphatase 135 H Total Protein 6.3 Albumin 2.8 L Globulin 3.5 H Albumin/Globulin Ratio 0.8 L Procalcitonin 0.722 Hepatitis A IgM Ab Hep Bs Antigen Hep B Core IgM Ab Hepatitis C Antibody HCV RNA PCR Test Info 04/18/24 04/18/24 04/18/24 21:27 16:24 06:52 WBC RBC Hgb Hct MCV MCH MCHC RDW Plt Count MPV Neut % (Auto) Lymph % (Auto) [place] % (Auto) Eos % (Auto) Baso % (Auto) Neut # (Auto) Lymph # (Auto) [place] # (Auto) Eos # (Auto) Baso # (Auto) Sodium Potassium Chloride Carbon Dioxide Anion Gap BUN Creatinine Estimated Creat Clear Estimated GFR Est GFR ( Amer) Glucose POC Glucose 100 119 H Calcium Magnesium Total Bilirubin AST ALT Alkaline Phosphatase Total Protein Albumin Globulin Albumin/Globulin Ratio Procalcitonin Hepatitis A IgM Ab Negative Hep Bs Antigen Negative Hep B Core IgM Ab Negative Hepatitis C Antibody Non reactive HCV RNA PCR Test Info Comment DS: Diagnosis Discharge Diagnosis (1) Sepsis: Status: Acute Code(s): A41.9 - Sepsis, unspecified organism (2) Influenza A: Status: Acute Code(s): J10.1 - Influenza due to other identified influenza virus with other respiratory manifestations (3) Staphylococcus aureus bacteremia with sepsis: Status: Acute Code(s): A41.01 - Sepsis due to Methicillin susceptible Staphylococcus aureus (4) Acute hypoxic respiratory failure: Status: Acute Code(s): J96.01 - Acute respiratory failure with hypoxia (5) Acute hypokalemia: Status: Acute Code(s): E87.6 - Hypokalemia (6) Acute hyponatremia: Status: Acute Code(s): E87.1 - Hypo-osmolality and hyponatremia (7) SAGAR (acute kidney injury): Status: Acute Code(s): N17.9 - Acute kidney failure, unspecified (8) Chronic diabetic ulcer of foot determined by examination: Status: Acute Code(s): E11.621 - Type 2 diabetes mellitus with foot ulcer; L97.509 - Non-pressure chronic ulcer of other part of unspecified foot with unspecified severity (9) Cellulitis of foot: Status: Acute Code(s): L03.119 - Cellulitis of unspecified part of limb (10) Multifocal pneumonia: Status: Acute Code(s): J18.9 - Pneumonia, unspecified organism (11) Alcohol use disorder in remission: Status: Acute Code(s): F10.91 - Alcohol use, unspecified, in remission (12) Opioid use disorder in remission: Status: Acute Code(s): F11.91 - Opioid use, unspecified, in remission (13) Type 2 diabetes mellitus: Status: Acute Code(s): E11.9 - Type 2 diabetes mellitus without complications (14) Hypophosphatemia: Status: Acute Code(s): E83.39 - Other disorders of phosphorus metabolism (15) Non-healing ulcer of foot: Status: Acute Code(s): L97.509 - Non-pressure chronic ulcer of other part of unspecified foot with unspecified severity Qualifiers: Laterality: right Non-pressure ulcer stage: limited to breakdown of skin Qualified Code(s): L97.511 - Non-pressure chronic ulcer of other part of right foot limited to breakdown of skin Meds Home Medications and Allergies Home Medications ?Medication ?Instructions ?Recorded ?Confirmed ?Type buprenorphine 8 mg-naloxone 2 mg 2 tab sublingual DAILY 08/06/23 04/11/24 History sublingual tablet hydrochlorothiazide 25 mg tablet 25 mg PO DAILY #90 tabs 10/02/23 04/11/24 Rx empagliflozin 10 mg tablet 10 mg PO DAILY #90 tabs 12/02/23 04/11/24 Rx (Jardiance) desvenlafaxine succinate 100 mg 100 mg PO DAILY #30 tabs 12/17/23 04/11/24 Rx tablet,extended release 24 hr (Pristiq) bupropion HCl 150 mg 24 hr tablet, 150 mg PO DAILY #30 tabs 12/30/23 04/11/24 Rx extended release (Wellbutrin XL) cariprazine 1.5 mg capsule 1.5 mg PO DAILY #30 caps 02/18/24 04/11/24 Rx (Vraylar) lisinopril 5 mg tablet 5 mg PO DAILY #90 tabs 03/04/24 04/11/24 Rx metformin 500 mg tablet 500 mg PO DAILY #90 tabs 03/04/24 04/11/24 Rx atorvastatin 20 mg tablet 20 mg PO DAILY 04/12/24 04/12/24 History clindamycin HCl 150 mg capsule 450 mg (3 x 150 mg) PO TID 7 days 04/19/24 Rx #63 caps fluticasone fur. 100 mcg-umeclid 1 inh inhalation DAILY 30 days #0 04/19/24 Rx 62.5 mcg-vilant 25 mcg ea inhalat.powder (Trelegy Ellipta) linezolid 600 mg tablet 600 mg PO BID 8 days #15 tabs 04/19/24 Rx pantoprazole 40 mg tablet,delayed 40 mg PO HS 30 days #30 tabs 04/19/24 Rx release prednisone 20 mg tablet 20 mg PO DAILY 3 days #3 tabs 04/19/24 Rx New Prescriptions to Start Prescriptions: clindamycin HCl Nathan Valencia linezolid Nathan Valencia pantoprazole Annie,Nathan prednisone Nathan Valencia Allergies Allergy/AdvReac Type Severity Reaction Status Date / Time No Known Allergies Allergy Verified 04/11/24 22:50 Discharge Plan Disposition Patient Disposition: Home, Self-Care Condition: Fair Discharge Order Discharge Orders: Discharge Order (Routine); Ordered 04/19/24 Ordered By: Nathan Valencia Follow up Plan Follow up with: Jazmni Wilson APRN [Primary Care Provider] - Enter time for follow up (please call for appointment) Jim Wolfe MD [Physician] - 04/22/24 (please call for appointment) Annie Munoz DPM [Staff Physician] - Enter time for follow up (please call to make follow-up) Prescriptions/Medication Reconciliation: New linezolid 600 mg Tablet 600 mg PO BID 8 Days Qty: 15 0RF Trelegy Ellipta 100-62.5-25 mcg Blister With Device 1 inh inhalation DAILY 30 Days Qty: 0 0RF clindamycin HCl 150 mg capsule 450 mg PO TID 7 Days Qty: 63 0RF pantoprazole 40 mg Tablet,Delayed Release (Dr/Ec) 40 mg PO HS 30 Days Qty: 30 0RF prednisone 20 mg tablet 20 mg PO DAILY 3 Days Qty: 3 0RF Continued buprenorphine-naloxone 8-2 mg tablet, sublingual 2 tab sublingual DAILY hydrochlorothiazide 25 mg tablet 25 mg PO DAILY Qty: 90 1RF Jardiance 10 mg tablet 10 mg PO DAILY Qty: 90 1RF desvenlafaxine succinate [Pristiq] 100 mg tablet extended release 24 hr 100 mg PO DAILY Qty: 30 2RF Vraylar 1.5 mg capsule 1.5 mg PO DAILY Qty: 30 2RF lisinopril 5 mg tablet 5 mg PO DAILY Qty: 90 1RF metformin 500 mg tablet 500 mg PO DAILY Qty: 90 1RF atorvastatin 20 mg tablet 20 mg PO DAILY Held bupropion HCl [Wellbutrin XL] 150 mg tablet extended release 24 hr 150 mg PO DAILY Qty: 30 2RF Hold Instructions: Resume on 04/27/24. Hold this medication until you finish the new antibiotic linezolid as this can cause side effects like serotonin syndrome. Other Ambulatory Orders: Home Medical Equipment (Routine) Location: None Selected Ordered By: Nathan Valencia Problem Reconciliation Problems Reviewed?: Yes Patient Discharge Instructions Patient Instructions: DI for Pneumonia -- Adult, DI for Diabetic Foot Ulcer, DI for Influenza -- Adult, DI for Hypokalemia Print Language: Sami Providers Primary Care Provider: Jazmin Wilson Admit Provider: Nabeel Orellana Attending Provider: Nabeel Orellana
--- NOTE | 2024-04-19 13:15 | PC.NURSE ---
Room air sat @ rest = 87%
[2024-04-19 15:25] LABS: Erythrocyte Sedimentation Rate 127 mm/hr (0-15)
--- NOTE | 2024-04-21 10:50 | SW/DCPLANNER ---
Spoke with patient on the phone. Patient stated that he is doing well. Patient stated that he is aware of his upcoming appointment and that he is going to call the other to see the time. Patient stated that he has picked his medicine up from the pharmacy. I asked patient about his dressing changes and he said that he has been doing them hinmself and that they said it was alright. Patient stated that he has no concerns or questions at this time. Hilda Durham
== END 2024-04-19 14:10 | disposition home or self-care (01) | DRG 166 ==
LOC: ER 20:16 → ICU 21:35 → 2ND 04-13 09:43 → ICU 04-15 09:31 → 2ND 04-16 16:49
PROVIDERS: Internal Medicine Pulmonary Disease; Nurse Practitioner Family; Student in an Organized Health Care Education/Training Program; Admitting Provider Internal Medicine Adolescent Medicine; Emergency Provider Student in an Organized Health Care Education/Training Program; PCP Nurse Practitioner; Visit Provider Internal Medicine Adolescent Medicine
DX: J10.1 Influenza due to other identified influenza virus with other respiratory manifestations (principal); J96.01 Acute respiratory failure with hypoxia; N17.9 Acute kidney failure, unspecified; L03.115 Cellulitis of right lower limb; E11.621 Type 2 diabetes mellitus with foot ulcer; L97.511 Non-pressure chronic ulcer of other part of right foot limited to breakdown of skin; L97.521 Non-pressure chronic ulcer of other part of left foot limited to breakdown of skin; F17.210 Nicotine dependence, cigarettes, uncomplicated; Z79.84 Long term (current) use of oral hypoglycemic drugs; Z79.899 Other long term (current) drug therapy; I10 Essential (primary) hypertension; E78.5 Hyperlipidemia, unspecified; F43.12 Post-traumatic stress disorder, chronic; M20.41 Other hammer toe(s) (acquired), right foot; M20.42 Other hammer toe(s) (acquired), left foot; E11.40 Type 2 diabetes mellitus with diabetic neuropathy, unspecified; L60.8 Other nail disorders
CPT/HCPCS: 36415; 71045; 71275; 73620; 73701; 74177; 76705; 80053; 80074; 80202; 82803; 82962; 83036; 83605; 83735; 83880; 84100; 84145; 84484; 85007; 85025; 85610; 85651; 85730; 86140; 86803; 87040; 87070; 87077; 87081; 87186; 87205; 87389; 87636; 93005; 93306; 93923; 93970; 94640; 94660; 94760; 94761; 97110; 97116; 97163; 97166; 97530; 97535; 99221; 99291; G0238; J0131; J0456; J0574; J0736; J1650; J1885; J1939; J2185; J2543; J3370; J3372; J3475; J3480; J7050; J7120; J7620; Q9967

== ENCOUNTER 2024-10-07 16:28 | Outpatient (CLI) | payer OTHER, SELFPAY ==
[2024-10-07 19:42] LABS: Hematocrit 39.3 % (42.0-52.0); Hemoglobin 12.7 g/dL (14.1-18.0); Immature Granulocytes % 0.3 %; Mean Corpuscular HGB Conc 32.3 g/dL (31.8-35.4); Mean Corpuscular Hemoglobin 27.7 pg (27.0-31.2); Mean Corpuscular Volume 85.8 fl (80-94); Nucleated Red Blood Cells % 0 %; Platelet Count 188 K/mm3 (142-424); Red Blood Count 4.58 M/mm3 (4.60-6.20); Red Cell Distribution Width-SD 45.5 fL; White Blood Count 7.2 K/mm3 (4.8-10.8)
[2024-10-07 21:19] LABS: Albumin Level 4.1 g/dl (3.5-5.0); Chloride 105 mmol/L (98-107); Sodium 140 mmol/L (136-145)
[2024-10-07 21:20] LABS: Potassium 4.1 mmoL/L (3.5-5.1)
[2024-10-07 21:22] LABS: Alanine Aminotransferase 25 U/L (12-78); Albumin/Globulin Ratio 1.4 (1.1-1.8); Alkaline Phosphatase 106 U/L (38-126); Anion Gap 9.1 mEq/L (5-15); Aspartate Amino Transferase 30 U/L (17-59); Blood Urea Nitrogen 13 mg/dl (9-20); Calcium 9.0 mg/dl (8.4-10.2); Carbon Dioxide 30 mmol/L (22.0-30.0); Creatinine,Serum 0.60 mg/dl (0.66-1.25); Estimated Glomerular Filt Rate 144 ml/min (>60); GFR (African American) 174 ML/MIN (>60); Globulin 3.0 g/dL (1.3-3.2); Glucose 111 mg/dl (74-100); Total Protein,Serum 7.1 g/dl (6.3-8.2)
[2024-10-07 21:24] LABS: Hemoglobin A1C 5.3 % (4.0-6.0)
[2024-10-07 21:25] LABS: Bilirubin,Total < 0.1 mg/dl (0.2-1.3)
[2024-10-07 21:31] LABS: Free T4 (Free Thyroxine) 1.05 ng/dl (0.78-2.19)
[2024-10-07 21:51] LABS: Thyroid Stimulating Hormone 1.52 uIU/mL (0.465-4.68)
[2024-10-07 22:41] LABS: 25-OH Vitamin D, Total < 12.8 ng/mL (30-100)
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
--- OUTSIDE RECORDS SUMMARY | 2024-10-08 11:54 | XMS_ITS | Clinical Summary ---
Author Organization [facility] Address [address] [place] [address] Care Team Providers Care Warehouse Picker Name Role Phone Unavailable Primary Care Provider Unavailabl e Allergies No known active allergies Medications No known medications Active Problems No known active problems Family History Relation Name Status Comments Brother 1 Alive Brother 2 Alive Father Other Mother Alive Sister 1 Alive Sister 2 Alive Social History Tobacco Use Types Packs/Day Years Used Date Smoking Tobacco: Every Day Cigarettes Smokeless Tobacco: Never Alcohol Use Standard Drinks/Week Comments No 0 (1 standard drink = 0.6 oz pur e alcohol) Sex and Gender Information Value Date Recorded Sex Assigned at Not on file Legal Sex Male 11:11 AM EST Gender Identity Not on file Sexual Orientation Not on file Last Filed Vital Signs Vital Sign Reading Time Taken Comments Blood Pressure 140/82 09/17/2014 11:56 AM EDT Pulse 100 09/17/2014 11:56 AM EDT Temperature 37.2 C (98.9 F) 09/17/2014 11:56 AM EDT Respiratory Rate - - Oxygen Saturation 97% 09/17/2014 11:56 AM EDT Inhaled Oxygen Concentration - - Weight 107.5 kg (237 lb) 09/17/2014 11:56 AM EDT Height 180.3 cm (5' 11 ) 09/17/2014 11:56 AM EDT Body Mass Index 33.05 09/17/2014 11:56 AM EDT Plan of Treatment Health Maintenance Due Date Last Done Comments Cologuard 1975 Colonoscopy 1975 Colorectal Cancer Screening 1975 FIT 1975 Lipid Screening 11/03/1993 Tetanus Vaccination (Every 10 Years) 11/03/1993 COVID-19 Vaccine ( season) 2023 Depression Screening 02/19/2024 Influenza Vaccination (#1) 2024 Insurance MEDICAID OTHER STATES
== END 2024-10-07 23:59 | disposition home or self-care (01) ==
LOC: LAB.DROPOF 10-08 11:53
PROVIDERS: PCP Nurse Practitioner Acute Care; Visit Provider Nurse Practitioner Acute Care
DX: G47.00 Insomnia, unspecified (principal); E11.9 Type 2 diabetes mellitus without complications; I10 Essential (primary) hypertension; R74.8 Abnormal levels of other serum enzymes; R53.83 Other fatigue
CPT/HCPCS: 80053; 82306; 83036; 84439; 84443; 85025